=== PATIENT | male | born 1935 | race Caucasian/White ===

== ENCOUNTER → 2018-04-15 07:56 | Outpatient (CLI) | payer OTHER, SELFPAY ==
[2018-04-15 09:10] LABS: Add Manual Diff / Slide Review NO; Basophils Absolute Auto 100 /uL (0-100); Basophils Percent Auto 0.8 % (0-2); Eosinophils Absolute Auto 200 /uL (0-450); Eosinophils Percent Auto 1.9 % (2-4); Hematocrit 51.6 % (41-53); Hemoglobin 17.9 g/dL (13.5-17.5); Lymphocytes Absolute Auto 2300 /uL (1100-4500); Lymphocytes Percent Auto 28.7 % (25-40); Mean Corpuscular HGB Conc 34.7 % (30-36); Mean Corpuscular Hemoglobin 31.5 PG (26-34); Mean Corpuscular Volume 90.7 fL (80-100); Monocytes Absolute Auto 500 /uL (0-900); Monocytes Percent Auto 5.7 % (3-14); Neutrophils Absolute Auto 5100 /uL (1500-7000); Neutrophils Percent Auto 62.9 % (50-75); Platelet Count 195 X10^3/uL (150-400); Red Blood Cell Count 5.69 X10^6/uL (4.5-5.9); Red Cell Distribution Width 13.2 % (11.6-14.8); White Blood Cell Count 8.1 X10^3/uL (4.5-11.0)
[2018-04-15 09:33] LABS: Alanine Aminotransferase 26 IU/L (21-72); Albumin 4.2 g/dL (3.5-5.0); Albumin Globulin Ratio 1.4 (1.0-2.8); Alkaline Phosphatase 98 U/L (38-126); Aspartate Aminotransferase 26 IU/L (17-59); BUN Creatinine Ratio 11.8 (6-22); Bilirubin Total 0.9 mg/dL (0.2-1.3); Blood Urea Nitrogen 13 mg/dL (9-20); Calcium 9.4 mg/dL (8.4-10.2); Carbon Dioxide 29 mmol/L (22-32); Chloride 100 mmol/L (98-107); Cholesterol 114 mg/dL (140-199); Estimated Glomerular Filt Rate > 60.0 mL/min (>60); Glucose 98 mg/dL (80-110); HDL Cholesterol 34 mg/dL (40-60); HEMOLYSIS < 15 (0-50); LDL Cholesterol Calculated 44 mg/dL (<100); Potassium 3.8 mmol/L (3.4-5.1); Sodium 140 mmol/L (137-145); Total Protein 7.2 g/dL (6.3-8.2); Triglycerides 182 mg/dL (35-150)
[2018-04-15 10:06] LABS: TSH w/ Reflex to FT4 2.89 uIU/mL (0.47-4.68)
== END ==
PROVIDERS: Family Provider Family Medicine; PCP Family Medicine; Visit Provider Family Medicine
DX: I25.10 Atherosclerotic heart disease of native coronary artery without angina pectoris (principal); I10 Essential (primary) hypertension
CPT/HCPCS: 36415; 80053; 80061; 84443; 85025

== ENCOUNTER → 2018-08-22 18:58 | Outpatient (CLI) | payer OTHER, SELFPAY ==
--- NOTE | 2018-08-22 19:03 | DI.RAD.S_ITS ---
PROCEDURE: XR FACIAL BONES MIN 3V INDICATIONS: Fall, hit face, laceration to nose and forehead TECHNIQUE: 3 views of the facial bones were acquired. COMPARISON: None. FINDINGS: Sinuses: Visualized sinuses demonstrate no air-fluid levels or mucosal thickening. Bones: No fractures. No suspicious bony lesions. Orbital rims and zygomatic arches appear intact. There is severe degenerative change of the cervical spine. Dental implants are noted within the anterior mandible. Soft tissues: No suspicious soft tissue densities. IMPRESSION: No convincing radiographic evidence of an acute facial fracture. Consider followup CT if there is continued clinical concern. Dictated by: Domenico Hirsch M.D. on 08/22/2018 at 23:38 Approved by: Domenico Hirsch M.D. on 08/22/2018 at 23:40
== END ==
PROVIDERS: Family Provider Family Medicine; PCP Family Medicine; Visit Provider Physician Assistant
DX: S00.83XA Contusion of other part of head, initial encounter (principal); W18.00XA Striking against unspecified object with subsequent fall, initial encounter
CPT/HCPCS: 70150

== ENCOUNTER 2018-12-27 17:36 | Emergency (ER) | payer OTHER, SELFPAY ==
[2018-12-27 17:44] VITALS: BP 139/75; PULSE 91; RESP 16; TEMP 37.1; O2SAT 99; BMI 22.5
[2018-12-27 18:42] LABS: RBC Urine 1-5/HPF (0-5/HPF); Squamous Epithelial Cell Urine 0-1 /HPF (0-5/HPF); WBC Urine 10-30/HPF (0-5/HPF)
[2018-12-27 18:43] LABS: Bacteria Urine Many (>30); Culture Indicated Urine Specimen Cultured
--- NOTE | 2018-12-27 18:55 | ED.MALEGU ---
HPI - Male Genitourinary <DECLAN Miguel-BC - Last Filed: 12/27/18 19:52> General Chief complaint: Urogenital-Male Stated complaint: Post surgical UTI Time Seen by Provider: 12/27/18 18:32 Source: patient and family Mode of arrival: Ambulatory Limitations: no limitations History of Present Illness HPI Narrative: The patient is an 83-year-old male current smoker with history of with a chief complaint of urinary tract infection. He states that he had an angio procedure done at [facility] on Sunday. He states that he had a Chen catheter which was removed on Sunday evening. Yesterday started having dysuria, and frequency. Patient denies any flank pain, fevers nausea vomiting or diarrhea. He denies any abdominal pain. His is concerned about urinary tract infection, especially given his recent Chen catheter. Related Data Home Medications Medication Instructions Recorded Confirmed amlodipine 2.5 mg PO DAILY 12/27/18 12/27/18 atorvastatin 40 mg PO BEDTIME 12/27/18 clopidogrel 75 mg PO DAILY 12/27/18 12/27/18 hydrochlorothiazide 12.5 mg PO DAILY 12/27/18 12/27/18 Previous Rx's Medication Instructions Recorded sulfamethoxazole-trimethoprim 1 tab PO BID #14 tab 12/27/18 [Bactrim DS] Allergies Allergy/AdvReac Type Severity Reaction Status Date / Time No Known Drug Allergies Allergy Verified 12/27/18 17:58 Review of Systems <DECLAN Miguel-BC - Last Filed: 12/27/18 19:52> Review of Systems Narrative: GENERAL: Denies chills, fatigue, malaise, fever, sweats. HEENT: Denies sinus pain, ear pain, sore throat, difficulty swallowing, dizziness. RESPIRATORY: Denies dyspnea, cough, wheezing, hemoptysis, sputum. CARDIOVASCULAR: Denies chest pain, palpitations, orthopnea, edema, GASTROINTESTINAL: Denies nausea, vomiting, abdominal pain, diarrhea, constipation, melena. : See HPI MUSCULOSKELETAL: denies weakness, joint pain, or bony pain SKIN: Denies rash, skin lesions, or other NEUROLOGIC: Denies weakness, headache, numbness, change in speech, confusion, seizures, incoordination. PSYCHIATRIC: No concerning psychosocial issues. 12 point review of systems is negative except for those stated above Patient History <ZULEYKA Miguel - Last Filed: 12/27/18 19:52> Medical History (Updated 12/27/18 @ 18:57 by ZULEYKA Miguel) Hypertension (Acute) Social History Smoking Status: Current every day smoker tobacco type: cigarettes Substance Use Type: does not use Exam <ZULEYKA Miguel - Last Filed: 12/27/18 19:52> Narrative Exam Narrative: GENERAL: This is a well-nourished, well-developed patient, in no acute distress HEAD: Atraumatic. Normocephalic. No temporal or scalp tenderness. EYES: Pupils equal round and reactive. Extraocular motions intact. No scleral icterus. No injection or drainage. ENT: Nose without bleeding, purulent drainage or septal hematoma. Throat without erythema, tonsillar hypertrophy or exudate. Uvula midline. Airway patent. NECK: Trachea midline. No JVD or lymphadenopathy. Supple, nontender, no meningeal signs. CARDIOVASCULAR: Regular rate and rhythm without murmurs, gallops, or rubs. RESPIRATORY: Clear to auscultation. Breath sounds equal bilaterally. No wheezes, rales, or rhonchi. No cough. No increased respiratory effort. No accessory muscle use. GASTROINTESTINAL: Abdomen soft, non-tender, nondistended. No hepato-splenomegaly, or palpable masses. No guarding. EXTREMITIES: No clubbing, cyanosis, or edema. No joint tenderness, effusion, or edema noted. BACK: Nontender without deformity or crepitance. No flank tenderness. No CVA tenderness. NEURO: AOx3. SKIN: No rash or erythema visible skin Initial Vital Signs Initial Vital Signs: Vital Signs Temperature 98.7 F 12/27/18 17:44 Pulse Rate 91 H 12/27/18 17:44 Respiratory Rate 16 12/27/18 17:44 Blood Pressure 139/75 12/27/18 17:44 Pulse Oximetry 99 12/27/18 17:44 <Dyllan Dueñas DO - Last Filed: 12/27/18 21:44> Initial Vital Signs Initial Vital Signs: Vital Signs Temperature 98.7 F 12/27/18 17:44 Pulse Rate 91 H 12/27/18 17:44 Respiratory Rate 16 12/27/18 17:44 Blood Pressure 139/75 12/27/18 17:44 Pulse Oximetry 99 12/27/18 17:44 Course <ZULEYKA Miguel - Last Filed: 12/27/18 19:52> Orders Ordered: ED Orders 12/27/18 18:15 Urine Culture Stat Urine Microscopic Stat Vital Signs Vital signs: Vital Signs - 8 hr 12/27/18 17:44 12/27/18 19:12 12/27/18 19:13 Temperature 98.7 F 98.4 F Pulse Rate 91 H 91 H 91 H Respiratory Rate 16 18 16 Blood Pressure 139/75 139/66 Blood Pressure [Left Arm] 139/66 Pulse Oximetry 99 99 99 <Dyllan Dueñas DO - Last Filed: 12/27/18 21:44> Orders Ordered: ED Orders 12/27/18 18:15 Urine Culture Stat Urine Microscopic Stat Vital Signs Vital signs: Vital Signs - 8 hr 12/27/18 17:44 12/27/18 19:12 12/27/18 19:13 Temperature 98.7 F 98.4 F Pulse Rate 91 H 91 H 91 H Respiratory Rate 16 18 16 Blood Pressure 139/75 139/66 Blood Pressure [Left Arm] 139/66 Pulse Oximetry 99 99 99 MDM - Male Genitourinary <ZULEYKA Miguel - Last Filed: 12/27/18 19:52> Lab Data Labs: Lab Results 12/27/18 Range/Units 18:15 Urine RBC 1-5/hpf (0-5/HPF) Urine WBC 10-30/hpf H (0-5/HPF) Ur Squamous Epith Cells 0-1 /hpf (0-5/HPF) Urine Bacteria Many (>30) H (None) Ur Culture Indicated? Specimen cultured Urine Dip Bedside Urine Glucose Negative Bedside Urine Bilirubin - Negative Bedside Urine Ketone - Negative Urine Specific [place] 1.015 Bedside Urine Occult Blood + Bedside Urine pH 6.0 Bedside Urine Protein + 30 Bedside Urine Urobilinogen +/- 1mg Bedside Urine Nitrite + Positive Bedside Urine Leukocytes ++ 125 Esterase MDM Narrative Medical decision making narrative: The patient is an 83-year-old male who presents with a chief complaint of dysuria and frequency. His urine is concerning for infection, with bacteria and nitrates. He has no signs of systemic infection, is not tachycardic, is afebrile. I discussed at length monitoring for signs of pyelonephritis including flank pain, vomiting, inability keep down fluids. Urine cultures pending at this time. I will start the patient on Bactrim. Patient have no questions or concerns upon discharge and states understanding of return precautions as well as follow-up care. <Dyllan Dueñas, DO - Last Filed: 12/27/18 21:44> Lab Data Labs: Lab Results 12/27/18 Range/Units 18:15 Urine RBC 1-5/hpf (0-5/HPF) Urine WBC 10-30/hpf H (0-5/HPF) Ur Squamous Epith Cells 0-1 /hpf (0-5/HPF) Urine Bacteria Many (>30) H (None) Ur Culture Indicated? Specimen cultured Urine Dip Bedside Urine Glucose Negative Bedside Urine Bilirubin - Negative Bedside Urine Ketone - Negative Urine Specific [place] 1.015 Bedside Urine Occult Blood + Bedside Urine pH 6.0 Bedside Urine Protein + 30 Bedside Urine Urobilinogen +/- 1mg Bedside Urine Nitrite + Positive Bedside Urine Leukocytes ++ 125 Esterase Discharge Plan Departure Patient Disposition: Home Clinical Impression: Urinary tract infection Qualifiers: Urinary tract infection type: site unspecified Hematuria presence: without hematuria Qualified Code(s): N39.0 - Urinary tract infection, site not specified Discharge Date/Time: 12/27/18 19:16 Instructions: DI for Urinary Tract Infection (UTI) Activity Restrictions/Additional Instructions: I have started you on an antibiotic for your urinary tract infection. [facility]. We have urine culture pending at this time. If we have to change your antibiotics, he will get a call in 2-3 days. Please monitor for flank pain, fever, inability keep down fluids or any acute changes. Please come back To emergency department for any acute concerns. Please rest and push fluids. Please follow up with primary care provider in the next few days. Prescriptions: New sulfamethoxazole-trimethoprim [Bactrim DS] 800-160 mg tablet 1 tab PO BID Qty: 14 RF: 0 No Action atorvastatin 40 mg tablet 40 mg PO BEDTIME RF: 0 amlodipine 2.5 mg tablet 2.5 mg PO DAILY RF: 0 clopidogrel 75 mg tablet 75 mg PO DAILY RF: 0 hydrochlorothiazide 12.5 mg capsule 12.5 mg PO DAILY RF: 0 Referrals: Dusty Robbins MD [Primary Care Provider] - <Dyllan Dueñas, - Last Filed: 12/27/18 21:44> Sign Out Provider Sign Out Attestation: Dr Dueñas Co-Sign Statement: I was available for consultation during this patient's emergency department visit. This chart is signed by myself for administrative purposes only. I did not have direct contact with this patient during this visit. They were seen independently by the APC.
[2018-12-27 19:12] VITALS: BP 139/66; PULSE 91; RESP 18; O2SAT 99
[2018-12-27 19:13] VITALS: BP 139/66; PULSE 91; RESP 16; TEMP 36.9; O2SAT 99
== END 2018-12-27 19:16 | disposition home or self-care (01) ==
PROVIDERS: Emergency Medicine; Emergency Provider Nurse Practitioner Family; Family Provider Internal Medicine Interventional Cardiology; PCP Family Medicine
DX: N39.0 Urinary tract infection, site not specified (principal); I10 Essential (primary) hypertension
CPT/HCPCS: 81003; 81015; 87077; 87086; 87186; 99282; 99283

== ENCOUNTER → 2019-03-10 12:05 | Outpatient (CLI) | payer OTHER, SELFPAY ==
--- NOTE | 2019-03-10 12:06 | DI.RAD.S_ITS ---
PROCEDURE: XR HIP W PEL IF DONE LT MIN 4V INDICATIONS: pain after fall TECHNIQUE: AP pelvis with lateral view(s) of both hips. COMPARISON: [facility], , PELVIS MINIMUM 3 VIEWS, 06/15/2015, 15:39. [facility], , XR SACRUM COCCYX MIN 2V, 03/10/2019, 12:03. [facility], , [id number] W PEL IF PERFORMED, 04/10/2015, 17:05. FINDINGS: Bones: Osteopenia. Transsacral and right superior pubic ramus screw fixation is unchanged. No casey-screw lucency. No acute fractures or dislocations. Pelvic ring appears intact. No suspicious bony lesions. Soft tissues: The visualized bowel gas pattern is normal. No suspicious soft tissue calcifications. Surgical clips in the groins bilaterally. Vascular calcification. IMPRESSION: No fracture or dislocation identified. Osteopenia. Recommend CT of the pelvis for further evaluation if concern for occult fracture. Transsacral and right superior pubic ramus screw fixation and is unchanged. Dictated by: Luigi Almazan M.D. on 03/10/2019 at 12:44 Approved by: Luigi Almazan M.D. on 03/10/2019 at 12:48
--- NOTE | 2019-03-10 12:06 | DI.RAD.S_ITS ---
PROCEDURE: XR SACRUM COCCYX MIN 2V INDICATIONS: pain after fall TECHNIQUE: 3 views of the sacrum and coccyx acquired. COMPARISON: [facility], CR, XR HIP W PEL IF DONE [place] 3TO4V, 03/10/2019, 12:03. FINDINGS: Bones: No fractures or dislocations. No suspicious bony lesions. Transsacral and superior right pubic ramus screw fixation is unchanged. Soft tissues: Visualized bowel gas pattern is normal. No suspicious soft tissue densities. IMPRESSION: No acute fracture identified. Dictated by: Luigi Almazan M.D. on 03/10/2019 at 12:48 Approved by: Luigi Almazan M.D. on 03/10/2019 at 12:49
== END ==
PROVIDERS: Family Provider Internal Medicine Interventional Cardiology; PCP Family Medicine; Referring Provider Physician Assistant; Visit Provider Physician Assistant
DX: M53.3 Sacrococcygeal disorders, not elsewhere classified (principal); M25.559 Pain in unspecified hip; M85.80 Other specified disorders of bone density and structure, unspecified site
CPT/HCPCS: 72220; 73522

== ENCOUNTER 2019-06-28 15:07 | Emergency (ER) | payer OTHER, SELFPAY ==
--- NOTE | 2019-06-28 15:13 | DI.CT.S_ITS ---
PROCEDURE: CT HEAD/BRAIN WO CON INDICATIONS: fall w/ head injury on Plavix TECHNIQUE: Noncontrast 4.5 mm thick angled axial sections acquired from the foramen magnum to the vertex, with coronal and sagittal reformats. For radiation dose reduction, the following was used: automated exposure control, adjustment of mA and/or kV according to patient size. COMPARISON: None. FINDINGS: Image quality: Excellent. CSF spaces: Basal cisterns are patent. No extra-axial fluid collections. The ventricles are symmetric in size and shape. Brain: No intracranial bleeds or masses. There is cerebral volume loss for age, with resultant ventricular and sulcal prominence. There are periventricular and deep white matter chronic small vessel ischemic changes. There is intracranial internal carotid artery atherosclerosis. Skull and face: Frontal scalp swelling and hematoma is seen more prominent on the left side. Age indeterminant bilateral anterior nasal bone deformity is seen. No acute calvarial fracture. Bilateral orbital saavedra are intact. Sinuses: Visualized sinuses and mastoids are clear. IMPRESSION: 1. No CT evidence of acute intracranial pathology. Age-appropriate atrophy and mild periventricular white matter chronic small vessel ischemic changes. 2. Frontal scalp swelling and hematoma. No acute skull fracture. Age indeterminant bilateral nasal bone fracture. Bilateral orbital saavedra are intact. Dictated by: Rip Thornton M.D. on 06/28/2019 at 15:34 Approved by: Rip Thornton M.D. on 06/28/2019 at 15:36
[2019-06-28 15:14] VITALS: BP 147/78; PULSE 83; RESP 16; TEMP 36.5; O2SAT 98; BMI 23.7
--- NOTE | 2019-06-28 15:21 | ED_ITS ---
HPI - Head Injury <JOANA Díaz - Last Filed: 06/28/19 20:57> General Chief complaint: Trauma Stated complaint: GLF, hit his forehead, wound R hand,nose bleed Time Seen by Provider: 06/28/19 15:13 Source: patient Mode of arrival: Ambulatory History of Present Illness HPI Narrative: 84-year-old male currently taking Plavix with a history of atherosclerosis, cardiac bypass, balance issues, presents to the emergency department for a head injury after a fall. Patient states he was walking with his cane and leaned ?too far forward and I went down. Patient denies any syncope, he states he was able to get up from the fall by himself. He reports he has a small laceration to the left side of his eyebrow, bleeding was controlled with mild pressure. Patient denies any vision changes, neck pain, shoulder pain, elbow pain, hand pain, hip pain, knee pain, or ankle pain. He denies any feelings of dizziness or weakness prior to the fall. He denies chest pain, fevers, nausea, vomiting, diarrhea, or any other concerns. Patient arrives with family. Modified Trauma called. Related Data Home Medications Medication Instructions Recorded Confirmed amlodipine 2.5 mg PO DAILY 12/27/18 12/27/18 atorvastatin 40 mg PO BEDTIME 12/27/18 clopidogrel 75 mg PO DAILY 12/27/18 12/27/18 hydrochlorothiazide 12.5 mg PO DAILY 12/27/18 12/27/18 nitroglycerin 0.4 mg sublingual 0.4 mg SL Q5M PRN 03/10/19 03/10/19 tablet tadalafil 20 mg tablet 20 mg PO DAILY PRN 03/10/19 03/10/19 Allergies Allergy/AdvReac Type Severity Reaction Status Date / Time No Known Drug Allergies Allergy Verified 06/28/19 15:16 Review of Systems <JOANA Díaz - Last Filed: 06/28/19 20:57> Review of Systems Narrative: REVIEW OF SYSTEMS: GENERAL: Denies fever or chills. HENT: Reports head trauma, see HPI. EYES: No loss of vision, double vision, eye pain, or irritation. CARDIOVASCULAR: No chest pain or syncope. RESPIRATORY: No shortness of breath or cough. GASTROINTESTINAL: No nausea, vomiting, diarrhea, or constipation. GENITOURINARY: No flank pain or dysuria. MUSCULOSKELETAL: No pain, weakness, or deformities. INTEGUMENTARY: No rash, lesions, or pruritus. NEURO: No numbness, tingling, memory loss, or confusion. PSYCH: No behavior or mood changes. Patient History <JOANA Díaz - Last Filed: 06/28/19 20:57> Medical History Contusion of buttock (Acute) Fall (Acute) Hypertension (Acute) Social History Smoking Status: Current every day smoker Smoking Status: Current every day smoker tobacco type: cigarettes Substance Use Type: does not use Exam <JOANA Díaz - Last Filed: 06/28/19 20:57> Initial Vital Signs Initial Vital Signs: Vital Signs Temperature 97.7 F 06/28/19 15:14 Pulse Rate 83 06/28/19 15:14 Respiratory Rate 16 06/28/19 15:14 Blood Pressure 147/78 H 06/28/19 15:14 Pulse Oximetry 98 06/28/19 15:14 PHYSICAL EXAMINATION: GENERAL: Well groomed, alert, and cooperative. Answers questions promptly and appropriately. Vital signs noted. HENT: Normocephalic. A 2.5 cm vertical laceration noted to left eyebrow, bleeding controlled with pressure, wound irrigated, no foreign bodies. No tenderness to palpation of orbital socket. Ear canals patent. Oral mucosa is pink and moist. Oropharynx without erythema. No nasal swelling, bleeding, or tenderness. EYES: PERRLA, EOMIs, conjunctiva pink, sclera white, no periorbital swelling. NECK: Full ROM, no midline or spinal tenderness. CARDIOVASCULAR: S1 and S2 sounds normal. Regular rate and rhythm, no murmurs, clicks, or bruits. RESPIRATORY: Normal respiratory rate, trachea midline, airway patent. No stridor, nasal flaring or accessory muscle use. Lungs are clear in all [place] without wheeze, rhonchi, or crackles. MUSCULOSKELETAL: Normal gait and coordination. Equal tone and mass bilaterally. Equal strength bilaterally to upper and lower extremities. No spinal tenderness. No pain to palpation of the clavicles, shoulders, elbows, wrists, hands, hips, knees, or ankles. EXTREMITIES: CMS intact. Moves all extremities. SKIN: Warm, dry, soft, appropriate color for ethnicity. A small skin tear approximately 1 cm in diameter noted to back of right hand below MCP joint of 2nd and 3rd finger. Bleeding controlled with pressure. Wound irrigated. NEURO: Alert and Oriented X 3. GCS: 15. Good coordination. No ataxia, or sensory deficits, or cognitive issues. Cranial Nerves: II: Visual alston grossly intact. III & IV & : EOMIs V: Able to open and close jaw. VII: Facial movements symetrical. Able to close eyelids tightly. VIII: Hearing grossly intact, adequate balance. X: Uvula pronation intact. XI: Patient is able to shrug shoulders. XII: Patient is able to stick out tongue and move it side to side. PSYCH: Appropriate affect and mood. <Olaf Patiño MD - Last Filed: 06/29/19 15:28> Initial Vital Signs Initial Vital Signs: Vital Signs Temperature 97.7 F 06/28/19 15:14 Pulse Rate 83 06/28/19 15:14 Respiratory Rate 16 06/28/19 15:14 Blood Pressure 147/78 H 06/28/19 15:14 Pulse Oximetry 98 06/28/19 15:14 Scores <JOANA Díaz - Last Filed: 06/28/19 20:57> Nexus Score for C-Spine Focal Neurologic deficit present: No Midline spinal tenderness present: No Altered level of conciousness present: No Intoxication present: No Distracting Injury Present: No Nexus Criteria for C-spine: 0 NIH Stroke Scale Level of Conciousness: Alert, keenly responsive Ask month/age: Answers both questions correctly. Open/close eyes, close hand: Performs both tasks correctly Best gaze horizontal: Normal Visual alston: No visual loss Facial palsy: Normal symetrical movement Left arm drift: No drift for full 10 sec Right arm drift: No drift for full 10 sec Left leg drift: No drift for full 10 sec Right leg drift: No drift for full 10 sec Limb ataxia: Absent Sensory on face/arms/legs: Normal, no sensory loss Best language: No aphasia, normal Dysarthria: Normal Extinction or inattention: No abnormality Total NIH Stroke scale score: 0 Course <JOANA Díaz - Last Filed: 06/28/19 20:57> Course Course Narrative: Patient remained awake and alert and responsive throughout the emergency department stay. Orders Ordered: Discontinued Medications Diphtheria/Tetanus/Acell Pertussis (Adacel) 0.5 ml IM .ONCE ONE Stop: 06/28/19 15:14 Last Admin: 06/28/19 15:46 Dose: 0.5 ml Documented by: MADDIE Vital Signs Vital signs: Vital Signs - 8 hr 06/28/19 15:14 06/28/19 15:30 06/28/19 16:00 Temperature 97.7 F Pulse Rate 83 68 76 Respiratory Rate 16 16 16 Blood Pressure 147/78 H Blood Pressure [Right Arm] 144/67 H 124/76 Pulse Oximetry 98 96 95 <Olaf Patiño MD - Last Filed: 06/29/19 15:28> Orders Ordered: Discontinued Medications Diphtheria/Tetanus/Acell Pertussis (Adacel) 0.5 ml IM .ONCE ONE Stop: 06/28/19 15:14 Last Admin: 06/28/19 15:46 Dose: 0.5 ml Documented by: MADDIE Vital Signs Vital signs: Vital Signs - 8 hr 06/28/19 15:14 06/28/19 15:30 06/28/19 16:00 Temperature 97.7 F Pulse Rate 83 68 76 Respiratory Rate 16 16 16 Blood Pressure 147/78 H Blood Pressure [Right Arm] 144/67 H 124/76 Pulse Oximetry 98 96 95 MDM - Head Injury <JOANA Díaz - Last Filed: 06/28/19 20:57> Medical Records Attestation: I reviewed the patient's medical records. Lab Data Attestation: I reviewed the patient's lab results. Result diagrams: 06/28/19 15:57 Labs: Lab Results 06/28/19 Range/Units 15:57 WBC 6.6 (4.5-11.0) X10^3/uL RBC 5.04 (4.5-5.9) X10^6/uL Hgb 16.2 (13.5-17.5) g/dL Hct 45.2 (41-53) % MCV 89.7 (80-100) fL MCH 32.2 (26-34) PG MCHC 35.9 (30-36) % RDW 13.3 (11.6-14.8) % Plt Count 173 (150-400) X10^3/uL Neut % (Auto) 65.0 (50-75) % Lymph % (Auto) 26.1 (25-40) % Coffee % (Auto) 5.2 (3-14) % Eos % (Auto) 2.6 (2-4) % Baso % (Auto) 1.1 (0-2) % Neut # (Auto) 4300 (9828-8304) /uL Lymph # (Auto) 1700 (7485-6549) /uL Coffee # (Auto) 300 (0-900) /uL Eos # (Auto) 200 (0-450) /uL Baso # (Auto) 100 (0-100) /uL Imaging Data CT scan - head: Radiologist's Impression: [place] [address] CT Scan Report Signed Patient: Je Hassan VMR#: [id number] : 7Acct:[id number] Age/Sex: 84 / MDate of Service: 06/28/19 Loc: ED Accession Number: [id number] Procedure: CT head/brain wo con Ordering Provider: Olaf Patiño MD PROCEDURE: CT HEAD/BRAIN WO CON INDICATIONS: fall w/ head injury on Plavix TECHNIQUE: Noncontrast 4.5 mm thick angled axial sections acquired from the foramen magnum to the vertex, with coronal and sagittal reformats. For radiation dose reduction, the following was used: automated exposure control, adjustment of mA and/or kV according to patient size. COMPARISON: None. FINDINGS: Image quality: Excellent. CSF spaces: Basal cisterns are patent. No extra-axial fluid collections. The ventricles are symmetric in size and shape. Brain: No intracranial bleeds or masses. There is cerebral volume loss for age, with resultant ventricular and sulcal prominence. There are periventricular and deep white matter chronic small vessel ischemic changes. There is intracranial internal carotid artery atherosclerosis. Skull and face: Frontal scalp swelling and hematoma is seen more prominent on t he left side. Age indeterminant bilateral anterior nasal bone deformity is seen. No acute calvarial fracture. Bilateral orbital saavedra are intact. Sinuses: Visualized sinuses and mastoids are clear. IMPRESSION: 1. No CT evidence of acute intracranial pathology. Age-appropriate atrophy and mild periventricular white matter chronic small vessel ischemic changes. 2. Frontal scalp swelling and hematoma. No acute skull fracture. Age indeterminant bilateral nasal bone fracture. Bilateral orbital saavedra are intact. Dictated by: Rip Thornton M.D. on 06/28/2019 at 15:34 Approved by: Rip Thornton M.D. on 06/28/2019 at 15:36 [facility] Narrative Medical decision making narrative: 84-year-old male who is currently taking Susie vix, presents emergency department for a head injury post mechanical fall. Modified trauma was called. CT head ordered showing no skull fractures or cranial bleed. There is an age indeterminate nasal fracture noted on imaging, I do not believe this to be acute as patient does not have any nasal swelling or nasal tenderness. Rather injuries are isolated to the left forehead. CT confirms hematoma without fracture in this area. Further decreased suspicion of acute cranial etiology due to normal neurological exam without concerning findings such as syncope, headache, or vomiting. Less likely neck fracture due to mechanism of injury and nexus criteria score of 0. I suspect patient's follows most likely mechanical due to clear story and patient's report of balance issues, patient also reports leaning forward and losing his balance. He is alert and awake and denies symptoms such as dizzin ess, chest pain, shortness of breath, or weakness prior and post fall. Patient's CBC is stable without concerns of acute blood loss or anemia. Laceration was repaired with glue, no foreign bodies are since infection. Return precautions given for new or worsening symptoms Follow-up instructions discussed. Patient and family agreed to plan of care verbalized understanding. <Olaf Patiño MD - Last Filed: 06/29/19 15:28> Lab Data Labs: Lab Results 06/28/19 Range/Units 15:57 WBC 6.6 (4.5-11.0) X10^3/uL RBC 5.04 (4.5-5.9) X10^6/uL Hgb 16.2 (13.5-17.5) g/dL Hct 45.2 (41-53) % MCV 89.7 (80-100) fL MCH 32.2 (26-34) PG MCHC 35.9 (30-36) % RDW 13.3 (11.6-14.8) % Plt Count 173 (150-400) X10^3/uL Neut % (Auto) 65.0 (50-75) % Lymph % (Auto) 26.1 (25-40) % Coffee % (Auto) 5.2 (3-14) % Eos % (Auto) 2.6 (2-4) % Baso % (Auto) 1.1 (0-2) % Neut # (Auto) 4300 (2162-9973) /uL Lymph # (Auto) 1700 (0268-7690) /uL Coffee # (Auto) 300 (0-900) /uL Eos # (Auto) 200 (0-450) /uL Baso # (Auto) 100 (0-100) /uL Discharge Plan Departure Patient Disposition: Home Clinical Impression: Laceration Head injury Qualifiers: Encounter type: initial encounter Qualified Code(s): S09.90XA - Unspecified injury of head, initial encounter Discharge Date/Time: 06/28/19 16:52 Instructions: DI for Laceration Repair, DI for Closed Head Injury Activity Restrictions/Additional Instructions: Thank you for entrusting me with your care today. As discussed, your CT and lab work are non-remarkable. I repaired the laceration on your head with glue, do not put Neosporin or ointment on this area for the next week as this will dissolve the glue too quickly. You can wash the area after 12 hours in the shower, do not scrub the area. No foreign bodies were found in your wound today. While there is low-risk for infection at this time, retained foreign bodies and infection are always possible with any cut or break in the skin. Please monitor the wound closely and be re-evaluated immediately if you develop any signs of infection such as pus, increasing redness, increasing pain, fevers, or any other concerns. Please return emergency department immediately if you develop severe head pain, vision changes, uncontrollable vomiting, chest pain, or any other concerns. Follow-up with your primary care provider in 1 week for further evaluation. Prescriptions: No Action tadalafil 20 mg tablet 20 mg PO DAILY PRNRF: 0 nitroglycerin 0.4 mg tablet, sublingual 0.4 mg SL Q5M PRNRF: 0 atorvastatin 40 mg tablet 40 mg PO BEDTIME RF: 0 amlodipine 2.5 mg tablet 2.5 mg PO DAILY RF: 0 clopidogrel 75 mg tablet 75 mg PO DAILY RF: 0 hydrochlorothiazide 12.5 mg capsule 12.5 mg PO DAILY RF: 0 Referrals: Dusty Robbins MD [Primary Care Provider] -
[2019-06-28 15:30] VITALS: BP 144/67; PULSE 68; RESP 16; O2SAT 96
[2019-06-28] MEDS: TET,DIPH,PERTUSS(ACELL),VAC/PF 0.5 ML SYRINGE IM (15:46)
[2019-06-28 16:00] VITALS: BP 124/76; PULSE 76; RESP 16; O2SAT 95
[2019-06-28 16:07] LABS: Add Manual Diff / Slide Review NO; Basophils Absolute Auto 100 /uL (0-100); Basophils Percent Auto 1.1 % (0-2); Eosinophils Absolute Auto 200 /uL (0-450); Eosinophils Percent Auto 2.6 % (2-4); Hematocrit 45.2 % (41-53); Hemoglobin 16.2 g/dL (13.5-17.5); Lymphocytes Absolute Auto 1700 /uL (1100-4500); Lymphocytes Percent Auto 26.1 % (25-40); Mean Corpuscular HGB Conc 35.9 % (30-36); Mean Corpuscular Hemoglobin 32.2 PG (26-34); Mean Corpuscular Volume 89.7 fL (80-100); Monocytes Absolute Auto 300 /uL (0-900); Monocytes Percent Auto 5.2 % (3-14); Neutrophils Absolute Auto 4300 /uL (1500-7000); Platelet Count 173 X10^3/uL (150-400); Red Blood Cell Count 5.04 X10^6/uL (4.5-5.9); Red Cell Distribution Width 13.3 % (11.6-14.8); White Blood Cell Count 6.6 X10^3/uL (4.5-11.0)
== END 2019-06-28 16:52 | disposition home or self-care (01) ==
PROVIDERS: Emergency Provider Nurse Practitioner; Family Provider Internal Medicine Interventional Cardiology; PCP Family Medicine
DX: S01.112A Laceration without foreign body of left eyelid and periocular area, initial encounter (principal); S09.90XA Unspecified injury of head, initial encounter; W19.XXXA Unspecified fall, initial encounter; Z23 Encounter for immunization
CPT/HCPCS: 36415; 70450; 85025; 90471; 99284; 90715

== ENCOUNTER → 2019-09-29 07:44 | Outpatient (CLI) | payer OTHER, SELFPAY ==
[2019-09-29 08:47] LABS: Alanine Aminotransferase 18 IU/L (<50); Albumin 4.5 g/dL (3.5-5.0); Albumin Globulin Ratio 1.6 (1.0-2.8); Alkaline Phosphatase 109 U/L (38-126); Aspartate Aminotransferase 32 IU/L (17-59); BUN Creatinine Ratio 12.5 (6-22); Bilirubin Total 1.1 mg/dL (0.2-1.3); Blood Urea Nitrogen 16 mg/dL (9-20); Calcium 9.4 mg/dL (8.4-10.2); Carbon Dioxide 29 mmol/L (22-32); Chloride 101 mmol/L (98-107); Cholesterol 114 mg/dL (140-199); Estimated Glomerular Filt Rate 53.7 mL/min (>60); Globulin 2.9 g/dL (1.7-4.1); Glucose 95 mg/dL (80-110); HDL Cholesterol 43 mg/dL (40-60); HEMOLYSIS 16 (0-50); LDL Cholesterol Calculated 41 mg/dL (<100); Potassium 4.5 mmol/L (3.4-5.1); Sodium 139 mmol/L (137-145); Total Protein 7.4 g/dL (6.3-8.2); Triglycerides 152 mg/dL (35-150)
== END ==
PROVIDERS: Family Provider Internal Medicine Interventional Cardiology; PCP Internal Medicine; Referring Provider Internal Medicine; Visit Provider Internal Medicine
DX: E78.2 Mixed hyperlipidemia (principal); I10 Essential (primary) hypertension; I73.9 Peripheral vascular disease, unspecified
CPT/HCPCS: 36415; 80053; 80061

== ENCOUNTER 2019-11-02 09:21 | Inpatient (IN) | payer OTHER, SELFPAY ==
[2019-11-02] VITALS (23 sets, daily range): BP systolic 67–125; BP diastolic 50–70; PULSE 63–125; RESP 15–28; TEMP 36.1–37.4; O2SAT 93–96; BMI 22.8
--- NOTE | 2019-11-02 09:29 | DI.RAD.S_ITS ---
PROCEDURE: XR CHEST 1V INDICATIONS: syncope TECHNIQUE: One view of the chest was acquired. COMPARISON: [facility], CR, CHEST 1VW (PORTABLE), 04/13/2014, 21:47. [facility], CT, CT HEAD/BRAIN WO CON, 11/02/2019, 9:58. FINDINGS: Surgical changes and devices: Post CABG changes are seen. Lungs and pleura: Mild generalized interstitial prominence is seen. On this semiupright portable chest examination, no large pneumothorax or large pleural effusions are seen. No focal infiltrates are seen. Mediastinum: The cardiac contours are within normal limits. The aorta demonstrates calcification and tortuosity. Bones and chest wall: Age-appropriate bony degenerative changes are seen. Mild dextroconvex scoliotic curvature is seen. No suspicious bony lesions. Overlying soft tissues appear unremarkable. IMPRESSION: Interstitial prominence is seen throughout. The interstitial prominence is nonspecific, yet may be related to pulmonary edema. Postoperative and degenerative changes are seen. Dictated by: Trip Velarde M.D. on 11/02/2019 at 9:20 Approved by: Trip Velarde M.D. on 11/02/2019 at 9:21
--- NOTE | 2019-11-02 09:29 | DI.CT.S_ITS ---
PROCEDURE: CT HEAD/BRAIN WO CON INDICATIONS: syncope TECHNIQUE: Noncontrast 4.5 mm thick angled axial sections acquired from the foramen magnum to the vertex, with coronal and sagittal reformats. For radiation dose reduction, the following was used: automated exposure control, adjustment of mA and/or kV according to patient size. COMPARISON: [facility], CR, XR CHEST 1V, 11/02/2019, 9:52. [facility], CT, CT HEAD/BRAIN WO CON, 06/28/2019, 15:10. FINDINGS: Image quality: Excellent. CSF spaces: Basal cisterns are patent. No extra-axial fluid collections. The ventricles are symmetric in size and shape. Brain: No intracranial bleeds or masses. There is cerebral volume loss for age, with resultant ventricular and sulcal prominence. There are periventricular and deep white matter chronic small vessel ischemic changes. There is intracranial internal carotid artery atherosclerosis. Skull and face: Calvarium and visualized facial bones appear intact, without suspicious lesions. Sinuses: Visualized sinuses and mastoids are clear. IMPRESSION: Unremarkable intracranial study for age, without a cause of syncope identified. Note is made of age-appropriate brain parenchymal volume loss and chronic small vessel ischemic changes. Dictated by: rTip Velarde M.D. on 11/02/2019 at 9:23 Approved by: Trip Velarde M.D. on 11/02/2019 at 9:24
--- NOTE | 2019-11-02 09:32 | ED_ITS ---
HPI - Syncope General Chief Complaint: Syncope Stated Complaint: syncope Time Seen by Provider: 11/02/19 09:29 Source: patient and EMS Mode of arrival: EMS Limitations: no limitations History of Present Illness HPI narrative: Patient is an 84-year-old male history of CAD, COPD, hypertension hyperlipidemia presenting with a syncopal episode. He states that he was walking out to get the newspaper when he tripped and fell an embankment. EMS picked him up and he passed out for them briefly. His heart rate dropped but they were unsure how low it was caught on his Apple watch. He actually is in atrial fibrillation on our monitor her here with the rate in 118. Patient denies any dizziness lightheadedness chest pain or shortness of breath it does not appear that he has a known history of atrial fibrillation. Denies any injury from his fall. He has no complaints. Witnessed: yes - by EMS Related Data Home Medications Medication Instructions Recorded Confirmed amlodipine 2.5 mg PO DAILY 12/27/18 11/02/19 atorvastatin 40 mg PO BEDTIME 12/27/18 11/02/19 clopidogrel 75 mg PO DAILY 12/27/18 11/02/19 hydrochlorothiazide 12.5 mg PO DAILY 12/27/18 11/02/19 nitroglycerin 0.4 mg sublingual 0.4 mg SL Q5M PRN 03/10/19 11/02/19 tablet aspirin 81 mg tablet,delayed 81 mg PO DAILY 09/22/19 11/02/19 release colestipol 1 g PO DAILY 11/02/19 11/02/19 fluocinonide 1 applic TOPICAL DAILY 11/02/19 11/02/19 Allergies Allergy/AdvReac Type Severity Reaction Status Date / Time No Known Drug Allergies Allergy Verified 11/02/19 09:37 Review of Systems Review of Systems ROS Unobtainable: All systems reviewed & are unremarkable except as noted in HPI and below Constitutional Constitutional: Denies chills, Denies fever(s), Denies frequent falls and Denies headache(s) Eyes Eyes: Denies change in vision, Denies eye discharge, Denies irritation and Denies loss of vision ENT Ears, Nose, Mouth, and Throat: Denies vertigo, Denies dizziness and Denies headache(s) Cardiovascular Cardiovascular: Denies chest pain, Reports syncope, Denies rapid heart rate, Denies edema, Reports lightheadedness, Denies palpitations and Denies dyspnea Respiratory Respiratory: Denies cough and Denies dyspnea Gastrointestinal Gastrointestinal: Denies abdominal pain, Denies change in bowel habits, Denies diarrhea, Denies nausea and Denies vomiting Musculoskeletal Musculoskeletal: Denies arthralgias, Denies back pain and Denies myalgias Integumentary/Breasts Skin/Breast: Denies pruritus, Denies erythema, Denies rash and Denies wounds Neurologic Neurologic: Denies confusion, Denies vertigo, Denies dizziness, Reports syncope, Denies frequent falls, Denies headache(s) and Denies loss of vision Psychiatric Psychiatric: Denies confusion Endocrine Endocrine: Denies palpitations Patient History Medical History COPD (chronic obstructive pulmonary disease) (Acute) Coronary artery disease (Chronic ~2010) Essential hypertension (Acute) Hearing loss (Chronic ~2013) Hemorrhoid (Inactive ~1979) Mixed hyperlipidemia (Chronic) Peripheral vascular disease (Chronic ~2016) Wears glasses (Inactive) Surgical History Anesthesia (Resolved) Gallstones (Resolved ~2017) History of cataract removal with insertion of prosthetic lens (Resolved ~2018) History of heart bypass surgery (Resolved ~2011) History of surgery (Resolved ~2016) History of surgery (Resolved ~2016) Pelvis fracture (Resolved ~2012) Right groin hernia (Resolved ~2018) S/P laparoscopic cholecystectomy (Acute) Family History Father History of heart disease Mother No problems noted. Grandmother Diabetes mellitus Grandfather History of heart disease Family/Other No problems noted. Social History marital status: household members: spouse occupational status: previously employed Smoking Status: Current every day smoker alcohol intake: never substance use type: does not use Smoking Status: Current every day smoker tobacco type: cigarettes Substance Use Type: does not use Exam Initial Vital Signs Initial Vital Signs: Vital Signs Pulse Rate 122 H 11/02/19 09:31 Respiratory Rate 22 11/02/19 09:31 GENERAL: Alert pleasant elderly male and in no acute distress. HEENT: Head atraumatic,EOMI, pupils reactive, face symmetric, moist mucous mem branes CARDIOVASCULAR: Irregularly irregular no murmurs scar noted on sternum. RESPIRATORY: Breath sounds equal bilaterally, no wheezes rales or rhonchi. ABDOMEN: Soft, nontender. Normoactive bowel sounds all 4 quadrants. No guarding or rebound. EXTREMITIES: Normal range of motion, no clubbing or edema. Neurovascularly intact NEUROLOGICAL: Alert and oriented x4.Normal gait and speech. Cranial nerves II through XII grossly intact. Good [id number], good [id number], strength equal bilaterally, no dysarthria or aphasia, sensation in tact to soft touch bilaterally, no visual changes, no facial droop SKIN: Warm, dry, no laceration, no petechiae, no rashes or lesions. Course Orders Ordered: ED Orders 11/02/19 09:15 Complete Blood Count AUTO DIFF Stat Comprehensive Metabolic Panel Stat Lipase Stat NT-proBNP (BNP-Adult 18+) Stat Troponin & CK Cardiac Panel Stat 11/02/19 09:29 CT head/brain wo con Stat XR chest 1V Stat EKG-12 Lead Stat 11/02/19 14:00 COVID19 -ED/INPAT/OR/L&D Stat Acetaminophen (Tylenol) 650 mg PO Q6HR PRN PRN Reason: Fever/Mild Pain (1-3) Al Hydrox/Mg Hydrox/Simethicone (Maalox Plus) 30 ml PO Q6HR PRN PRN Reason: Dyspepsia Aspirin (Aspirin Ec) 81 mg PO DAILY [facility] Atorvastatin Calcium (Lipitor) 40 mg PO BEDTIME [facility] Clopidogrel Bisulfate (Plavix) 75 mg PO DAILY [facility] Colestipol HCl (Colestid) 1 gm PO DAILY [facility] Sodium Chloride (Normal Saline 0.9%) 1,000 mls @ 75 mls/hr IV CONT [facility] Last Admin: 11/02/19 16:27 Dose: 75 mls/hr Documented by: MSTEWART Magnesium Hydroxide (Milk Of Magnesia) 30 ml PO DAILY PRN PRN Reason: Constipation Naloxone HCl (Narcan) 0.2 mg IV Q2MIN PRN PRN Reason: Opiate Reversal Nitroglycerin (Nitrostat) 0.4 mg SL Q5M PRN PRN Reason: Angina Discontinued Medications Sodium Chloride (Normal Saline 0.9%) 1,000 mls @ 150 mls/hr IV CONT [facility] Last Infusion: 11/02/19 15:16 Dose: 150 mls/hr Documented by: Infusion: 11/02/19 14:47 Dose: 0 mls/hr Documented by: Admin: 11/02/19 09:50 Dose: 150 mls/hr Documented by: LARRY Rivaroxaban (Xarelto) 20 mg PO NOW ONE Stop: 11/02/19 13:06 Last Admin: 11/02/19 13:33 Dose: 20 mg Documented by: ODALYS Consultations Consultation #1: Dr. Rivera, cardiology, recommends transferring to [facility] patient with low EF 25-30% new onset AFib and a syncopal episode is concern for ventricular arrhythmia. Time: : Consultation #2: Dr. Bojorquez accepts to hospital for observation Vital Signs Vital signs: Vital Signs - 8 hr 11/02/19 09:31 11/02/19 09:38 11/02/19 10:00 Temperature Pulse Rate 122 H 113 H 97 H Pulse Rate [Orthostatic Lying] Pulse Rate [Orthostatic Sitting] Pulse Rate [Orthostatic Standing] Respiratory Rate 22 28 H 23 Blood Pressure Blood Pressure [Orthostatic Lying] Blood Pressure [Orthostatic Sitting] Blood Pressure [Orthostatic Standing] Pulse Oximetry 96 95 11/02/19 10:01 11/02/19 10:02 11/02/19 10:03 Temperature Pulse Rate 116 H 122 H 124 H Pulse Rate [Orthostatic Lying] Pulse Rate [Orthostatic Sitting] Pulse Rate [Orthostatic Standing] Respiratory Rate 27 H 25 H 25 H Blood Pressure 86/52 L 89/57 L 91/58 L Blood Pressure [Orthostatic Lying] Blood Pressure [Orthostatic Sitting] Blood Pressure [Orthostatic Standing] Pulse Oximetry 95 94 95 11/02/19 10:07 11/02/19 10:18 11/02/19 10:19 Temperature Pulse Rate 100 H 101 H Pulse Rate [Orthostatic Lying] 108 H Pulse Rate [Orthostatic Sitting] 119 H Pulse Rate [Orthostatic Standing] 125 H Respiratory Rate 26 H 22 Blood Pressure 67/50 L 90/58 L Blood Pressure [Orthostatic Lying] 86/52 L Blood Pressure [Orthostatic Sitting] 89/57 L Blood Pressure [Orthostatic Standing] 91/58 L Pulse Oximetry 93 94 11/02/19 10:30 11/02/19 11:00 11/02/19 11:25 Temperature 97.0 F L Pulse Rate 98 H 97 H Pulse Rate [Orthostatic Lying] Pulse Rate [Orthostatic Sitting] Pulse Rate [Orthostatic Standing] Respiratory Rate 25 H 23 Blood Pressure 98/53 L 112/62 Blood Pressure [Orthostatic Lying] Blood Pressure [Orthostatic Sitting] Blood Pressure [Orthostatic Standing] Pulse Oximetry 93 95 11/02/19 11:30 11/02/19 12:00 11/02/19 12:30 Temperature Pulse Rate 100 H 122 H 102 H Pulse Rate [Orthostatic Lying] Pulse Rate [Orthostatic Sitting] Pulse Rate [Orthostatic Standing] Respiratory Rate 25 H 22 26 H Blood Pressure 97/70 111/66 Blood Pressure [Orthostatic Lying] Blood Pressure [Orthostatic Sitting] Blood Pressure [Orthostatic Standing] Pulse Oximetry 96 96 11/02/19 13:00 11/02/19 13:30 11/02/19 14:00 Temperature Pulse Rate 93 H 95 H 107 H Pulse Rate [Orthostatic Lying] Pulse Rate [Orthostatic Sitting] Pulse Rate [Orthostatic Standing] Respiratory Rate 21 25 H 26 H Blood Pressure 113/63 89/54 L 102/63 Blood Pressure [Orthostatic Lying] Blood Pressure [Orthostatic Sitting] Blood Pressure [Orthostatic Standing] Pulse Oximetry 93 MDM - Syncope Lab Data Attestation: I reviewed the patient's lab results. Result diagrams: 11/02/19 09:15 11/02/19 09:15 Labs: Lab Results 11/02/19 11/02/19 11/02/19 Range/Units 09:15 09:15 09:15 WBC 17.5 H (4.5-11.0) X10^3/uL RBC 5.95 H (4.5-5.9) X10^6/uL Hgb 18.7 H (13.5-17.5) g/dL Hct 55.2 H (41-53) % MCV 92.8 (80-100) fL MCH 31.4 (26-34) PG MCHC 33.9 (30-36) % RDW 13.6 (11.6-14.8) % Plt Count 324 (150-400) X10^3/uL Neut % (Auto) 50.9 (50-75) % Lymph % (Auto) 41.4 H (25-40) % [place] % (Auto) 5.4 (3-14) % Eos % (Auto) 1.6 L (2-4) % Baso % (Auto) 0.7 (0-2) % Neut # (Auto) 8900 H (1039-7915) /uL Lymph # (Auto) 7300 H (5784-8047) /uL [place] # (Auto) 900 (0-900) /uL Eos # (Auto) 300 (0-450) /uL Baso # (Auto) 100 (0-100) /uL Sodium 140 (137-145) mmol/L Potassium 3.5 (3.4-5.1) mmol/L Chloride 100 (98-107) mmol/L Carbon Dioxide 15 L (22-32) mmol/L BUN 17 (9-20) mg/dL Creatinine 1.39 H (0.66-1.25) mg/dL Estimated GFR 48.8 L (>60) mL/min BUN/Creatinine Ratio 12.2 (6-22) Glucose 148 H (80-110) mg/dL Calcium 9.4 (8.4-10.2) mg/dL Total Bilirubin 1.0 (0.2-1.3) mg/dL AST 34 (17-59) IU/L ALT 36 (<50) IU/L Alkaline Phosphatase 133 H (38-126) U/L Total Creatine Kinase 78 (55-170) U/L CK-MB (CK-2) TNP CK-MB (CK-2) Rel Index TNP Troponin I < 0.012 (0.01-0.034) ng/mL NT-Pro-B Natriuret Pep 648 H (<450) pg/mL Total Protein 8.4 H (6.3-8.2) g/dL Albumin 4.9 (3.5-5.0) g/dL Globulin 3.5 (1.7-4.1) g/dL Albumin/Globulin Ratio 1.4 (1.0-2.8) Lipase 173 (23-300) U/L COVID-19 PCR (Negative) 11/02/19 Range/Units 14:00 WBC (4.5-11.0) X10^3/uL RBC (4.5-5.9) X10^6/uL Hgb (13.5-17.5) g/dL Hct (41-53) % MCV (80-100) fL MCH (26-34) PG MCHC (30-36) % RDW (11.6-14.8) % Plt Count (150-400) X10^3/uL Neut % (Auto) (50-75) % Lymph % (Auto) (25-40) % [place] % (Auto) (3-14) % Eos % (Auto) (2-4) % Baso % (Auto) (0-2) % Neut # (Auto) (7082-0934) /uL Lymph # (Auto) (6695-4877) /uL [place] # (Auto) (0-900) /uL Eos # (Auto) (0-450) /uL Baso # (Auto) (0-100) /uL Sodium (137-145) mmol/L Potassium (3.4-5.1) mmol/L Chloride (98-107) mmol/L Carbon Dioxide (22-32) mmol/L BUN (9-20) mg/dL Creatinine (0.66-1.25) mg/dL Estimated GFR (>60) mL/min BUN/Creatinine Ratio (6-22) Glucose (80-110) mg/dL Calcium (8.4-10.2) mg/dL Total Bilirubin (0.2-1.3) mg/dL AST (17-59) IU/L ALT (<50) IU/L Alkaline Phosphatase (38-126) U/L Total Creatine Kinase (55-170) U/L CK-MB (CK-2) CK-MB (CK-2) Rel Index Troponin I (0.01-0.034) ng/mL NT-Pro-B Natriuret Pep (<450) pg/mL Total Protein (6.3-8.2) g/dL Albumin (3.5-5.0) g/dL Globulin (1.7-4.1) g/dL Albumin/Globulin Ratio (1.0-2.8) Lipase (23-300) U/L COVID-19 PCR Negative (Negative) Imaging Data Chest x-ray: Radiologist's Impression: PROCEDURE: XR CHEST 1V INDICATIONS: syncope TECHNIQUE: One view of the chest was acquired. COMPARISON: [facility], CR, CHEST 1VW (PORTABLE), 04/13/2014, 21:47. [facility], CT, CT HEAD/BRAIN WO CON, 11/02/2019, 9:58. FINDINGS: Surgical changes and devices: Post CABG changes are seen. Lungs and pleura: Mild generalized interstitial prominence is seen. On this semiupright portable chest examination, no large pneumothorax or large pleural effusions are seen. No focal infiltrates are seen. Mediastinum: The cardiac contours are within normal limits. The aorta demonstrates calcification and tortuosity. Bones and chest wall: Age-appropriate bony degenerative changes are seen. Mild dextroconvex scoliotic curvature is seen. No suspicious bony lesions. Overlying soft tissues appear unremarkable. IMPRESSION: Interstitial prominence is seen throughout. The interstitial prominence is nonspecific, yet may be related to pulmonary edema. Postoperative and degenerative changes are seen. Dictated by: Trip Velarde M.D. on 11/02/2019 at 9:20 Approved by: Trip Velarde M.D. on 11/02/2019 at 9:21 CT scan - head: Radiologist's Impression: PROCEDURE: CT HEAD/BRAIN WO CON INDICATIONS: syncope TECHNIQUE: Noncontrast 4.5 mm thick angled axial sections acquired from the foramen magnum to the vertex, with coronal and sagittal reformats. For radiation dose reduction, the following was used: automated exposure control, adjustment of mA and/or kV according to patient size. COMPARISON: [facility], CR, XR CHEST 1V, 11/02/2019, 9:52. [facility], CT, CT HEAD/BRAIN WO CON, 06/28/2019, 15:10. FINDINGS: Image quality: Excellent. CSF spaces: Basal cisterns are patent. No extra-axial fluid collections. The ventricles are symmetric in size and shape. Brain: No intracranial bleeds or masses. There is cerebral volume loss for age, with resultant ventricular and sulcal prominence. There are periventricular and deep white matter chronic small vessel ischemic changes. There is intracranial internal carotid artery atherosclerosis. Skull and face: Calvarium and visualized facial bones appear intact, without suspicious lesions. Sinuses: Visualized sinuses and mastoids are clear. IMPRESSION: Unremarkable intracranial study for age, without a cause of syncope identified. Note is made of age-appropriate brain parenchymal volume loss and chronic small vessel ischemic changes. Dictated by: Trip Velarde M.D. on 11/02/2019 at 9:23 ECG Data Attestation: I personally reviewed and interpreted this ECG as follows: Prior ECG tracings: available for review Interpretation: Atrial fibrillation rate [address] changes MDM Narrative Medical decision making narrative: Patient appears to be new onset AFib heart rate as high as 125 but seems to be settling into the 90s and 100 range. His blood pressure is consistently low with a systolic in the 90s. He is completely asymptomatic. He is noted to have leukocytosis without clear infection. Initially Cardiology recommend transferring to [facility] however [facility] does not have any beds, [place] NSAID nose are also extremely tight. Dr. Bojorquez agrees for observation here to continue with tele monitoring and transfer in to [facility] when and if necessary. According to patient has actually had 6 falls in last 2 months. May not be a candidate for anticoagulation. However he is given 1 dose in the ED after which he is placed in observation and monitored in hospital. Discharge Plan Departure Patient Disposition: Admitted as Observation Clinical Impression: Atrial fibrillation, new onset, Mixed hyperlipidemia Discharge Date/Time: 11/02/19 14:48 Admit Date/Time: 11/02/19 14:07 Admit Provider: Nick Bojorquez
[2019-11-02 09:38] LABS: Add Manual Diff / Slide Review NO; Basophils Absolute Auto 100 /uL (0-100); Basophils Percent Auto 0.7 % (0-2); Eosinophils Absolute Auto 300 /uL (0-450); Eosinophils Percent Auto 1.6 % (2-4); Hematocrit 55.2 % (41-53); Hemoglobin 18.7 g/dL (13.5-17.5); Lymphocytes Absolute Auto 7300 /uL (1100-4500); Lymphocytes Percent Auto 41.4 % (25-40); Mean Corpuscular HGB Conc 33.9 % (30-36); Mean Corpuscular Hemoglobin 31.4 PG (26-34); Mean Corpuscular Volume 92.8 fL (80-100); Monocytes Absolute Auto 900 /uL (0-900); Monocytes Percent Auto 5.4 % (3-14); Neutrophils Absolute Auto 8900 /uL (1500-7000); Neutrophils Percent Auto 50.9 % (50-75); Platelet Count 324 X10^3/uL (150-400); Red Blood Cell Count 5.95 X10^6/uL (4.5-5.9); Red Cell Distribution Width 13.6 % (11.6-14.8); White Blood Cell Count 17.5 X10^3/uL (4.5-11.0)
[2019-11-02] MEDS: SODIUM CHLORIDE 0.9% 1,000 ML 150 ML IV (09:50)
[2019-11-02 10:54] LABS: Albumin 4.9 g/dL (3.5-5.0); Albumin Globulin Ratio 1.4 (1.0-2.8); Alkaline Phosphatase 133 U/L (38-126); Aspartate Aminotransferase 34 IU/L (17-59); BUN Creatinine Ratio 12.2 (6-22); Blood Urea Nitrogen 17 mg/dL (9-20); Calcium 9.4 mg/dL (8.4-10.2); Carbon Dioxide 15 mmol/L (22-32); Chloride 100 mmol/L (98-107); Creatine Kinase 78 U/L (55-170); Estimated Glomerular Filt Rate 48.8 mL/min (>60); Globulin 3.5 g/dL (1.7-4.1); Glucose 148 mg/dL (80-110); HEMOLYSIS 22 (0-50); Lipase 173 U/L (23-300); Potassium 3.5 mmol/L (3.4-5.1); Sodium 140 mmol/L (137-145); Total Protein 8.4 g/dL (6.3-8.2)
[2019-11-02 10:59] LABS: Alanine Aminotransferase 36 IU/L (<50)
[2019-11-02 11:03] LABS: NT-proBNP (BNP-Adult 18+) 648 pg/mL (<450)
[2019-11-02 11:06] LABS: Troponin I < 0.012 ng/mL (0.01-0.034)
[2019-11-02] MEDS: RIVAROXABAN 10 MG TABLET 20 MG PO (13:33)
[2019-11-02 14:33] LABS: COVID19 -Nasal RAPID Negative (Negative)
[2019-11-02] MEDS: SODIUM CHLORIDE 0.9% 1,000 ML 75 ML IV (16:27)
--- NOTE | 2019-11-02 17:31 | P.HP_ITS ---
History of Present Illness History of Present Illness Date Patient Seen: 11/02/19 Time Patient Seen: 17:31 Date of Onset of Symptoms: 11/02/19 Chief complaint: syncope Narrative: Patient is a 84-year-old male with history of smoking and significant vascular disease who presents with new onset atrial fibrillation and syncope. Patient is a patient of Dr. Espinosa who I am cross covering for. Patient apparently was in his usual state of health which overall is been stable. 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 Apparently this was a significant change from the last time he had been checked. Patient does have a history of cardiac disease with previous stents and bypass surgery. Had been otherwise apparently doing well. Having no dyspnea or other changes. Today when out to get the paper and remembers falling but he is really not sure what happened. He does not think he tripped. Apparently was out but he does not know for how long. found him and called 911. While he was with 911 he did have a syncopal brief episode with no evidence of any seizure activity but with low blood pressure in the 80s. Apparently he was not complaining any chest pain shortness of breath or other changes. Brought into the emergency room and had EKG which showed no acute changes but new onset atrial fibrillation. Rate was anywhere between 80 and 120. His pressure was in the 100s to 90s. Systolic. Due to that he was not given any rate control medication. Patient does have a history of metoprolol which apparently took this morning. He otherwise has not had any fevers or chills. No cough. No shortness of breath. Smokes about a half a pack a day. Apparently has had his peripheral vascular disease evaluated and recently had peripheral vascular evaluation and treatment. notes that he has had several falls over the last 6 weeks has recently been referred to neurologist. Pressure is some question of a tremor. But otherwise no changes or complaints. Patient History Medical History COPD (chronic obstructive pulmonary disease) (Acute) Coronary artery disease (Chronic ~2010) Essential hypertension (Acute) Hearing loss (Chronic ~2013) Hemorrhoid (Inactive ~1979) Mixed hyperlipidemia (Chronic) Peripheral vascular disease (Chronic ~2016) Wears glasses (Inactive) Surgical History Anesthesia (Resolved) Gallstones (Resolved ~2017) History of cataract removal with insertion of prosthetic lens (Resolved ~2018) History of heart bypass surgery (Resolved ~2011) History of surgery (Resolved ~2016) History of surgery (Resolved ~2016) Pelvis fracture (Resolved ~2012) Right groin hernia (Resolved ~2018) S/P laparoscopic cholecystectomy (Acute) Family & Social History Family History Father History of heart disease Mother No problems noted. Grandmother Diabetes mellitus Grandfather History of heart disease Family/Other No problems noted. Social History: household members spouse Prior Living Arrangements House Safety & Behavioral: Feels Safe in Current Yes Environment Been Physically Hurt or No Threatened By a Person Suicidal Ideation Description None Suicide Plan Description No Plan Tobacco & Substance use: Tobacco type cigarettes Smoking Status Current every day smoker alcohol intake never Substance Use Type does not use Meds Home Medications and Allergies Home Medications Medication Instructions Recorded Confirmed Type amlodipine 2.5 mg PO DAILY 12/27/18 11/02/19 History atorvastatin 40 mg PO BEDTIME 12/27/18 11/02/19 History clopidogrel 75 mg PO DAILY 12/27/18 11/02/19 History hydrochlorothiazide 12.5 mg PO DAILY 12/27/18 11/02/19 History nitroglycerin 0.4 mg sublingual 0.4 mg SL Q5M PRN 03/10/19 11/02/19 History tablet aspirin 81 mg tablet,delayed 81 mg PO DAILY 09/22/19 11/02/19 History release colestipol 1 g PO DAILY 11/02/19 11/02/19 History fluocinonide 1 applic TOPICAL DAILY 11/02/19 11/02/19 History Allergies Allergy/AdvReac Type Severity Reaction Status Date / Time No Known Drug Allergies Allergy Verified 11/02/19 09:37 Review of Systems Review of Systems ROS: Yes All systems reviewed with the patient and are negative except as otherwise documented Exam Vital Signs (past 8 hours): - 11/02/19 09:38 11/02/19 10:00 11/02/19 10:01 Temperature Pulse Rate 113 H 97 H 116 H Pulse Rate [Orthostatic Lying] Pulse Rate [Orthostatic Sitting] Pulse Rate [Orthostatic Standing] Respiratory Rate 28 H 23 27 H Blood Pressure 86/52 L Blood Pressure [Orthostatic Lying] Blood Pressure [Orthostatic Sitting] Blood Pressure [Orthostatic Standing] Pulse Oximetry 96 95 95 11/02/19 10:02 11/02/19 10:03 11/02/19 10:07 Temperature Pulse Rate 122 H 124 H Pulse Rate [Orthostatic Lying] 108 H Pulse Rate [Orthostatic Sitting] 119 H Pulse Rate [Orthostatic Standing] 125 H Respiratory Rate 25 H 25 H Blood Pressure 89/57 L 91/58 L Blood Pressure [Orthostatic Lying] 86/52 L Blood Pressure [Orthostatic Sitting] 89/57 L Blood Pressure [Orthostatic Standing] 91/58 L Pulse Oximetry 94 95 11/02/19 10:18 11/02/19 10:19 11/02/19 10:30 Temperature Pulse Rate 100 H 101 H 98 H Pulse Rate [Orthostatic Lying] Pulse Rate [Orthostatic Sitting] Pulse Rate [Orthostatic Standing] Respiratory Rate 26 H 22 25 H Blood Pressure 67/50 L 90/58 L 98/53 L Blood Pressure [Orthostatic Lying] Blood Pressure [Orthostatic Sitting] Blood Pressure [Orthostatic Standing] Pulse Oximetry 93 94 93 11/02/19 11:00 11/02/19 11:25 11/02/19 11:30 Temperature 97.0 F L Pulse Rate 97 H 100 H Pulse Rate [Orthostatic Lying] Pulse Rate [Orthostatic Sitting] Pulse Rate [Orthostatic Standing] Respiratory Rate 23 25 H Blood Pressure 112/62 97/70 Blood Pressure [Orthostatic Lying] Blood Pressure [Orthostatic Sitting] Blood Pressure [Orthostatic Standing] Pulse Oximetry 95 96 11/02/19 12:00 11/02/19 12:30 11/02/19 13:00 Temperature Pulse Rate 122 H 102 H 93 H Pulse Rate [Orthostatic Lying] Pulse Rate [Orthostatic Sitting] Pulse Rate [Orthostatic Standing] Respiratory Rate 22 26 H 21 Blood Pressure 111/66 113/63 Blood Pressure [Orthostatic Lying] Blood Pressure [Orthostatic Sitting] Blood Pressure [Orthostatic Standing] Pulse Oximetry 96 11/02/19 13:30 11/02/19 14:00 11/02/19 14:30 Temperature Pulse Rate 95 H 107 H 101 H Pulse Rate [Orthostatic Lying] Pulse Rate [Orthostatic Sitting] Pulse Rate [Orthostatic Standing] Respiratory Rate 25 H 26 H 18 Blood Pressure 89/54 L 102/63 Blood Pressure [Orthostatic Lying] Blood Pressure [Orthostatic Sitting] Blood Pressure [Orthostatic Standing] Pulse Oximetry 93 96 11/02/19 14:37 11/02/19 15:41 Temperature 99.3 F Pulse Rate 97 H 63 Pulse Rate [Orthostatic Lying] Pulse Rate [Orthostatic Sitting] Pulse Rate [Orthostatic Standing] Respiratory Rate 23 18 Blood Pressure 114/60 125/56 L Blood Pressure [Orthostatic Lying] Blood Pressure [Orthostatic Sitting] Blood Pressure [Orthostatic Standing] Pulse Oximetry 95 Narrative Exam Narrative: Alert elderly male with minimal facial expressions occasionally smiling in no acute respiratory distress. Mucous membranes moist. Eyes show no jaundice or other abnormality. Neck supple without adenopathy JVD or bruits. Lungs are clear. Decreased breath sounds but no rhonchi or wheeze. Heart is irregular but controlled rate no murmurs clicks rubs or gallops heard. Abdomen is soft positive bowel sounds nontender. Extremities without cyanosis clubbing edema. Neurologic exam patient is somewhat monotone although his said he has a lot like that. He does have a fine tremor which seems more motion related than resting but it is difficult to tell. Psychologically seems to be interactive and appropriate Objective Labs Result Diagrams: 11/02/19 09:15 11/02/19 09:15 Labs: Laboratory Results - last 24 hr 11/02/19 11/02/19 11/02/19 09:15 09:15 09:15 WBC 17.5 H RBC 5.95 H Hgb 18.7 H Hct 55.2 H MCV 92.8 MCH 31.4 MCHC 33.9 RDW 13.6 Plt Count 324 Neut % (Auto) 50.9 Lymph % (Auto) 41.4 H [place] % (Auto) 5.4 Eos % (Auto) 1.6 L Baso % (Auto) 0.7 Neut # (Auto) 8900 H Lymph # (Auto) 7300 H [place] # (Auto) 900 Eos # (Auto) 300 Baso # (Auto) 100 Sodium 140 Potassium 3.5 Chloride 100 Carbon Dioxide 15 L BUN 17 Creatinine 1.39 H Estimated GFR 48.8 L BUN/Creatinine Ratio 12.2 Glucose 148 H Calcium 9.4 Total Bilirubin 1.0 AST 34 ALT 36 Alkaline Phosphatase 133 H Total Creatine Kinase 78 CK-MB (CK-2) TNP CK-MB (CK-2) Rel Index TNP Troponin I < 0.012 NT-Pro-B Natriuret Pep 648 H Total Protein 8.4 H Albumin 4.9 Globulin 3.5 Albumin/Globulin Ratio 1.4 Lipase 173 COVID-19 PCR 11/02/19 14:00 WBC RBC Hgb Hct MCV MCH MCHC RDW Plt Count Neut % (Auto) Lymph % (Auto) [place] % (Auto) Eos % (Auto) Baso % (Auto) Neut # (Auto) Lymph # (Auto) [place] # (Auto) Eos # (Auto) Baso # (Auto) Sodium Potassium Chloride Carbon Dioxide BUN Creatinine Estimated GFR BUN/Creatinine Ratio Glucose Calcium Total Bilirubin AST ALT Alkaline Phosphatase Total Creatine Kinase CK-MB (CK-2) CK-MB (CK-2) Rel Index Troponin I NT-Pro-B Natriuret Pep Total Protein Albumin Globulin Albumin/Globulin Ratio Lipase COVID-19 PCR Negative Assessment & Plan Assessment & Plan narrative: Syncopal episode. Probably secondary to his new onset atrial fibrillation and hypo tension. Probable needs atrial kick to generate enough blood pressure period but will see. Could also be rate related. Other potential arrhythmias are possible. Emergency room discussed with showroom sales assistant to feels he should be admitted and observed. Currently there is no evidence of significant other arrhythmias but will watch close. Re-evaluate a.m.. History of falls. No evidence of any significant fracture will follow for pain sensation but at this point and not see anything that was major or of concern New onset atrial fibrillation. Currently with adequate rate control. Has been somewhat hypotensive which makes rate control more difficult. Blood pressure is improved now in the 120s and what to watch and see how things goes. At this point no need for rate control but will place on anticoagulation. Patient understands reasoning behind although this expectations discussed. Watch to see how he responds. May need to could be cardioverted depending on how things go. Labs look okay. Will check magnesium and phosphorus. Will also check TSH. Hypotension. Patient actually seems to be better now. He gets fluids. Will be dictated by what we have to do with atrial fibrillation control. But at this point I would make any changes. Will hold his blood pressure medicine if we need rate control will try low-dose metoprolol and see how we do. See if he can tolerate it. Long-term smoker discussed need to stop which is not going to happen. We discussed nicotine replacement he is not interested at this time. Tremor with decreased emotional response and history of falls. Has neurologic appointment. Certainly presentation has Parkinson like symptoms which we discussed. Await neurology evaluation. Mixed hyperlipidemia stable. Hypertension not an issue with his hypotension. Will follow. Peripheral vascular disease. Leg seemed to be doing okay. We will follow. Disposition. Patient be here least 24 hours. We need to make sure he can maintain his pressure and we can control his heart rate. Need to evaluate for other arrhythmias. Will watch closely and follow. They understand questions answered Quality VTE Deep Vein Thrombosis/Pulmonary Embolism Present on Admission: No
[2019-11-02] MEDS: AMIODARONE 150 MG/100 ML PIGGYBACK 600 MG IV (20:57)
[2019-11-02] MEDS: ATORVASTATIN 20 MG TABLET 40 MG PO (20:58)
[2019-11-02] MEDS: AMIODARONE 360 MG/200 ML PIGGYBACK 33.3 MG IV (21:24)
--- NOTE | 2019-11-02 21:49 | PC.NURSE ---
Evening shift note 1500 Pt arrived from ED via gurney, transferred to bed, VSS, connected to telemetry monitoring, oriented to room and call light system. Celeste at bedside, addressed all questions and concerns at this time. Bed low and locked, call light within reach, will continue to monitor. 1850 Pt had a 13 beat run of VTACH, pt was asymptomatic, cardiac strip printed and placed in chart, provider Dr. Bojorquez paged. 1916 Dr Bojorquez updated on pt status, will call and consult [place]. At this time will move pt to ICU status for closer monitoring. 2012 Dr Bojorquez called with new orders to start Amiodarone gtt per protocol, 150mg loading dose, then follow protocol for additional dosing.
[2019-11-03] VITALS (12 sets, daily range): BP systolic 96–141; BP diastolic 56–72; PULSE 50–66; RESP 12–25; TEMP 36.3–36.6; O2SAT 91–99
--- NOTE | 2019-11-03 01:44 | PC.NURSE ---
0130 Dr. Bojorquez notified of patient's heart rate 53, Sinus Orestes with First Degree AV Block, PVCS on Amiodarone drip at 33.3 ml/ hr (360mg/200ml). Orders received to reduce Amiodarine infusion to 16.7 ml/hr. Discussed with that current BP 117/65. R elbow dressing reinforced with 4x4s and Coban for saturation and some leakage. Allevyn dressing left on R elbow with the reinforcement. Pt denies pain.
[2019-11-03] MEDS: AMIODARONE 540 MG/300 ML PIGGYBACK 16.7 MG IV (05:30)
[2019-11-03 06:22] LABS: Magnesium 1.9 mg/dL (1.6-2.3); Phosphorous 3.3 mg/dL (2.3-3.7)
[2019-11-03 06:32] LABS: NT-proBNP (BNP-Adult 18+) 837 pg/mL (<450)
[2019-11-03 07:04] LABS: TSH w/ Reflex to FT4 2.81 uIU/mL (0.47-4.68)
--- NOTE | 2019-11-03 08:21 | PM.PN.1 ---
Subjective Subjective Date Patient Seen: 11/03/19 Time Patient Seen: 08:21 Interval history: Patient discussed with Dr. Bojorquez this morning. Presented after a fall (which he does frequently). EMS was summoned and apparently while they were evaluating him he had loss of consciousness and heart rate seem to drop although he was not hooked up at the time. When he presented to the hospital ED he was found to be in atrial fibrillation with a heart rate in the 118 range. He was admitted and subsequently started on amiodarone drip after consultation with Cardiology over the phone. He has subsequently is converted back to sinus rhythm and relatively bradycardic in the 50s and 40s. He also apparently had at least 1 nonsustained run of ventricular tachycardia of 17 beats duration Patient also tells me he had a recent echocardiogram which shows a left ventricular ejection fraction of 25%. I do not have access to that at this time. He has been started on anticoagulation with Xarelto in addition to the aspirin and Plavix he takes for his otherwise known vascular disease both peripheral and coronary. Patient has not been seen by Physical therapy and is probably parkinsonian given his presentation Of note, I have only seen the patient 1 time to establish care back in mid September so about 6 weeks ago. No old records from Cardiology or available to me at this time Currently he is not complaining of any pain or discomfort. His weeping a bit from his right elbow where he clearly has scraped up and it is currently well bandaged and dressed (and this is not removed) Exam Vital Signs (past 8 hours): - 11/03/19 01:27 11/03/19 02:00 11/03/19 03:00 Temperature Pulse Rate 56 L 55 L 57 L Respiratory Rate 19 21 20 Blood Pressure 117/65 123/72 120/58 L Pulse Oximetry 94 93 97 11/03/19 04:00 11/03/19 05:00 11/03/19 06:00 Temperature 97.8 F Pulse Rate 54 L 58 L 56 L Respiratory Rate 24 21 21 Blood Pressure 129/71 105/56 L 96/57 L Pulse Oximetry 95 97 98 11/03/19 07:37 Temperature Pulse Rate 55 L Respiratory Rate 13 Blood Pressure Pulse Oximetry 96 Oxygen Delivery Method Room Air Oxygen Flow Rate 0 Objective Labs Result Diagrams: 11/02/19 09:15 11/02/19 09:15 Labs: Laboratory Results - last 24 hr 11/02/19 11/02/19 11/02/19 09:15 09:15 09:15 WBC 17.5 H RBC 5.95 H Hgb 18.7 H Hct 55.2 H MCV 92.8 MCH 31.4 MCHC 33.9 RDW 13.6 Plt Count 324 Neut % (Auto) 50.9 Lymph % (Auto) 41.4 H [place] % (Auto) 5.4 Eos % (Auto) 1.6 L Baso % (Auto) 0.7 Neut # (Auto) 8900 H Lymph # (Auto) 7300 H [place] # (Auto) 900 Eos # (Auto) 300 Baso # (Auto) 100 Sodium 140 Potassium 3.5 Chloride 100 Carbon Dioxide 15 L BUN 17 Creatinine 1.39 H Estimated GFR 48.8 L BUN/Creatinine Ratio 12.2 Glucose 148 H Calcium 9.4 Phosphorus Magnesium Total Bilirubin 1.0 AST 34 ALT 36 Alkaline Phosphatase 133 H Total Creatine Kinase 78 CK-MB (CK-2) TNP CK-MB (CK-2) Rel Index TNP Troponin I < 0.012 NT-Pro-B Natriuret Pep 648 H Total Protein 8.4 H Albumin 4.9 Globulin 3.5 Albumin/Globulin Ratio 1.4 Lipase 173 TSH COVID-19 PCR 11/02/19 11/03/19 11/03/19 14:00 05:55 05:55 WBC RBC Hgb Hct MCV MCH MCHC RDW Plt Count Neut % (Auto) Lymph % (Auto) [place] % (Auto) Eos % (Auto) Baso % (Auto) Neut # (Auto) Lymph # (Auto) [place] # (Auto) Eos # (Auto) Baso # (Auto) Sodium Potassium Chloride Carbon Dioxide BUN Creatinine Estimated GFR BUN/Creatinine Ratio Glucose Calcium Phosphorus 3.3 Magnesium 1.9 Total Bilirubin AST ALT Alkaline Phosphatase Total Creatine Kinase CK-MB (CK-2) CK-MB (CK-2) Rel Index Troponin I NT-Pro-B Natriuret Pep 837 H Total Protein Albumin Globulin Albumin/Globulin Ratio Lipase TSH COVID-19 PCR Negative 11/03/19 05:55 WBC RBC Hgb Hct MCV MCH MCHC RDW Plt Count Neut % (Auto) Lymph % (Auto) [place] % (Auto) Eos % (Auto) Baso % (Auto) Neut # (Auto) Lymph # (Auto) [place] # (Auto) Eos # (Auto) Baso # (Auto) Sodium Potassium Chloride Carbon Dioxide BUN Creatinine Estimated GFR BUN/Creatinine Ratio Glucose Calcium Phosphorus Magnesium Total Bilirubin AST ALT Alkaline Phosphatase Total Creatine Kinase CK-MB (CK-2) CK-MB (CK-2) Rel Index Troponin I NT-Pro-B Natriuret Pep Total Protein Albumin Globulin Albumin/Globulin Ratio Lipase TSH 2.81 COVID-19 PCR Assessment & Plan Assessment & Plan narrative: 1. Atrial fibrillation-patient's converted back to sinus rhythm as rather bradycardic. I am going to discontinue the IV amiodarone infusion and give him oral amiodarone at this point. I agree with long-term anticoagulation. That I am going to discontinue the aspirin could but continue the Plavix as an anti thrombotic/anti-platelet 2. Nonsustained VT-patient with a syncopal episode and nonsustained VT. Also with this significant cardiomyopathy by report. I am going to ask Cardiology to evaluate him specially given that he is a patient of the practice here in [place]. I would suspect he might well benefit from further therapies and or even perhaps implantation of a defibrillator. For now he will continue on the amiodarone as above which should be beneficial. 3. Weakness-patient is status post multiple falls which is 1 of his presenting complaints when I saw him back in September. He apparently has undergone long episodes of physical therapy without benefit. At this point I am going to have physical therapy and occupational therapy see him here in the hospital. I am quite concerned he may indeed have something such as parkinsonism although certainly if he is having cardiac syncope that is not helping him with his falls etcetera. 4. Peripheral vascular disease-patient should certainly quit smoking and I have reiterated this to him every time I have seen him (which of course is only twice). Continue with current therapies although because of the new direct oral anticoagulant I am going to discontinue aspirin and continue on Plavix. I think dual anti-platelet therapy maybe a bit much. Note: Greater than 40 minutes was spent evaluating the patient on the floor, including examining the patient, discussing clinical course with clinical and nursing staff, reviewing clinical course in the computer, preparing documentation and writing orders for continued management of care, discussing status with family as appropriate, reviewing plans for the next 24 hours with both patient/family and nursing staff as appropriate. Quality VTE Deep Vein Thrombosis/Pulmonary Embolism Present on Admission: No
[2019-11-03] MEDS: CLOPIDOGREL 75 MG TABLET PO (09:16)
[2019-11-03] MEDS: SODIUM CHLORIDE 0.9% FLUSH 10 ML IV ×2 (09:16→21:58)
[2019-11-03] MEDS: AMIODARONE 200 MG TABLET PO (09:16)
--- NOTE | 2019-11-03 11:35 | PT-IP ANOTE ---
Attempted to see pt at 1130 but sports medicine coordinator was in the room. Will attempt PM evaluation.
--- NOTE | 2019-11-03 11:54 | P.CONS_ITS ---
History of Present Illness Consult details Date Patient Seen: 11/03/19 Time Patient Seen: 11:58 Chief complaint: syncope Reason for consult: Atrial fibrillation and ventricular tachycardia Requesting provider: Olaf Espinosa Narrative: The patient is an 84-year-old male with remote history of paroxysmal atrial fibrillation but his most recent ECG from 07/18/2018 showed sinus rhythm. Has a history of CABG with BUSBY to the LAD, radial artery to obtuse marginal, and SVG to the PDA. His most recent pharmacologic study in June 2018 showed a partially reversible inferior defect with reversible and probable small volume ischemia at the apex but was felt to be low risk. Subsequent cardiac catheterization showed a 30% left main lesion, 30% proximal LAD lesion, complete occlusion of the mid LAD but a patent BUSBY although with a 50% lesion in the apical LAD. The left circumflex was subtotally occluded with a small obtuse marginal but the radial graft was widely patent. The right coronary artery was completely occluded proximally with bridging collaterals but with complete occlusion again in the mid RCA. The vein graft to the PDA was completely occluded. Ejection fraction was estimated at 40 to 50% with akinesis of the proximal inferior wall and LVEDP was around 20 mm Hg and was treated medically. He also has a longstanding history of PAD and has continued to smoke. He underwent femoral endarterectomy and had a left external iliac artery lithoplasty in December 2018 with subsequent improvement in his symptoms. His most recent echocardiogram in October 2019 showed severe left and right ventricular enlargement, the latter new from the previous study. His left ventricular ejection fraction was 25 to 30%, down from 40 to 45% on his echocardiogram from 2014 with reported global hypokinesis although on my personal review of the images there is clear akinesis of the distal septum and apex. There is moderately reduced right ventricular systolic function that was new but had normal biatrial size and only mild mitral regurgitation and aortic valve calcific sclerosis. CVP was estimated 3 mm Hg. He was likely in atrial fibrillation at that time of 70-90 beats per minute although this is uncertain. He saw Dr. Mancilla, his usual cellars supervisor, on 10/28/2019 and reported morning leg discomfort that improved with ambulation but progressive unsteadiness with 6 to 7 falls over the last several months. He describes this as a loss of balance without any obvious presyncope. He apparently had no other cardiac symptoms and his reported rhythm was regular at 68 bpm and a pharmacologic perfusion study and a Zio patch which was scheduled and he was referred to Neurology out of concern for possible Parkinson's disease. He was admitted yesterday after a fall while walking. He denies any presyncope associated with this but apparently following arrival of the oracle developer he had a syncopal episode. He has no recollection of this latter event and denies any previous presyncope or syncope. He denies any associated chest discomfort, dyspnea, or palpitations. He denies any recent change in his exercise capacity although his has noted that he appears to be more dyspneic with exertion. In the ED, he was noted be in atrial fibrillation at 118 with a potassium of 3.5 and hematocrit of 55% with a normal troponin. His proBNP was 640 although his GFR was depressed at 49. He was started on IV amiodarone and subsequently converted to sinus rhythm into the 50s although subsequent telemetry showed a 17 beat run of monomorphic VT at around 170 ppm. He was started on Xarelto because of his atrial fibrillation. He currently feels back to his normal self. 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 He denies any alcohol consumption. He continues to smoke half a pack to 3/4 of a pack per day. A complete review of systems is performed and is unremarkable except for chronic cough without hemoptysis. He denies any evidence of any GI blood loss. Meds Home Medications and Allergies Home Medications Medication Instructions Recorded Confirmed Type amlodipine 2.5 mg PO DAILY 12/27/18 11/02/19 History atorvastatin 40 mg PO BEDTIME 12/27/18 11/02/19 History clopidogrel 75 mg PO DAILY 12/27/18 11/02/19 History hydrochlorothiazide 12.5 mg PO DAILY 12/27/18 11/02/19 History nitroglycerin 0.4 mg sublingual 0.4 mg SL Q5M PRN 03/10/19 11/02/19 History tablet aspirin 81 mg tablet,delayed 81 mg PO DAILY 09/22/19 11/02/19 History release colestipol 1 g PO DAILY 11/02/19 11/02/19 History fluocinonide 1 applic TOPICAL DAILY 11/02/19 11/02/19 History Allergies Allergy/AdvReac Type Severity Reaction Status Date / Time No Known Drug Allergies Allergy Verified 11/02/19 09:37 Review of Systems Review of Systems ROS: Yes All systems reviewed with the patient and are negative except as otherwise documented Exam Vital Signs (past 8 hours): - 11/03/19 04:00 11/03/19 05:00 11/03/19 06:00 Temperature 97.8 F Pulse Rate 54 L 58 L 56 L Respiratory Rate 24 21 21 Blood Pressure 129/71 105/56 L 96/57 L Pulse Oximetry 95 97 98 11/03/19 07:37 11/03/19 08:01 Temperature Pulse Rate 55 L 61 Respiratory Rate 13 25 H Blood Pressure 106/59 L Pulse Oximetry 96 97 Oxygen Delivery Method Room Air Oxygen Flow Rate 0 Narrative Exam Narrative: Pleasant elderly male in no distress but with mast feces and a flat affect concerning for Parkinson's. He is hard of hearing. HEENT: No arcus, EOMI, hard of hearing with hearing aids. Lungs: Coarse breath sounds bilaterally but no appreciable rales or wheeze. Cardiovascular: Regular rate and rhythm with frequent premature beats with a normal S1 and S2 without any appreciable murmurs or gallops. JVP is around 4 to 5 cm. Carotid pulses 1+ on the right trace on the left but no bruit. Dorsalis pedis and posterior tibial pulses are nonpalpable. Abdomen: Soft, nondistended nontender without hepatosplenomegaly. Extremities: Warm without any clubbing, cyanosis, or edema Neuro: Moves all 4 extremities Psych: Awake and alert and appropriate although with a flat affect Objective Labs Result Diagrams: 11/02/19 09:15 11/02/19 09:15 Labs: Laboratory Results - last 24 hr 11/02/19 11/03/19 11/03/19 14:00 05:55 05:55 Phosphorus 3.3 Magnesium 1.9 NT-Pro-B Natriuret Pep 837 H TSH COVID-19 PCR Negative 11/03/19 05:55 Phosphorus Magnesium NT-Pro-B Natriuret Pep TSH 2.81 COVID-19 PCR Assessment & Plan Assessment & Plan narrative: 1. Paroxysmal atrial fibrillation with nonsustained monomorphic VT and possible syncope. The patient is at high risk for both recurring atrial fibrillation and nonsustained ventricular tachycardia given his known underlying cardiovascular disease and reduced ejection fraction. In regards to his atrial fibrillation, he is now converted to sinus rhythm. I discussed amiodarone therapy as a mechanism to maintain sinus rhythm although with concern for his underlying lung disease. Likewise, I discussed chronic anticoagulation but with increased risk of bleeding given his frequent falls. Given that he has had only this 1 isolated episode of atrial fibrillation that is now resolved, I do not believe that the the risk of anticoagulation merit long-term anticoagulation and would simply continue with clopidogrel. In regard to his ventricular tachycardia, again, he is at high risk for recurrence. I discussed treatment strategies which would include recurring evaluation for underlying ischemia heart disease, ICD placement, or empiric amiodarone therapy, for more conservative treatment with beta-blockade and optimization of his electrolytes. After thorough discussion of the risks and implications, he does not wish to pursue any aggressive treatment and wishes only to have optimization of his current medications. This could be revisited if he has recurring episodes. Towards this end, I would ensure that his potassium stays greater than 4.0 and his magnesium greater than 2.0 on a regular basis. I would obtain a repeat limited echocardiogram to re-evaluate left ventricular systolic function with consideration for slow incremental advancement of his metoprolol and initiation of low-dose MIRI inhibitor. He can follow up with Dr. Mancilla as an outpatient once his medications have been optimized. 2. CAD with probable ischemic cardiomyopathy. As above. I would initiate low- dose MIRI inhibitor and tried to advance metoprolol to 25 mg b.i.d. as his heart rate and blood pressure allow. 3. PAD. Relatively stable. 4. Hyperlipidemia. A lipid panel should be obtained regularly to ensure that his LDL remains less than 70. 5. Ongoing tobacco addiction with probable COPD. He is counseled to stop. 6. Possible Parkinson's disease. He clearly has hyper sign of Parkinson's although with minimal tremor. I agree with referral for Neurology consultation. New Recommendations: 1. Recheck and optimize potassium to a level greater than 4.0 and magnesium level greater than 2.0. 2. Increase metoprolol to 25 mg b.i.d. and start low-dose MIRI inhibitors. 3. Obtain a limited echocardiogram to re-evaluate left ventricular size function. 4. Patient should follow-up with Dr. Mancilla within the next month. At this point, I will sign off. Please let me know if you have any further questions or concerns. I spent 95 minutes reviewing the patient's images and medical records, interviewing and examining the patient and answering his and his family's questions and coordinating care.
--- NOTE | 2019-11-03 12:27 | CM.DANOTE ---
Patient is an 84 year old male who was admitted on 11/02/19 for Syncope. Pt has [facility] for insurance and his PCP is Dr. Olaf Espinosa. EMR was reviewed. Per MD, pt was found on the floor by spouse with multiple falls in the past few weeks and pt has been referred to a Neurologist to r/o Parkinsons and any other issue. Pt admitted for workup as last Echo showed EF of 25% which was reduced from prior Echo. SW met bedside with pt and explained role and pt confirms that he lives at home in [place] with his Celeste and pt is independent with ADLs at baseline and confirms he has had multiple falls in the past few weeks. Pt denies any hx of HH but states after a hip fx he went to SNF in [place] a few years ago. Pt states his spouse and adult Dtr in [place] are his DPOA's. Kelp Gatherer Consult ordered and Dr. Camacho met with pt bedside and made recommendations for medications and for followup with his established Kelp Gatherer Dr. Mancilla. PT/OT ordered and pending. Plan: SW to follow closely after PT/OT eval and recommendations towards confirming if pt will be safe for d/c home with spouse and any further needs. NICHOLE Greenberg Discharge Planning/Care Management CM Discharge Assessment Start: 11/03/19 12:22 Freq: Status: Active Protocol: Document 11/03/19 12:22 BF (Rec: 11/03/19 12:24 BF [id number]) Discharge Planning Assessment Assigned Oil Rigger NICHOLE Drummond DPOA/Assigned Designee Name spouse Celeste and Dtr Yumi Contact Information [phone] and [phone] Advance Directives? Yes History Provided By Patient,Medical Record Has Patient been admitted in last 30 No days? Prior Living Arrangements House Household Members spouse Type of transporation used prior to Drives own vehicle admit Independent with ADL's Yes Is patient alert and oriented? Yes Needs Assistance With Managing Medications Caregiver for Another No Comment Likely home pending PT/OT initial eval and recommendations Barriers to Discharge No Discharge Plan Home Transportation Arrangement Family can provide transport at d/c. Additional Comment Pending PT/OT eval Whiteboard Updated in Patient Room with Yes name and ext. # of Oil Rigger Review Status In Process Please Provide Date Initial DC 11/03/19 Assessment Was Performed Next Review Type Continued Stay Review
[2019-11-03] MEDS: COLESTIPOL 1 GM TABLET PO (12:40)
--- NOTE | 2019-11-03 15:00 | PT.IIE ---
Surgical History (Last Reviewed 11/02/19 @ 17:36 by Nick Bojorquez MD) Anesthesia (Resolved) Gallstones (Resolved ~2017) History of cataract removal with insertion of prosthetic lens (Resolved ~2018) History of heart bypass surgery (Resolved ~2011) History of surgery (Resolved ~2016) History of surgery (Resolved ~2016) Pelvis fracture (Resolved ~2012) Right groin hernia (Resolved ~2018) S/P laparoscopic cholecystectomy (Acute) Medical History (Last Reviewed 11/02/19 @ 17:36 by Nick Bojorquez MD) COPD (chronic obstructive pulmonary disease) (Acute) Coronary artery disease (Chronic ~2010) Essential hypertension (Acute) Hearing loss (Chronic ~2013) Hemorrhoid (Inactive ~1979) Mixed hyperlipidemia (Chronic) Peripheral vascular disease (Chronic ~2016) Wears glasses (Inactive) Physical Therapy Inpatient Evaluation/Re-Eval M1 PT/OT-IP Prior Functional Status Start: 11/03/19 09:04 Freq: NEEDED Status: Active Protocol: Document 11/03/19 14:21 AW (Rec: 11/03/19 15:25 AW [email or web address]) Medical Review Prior Functional Status Medical History Reviewed Yes: PMH includes PVD, CHF, COPD Communication Pt is an effective verbal communicator. He is [place] and uses bilateral hearing aids. Affect is somewhat flat. Mobility and Gait Pt reports independent mobility but his states he does not get out of the house much. Both agree he is able to walk ~1/2 mile without AD before needing a rest break. Activities of Daily Living and IADL's Independent with ADL's. Pt no longer drives based on frame polisher recommendation. His , Celeste, does all the driving Prior Functional Level (Other details) Pt has history of falls with recent uptick in frequency. He reports as many as six falls in the past seven weeks. He has been referred to neurology for evaluation of falls and possible parkinsonism. He is currently awaiting authorization from his insurance. Pt has had PT for balance previously. Social History Household Members spouse Living Arrangements House Number of Floors (Floors) Two Floors Number of Stairs To Enter/Railing? 10 [address] through garage with narrow bilateral rails. Pt enters on main level with living room, kitchen, bathroom , TV room, and spare bedroom. Pt climbs an additional 15 steps with narrow bilateral rails to second floor where his bedroom is located. Home Environment High Toilet,Walk in Shower, Built-In Shower Seat Home Equipment Four Wheel Walker,Straight Cane,Manual Wheelchair,Grab Bars Near Toilet,Grab Bars In Shower Employment Status Retired Additional Social History Comment Pt lives with his , Celeste. No other family live in the area. M2 PT-IP Current Condition Start: 11/03/19 09:04 Freq: NEEDED Status: Active Protocol: Document 11/03/19 14:21 AW (Rec: 11/03/19 15:25 AW [email or web address]) Physical Therapy Current Condition Current Condition Evaluation Date 11/03/19 Treatment Diagnosis syncope, recurrent falls, difficulty in walking Onset Date 11/02/19 M3 PT-IP Subjective Start: 11/03/19 09:04 Freq: NEEDED Status: Active Protocol: Document 11/03/19 14:21 AW (Rec: 11/03/19 15:25 AW [email or web address]) Subjective Physical Therapy Visit Type Type Initial Evaluation Visit Start Time 13:52 Visit Stop Time 14:15 Total Visit Minutes 23 Notes Pt's , Celeste, arrived toward end of session and contributed to history. Physical Therapy Visit Comments Patient Comments Pt is willing to participate with PT Therapy Pain Assessment Pain When Pain Assessed During Mobility Pain Present Pain Present Denied Pain M4 PT-IP Mobility and Gait Start: 11/03/19 09:04 Freq: NEEDED Status: Active Protocol: Document 11/03/19 14:21 AW (Rec: 11/03/19 15:25 AW [email or web address]) PT-Transfer Assessment Sit to and From Stand Sit to and from Stand Standby Assistance Equipment Transfer Assistive Device Gait Belt Transfers Transfer Destination Chair Transfer Technique pt ambulated without AD Transfer Ability Level of Assist Standby Assistance Comments Mobility Comments Pt was sitting up in the chair as PT arrived. He stated he has had no difficulty getting in and out of bed; he refused bed mobilty assessment. He completed sit to stand SBA and ambulated ~300 feet in the halls before returning to the room and transferring back to the chair SBA. BP before activity was 124/60. After activity, BP was 141/65. Pt was slightly SOB upon initial standing but symptoms did not persist. Gait Assessment Gait Gait Assistance Required: Standby Assistance Distance (Feet) 300 Assistive Devices Assistive Device None,Gait Belt Gait Deviations General Gait Pattern Decreased Stride Length, Decreased Feet Clearance, Flexed Trunk Factors Limiting Gait Function Factors Limiting Gait Function Decreased Activity Tolerance, Limited Range of Motion,Poor Balance,Poor Safety Awareness Comments Gait Comments Gait was remarkable for flexed posture with stiff thoracic spine and limited arm swing ( left more affected than right) . No LOB was observed. Stair Climbing Assessment Evaluation Level of Assist On Stairs Standby Assistance Devices Stair Climbing Assistive Devices Left Railing,Right Railing Technique/Endurance Stair Climbing Direction Ascend and Descend Stair Climbing Technique Step Over Step Number of Steps Climbed 10 Query Text: Stair Climbing Set # Repetitions (reps) 1 Comments Stair Climbing Comments Pt descended and ascended ICU stairs with narrow B rails SBA . PT-Balance Assessment Sitting Balance and Reactions Static Sitting Balance Ability Good Dynamic Sitting Balance Ability Good Standing Balance and Reactions Static Standing Balance Ability Fair Dynamic Standing Balance Ability Fair Device Used none M5 PT-IP Objective Assessments Start: 11/03/19 09:04 Freq: NEEDED Status: Active Protocol: Document 11/03/19 14:21 AW (Rec: 11/03/19 15:25 AW [email or web address]) Orientation Orientation/Cognition Level of Alertness Alert Orientation Name,Day of Week,Place, Situation Language Function Ability Hard of Hearing Safety Awareness Decreased Safety Awareness Gross Range of Motion Upper Extremity ROM Assessment Within Functional Limits Lower Extremity ROM Assessment Within Functional Limits Strength Upper Extremity Strength Assessment Within Functional Limits Lower Extremity Strength Assessment Bilaterally Impaired Hip 4/5 Knee 4+/5 Ankle 4+/5 Coordination Assessment Gross Coordination Gross Coordination WNL Assessment Finger to Nose Test Normal Performance Foot Tapping Test Normal Performance Sensation Assessment Sensation Gross Sensation WNL Muscle Tone Muscle Tone WNL Yes Comments Muscle Tone Comments Pt mentions intention tremor associated with fine motor tasks but this is not observed during exam. M6 PT-IP Treatment Start: 11/03/19 09:04 Freq: NEEDED Status: Active Protocol: Document 11/03/19 14:21 AW (Rec: 11/03/19 15:25 AW [email or web address]) Physical Therapy Treatment Education Education Provided Precautions,Safety Other Treatments Other Treatment Performed Provided education on role of PT, plan of care, and rationale for use of an assistive device. M7 PT-IP Assessment and Plan Start: 11/03/19 09:04 Freq: NEEDED Status: Active Protocol: Document 11/03/19 14:21 AW (Rec: 11/03/19 15:25 AW [email or web address]) PT Summary Assessment and Plan Potential Rehabilitation Potential Good Status of Condition at Evaluation Stable Summary Impairments Strength,Balance,Gait,Activity Tolerance Assessment Summary Je is an 84 yo man seen for PT evaluation after being admitted with recurrent falls and syncopal episode. He is independent in all regards at baseline but has fallen 6 times in the last 7 weeks. He has a referral to neurology for evaluation of falls and possible parkinsonism but is awaiting insurance authorization. On evaluation, he required SBA for all mobility without AD, including stair navigation. He presents with reduced upper trunk rotation and reduced arm swing bilaterally during gait but is safe on this assessment. PT will continue to follow this pt but at this time recommends home with possible home health to address fall risk factors within the home environment. Goals Bed Mobility Goal Independent Transfer Goal Independent Gait Goal Independent Gait Distance 300 Other Goals - up/down 10 steps with B rails IND Frequency of Treatment Frequency Of Treatment Once a Day Treatment Plan Physical Therapy Treatment Plan Bed Mobility Training,Transfer Training,Gait Training, Therapeutic Exercise,Balance Retraining,Discharge Planning, Neuromuscular Re-ed, Coordination Retraining Other Recommendations and Next Treatment re-assess gait and stairs Focus without AD; re-assess for HH need Recommendations To Nursing Amount of Assist Needed Standby Assistance Discharge Recommendations PT Discharge Recommendations Home with Assistance,Home Health Transportation Needs at Discharge Private Vehicle
--- NOTE | 2019-11-03 16:00 | OT.IP.EVAL ---
Past Medical History (Last Reviewed 11/02/19 @ 17:36 by Nick Bojorquez MD) COPD (chronic obstructive pulmonary disease) (Acute) Coronary artery disease (Chronic ~2010) Essential hypertension (Acute) Hearing loss (Chronic ~2013) Hemorrhoid (Inactive ~1979) Mixed hyperlipidemia (Chronic) Peripheral vascular disease (Chronic ~2016) Wears glasses (Inactive) Surgical History (Last Reviewed 11/02/19 @ 17:36 by Nick Bojorquez MD) Anesthesia (Resolved) Gallstones (Resolved ~2017) History of cataract removal with insertion of prosthetic lens (Resolved ~2018) History of heart bypass surgery (Resolved ~2011) History of surgery (Resolved ~2016) History of surgery (Resolved ~2016) Pelvis fracture (Resolved ~2012) Right groin hernia (Resolved ~2018) S/P laparoscopic cholecystectomy (Acute) Occupational Therapy Inpatient Evaluation/Re-Eval M1 PT/OT-IP Prior Functional Status Start: 11/03/19 16:47 Freq: NEEDED Status: Active Protocol: Document 11/03/19 15:25 [facility] (Rec: 11/03/19 17:18 [facility] [id number]) Medical Review Prior Functional Status Medical History Reviewed Yes: PMH includes PVD, CHF, COPD Communication Pt is an effective verbal communicator. He is [place] and uses bilateral hearing aids. Affect is somewhat flat. Mobility and Gait Pt reports independent mobility but his states he does not get out of the house much. Both agree he is able to walk ~1/2 mile without AD before needing a rest break. Activities of Daily Living and IADL's Independent with ADL's. Pt no longer drives based on community organization aide recommendation. His , Celeste, does all the driving. Pt states does his own laundry and medications. Prior Functional Level (Other details) Pt has history of falls with recent uptick in frequency. He reports as many as six falls in the past seven weeks. He has been referred to neurology for evaluation of falls and possible parkinsonism. He is currently awaiting authorization from his insurance. Pt has had PT for balance previously. Social History Household Members spouse Living Arrangements House Number of Floors (Floors) Two Floors Number of Stairs To Enter/Railing? [address] through garage with narrow bilateral rails. Pt enters on main level with living room, kitchen, bathroom , TV room, and spare bedroom. Pt climbs an additional 15 steps with narrow bilateral rails to second floor where his bedroom is located. Home Environment High Toilet,Walk in Shower, Built-In Shower Seat Home Equipment Four Wheel Walker,Straight Cane,Manual Wheelchair,Grab Bars Near Toilet,Grab Bars In Shower Employment Status Retired Additional Social History Comment Pt lives with his , Celeste. No other family live in the area. M2 OT-IP Current Condition Start: 11/03/19 16:47 Freq: Status: Active Protocol: Document 11/03/19 15:25 [facility] (Rec: 11/03/19 17:18 [facility] [id number]) Occupational Therapy Current Condition Current Condition Evaluation Date 11/03/19 Treatment Diagnosis Paroxysmal a-fib with nonsustained monomorphic VT Diagnosis Onset Date 11/02/19 M3 OT- IP Subjective and Pain Start: 11/03/19 16:47 Freq: Status: Active Protocol: Document 11/03/19 15:25 [facility] (Rec: 11/03/19 17:18 [facility] [id number]) OT- Subjective Occupational Therapy Visit Type Type Initial Evaluation Visit Start Time 15:25 Visit Stop Time 16:43 Total Visit Minutes 78 Occupational Therapy Visit Comments Patient Comments Pt present for OT eval and requesting that pt do cognitive assessments with pt. Patient/Caregiver Goals TO go home. OT Pain Assessment Pain When Pain Assessed At Rest Pain Present Pain Present Denied Pain M4 OT- IP ADL's Start: 11/03/19 16:47 Freq: Status: Active Protocol: Document 11/03/19 15:25 [facility] (Rec: 11/03/19 17:18 [facility] [id number]) OT TRA-Dekf-Rvomkby Comments OT Self-Feeding Comments Not at meal time. OT ADL-Grooming Comments OT Grooming Comments NOt performed. OT ADL-Dressing General Eval Lower Body Dressing Ability Standby Assistance Comments OT Dressing Comments Pt able to mercy/doff socks while seated. OT ADL-Toileting Comments OT Toileting Comments Pt's states at times pt misses the toilet when urinating. OT ADL-Bathing Comments OT Bathing Comments NOt at this time. M5 OT- IP IADL's Start: 11/03/19 16:47 Freq: Status: Active Protocol: Document 11/03/19 15:25 [facility] (Rec: 11/03/19 17:18 [facility] [id number]) OT-Instrumental Activities of Daily Living Home Safety Awareness Ability to Problem Solve Emergency Able to Problem Solve Situations Home Safety Comments Pt able to answer all home safety situations, however at times needing prompts to get to the right answer. Medication Management Medication Management Comments Pt states takes some medications upstairs and others downstairs. Pt's now aware to help pt to keep track of his medications possible getting a pill organizer. Money Management Money Management Caregiver Provides Assistance Meal Preparation Meal Preparation Caregiver Provides Assist Beamer Helper Beamer Helper Caregiver Provides Assist Driving Driving Comments Per pt, pt's community organization aide recommended that pt stop driving, therefore his does all the driving. M6 OT- IP Functional Cognition Start: 11/03/19 16:47 Freq: Status: Active Protocol: Document 11/03/19 15:25 [facility] (Rec: 11/03/19 17:18 [facility] [id number]) Cognitive Factors Limiting Selfcare Function Cognitive Ability Level of Alertness Alert Patient Orientation Name,Age,Birthday,Month,Date, Year,Day of Week,Place, Situation Attention Span Ability Capable of Focused Attention, Capable of Sustained Attention Ability to Follow Commands Able to Follow Multi-Step Commands Memory Description Short Term Impaired Safety Awareness No Deficits Noted Problem Solving Ability No deficits Noted Executive Function Ability Unable to Remember Details Cognitive Tests SLUMS Pt scored 21/30 which normal score for pt's level of education is 27/30. Pt's scored is borderline between dementia and mild cognitive neuro deficits. Pt able to name 8 animals in one minute, able to recall 2/5 objects after time passed, and able to answer 2/4 questions after paragraph read. Pt's main deficits were due to decreased short term memory aside from naming as many animals in one minute. ACL Pt scored 5.0 however which implies may live alone with weekly check on the environment to monitor safety and check problem solving. Pt may need assist to organize medications and finances, and concrete action cues for effective coping. However due to pt's decreased short term memory base on this OT interaction feels that pt to have at least supervision daily with structured ways to be able to call for assist if not present. Pt's agrees that only time that pt would be left alone if she were to go out and do an errand or go walking. Per pt's , pt does wood working at home and at this time suggested for pt' s to be present to help determine whether pt would be safe to do so again. Cognitive Comments Cognitive Assessment Comments Pt scored 107 seconds on [place] Making Part B which implies 60% for his age group but indicates mild impairments with visual attention, task switching, speed of processing , mental flexibility, and executive function. Pt's does states at times has trouble to initiate and lacks focus at times . OT- Vision and Hearing OT- Hearing Assessment OT- Hearing Assessment Use of Hearing Aids OT- Vision Assessment Visual Acuity Glasses All The Time M7 OT- IP Mobility and Balance Start: 11/03/19 16:47 Freq: Status: Active Protocol: Document 11/03/19 15:25 [facility] (Rec: 11/03/19 17:18 [facility] [id number]) OT-Transfer Assessment Sit to and From Stand Sit to and from Stand Standby Assistance Transfers Transfer Ability Standby Assistance OT- Balance Assessment Sitting Balance and Reactions Static Sitting Balance Ability Normal Dynamic Sitting Balance Ability Normal Standing Balance and Reactions Static Standing Balance Ability Normal M8 OT- IP Objective Assessments Start: 11/03/19 16:47 Freq: Status: Active Protocol: Document 11/03/19 15:25 [facility] (Rec: 11/03/19 17:18 [facility] [id number]) OT Gross Range of Motion Upper Extremity Range of Motion Assessment Within Functional Limits OT Strength Upper Extremity Strength Assessment Within Functional Limits OT- Coordination Assessment Upper Extremity Finger to Nose Test Within Functional Limits M9 OT- IP Assessment and Plan Start: 11/03/19 16:47 Freq: Status: Active Protocol: Document 11/03/19 15:25 [facility] (Rec: 11/03/19 17:18 [facility] [id number]) OT Summary Assessment and Plan Potential Rehabilitation Potential Excellent Analytic Complexity at Evaluation Low Summary OT Impairments Functional Cognition, Functional Mobility Progress Towards Goals Progressing Toward Goals Assessment Summary Pt present with paroxysmal a- fib and recent multiple falls and noted to have some cognitive deficits however results fluctuate from assessments. Slums score 21/30 which implies borderline dementia, ACL 5.0 which notes needing assist for meds/ finances, and [place] Making Part B which implies mild deficits with visual attention, task switching, speed of processing, mental flexibility, and executive function. Pt when medically stable to go home with to assist. Per medical chart, pt getting a referral for Neurology and to have a follow up appointment with cardiology. Goals Self-Feeding Goal Independent Grooming Goal Independent Dressing Goal Independent Toileting Goal Independent Bathing Goal Independent Toilet Transfer Goal Independent Shower Transfer Goal Independent OT-Other Goals Pt to have good understanding for memory strategies to assist with his short term memory deficits. Days to Meet Goals 5 Frequency of Treatment Frequency Of Treatment Once a Day Treatment Plan OT Treatment Plan ADL Training,Functional Cognition Training,Functional Mobility Discharge Recommendations OT Discharge Recommendations Home with Assistance Transportation Needs at Discharge Private Vehicle
[2019-11-03] MEDS: POTASSIUM CHLORIDE 20 MEQ TAB PO (17:07)
[2019-11-03] MEDS: ATORVASTATIN 20 MG TABLET 40 MG PO (21:58)
[2019-11-04 00:08] VITALS: BP 113/64; PULSE 56; RESP 16; TEMP 36.2; O2SAT 96
[2019-11-04 05:11] VITALS: BP 120/61; PULSE 57; RESP 16; TEMP 36.3; O2SAT 93
[2019-11-04 05:11] LABS: BUN Creatinine Ratio 15.2 (6-22); Blood Urea Nitrogen 19 mg/dL (9-20); Calcium 8.6 mg/dL (8.4-10.2); Carbon Dioxide 28 mmol/L (22-32); Chloride 104 mmol/L (98-107); Estimated Glomerular Filt Rate 55.2 mL/min (>60); Glucose 86 mg/dL (80-110); HEMOLYSIS 15 (0-50); Magnesium 1.9 mg/dL (1.6-2.3); Potassium 4.2 mmol/L (3.4-5.1); Sodium 136 mmol/L (137-145)
--- NOTE | 2019-11-04 06:34 | PC.NURSE ---
Development Rep Note-Patient dozed intermittently, uses call light appropriately for assistance into BR. He has a flat affect, gait steady, shuffles. Had one 6 beat run VT while sleeping, otherwise is SB/SR, 1st degree AVB, and PVCs. Occasional audible wheezes during activity, LS rhonchi R>L, denies pain or shortness of breath.
[2019-11-04 08:00] VITALS: BP 121/69; PULSE 63; RESP 20; TEMP 36.6; O2SAT 96
--- NOTE | 2019-11-04 08:09 | PM.PN.1 ---
Subjective Subjective Date Patient Seen: 11/04/19 Time Patient Seen: 08:09 Interval history: Uneventful day yesterday. Was seen by Cardiology and I appreciate input. Patient does not desire any aggressive treatment whatsoever and would not therefore be a candidate for defibrillator etcetera. Did have another I think 5-7 beat run nonsustained VT. No recurrent atrial fibrillation. Continues to be heart rate in the 50s. Blood pressure 120s and 110s Was up with physical therapy felt to be independent although with history of falls I recommended continued home PT . Exam Vital Signs (past 8 hours): - 11/04/19 05:11 Temperature 97.4 F L Pulse Rate 57 L Respiratory Rate 16 Blood Pressure 120/61 Pulse Oximetry 93 Oxygen Delivery Method Room Air Oxygen Flow Rate 0 Objective Labs Result Diagrams: 11/02/19 09:15 11/04/19 04:25 Labs: Laboratory Results - last 24 hr 11/04/19 04:25 Sodium 136 L Potassium 4.2 Chloride 104 Carbon Dioxide 28 BUN 19 Creatinine 1.25 Estimated GFR 55.2 L BUN/Creatinine Ratio 15.2 Glucose 86 Calcium 8.6 Magnesium 1.9 Assessment & Plan Assessment & Plan narrative: 1. Atrial fibrillation-patient converted back to sinus rhythm and has remained there although somewhat bradycardic. Continue amiodarone at a lower dose until he can be seen by his usual social service worker 2. VT in the setting of known ischemic cardiomyopathy with recent ejection fraction 20-25%. Been unable to repeat echocardiogram as recommended by retail sales vitamin consultant due to limited availability at this institution. Patient did have echocardiogram done earlier in the month and seems unlikely that be any significant change. Therefore I am going to send him home without obtaining a limited echocardiogram 3. Cardiomyopathy-cardiology recommended increasing his metoprolol even though he was not on metoprolol and remains bradycardic. Also recommended institution of low-dose MIRI-inhibitor. I am very hesitant to initiate beta-shanda therapy in a patient his heart rates been in 50s consistently once he converted to sinus rhythm and with a history of syncope. Therefore I am going to defer that decision making to his usual social service worker. I will start low-dose MIRI-inhibitor as it looks like his blood pressure will support that. In addition his electrolytes have been corrected and given the institution of lisinopril am not going to anticipate long-term use of oral potassium until we have established what his electrolytes and renal function will look like on the MIRI-inhibitor 4. Falls/neurology-patient appears to be at his baseline. I fully agree with a neurology consultation which is already been initiated by Cardiology. Would consider strongly home health services Quality VTE Deep Vein Thrombosis/Pulmonary Embolism Present on Admission: No
--- NOTE | 2019-11-04 08:20 | P.DS_ITS ---
History of Present Illness History of Present Illness Date Patient Seen: 11/04/19 Time Patient Seen: 08:20 Chief complaint: syncope Narrative: Patient apparently was in his usual state of health which overall is been stable. Parent Patience size nursing technician 2 weeks ago who stated that his ejection fraction was 25%. Apparently this was a significant change from the last time he had been checked. Patient does have a history of cardiac disease with previous stents and bypass surgery. Had been otherwise apparently doing well. Having no dyspnea or other changes. Today when out to get the paper and remembers falling but he is really not sure what happened. He does not think he tripped. Apparently was out but he does not know for how long. found him and called 911. While he was with 911 he did have a syncopal brief episode with no evidence of any seizure activity but with low blood pressure in the 80s. Apparently he was not complaining any chest pain shortness of breath or other changes. Brought into the emergency room and had EKG which showed no acute changes but new onset atrial fibrillation. Rate was anywhere between 80 and 120. His pressure was in the 100s to 90s. Systolic. Due to that he was not given any rate control medication. Patient does have a history of metoprolol which apparently took this morning. He otherwise has not had any fevers or chills. No cough. No shortness of breath. Smokes about a half a pack a day. Apparently has had his peripheral vascular disease evaluated and recently had peripheral vascular evaluation and treatment. notes that he has had several falls over the last 6 weeks has recently been referred to neurologist. Pressure is some question of a tremor. But otherwise no changes or complaints. {from Dr. Bojorquez's H&P 11/02/19} Discharge Providers Provider Date of admission: 11/02/19 14:07 Discharge Date: 11/04/19 Primary care physician: Olaf Espinosa MD Consults: 11/03/19 08:20 Consult to Physical Therapy Evaluate & Treat Comment: Physician Instructions: Evaluate and Treat 11/03/19 08:21 Consult to Occupational Therapy Evaluate & Treat Comment: Physician Instructions: Evaluate and treat Discharge provider: Olaf Espinosa MD Summary Hospital Course Discharge Diagnosis: 1. Paroxysmal atrial fibrillation 2. Nonsustained ventricular tachycardia 3. Ischemic cardiomyopathy 4. Coronary artery disease 5. Essential hypertension 6. Peripheral vascular disease 7. Smoker unmotivated to quit 8. Mixed hyperlipidemia Hospital Course: Patient presented as noted above. He was admitted with the emphasis on rate control and possible need for cardioversion. However patient did have a rather long non sustained run of monomorphic ventricular tachycardia. Phone consultation cardiology suggested initiation of amiodarone infusion which was started. Patient converted back to sinus rhythm with bradycardia. Did not have any further ventricular dysrhythmia while on IV amiodarone. Was modestly hypotensive and gently replaced with IV fluids Due to his bradycardia his IV amiodarone was discontinued. He was seen in consultation by cardiology who recommended to position of his electrolytes and consideration of beta-shanda and MIRI-inhibitor therapy. Patient really was not open to the idea of an implanted defibrillator in that was not felt to be an appropriate option in that setting. Patient had 1 other shorter nonsustained run of VT. No further syncope or near-syncope. Patient was up and around with physical therapy in felt to be back to baseline. Certainly has some issue with his gait and balance and perhaps some underlying neurologic issue which is under investigation Patient was felt to be back to baseline and safe for discharge by the morning of the 03 of November. Basically he will go home on low-dose amiodarone and a low dose of an MIRI-inhibitor addition to all of his other usual pre-admission me dications with close follow-up with Cardiology. He will also need to be seen by Neurology and that it process has been started prior to this hospitalization Status at Discharge Cognitive/behavioral status at discharge: at baseline, oriented Functional status at discharge: independent ambulation Overall status at discharge: patient is back to baseline Time Spent with Patient Time spent: Less than 30 minutes Time spent discussing smoking cessation with patient: 3 to 10 minutes Exam Vital Signs (past 8 hours): - 11/04/19 05:11 Temperature 97.4 F L Pulse Rate 57 L Respiratory Rate 16 Blood Pressure 120/61 Pulse Oximetry 93 Oxygen Delivery Method Room Air Oxygen Flow Rate 0 Narrative Exam Narrative: HEENT-unremarkable, normocephalic atraumatic Neck-no lymphadenopathy no bruits Lungs-clear anteriorly and posteriorly no wheezes no crackles good breath sounds Heart-regular rate and rhythm, no murmur, rub, or gallop. normal S1-S2 Abdomen-positive bowel tones, soft, nontender, nondistended, no hepatosplenomegaly, no masses palpable Neuro-normal to screening exam, gait not tested Extremities-no cyanosis clubbing or edema, right elbow wrapped Objective Labs Result Diagrams: 11/02/19 09:15 11/04/19 04:25 Labs: Laboratory Results - last 24 hr 11/04/19 04:25 Sodium 136 L Potassium 4.2 Chloride 104 Carbon Dioxide 28 BUN 19 Creatinine 1.25 Estimated GFR 55.2 L BUN/Creatinine Ratio 15.2 Glucose 86 Calcium 8.6 Magnesium 1.9 Discharge Assessment & Plan Assessment and Plan Plan of Treatment: Patient need to be seen by his usual nursing technician within the next 2 weeks. Continue on amiodarone and lisinopril as well as his other usual medications until that time. Patient need to be seen in follow-up by myself as well. I have only seen in the 1 time in the office and will need to reestablish his post hospital status. Strongly consider home health services as well Discharge Plan Discharge Plan Patient Disposition: Home Discharge orders & Medications Prescriptions: New amiodarone 100 mg tablet 100 mg PO DAILY Qty: 30 RF: 3 lisinopril 5 mg Tablet 5 mg PO DAILY Qty: 30 RF: 0 Continued nitroglycerin 0.4 mg tablet, sublingual 0.4 mg SL Q5M PRN (Reason: Angina) RF: 0 aspirin [Adult Low Dose Aspirin] 81 mg tablet,delayed release (DR/EC) 81 mg PO DAILY RF: 0 atorvastatin 40 mg tablet 40 mg PO BEDTIME RF: 0 amlodipine 2.5 mg tablet 2.5 mg PO DAILY RF: 0 clopidogrel 75 mg tablet 75 mg PO DAILY RF: 0 hydrochlorothiazide 12.5 mg capsule 12.5 mg PO DAILY RF: 0 fluocinonide 0.05 % Cream 1 applic TOPICAL DAILY RF: 0 colestipol 1 gram Tablet 1 g PO DAILY RF: 0 Follow up/Referrals: Shadi Weathers MD [Family Provider] - 2 Weeks Olaf Espinosa MD [Primary Care Provider] - 1 Week Discharge Health Status Multidrug resistant organism: No MDRO Diet/Activity/Treatments Diet: Low-sodium Skin/Wound/Dressing Care Other wound treatment: Simple dressing change once a day to right elbow Discharge Data Primary Care Provider: Olaf Espinosa Quality VTE Deep Vein Thrombosis/Pulmonary Embolism Present on Admission: No
[2019-11-04] MEDS: MAGNESIUM OXIDE 400 MG TABLET PO (08:33)
[2019-11-04] MEDS: AMIODARONE 200 MG TABLET PO (08:33)
[2019-11-04] MEDS: CLOPIDOGREL 75 MG TABLET PO (08:33)
[2019-11-04] MEDS: ASPIRIN 325 MG TABLET PO (08:33)
[2019-11-04] MEDS: lisinopriL 5 MG TABLET PO (08:33)
--- NOTE | 2019-11-04 09:12 | OT.IP.TRT ---
Occupational Therapy Treatment Note M2 OT-IP Current Condition Start: 11/03/19 16:47 Freq: Status: Active Protocol: Document 11/03/19 15:25 [facility] (Rec: 11/03/19 17:18 [facility] [id number]) Occupational Therapy Current Condition Current Condition Evaluation Date 11/03/19 Treatment Diagnosis Paroxysmal a-fib with nonsustained monomorphic VT Diagnosis Onset Date 11/02/19 M3 OT- IP Subjective and Pain Start: 11/03/19 16:47 Freq: Status: Active Protocol: Document 11/04/19 09:15 [facility] (Rec: 11/04/19 09:25 [facility] [id number]) OT- Subjective Occupational Therapy Visit Type Type Treatment Note Visit Start Time 08:48 Visit Stop Time 09:12 Total Visit Minutes 24 Occupational Therapy Visit Comments Patient Comments Pt agreed to get dressed and not wanting to shower at this time as showered yesterday. OT Pain Assessment Pain When Pain Assessed At Rest M4 OT- IP ADL's Start: 11/03/19 16:47 Freq: Status: Active Protocol: Document 11/04/19 09:15 [facility] (Rec: 11/04/19 09:25 [facility] [id number]) OT [id number] Comments OT Self-Feeding Comments Not at meal time. OT ADL-Grooming General Evaluation Grooming Ability Independent OT ADL-Dressing General Eval Upper Body Dressing Ability Independent Lower Body Dressing Ability Standby Assistance Comments OT Dressing Comments Distant SBA while standing to do LB dressing. Pt needing suggestion to take off the grippy socks to increase ease to put on his pants. OT ADL-Toileting Comments OT Toileting Comments Pt not having to use the toilet. OT ADL-Bathing Comments OT Bathing Comments Pt states showered yesterday. M6 OT- IP Functional Cognition Start: 11/03/19 16:47 Freq: Status: Active Protocol: Document 11/04/19 09:15 [facility] (Rec: 11/04/19 09:25 [facility] [id number]) Cognitive Factors Limiting Selfcare Function Cognitive Ability Level of Alertness Alert Patient Orientation Name,Age,Birthday,Month,Date, Year,Day of Week,Place, Situation Attention Span Ability Capable of Focused Attention, Capable of Sustained Attention Ability to Follow Commands Able to Follow Multi-Step Commands Memory Description Short Term Impaired Problem Solving Ability Needs Assist to Identify Solutions Executive Function Ability Unable to Remember Details Cognitive Comments Cognitive Assessment Comments Pt needing increase time to figure out to take off the grippy socks first before getting his pants on. Pt not remembering to use the call light to call nursing prior to getting up. Therefore chair alarm replaced on pt while seated in the recliner. Pt did not remember where his Apple watch was placed or if his took it home. M7 OT- IP Mobility and Balance Start: 11/03/19 16:47 Freq: Status: Active Protocol: Document 11/04/19 09:15 [facility] (Rec: 11/04/19 09:25 [facility] [email or web address]) OT-Transfer Assessment Sit to and From Stand Sit to and from Stand Independent Transfers Transfer Ability Standby Assistance Comments Mobility Comments Pt uses momentum from lower surface to help get to stand. OT- Gait Assessment Comments Gait Ability Comments Distant SBA while in the room without a device. OT- Balance Assessment Sitting Balance and Reactions Static Sitting Balance Ability Normal Dynamic Sitting Balance Ability Normal Standing Balance and Reactions Static Standing Balance Ability Normal Dynamic Standing Balance Ability Fair M8 OT- IP Objective Assessments Start: 11/03/19 16:47 Freq: Status: Active Protocol: Document 11/03/19 15:25 [facility] (Rec: 11/03/19 17:18 [facility] [id number]) OT Gross Range of Motion Upper Extremity Range of Motion Assessment Within Functional Limits OT Strength Upper Extremity Strength Assessment Within Functional Limits OT- Coordination Assessment Upper Extremity Finger to Nose Test Within Functional Limits M9 OT- IP Assessment and Plan Start: 11/03/19 16:47 Freq: Status: Active Protocol: Document 11/04/19 09:15 [facility] (Rec: 11/04/19 09:25 [facility] [id number]) OT Summary Assessment and Plan Potential Rehabilitation Potential Good Analytic Complexity at Evaluation Low Summary OT Impairments Functional Cognition, Functional Mobility Progress Towards Goals Progressing Toward Goals Assessment Summary Pt still having issues with short term memory and a little unsteady on his feet during dynamic standing needs. Pt looking to go home with his today. Discharge Recommendations OT Discharge Recommendations Home with Assistance Transportation Needs at Discharge Private Vehicle
--- NOTE | 2019-11-04 09:28 | PT.IPTN ---
Physical Therapy Treatment Note M2 PT-IP Current Condition Start: 11/03/19 09:04 Freq: NEEDED Status: Active Protocol: Document 11/03/19 14:21 [facility] (Rec: 11/03/19 15:25 [facility] [id number]) Physical Therapy Current Condition Current Condition Evaluation Date 11/03/19 Treatment Diagnosis syncope, recurrent falls, difficulty in walking Onset Date 11/02/19 M3 PT-IP Subjective Start: 11/03/19 09:04 Freq: NEEDED Status: Active Protocol: Document 11/04/19 09:18 [facility] (Rec: 11/04/19 13:13 [facility] [id number]) Subjective Physical Therapy Visit Type Type Treatment Note Visit Start Time 09:18 Visit Stop Time 09:28 Total Visit Minutes 10 Number of ASSORTER LAUNDRY Visits 1 Physical Therapy Visit Comments Patient Comments Pt is willing to participate with PT Therapy Pain Assessment Pain When Pain Assessed During Mobility Pain Present Pain Present Denied Pain M4 PT-IP Mobility and Gait Start: 11/03/19 09:04 Freq: NEEDED Status: Active Protocol: Document 11/04/19 09:18 [facility] (Rec: 11/04/19 13:13 [facility] [id number]) PT-Transfer Assessment Sit to and From Stand Sit to and from Stand Standby Assistance Equipment Transfer Assistive Device Gait Belt Transfers Transfer Destination Chair Transfer Technique pt ambulated without AD Transfer Ability Level of Assist Standby Assistance Comments Mobility Comments Pt stood from chair SBA and ambulated in howe ~140ft w/o AD requiring SBA. Pt climbed ten steps with bilateral rails then returned to room sitting on chair SBA. Pt left in chair with all needs within reach and chair alarm on. Gait Assessment Gait Gait Assistance Required: Standby Assistance Distance (Feet) 140 Assistive Devices Assistive Device None,Gait Belt Gait Deviations General Gait Pattern Decreased Stride Length, Decreased Feet Clearance, Flexed Trunk Factors Limiting Gait Function Factors Limiting Gait Function Decreased Activity Tolerance, Limited Range of Motion,Poor Balance,Poor Safety Awareness Comments Gait Comments Pt ambulated in howe with steady gait and able to maneuver around obstacles safely. Pt with no LOB during ambulation. Stair Climbing Assessment Evaluation Level of Assist On Stairs Standby Assistance Devices Stair Climbing Assistive Devices Left Railing,Right Railing Technique/Endurance Stair Climbing Direction Ascend and Descend Stair Climbing Technique Step Over Step Number of Steps Climbed 10 Stair Climbing Set # Repetitions (reps) 1 Comments Stair Climbing Comments Pt descended and ascended ICU stairs with narrow B rails SBA . PT-Balance Assessment Sitting Balance and Reactions Static Sitting Balance Ability Good Dynamic Sitting Balance Ability Good Standing Balance and Reactions Static Standing Balance Ability Fair Dynamic Standing Balance Ability Fair Device Used none M5 PT-IP Objective Assessments Start: 11/03/19 09:04 Freq: NEEDED Status: Active Protocol: Document 11/03/19 14:21 [facility] (Rec: 11/03/19 15:25 [facility] [email or web address]) Orientation Orientation/Cognition Level of Alertness Alert Orientation Name,Day of Week,Place, Situation Language Function Ability Hard of Hearing Safety Awareness Decreased Safety Awareness Gross Range of Motion Upper Extremity ROM Assessment Within Functional Limits Lower Extremity ROM Assessment Within Functional Limits Strength Upper Extremity Strength Assessment Within Functional Limits Lower Extremity Strength Assessment Bilaterally Impaired Hip 4/5 Knee 4+/5 Ankle 4+/5 Coordination Assessment Gross Coordination Gross Coordination WNL Assessment Finger to Nose Test Normal Performance Foot Tapping Test Normal Performance Sensation Assessment Sensation Gross Sensation WNL Muscle Tone Muscle Tone WNL Yes Comments Muscle Tone Comments Pt mentions intention tremor associated with fine motor tasks but this is not observed during exam. M6 PT-IP Treatment Start: 11/03/19 09:04 Freq: NEEDED Status: Active Protocol: Document 11/03/19 14:21 [facility] (Rec: 11/03/19 15:25 [facility] [email or web address]) Physical Therapy Treatment Education Education Provided Precautions,Safety Other Treatments Other Treatment Performed Provided education on role of PT, plan of care, and rationale for use of an assistive device. M7 PT-IP Assessment and Plan Start: 11/03/19 09:04 Freq: NEEDED Status: Active Protocol: Document 11/04/19 09:18 [facility] (Rec: 11/04/19 13:13 [facility] [id number]) PT Summary Assessment and Plan Potential Rehabilitation Potential Good Status of Condition at Evaluation Stable Summary Impairments Strength,Balance,Gait,Activity Tolerance Assessment Summary Pt is SBA for sit<>stand, gait and stairs. Pt had no LOB during gait able to ambulate w /o AD with steady gait and safety awareness. Pt able to climb ten stairs with bilateral rails SBA. Pt seems able to d/c home with assist and HH when medically stable. Goals Bed Mobility Goal Independent Transfer Goal Independent Gait Goal Independent Gait Distance 300 Other Goals - up/down 10 steps with B rails IND Frequency of Treatment Frequency Of Treatment Once a Day Treatment Plan Physical Therapy Treatment Plan Bed Mobility Training,Transfer Training,Gait Training, Therapeutic Exercise,Balance Retraining,Discharge Planning, Neuromuscular Re-ed, Coordination Retraining Recommendations To Nursing Amount of Assist Needed Standby Assistance Discharge Recommendations PT Discharge Recommendations Home with Assistance,Home Health Transportation Needs at Discharge Private Vehicle
--- NOTE | 2019-11-04 10:00 | PC.NURSE ---
Addendum entered by Matthew Junior R.N. 11/04/19 10:36: Per Dr. Espinosa, rx remains the same and is the recommended medication for condition. Update given to pt/spouse who verbalize understanding. Instructed pt/spouse to notify Dr. Espinosa or Cardiology for any further concerns. They are agreeable. Completed d/c teaching. IV and telemetry removed as charted. Pt transferred from chair to w/c independently. All belongings are gathered and sent with pt/spouse. WINDOWS AND DOORS INSTALLER assisted pt to POV in no distress at 1035. Original Note: Pt to d/c home per MD order. Reviewed d/c packet and medication regimen. Pt and spouse report discussing amiodarone with Dr. Camacho yesterday and opting not to continue this medication due to potential lung issues. Called to Dr. Espinosa and left message with Sandy to return phone call for clarification of orders.
--- NOTE | 2019-11-04 10:22 | CM.DPC ---
DCP: continued: case received and discussed in Team Rounds. Therapy team noted he had been cleared for the home setting and was dressed and ready to go. A dc order was noted. Checked in after Rounds. ARDEN Castro was in room with pt and his going over the dc instructions.
== END 2019-11-04 10:30 | disposition home or self-care (01) | DRG 310 ==
LOC: ED 13:08 → ICU 11-03 07:36 → AC 11-03 09:36 → ICU 11-03 09:37 → AC 11-04 10:41
PROVIDERS: Admitting Provider Family Medicine; Emergency Provider Emergency Medicine; Family Provider Internal Medicine Interventional Cardiology; PCP Internal Medicine; Referring Provider Emergency Medicine; Visit Provider Internal Medicine
DX: I48.0 Paroxysmal atrial fibrillation (principal); I47.2 Ventricular tachycardia; I95.9 Hypotension, unspecified; I25.5 Ischemic cardiomyopathy; I25.10 Atherosclerotic heart disease of native coronary artery without angina pectoris; I10 Essential (primary) hypertension; E78.2 Mixed hyperlipidemia; I73.9 Peripheral vascular disease, unspecified; F17.210 Nicotine dependence, cigarettes, uncomplicated; Z91.81 History of falling; R25.1 Tremor, unspecified; W19.XXXA Unspecified fall, initial encounter; R53.1 Weakness
CPT/HCPCS: 36415; 70450; 71045; 80048; 80053; 82550; 83690; 83735; 83880; 84100; 84443; 84484; 85025; 87635; 93005; 96360; 96361; 97116; 97161; 97165; 97530; 97535; 99233; 99238; 99284; J0282

== ENCOUNTER → 2019-11-17 16:03 | Outpatient (CLI) | payer OTHER, SELFPAY ==
[2019-11-02 15:04] VITALS: BMI 22.8
[2019-11-17 16:39] LABS: Add Manual Diff / Slide Review NO; Basophils Absolute Auto 100 /uL (0-100); Basophils Percent Auto 0.9 % (0-2); Eosinophils Absolute Auto 200 /uL (0-450); Hematocrit 45.9 % (41-53); Hemoglobin 15.6 g/dL (13.5-17.5); Lymphocytes Absolute Auto 2100 /uL (1100-4500); Lymphocytes Percent Auto 24.3 % (25-40); Mean Corpuscular Hemoglobin 31.1 PG (26-34); Mean Corpuscular Volume 91.4 fL (80-100); Monocytes Absolute Auto 500 /uL (0-900); Monocytes Percent Auto 5.7 % (3-14); Neutrophils Absolute Auto 5700 /uL (1500-7000); Neutrophils Percent Auto 67.1 % (50-75); Platelet Count 199 X10^3/uL (150-400); Red Blood Cell Count 5.02 X10^6/uL (4.5-5.9); Red Cell Distribution Width 13.9 % (11.6-14.8); White Blood Cell Count 8.5 X10^3/uL (4.5-11.0)
[2019-11-17 17:06] LABS: BUN Creatinine Ratio 14.3 (6-22); Blood Urea Nitrogen 22 mg/dL (9-20); Calcium 9.1 mg/dL (8.4-10.2); Carbon Dioxide 31 mmol/L (22-32); Chloride 104 mmol/L (98-107); Estimated Glomerular Filt Rate 43.4 mL/min (>60); Glucose 103 mg/dL (80-110); HEMOLYSIS 28 (0-50); Potassium 5.1 mmol/L (3.4-5.1); Sodium 141 mmol/L (137-145)
== END ==
PROVIDERS: Family Provider Internal Medicine Interventional Cardiology; PCP Internal Medicine; Referring Provider Internal Medicine; Visit Provider Internal Medicine
DX: I10 Essential (primary) hypertension (principal); I48.0 Paroxysmal atrial fibrillation
CPT/HCPCS: 36415; 80048; 85025

== ENCOUNTER → 2019-12-18 07:28 | Outpatient (CLI) | payer OTHER, SELFPAY ==
[2019-11-02 15:04] VITALS: BMI 22.8
[2019-12-18 09:49] LABS: Add Manual Diff / Slide Review NO; Basophils Absolute Auto 100 /uL (0-100); Basophils Percent Auto 0.7 % (0-2); Eosinophils Absolute Auto 200 /uL (0-450); Eosinophils Percent Auto 2.8 % (2-4); Hematocrit 46.9 % (41-53); Lymphocytes Absolute Auto 1900 /uL (1100-4500); Lymphocytes Percent Auto 23.3 % (25-40); Mean Corpuscular HGB Conc 34.2 % (30-36); Mean Corpuscular Hemoglobin 31.4 PG (26-34); Mean Corpuscular Volume 91.7 fL (80-100); Monocytes Absolute Auto 500 /uL (0-900); Monocytes Percent Auto 6.4 % (3-14); Neutrophils Absolute Auto 5400 /uL (1500-7000); Neutrophils Percent Auto 66.8 % (50-75); Platelet Count 185 X10^3/uL (150-400); Red Blood Cell Count 5.11 X10^6/uL (4.5-5.9); White Blood Cell Count 8.1 X10^3/uL (4.5-11.0)
[2019-12-18 10:05] LABS: BUN Creatinine Ratio 13.4 (6-22); Blood Urea Nitrogen 18 mg/dL (9-20); Calcium 9.5 mg/dL (8.4-10.2); Carbon Dioxide 31 mmol/L (22-32); Chloride 103 mmol/L (98-107); Cholesterol 113 mg/dL (140-199); Estimated Glomerular Filt Rate 50.9 mL/min (>60); Glucose 89 mg/dL (80-110); HDL Cholesterol 46 mg/dL (40-60); HEMOLYSIS < 15 (0-50); LDL Cholesterol Calculated 39 mg/dL (<100); Potassium 4.3 mmol/L (3.4-5.1); Sodium 138 mmol/L (137-145); Triglycerides 139 mg/dL (35-150)
[2019-12-18 10:34] LABS: Thyroid Stimulating Hormone 3.26 uIU/mL (0.47-4.68)
== END ==
PROVIDERS: Family Provider Internal Medicine Interventional Cardiology; PCP Internal Medicine; Referring Provider Internal Medicine Interventional Cardiology; Visit Provider Internal Medicine Interventional Cardiology
DX: I25.5 Ischemic cardiomyopathy (principal); I25.810 Atherosclerosis of coronary artery bypass graft(s) without angina pectoris; I10 Essential (primary) hypertension
CPT/HCPCS: 36415; 80048; 80061; 84443; 85025

== ENCOUNTER → 2020-04-07 09:45 | Outpatient (CLI) | payer OTHER, SELFPAY ==
[2019-11-02 15:04] VITALS: BMI 22.8
--- NOTE | 2020-04-07 09:46 | DI.MRI.S_ITS ---
PROCEDURE: MR HEAD/BRAIN WO CON INDICATIONS: PARKINSONS TECHNIQUE: Non-contrast axial T1 spin echo, axial T2 fast spin echo, sagittal and axial FLAIR, coronal T2 fast spin echo, axial gradient echo, axial diffusion and ADC through the brain. COMPARISON: [facility], CT, CT HEAD/BRAIN WO CON, 11/02/2019, 9:58. FINDINGS: Image quality: Excellent. CSF spaces: Ventricles appear symmetric in size and shape. Basal cisterns are patent. No extra-axial fluid collections. Brain: No intracranial bleeds or mass effects. There is cerebral volume loss for age. There are periventricular and deep white matter chronic small vessel ischemic changes. Brainstem appears normal. Diffusion-weighted images show no acute ischemic insults. No chronic ischemic insults. Normal intravascular flow voids are present. Skull and face: Calvarial bone marrow is normal in signal. Orbits are normal. Sinuses: Sinuses and mastoids are clear. IMPRESSION: Stable mild brain parenchymal atrophy, expected for age. Mild microvascular at atherosclerotic change is present within the deep white matter of each hemisphere. There is no evidence of mass, hydrocephalus or prior focal ischemic injury. Dictated by: Ronen Barnard M.D. on 04/07/2020 at 10:25 Approved by: Ronen Barnard M.D. on 04/07/2020 at 10:26
== END ==
PROVIDERS: Family Provider Internal Medicine Interventional Cardiology; PCP Internal Medicine; Referring Provider Psychiatry & Neurology Neurology; Visit Provider Psychiatry & Neurology Neurology
DX: G20 Parkinson's disease (principal)
CPT/HCPCS: 70551

== ENCOUNTER 2020-06-21 14:15 | Outpatient (RCR) | payer OTHER, SELFPAY ==
[2019-11-02 15:04] VITALS: BMI 22.8
[2020-06-01 12:00] VITALS: BP 148/90
--- NOTE | 2020-06-01 17:29 | PT.OIE ---
Current Diagnoses Parkinson's disease (06/01/20) Difficulty in walking, not elsewhere classified (06/01/20) Past Medical History (Last Updated 03/23/20 @ 14:41 by Olaf Espinosa MD) COPD (chronic obstructive pulmonary disease) Coronary artery disease (~2010) Essential hypertension Hearing loss (~2013) Hemorrhoid (~1979) Ischemic cardiomyopathy Mixed hyperlipidemia Parkinson's disease Paroxysmal atrial fibrillation Peripheral vascular disease (~2016) Wears glasses Past Surgical History (Last Updated 11/17/19 @ 15:40 by Olaf Espinosa MD) Anesthesia Gallstones (~2017) History of cataract removal with insertion of prosthetic lens (~2018) History of heart bypass surgery (~2011) History of surgery (~2016) History of surgery (~2016) Pelvis fracture (~2012) Right groin hernia (~2018) S/P laparoscopic cholecystectomy Visit Care Team Role Provider Type Olaf Espinosa MD Family Provider Physician Primary Care Provider Specialty: Internal Medicine Address: [address] [place] [address], [address] Email: [email or web address] Manuel Bob MD Attending Provider Non-Staff Referring Provider Specialty: Neurology Address: [address] [place], [address] Email: Physical Therapy Initial Evaluation PT-OP-A Visit Information Start: 04/30/20 10:53 Freq: Status: Active Protocol: Document 06/01/20 12:00 AW (Rec: 06/01/20 12:37 AW [email or web address]) Out-Patient Physical Therapy Visit Information Visit Information Visit Type Initial Evaluation Visit Note Pt's , Celeste, attends with pt and contributes to history . Visit Start Time 11:00 Visit Stop Time 12:00 Total Visit Minutes 60 Visit Number 02/21 Number of RESEARCH GENETICIST Visits 0 Evaluation Information Evaluation Date 06/01/20 Precautions Precautions history of a fib, syncope, ~25 % ejection fraction, frequent falls PT-OP-B Current Condition Start: 04/30/20 10:53 Freq: Status: Active Protocol: Document 06/01/20 12:00 AW (Rec: 06/01/20 12:37 AW [email or web address]) Current Condition History of Current Condition Onset Date diagnosed in early 2020 Current Complaints poor balance; frequent falls; tremor with fine motor activity History of Current Condition Pt states he began to notice he was off with his balance about a year ago. His believes his balance began to deteriorate about three years ago. He started carbidopa levodopa earlier this year and is currently taking it three times per day. He does not appreciate any change in his function that he can contribute to medication. Neurologist Dr. Bob mentioned his parkinsonism may be atypical. Pt reports falling once every 3-4 days. Unrelated to PD, pt fell ~7 years ago from a height and fractured his pelvis. About a year ago, pt fell forward and fractured his supraorbital bone. He denies other injurious falls. Other than balance, pt notices his writing has become smaller and messier. He mentions shaking with fine motor activities such as using a screwdriver. Gait is especially challenged during turns and on inclines. Pt reports short term memory challenges. Prior Treatments and Tests Pt is followed by Dr. Bob for neurology, an unknown geophysical laboratory supervisor, and Dr. Espinosa for primary care. Future Testing and Treatments Planned Speech evaluation for consideration of LOUD program. Treatment Goals Patient/Caregiver Goals I want to fall less often and have more confidence in my movement. Pt's states she would like to keep her safe and to be able to stay in their multilevel home as long as possible. There are 10 MYLENE and 15 steps inside to the bedroom level. Pt and his mention they would like to be able to take longer walks including inclines without pt falling. Prior Functional Status Baseline Function- ADL's Independent Baseline Function- Mobility Independent Baseline Function- Gait Uses SPC for walking outside, no AD for inside. 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 Current Functional Impairments (Reported) Functional Limitations- ADL's Pt reports falling forward when reaching down to the ground during dressing and other tasks Functional Limitations- Mobility/Gait Frequent falls, impaired dynamic balance, turns and inclines challenging Functional Limitations- Recreation/ Difficulty with fine motor Hobbies control due to intention tremor Personal Factors Other Personal Factors That May Effect (-) smokes 10-15 cigarettes Therapy/Recovery daily (-) poor short term memory may influence carryover (+) supportive spouse PT-OP-C Subjective Start: 04/30/20 10:53 Freq: Status: Active Protocol: Document 06/01/20 12:00 AW (Rec: 06/01/20 12:37 AW [email or web address]) OP-PT Pain Assessment Pain Assessment Grid Paper Pain Assessment Grid Completed No PT-OP-D Balance Start: 04/30/20 10:53 Freq: Status: Active Protocol: Document 06/01/20 12:00 AW (Rec: 06/01/20 17:02 AW [email or web address]) OP-PT Balance Assessment Sitting Balance Static Sitting Balance Ability Good Dynamic Sitting Balance Ability Good Standing Balance Static Standing Balance Ability Good Dynamic Standing Balance Ability Fair Device Used No AD Balance Tests Semi-Tandem Standing Semi-Tandem Standing Balance ~5 sec with SBA Tandem Tandem Standing unable Giraldo Fall Scale Copyright Permission PT-OP-E Functional Tests Start: 06/01/20 11:03 Freq: Status: Active Protocol: Document 06/01/20 12:00 AW (Rec: 06/01/20 17:02 AW [email or web address]) Functional Tests 10 Meter Walk Test Distance 10.45 sec, 15 steps Device Used none Comments 0.96 m/s; step length .67 m or 2.2 feet Functional Gait Assessment Score 18 Functional Gait Assessment Impairment 40 to <60% Impaired (Score 13- Rating 18) PT-OP-G Mobility & Gait Start: 04/30/20 10:53 Freq: Status: Active Protocol: Document 06/01/20 12:00 AW (Rec: 06/01/20 17:02 AW [email or web address]) OP Gait Assessment Gait Gait Assistance Required: Standby Assistance Distance (Feet) 200 Assistive Devices Assistive Device Gait Belt Orthotic/Prosthetic Devices or Brace: No Gait Deviations General Gait Pattern Flexed Trunk Factors Limiting Gait Function Factors Limiting Gait Function Decreased Activity Tolerance, Poor Balance,Poor Safety Awareness Comments Gait Comments Pt ambulates with limited trunk rotation and minimal arm swing excursion. Stair Climbing Evaluation Evaluation Level of Assist On Stairs Standby Assistance Devices Stair Climbing Assistive Devices Left Railing Technique/Endurance Stair Climbing Direction Ascend and Descend Stair Climbing Technique Step Over Step Number of Steps Climbed 4 Stair Climbing Set # Repetitions (reps) 2 PT-OP-H Neuro Start: 04/30/20 10:53 Freq: Status: Active Protocol: Document 06/01/20 12:00 AW (Rec: 06/01/20 17:02 AW [email or web address]) Sensation Evaluation Gross Sensation Gross Sensation WNL Coordination Evaluation Comments Coordination Comments Coordination grossly normal on finger to nose but mildly impaired with rapid pronation and supination. Deep Tendon Reflex & Clonus Assessment Deep Tendon Reflex Bilateral Achilles Deep Tendon Reflex 1+ Diminished Bilateral Patellar Deep Tendon Reflex 1+ Diminished Bilateral Bicep Deep Tendon Reflex 2+ Normal Ankle Clonus Bilateral Clonus Assessment Absent Muscle Tone Tone Assessment Upper Extremity Manifestations of Tone Intention Tremors Muscle Tone Comments BUE intention tremors described by pt but not elicited on exam. Vital Signs Blood Pressure Sitting Blood Pressure (90/60-120/80 mmHg) 148/90 H Blood Pressure Source Manual Cuff,Right Upper Extremity PT-OP-K Range of Motion Start: 04/30/20 10:53 Freq: Status: Active Protocol: Document 06/01/20 12:00 AW (Rec: 06/01/20 17:08 AW [email or web address]) Shoulder Goniometric Range of Motion Shoulder bilateral Shoulder ROM WFL Yes Elbow/Forearm Range of Motion Elbow/Forearm bilateral Elbow/Forearm ROM WFL Yes Hip Goniometric Range of Motion Hip bilateral Hip ROM WFL Yes Knee Goniometric Range of Motion Knee bilateral Knee ROM WFL Yes Patient Position Supine Comments lacks <5 degrees extension bilaterally Knee ROM Limitations Knee ROM Limitations Soft Tissue Tightness PT-OP-M Strength Start: 04/30/20 10:53 Freq: Status: Active Protocol: Document 06/01/20 12:00 AW (Rec: 06/01/20 17:08 AW [email or web address]) Shoulder Strength Shoulder Manual Muscle Testing bilateral Flexion 5 Normal Extension 5 Normal Abduction (C5) 4+ Good+ External Rotation 4+ Good+ Internal Rotation 5 Normal Hip Strength Hip Manual Muscle Testing bilateral Flexion (L2) 4 Good Extension (S1) 4+ Good+ Abduction 4+ Good+ External Rotation 4+ Good+ Internal Rotation 4+ Good+ Knee Strength Knee Manual Muscle Testing bilateral Flexion (S2) 4+ Good+ Extension (L3) 5 Normal Ankle/Foot Strength Ankle and Foot Manual Muscle Testing bilateral Dorsiflexion (L4) 5 Normal Plantarflexion (S1) 4 Good Inversion 5 Normal Eversion (S1) 5 Normal PT-OP-Q Treatments Start: 04/30/20 10:53 Freq: Status: Active Protocol: Document 06/01/20 12:00 AW (Rec: 04/27/21 17:08 AW [email or web address]) Gait Training Gait Activity BIG walking Description BIG walking Device Used no AD Level of Assistance SBA Surface level - carpet and tile Distance/Duration 300 feet Treatment Focus Think BIG arm swing; turns Comments Spent 12 minutes testing stimulability with pt able to produce larger amplitude movement in response to demo and cues. Pt states I feel more balanced when I think about swinging my arms. PT-OP-T Assessment and Plan Start: 04/30/20 10:53 Freq: Status: Active Protocol: Document 06/01/20 12:00 AW (Rec: 06/01/20 17:28 AW [email or web address]) Physical Therapy Assessment Rehab Potential Rehabilitation Potential Good Evaluation Complexity Number of Personal Factors/Comorbidities 1-2 Number of Body Systems Impaired 1-2 Clinical Presentation at Evaluation Stable Impairments Impairments Activity Tolerance,Balance, Coordination,Functional Activities,Functional Mobility ,Gait,Posture,Strength, Transfers Other Concerns Fall Risk high Barriers to Rehabilitation (-) current daily smoker (-) impaired short term memory Goals Four Impairment bradykinesia Role Player Goal (LTG) Pt will improve self-selected gait speed on 10 Meter Walk Test from 0.96 m/s to 1.3 m/s or greater to demonstrate recalibration and reduction in falls risk. Three Impairment functional mobility Role Player Goal (LTG) Pt will complete 5 Time Sit to financial reserve clerk under 10 seconds without need for UE support and with no failed attempts. LTG Duration 16 treatments Two Impairment Pt lacks HEP Role Player Goal (LTG) Pt will perform BIG exercises and functional tasks BID with handouts to improve amplitude and quality of movement. LTG Duration 16 treatments One Impairment dynamic balance Group Home Goal (LTG) Pt will score 24/30 (baseline 18/30) or greater on Functional Gait Assessment for reduction of falls risk. LTG Duration 16 treatments Assessment Summary Assessment Sedrick is an 84 yo man with diagnosis of possibly atypical Parkinson's disease. He was seen for PT evaluation in the outpatient setting. He presents with impairments in hypokinesia, bradykinesia, and dynamic balance which are consistent with his reports of falling every 3-4 days. On exam, he was stimulable/able to produce movement with greater amplitude following demonstration and verbal cues. He is a good candidate for treatment under the LSVT BIG protocol which shall include 16 treatment sessions over four weeks aimed at recalibrating his amplitude. Physical Therapy Plan Frequency and Duration Frequency of Treatment 4x/Week Duration of Treatment 4 weeks - 16 treatments Plan of Care Start Date 06/01/20 Plan of Care End Date 07/09/20 Therapeutic Interventions Therapeutic Interventions Balance Training,Coordination Training,Gait Training,Home Exercise Program,Neuromuscular Re-education,Patient/ Caregiver Education,Self-Care/ Home Management,Sensory Integration,Therapeutic Activities,Therapeutic Exercises Next Visit Focus/Plan Next Note Type Treatment Note Next Visit Plan Review Functional Task Reporting Form; Initiate daily maximal exercises
--- NOTE | 2020-06-01 17:29 | PT.OPPOC ---
Physical, Occupational & Speech Therapy At [facility] Current Diagnoses Parkinson's disease (06/01/20) Difficulty in walking, not elsewhere classified (06/01/20) Visit Care Team Role Provider Type Olaf Espinosa MD Family Provider Physician Primary Care Provider Specialty: Internal Medicine Address: [address] [place] [address], [facility] [address], [place], [address] Email: [email or web address] Manuel Bob MD Attending Provider Non-Staff Referring Provider Specialty: Neurology Address: [address] [place] [address], [phone] Email: Plan Of Care PT-OP-T Assessment and Plan Start: 04/30/20 10:53 Freq: Status: Active Protocol: Document 06/01/20 12:00 AW (Rec: 06/01/20 17:28 AW [email or web address]) Physical Therapy Assessment Rehab Potential Rehabilitation Potential Good Evaluation Complexity Number of Personal Factors/Comorbidities 1-2 Number of Body Systems Impaired 1-2 Clinical Presentation at Evaluation Stable Impairments Impairments Activity Tolerance,Balance, Coordination,Functional Activities,Functional Mobility ,Gait,Posture,Strength, Transfers Other Concerns Fall Risk high Barriers to Rehabilitation (-) current daily smoker (-) impaired short term memory Goals Four Impairment bradykinesia Buzzsaw Operator Helper Goal (LTG) Pt will improve self-selected gait speed on 10 Meter Walk Test from 0.96 m/s to 1.3 m/s or greater to demonstrate recalibration and reduction in falls risk. Three Impairment functional mobility Correction Goal (LTG) Pt will complete 5 Time Sit to business proposal rep under 10 seconds without need for UE support and with no failed attempts. LTG Duration 16 treatments Two Impairment Pt lacks HEP Buzzsaw Operator Helper Goal (LTG) Pt will perform BIG exercises and functional tasks BID with handouts to improve amplitude and quality of movement. LTG Duration 16 treatments One Impairment dynamic balance Buzzsaw Operator Helper Goal (LTG) Pt will score 24/30 (baseline 18/30) or greater on Functional Gait Assessment for reduction of falls risk. LTG Duration 16 treatments Assessment Summary Assessment Sedrick is an 84 yo man with diagnosis of possibly atypical Parkinson's disease. He was seen for PT evaluation in the outpatient setting. He presents with impairments in hypokinesia, bradykinesia, and dynamic balance which are consistent with his reports of falling every 3-4 days. On exam, he was stimulable/able to produce movement with greater amplitude following demonstration and verbal cues. He is a good candidate for treatment under the LSIN BIG protocol which shall include 16 treatment sessions over four weeks aimed at recalibrating his amplitude. Physical Therapy Plan Frequency and Duration Frequency of Treatment 4x/Week Duration of Treatment 4 weeks - 16 treatments Plan of Care Start Date 06/01/20 Plan of Care End Date 07/09/20 Therapeutic Interventions Therapeutic Interventions Balance Training,Coordination Training,Gait Training,Home Exercise Program,Neuromuscular Re-education,Patient/ Caregiver Education,Self-Care/ Home Management,Sensory Integration,Therapeutic Activities,Therapeutic Exercises Next Visit Focus/Plan Next Note Type Treatment Note Next Visit Plan Review Functional Task Reporting Form; Initiate daily maximal exercises Plan of Care Dates Plan of Care Start Date 06/01/20 Plan of Care End Date 07/09/20 Electronically Signed by: Mamie Wheatley, PT 06/01/20 9660 Please Sign and Return: I have reviewed this Plan of Care and certify that the skilled therapy services above are required to meet the patient?s needs. Physician Signature Date Printed Name and Credentials Clinical Instructor Signature Printed Name and Credentials
--- NOTE | 2020-06-07 15:46 | PT.OTN ---
Current Diagnoses Parkinson's disease (06/07/20) Difficulty in walking, not elsewhere classified (06/07/20) Physical Therapy Treatment Note PT-OP-A Visit Information Start: 04/30/20 10:53 Freq: Status: Active Protocol: Document 06/07/20 14:17 MB (Rec: 06/07/20 15:46 MB [id number]) Out-Patient Physical Therapy Visit Information Visit Information Visit Type Treatment Note Visit Note Celeste attends with pt Visit Start Time 14:17 Visit Stop Time 15:15 Total Visit Minutes 68 Visit Number 2 Precautions Precautions history of a fib, syncope, ~25 % ejection fraction, frequent falls, SOB easily in setting of active smoker PT-OP-B Current Condition Start: 04/30/20 10:53 Freq: Status: Active Protocol: Document 06/01/20 12:00 AW (Rec: 06/01/20 12:37 AW [email or web address]) Current Condition History of Current Condition Onset Date diagnosed in early 2020 Current Complaints poor balance; frequent falls; tremor with fine motor activity History of Current Condition Pt states he began to notice he was off with his balance about a year ago. His believes his balance began to deteriorate about three years ago. He started carbidopa levodopa earlier this year and is currently taking it three times per day. He does not appreciate any change in his function that he can contribute to medication. Neurologist Dr. Bob mentioned his parkinsonism may be atypical. Pt reports falling once every 3-4 days. Unrelated to PD, pt fell ~7 years ago from a height and fractured his pelvis. About a year ago, pt fell forward and fractured his supraorbital bone. He denies other injurious falls. Other than balance, pt notices his writing has become smaller and messier. He mentions shaking with fine motor activities such as using a screwdriver. Gait is especially challenged during turns and on inclines. Pt reports short term memory challenges. Prior Treatments and Tests Pt is followed by Dr. 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 Espinosa for primary care. Future Testing and Treatments Planned Speech evaluation for consideration of LOU[facility] program. Treatment Goals Patient/Caregiver Goals I want to fall less often and have more confidence in my movement. Pt's states she would like to keep her safe and to be able to stay in their multilevel home as long as possible. There are 10 [address] and 15 steps inside to the bedroom level. Pt and his mention they would like to be able to take longer walks including inclines without pt falling. Prior Functional Status Baseline Function- ADL's Independent Baseline Function- Mobility Independent Baseline Function- Gait Uses SPC for walking outside, no AD for inside. 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 Current Functional Impairments (Reported) Functional Limitations- ADL's Pt reports falling forward when reaching down to the ground during dressing and other tasks Functional Limitations- Mobility/Gait Frequent falls, impaired dynamic balance, turns and inclines challenging Functional Limitations- Recreation/ Difficulty with fine motor Hobbies control due to intention tremor Personal Factors Other Personal Factors That May Effect (-) smokes 10-15 cigarettes Therapy/Recovery daily (-) poor short term memory may influence carryover (+) supportive spouse PT-OP-C Subjective Start: 04/30/20 10:53 Freq: Status: Active Protocol: Document 06/07/20 14:17 MB (Rec: 06/07/20 15:46 MB [id number]) OP-PT Subjective Patient Comments Patient Comments , Celeste, attends first [facility] treatment. She states that they forgot to do the functional inventory and will do it tonight. PT-OP-D Balance Start: 04/30/20 10:53 Freq: Status: Active Protocol: Document 06/01/20 12:00 AW (Rec: 06/01/20 17:02 AW [email or web address]) OP-PT Balance Assessment Sitting Balance Static Sitting Balance Ability Good Dynamic Sitting Balance Ability Good Standing Balance Static Standing Balance Ability Good Dynamic Standing Balance Ability Fair Device Used No AD Balance Tests Semi-Tandem Standing Semi-Tandem Standing Balance ~5 sec with SBA Tandem Tandem Standing unable Giraldo Fall Scale Copyright Permission PT-OP-E Functional Tests Start: 06/01/20 11:03 Freq: Status: Active Protocol: Document 06/01/20 12:00 AW (Rec: 06/01/20 17:02 AW [email or web address]) Functional Tests 10 Meter Walk Test Distance 10.45 sec, 15 steps Device Used none Comments 0.96 m/s; step length .67 m or 2.2 feet Functional Gait Assessment Score 18 Functional Gait Assessment Impairment 40 to <60% Impaired (Score 13- Rating 18) PT-OP-G Mobility & Gait Start: 04/30/20 10:53 Freq: Status: Active Protocol: Document 06/01/20 12:00 AW (Rec: 06/01/20 17:02 AW [email or web address]) OP Gait Assessment Gait Gait Assistance Required: Standby Assistance Distance (Feet) 200 Assistive Devices Assistive Device Gait Belt Orthotic/Prosthetic Devices or Brace: No Gait Deviations General Gait Pattern Flexed Trunk Factors Limiting Gait Function Factors Limiting Gait Function Decreased Activity Tolerance, Poor Balance,Poor Safety Awareness Comments Gait Comments Pt ambulates with limited trunk rotation and minimal arm swing excursion. Stair Climbing Evaluation Evaluation Level of Assist On Stairs Standby Assistance Devices Stair Climbing Assistive Devices Left Railing Technique/Endurance Stair Climbing Direction Ascend and Descend Stair Climbing Technique Step Over Step Number of Steps Climbed 4 Stair Climbing Set # Repetitions (reps) 2 PT-OP-H Neuro Start: 04/30/20 10:53 Freq: Status: Active Protocol: Document 06/01/20 12:00 AW (Rec: 06/01/20 17:02 AW [email or web address]) Sensation Evaluation Gross Sensation Gross Sensation WNL Coordination Evaluation Comments Coordination Comments Coordination grossly normal on finger to nose but mildly impaired with rapid pronation and supination. Deep Tendon Reflex & Clonus Assessment Deep Tendon Reflex Bilateral Achilles Deep Tendon Reflex 1+ Diminished Bilateral Patellar Deep Tendon Reflex 1+ Diminished Bilateral Bicep Deep Tendon Reflex 2+ Normal Ankle Clonus Bilateral Clonus Assessment Absent Muscle Tone Tone Assessment Upper Extremity Manifestations of Tone Intention Tremors Muscle Tone Comments BUE intention tremors described by pt but not elicited on exam. Vital Signs Blood Pressure Sitting Blood Pressure (90/60-120/80 mmHg) 148/90 H Blood Pressure Source Manual Cuff,Right Upper Extremity PT-OP-K Range of Motion Start: 04/30/20 10:53 Freq: Status: Active Protocol: Document 06/01/20 12:00 AW (Rec: 06/01/20 17:08 AW [email or web address]) Shoulder Goniometric Range of Motion Shoulder bilateral Shoulder ROM WFL Yes Elbow/Forearm Range of Motion Elbow/Forearm bilateral Elbow/Forearm ROM WFL Yes Hip Goniometric Range of Motion Hip bilateral Hip ROM WFL Yes Knee Goniometric Range of Motion Knee bilateral Knee ROM WFL Yes Patient Position Supine Comments lacks <5 degrees extension bilaterally Knee ROM Limitations Knee ROM Limitations Soft Tissue Tightness PT-OP-M Strength Start: 04/30/20 10:53 Freq: Status: Active Protocol: Document 06/01/20 12:00 AW (Rec: 06/01/20 17:08 AW [email or web address]) Shoulder Strength Shoulder Manual Muscle Testing bilateral Flexion 5 Normal Extension 5 Normal Abduction (C5) 4+ Good+ External Rotation 4+ Good+ Internal Rotation 5 Normal Hip Strength Hip Manual Muscle Testing bilateral Flexion (L2) 4 Good Extension (S1) 4+ Good+ Abduction 4+ Good+ External Rotation 4+ Good+ Internal Rotation 4+ Good+ Knee Strength Knee Manual Muscle Testing bilateral Flexion (S2) 4+ Good+ Extension (L3) 5 Normal Ankle/Foot Strength Ankle and Foot Manual Muscle Testing bilateral Dorsiflexion (L4) 5 Normal Plantarflexion (S1) 4 Good Inversion 5 Normal Eversion (S1) 5 Normal PT-OP-Q Treatments Start: 04/30/20 10:53 Freq: Status: Active Protocol: Document 06/07/20 14:17 MB (Rec: 06/07/20 15:46 MB [id number]) Therapeutic Exercises Sitting Exercises BIG sit to stands Equipment Used Initial education, demo and cues for form Reps/Minutes 5 reps Comments Initial education, demo and cues for form Side to side Side bilateral Equipment Used High low table in treatment room Reps/Minutes 5 reps Comments Initial education, demo and cues for form Floor to ceiling Equipment Used High low table in treatment room Reps/Minutes 5 reps Comments Initial education, demo and cues for form Standing Exercises Side rock and reach Comments PT demonstrates and reviews on handouts Forward rock and reach Comments PT demonstrates and reviews on handout today Backward stepping Side bilateral Reps/Minutes 5 reps, hands and feet separate today Comments Poor control of balance of wide JENN Side step Side bilateral Reps/Minutes 5 reps each side Comments Initial ed, cues for form, especially to look where stepping and then back Forward step Side bilateral Reps/Minutes 10 reps each side Comments Initial education and form, JENN is wide and imbalance, weak steps Self-Care/Home Management Treatment Education Other Education Education to pt and about orthostatic hypotension and PT reviews education handouts with them. Pt's BP and HR in right UE: supine 150/94, 82; standing 143/78, 87; standing 30 sec 136/83, 84; standing 1' 143/93, 87. Ed pt in plan for BIG course: exercises and functional activities and BIG walking with PT and to start exercises at home 1x/day on PT days and 2x/day on off days. Ed pt to perform all exercises performed with this therapist at home (not forward rock and reach or side rock and reach yet), ed to watch Homework [place] DVD tonight and bring in functional task handout PT-OP-T Assessment and Plan Start: 04/30/20 10:53 Freq: Status: Active Protocol: Document 06/07/20 14:17 MB (Rec: 06/07/20 15:46 MB [id number]) Physical Therapy Assessment Rehab Potential Rehabilitation Potential Good Evaluation Complexity Number of Personal Factors/Comorbidities 1-2 Number of Body Systems Impaired 1-2 Clinical Presentation at Evaluation Stable Impairments Impairments Activity Tolerance,Balance, Coordination,Functional Activities,Functional Mobility ,Gait,Posture,Strength, Transfers Other Concerns Fall Risk high Barriers to Rehabilitation (-) current daily smoker (-) impaired short term memory Goals Four Impairment bradykinesia Spinning Machine Operator Goal (LTG) Pt will improve self-selected gait speed on 10 Meter Walk Test from 0.96 m/s to 1.3 m/s or greater to demonstrate recalibration and reduction in falls risk. 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 LTG Duration 16 treatments Two Impairment Pt lacks HEP Senior Care Goal (LTG) Pt will perform BIG exercises and functional tasks BID with handouts to improve amplitude and quality of movement. LTG Duration 16 treatments One Impairment dynamic balance Senior Care Goal (LTG) Pt will score 24/30 (baseline 18/30) or greater on Functional Gait Assessment for reduction of falls risk. LTG Duration 16 treatments Assessment Summary Assessment Pt and arrive for first BIG treatment. Pt presents with orthostatic hypotension and easy SOB and RESTREPO in setting of active smoker, a- fib and CHF. His sats stay 97- 98% with exercises and his HR is variable. Unable to complete all exercises today. Will con't to work through next day. His cardiovascular limitation is a barrier to PT. He also presents with poor command following with starting BIG, stepping BIG and he requires rest breaks between exercises. Physical Therapy Plan Frequency and Duration Frequency of Treatment 4x/Week Duration of Treatment 4 weeks - 16 treatments Plan of Care Start Date 06/01/20 Plan of Care End Date 07/09/20 Therapeutic Interventions Therapeutic Interventions Balance Training,Coordination Training,Gait Training,Home Exercise Program,Neuromuscular Re-education,Patient/ Caregiver Education,Self-Care/ Home Management,Sensory Integration,Therapeutic Activities,Therapeutic Exercises Next Visit Focus/Plan Next Note Type Treatment Note Next Visit Plan Review Functional Task Reporting Form, complete all exercise review
--- NOTE | 2020-06-08 15:43 | PT.OTN ---
Current Diagnoses Parkinson's disease (06/08/20) Difficulty in walking, not elsewhere classified (06/08/20) Physical Therapy Treatment Note PT-OP-A Visit Information Start: 04/30/20 10:53 Freq: Status: Active Protocol: Document 06/08/20 14:17 MB (Rec: 06/08/20 15:42 MB [id number]) Out-Patient Physical Therapy Visit Information Visit Information Visit Type Treatment Note Visit Note Celeste attends with pt Visit Start Time 14:17 Visit Stop Time 15:14 Total Visit Minutes 57 Visit Number 3 Precautions Precautions history of a fib, syncope, ~25 % ejection fraction, frequent falls, SOB easily in setting of active smoker. This date, state that pt has rods in his pelvis and history of coronary bypass. Pt presents with functional left foot drop with gait. PT-OP-B Current Condition Start: 04/30/20 10:53 Freq: Status: Active Protocol: Document 06/01/20 12:00 AW (Rec: 06/01/20 12:37 AW [email or web address]) Current Condition History of Current Condition Onset Date diagnosed in early 2020 Current Complaints poor balance; frequent falls; tremor with fine motor activity History of Current Condition Pt states he began to notice he was off with his balance about a year ago. His believes his balance began to deteriorate about three years ago. He started carbidopa levodopa earlier this year and is currently taking it three times per day. He does not appreciate any change in his function that he can contribute to medication. Neurologist Dr. Bob mentioned his parkinsonism may be atypical. Pt reports falling once every 3-4 days. Unrelated to PD, pt fell ~7 years ago from a height and fractured his pelvis. About a year ago, pt fell forward and fractured his supraorbital bone. He denies other injurious falls. Other than balance, pt notices his writing has become smaller and messier. He mentions shaking with fine motor activities such as using a screwdriver. Gait is especially challenged during turns and on inclines. Pt reports short term memory challenges. Prior Treatments and Tests Pt is followed by Dr. 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 Espinosa for primary care. Future Testing and Treatments Planned Speech evaluation for consideration of [facility]OU[facility] program. Treatment Goals Patient/Caregiver Goals I want to fall less often and have more confidence in my movement. Pt's states she would like to keep her safe and to be able to stay in their multilevel home as long as possible. There are 10 [address] and 15 steps inside to the bedroom level. Pt and his mention they would like to be able to take longer walks including inclines without pt falling. Prior Functional Status Baseline Function- ADL's Independent Baseline Function- Mobility Independent Baseline Function- Gait Uses SPC for walking outside, no AD for inside. 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 Current Functional Impairments (Reported) Functional Limitations- ADL's Pt reports falling forward when reaching down to the ground during dressing and other tasks Functional Limitations- Mobility/Gait Frequent falls, impaired dynamic balance, turns and inclines challenging Functional Limitations- Recreation/ Difficulty with fine motor Hobbies control due to intention tremor Personal Factors Other Personal Factors That May Effect (-) smokes 10-15 cigarettes Therapy/Recovery daily (-) poor short term memory may influence carryover (+) supportive spouse PT-OP-C Subjective Start: 04/30/20 10:53 Freq: Status: Active Protocol: Document 06/08/20 14:17 MB (Rec: 06/08/20 15:42 MB [id number]) OP-PT Subjective Patient Comments Patient Comments Pt does not offer subjective comment. When PT asks him if he got tired with exercises yesterday, he states, yeah. PT-OP-D Balance Start: 04/30/20 10:53 Freq: Status: Active Protocol: Document 06/01/20 12:00 AW (Rec: 06/01/20 17:02 AW [email or web address]) OP-PT Balance Assessment Sitting Balance Static Sitting Balance Ability Good Dynamic Sitting Balance Ability Good Standing Balance Static Standing Balance Ability Good Dynamic Standing Balance Ability Fair Device Used No AD Balance Tests Semi-Tandem Standing Semi-Tandem Standing Balance ~5 sec with SBA Tandem Tandem Standing unable Giraldo Fall Scale Copyright Permission PT-OP-E Functional Tests Start: 06/01/20 11:03 Freq: Status: Active Protocol: Document 06/01/20 12:00 AW (Rec: 06/01/20 17:02 AW [email or web address]) Functional Tests 10 Meter Walk Test Distance 10.45 sec, 15 steps Device Used none Comments 0.96 m/s; step length .67 m or 2.2 feet Functional Gait Assessment Score 18 Functional Gait Assessment Impairment 40 to <60% Impaired (Score 13- Rating 18) PT-OP-G Mobility & Gait Start: 04/30/20 10:53 Freq: Status: Active Protocol: Document 06/01/20 12:00 AW (Rec: 06/01/20 17:02 AW [email or web address]) OP Gait Assessment Gait Gait Assistance Required: Standby Assistance Distance (Feet) 200 Assistive Devices Assistive Device Gait Belt Orthotic/Prosthetic Devices or Brace: No Gait Deviations General Gait Pattern Flexed Trunk Factors Limiting Gait Function Factors Limiting Gait Function Decreased Activity Tolerance, Poor Balance,Poor Safety Awareness Comments Gait Comments Pt ambulates with limited trunk rotation and minimal arm swing excursion. Stair Climbing Evaluation Evaluation Level of Assist On Stairs Standby Assistance Devices Stair Climbing Assistive Devices Left Railing Technique/Endurance Stair Climbing Direction Ascend and Descend Stair Climbing Technique Step Over Step Number of Steps Climbed 4 Stair Climbing Set # Repetitions (reps) 2 PT-OP-H Neuro Start: 04/30/20 10:53 Freq: Status: Active Protocol: Document 06/01/20 12:00 AW (Rec: 06/01/20 17:02 AW [email or web address]) Sensation Evaluation Gross Sensation Gross Sensation WNL Coordination Evaluation Comments Coordination Comments Coordination grossly normal on finger to nose but mildly impaired with rapid pronation and supination. Deep Tendon Reflex & Clonus Assessment Deep Tendon Reflex Bilateral Achilles Deep Tendon Reflex 1+ Diminished Bilateral Patellar Deep Tendon Reflex 1+ Diminished Bilateral Bicep Deep Tendon Reflex 2+ Normal Ankle Clonus Bilateral Clonus Assessment Absent Muscle Tone Tone Assessment Upper Extremity Manifestations of Tone Intention Tremors Muscle Tone Comments BUE intention tremors described by pt but not elicited on exam. Vital Signs Blood Pressure Sitting Blood Pressure (90/60-120/80 mmHg) 148/90 H Blood Pressure Source Manual Cuff,Right Upper Extremity PT-OP-K Range of Motion Start: 04/30/20 10:53 Freq: Status: Active Protocol: Document 06/01/20 12:00 AW (Rec: 06/01/20 17:08 AW [email or web address]) Shoulder Goniometric Range of Motion Shoulder bilateral Shoulder ROM WFL Yes Elbow/Forearm Range of Motion Elbow/Forearm bilateral Elbow/Forearm ROM WFL Yes Hip Goniometric Range of Motion Hip bilateral Hip ROM WFL Yes Knee Goniometric Range of Motion Knee bilateral Knee ROM WFL Yes Patient Position Supine Comments lacks <5 degrees extension bilaterally Knee ROM Limitations Knee ROM Limitations Soft Tissue Tightness PT-OP-M Strength Start: 04/30/20 10:53 Freq: Status: Active Protocol: Document 06/01/20 12:00 AW (Rec: 06/01/20 17:08 AW [email or web address]) Shoulder Strength Shoulder Manual Muscle Testing bilateral Flexion 5 Normal Extension 5 Normal Abduction (C5) 4+ Good+ External Rotation 4+ Good+ Internal Rotation 5 Normal Hip Strength Hip Manual Muscle Testing bilateral Flexion (L2) 4 Good Extension (S1) 4+ Good+ Abduction 4+ Good+ External Rotation 4+ Good+ Internal Rotation 4+ Good+ Knee Strength Knee Manual Muscle Testing bilateral Flexion (S2) 4+ Good+ Extension (L3) 5 Normal Ankle/Foot Strength Ankle and Foot Manual Muscle Testing bilateral Dorsiflexion (L4) 5 Normal Plantarflexion (S1) 4 Good Inversion 5 Normal Eversion (S1) 5 Normal PT-OP-Q Treatments Start: 04/30/20 10:53 Freq: Status: Active Protocol: Document 06/08/20 14:17 MB (Rec: 06/08/20 15:42 MB [id number]) Therapeutic Exercises Sitting Exercises BIG sit to stands Equipment Used Black mat in gym Reps/Minutes 7 reps Comments Cues to move arms out BIG once standing, cues to count, PT demo Side to side Side bilateral Equipment Used Black mat in gym Reps/Minutes 5 reps Comments Cues for movement and demo Floor to ceiling Equipment Used Black mat in gym Reps/Minutes 5 reps Comments Cues and demo Standing Exercises Side rock and reach Side bilateral Reps/Minutes 5 reps Comments Cues for pivot on foot, close superv assist, PT demo Forward rock and reach Side bilateral Reps/Minutes 10 reps x2 Comments Pt presents with imbalance, with chair does not look better, cues, superv Backward stepping Side bilateral Reps/Minutes 5 reps Comments Cues and close superv, PT demo , decreased BIG left toe Side step Side bilateral Reps/Minutes 5 reps each side Comments Cues to look the direction he is stepping, PT demo Forward step Side bilateral Reps/Minutes 5 reps each side Comments Cues for BIG hands and arms after stepped forward Gait Training Gait Activity BIG walking Level of Assistance SBA Surface 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 He is able to walk the 387 feet in 2', a very slow pace. Performed one BIG exercise and then a BIG walking rep. He presents with decreased pelvic movement, functional leg length difference and functional left foot drop with gait. PT-OP-T Assessment and Plan Start: 04/30/20 10:53 Freq: Status: Active Protocol: Document 06/08/20 14:17 MB (Rec: 06/08/20 15:42 MB [id number]) Physical Therapy Assessment Rehab Potential Rehabilitation Potential Good Evaluation Complexity Number of Personal Factors/Comorbidities 1-2 Number of Body Systems Impaired 1-2 Clinical Presentation at Evaluation Stable Impairments Impairments Activity Tolerance,Balance, Coordination,Functional Activities,Functional Mobility ,Gait,Posture,Strength, Transfers Other Concerns Fall Risk high Barriers to Rehabilitation (-) current daily smoker (-) impaired short term memory Goals Four Impairment bradykinesia Penitentiary Goal (LTG) Pt will improve self-selected gait speed on 10 Meter Walk Test from 0.96 m/s to 1.3 m/s or greater to demonstrate recalibration and reduction in falls risk. 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 LTG Duration 16 treatments Two Impairment Pt lacks HEP [facility] Goal (LTG) Pt will perform BIG exercises and functional tasks BID with handouts to improve amplitude and quality of movement. LTG Duration 16 treatments One Impairment dynamic balance [facility] Goal (LTG) Pt will score 24/30 (baseline 18/30) or greater on Functional Gait Assessment for reduction of falls risk. LTG Duration 16 treatments Assessment Summary Assessment Pt presents with quick fatigue with short gait reps today with RESTREPO and O2 sats remaining in the 97-98% range and HR in the low 90s. Alternated BIG exercises and gait d/t this. Pt con't to be hypoverbal and does report he is [place] with left hearing aide not working. Pt presents with functional left foot drop that is a barrier to BIG toe for exercises and BIG steps with walking. His gait is slow and with increased work requirement for short distances. This will likely affect progress with BIG walking. Also, his cardiopulmonary presentation and left foot drop will decrease progression of BIG exercises. Pt reports he has trouble walking uphill and to the mailbox and they list this as tasks to work on and this can be related to his cardiopulmonary presentation. His activity tolerance is limited/ Physical Therapy Plan Frequency and Duration Frequency of Treatment 4x/Week Duration of Treatment 4 weeks - 16 treatments Plan of Care Start Date 06/01/20 Plan of Care End Date 07/09/20 Therapeutic Interventions Therapeutic Interventions Balance Training,Coordination Training,Gait Training,Home Exercise Program,Neuromuscular Re-education,Patient/ Caregiver Education,Self-Care/ Home Management,Sensory Integration,Therapeutic Activities,Therapeutic Exercises Next Visit Focus/Plan Next Note Type Treatment Note Next Visit Plan Start functional activity tasks to include: walking while carrying objects and tasks related to walking out to get the mail.
--- NOTE | 2020-06-09 15:34 | PT.OTN ---
Current Diagnoses Parkinson's disease (06/09/20) Difficulty in walking, not elsewhere classified (06/09/20) Physical Therapy Treatment Note PT-OP-A Visit Information Start: 04/30/20 10:53 Freq: Status: Active Protocol: Document 06/09/20 15:15 AW (Rec: 06/09/20 15:16 AW [id number]) Out-Patient Physical Therapy Visit Information Visit Information Visit Type Treatment Note Visit Note Celeste attends with pt and states she will not regularly attend but can come if needed. Visit Start Time 14:15 Visit Stop Time 15:15 Total Visit Minutes 60 Visit Number 4 Precautions Precautions history of a fib, syncope, ~25 % ejection fraction, frequent falls, SOB easily in setting of active smoker. This date, state that pt has rods in his pelvis and history of coronary bypass. Pt presents with functional left foot drop with gait. PT-OP-B Current Condition Start: 04/30/20 10:53 Freq: Status: Active Protocol: Document 06/01/20 12:00 AW (Rec: 06/01/20 12:37 AW [email or web address]) Current Condition History of Current Condition Onset Date diagnosed in early 2020 Current Complaints poor balance; frequent falls; tremor with fine motor activity History of Current Condition Pt states he began to notice he was off with his balance about a year ago. His believes his balance began to deteriorate about three years ago. He started carbidopa levodopa earlier this year and is currently taking it three times per day. He does not appreciate any change in his function that he can contribute to medication. Neurologist Dr. Bob mentioned his parkinsonism may be atypical. Pt reports falling once every 3-4 days. Unrelated to PD, pt fell ~7 years ago from a height and fractured his pelvis. About a year ago, pt fell forward and fractured his supraorbital bone. He denies other injurious falls. Other than balance, pt notices his writing has become smaller and messier. He mentions shaking with fine motor activities such as using a screwdriver. Gait is especially challenged during turns and on inclines. Pt reports short term memory challenges. Prior Treatments and Tests Pt is followed by Dr. 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 Espinosa for primary care. Future Testing and Treatments Planned Speech evaluation for consideration of [facility] program. Treatment Goals Patient/Caregiver Goals I want to fall less often and have more confidence in my movement. Pt's states she would like to keep her safe and to be able to stay in their multilevel home as long as possible. There are 10 [address] and 15 steps inside to the bedroom level. Pt and his mention they would like to be able to take longer walks including inclines without pt falling. Prior Functional Status Baseline Function- ADL's Independent Baseline Function- Mobility Independent Baseline Function- Gait Uses SPC for walking outside, no AD for inside. 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 Current Functional Impairments (Reported) Functional Limitations- ADL's Pt reports falling forward when reaching down to the ground during dressing and other tasks Functional Limitations- Mobility/Gait Frequent falls, impaired dynamic balance, turns and inclines challenging Functional Limitations- Recreation/ Difficulty with fine motor Hobbies control due to intention tremor Personal Factors Other Personal Factors That May Effect (-) smokes 10-15 cigarettes Therapy/Recovery daily (-) poor short term memory may influence carryover (+) supportive spouse PT-OP-C Subjective Start: 04/30/20 10:53 Freq: Status: Active Protocol: Document 06/09/20 15:15 AW (Rec: 06/09/20 15:29 AW [email or web address]) OP-PT Subjective Patient Comments Patient Comments Pt reports he did his exercise [id number] today and is still tired. PT-OP-D Balance Start: 04/30/20 10:53 Freq: Status: Active Protocol: Document 06/01/20 12:00 AW (Rec: 06/01/20 17:02 AW [email or web address]) OP-PT Balance Assessment Sitting Balance Static Sitting Balance Ability Good Dynamic Sitting Balance Ability Good Standing Balance Static Standing Balance Ability Good Dynamic Standing Balance Ability Fair Device Used No AD Balance Tests Semi-Tandem Standing Semi-Tandem Standing Balance ~5 sec with SBA Tandem Tandem Standing unable Giraldo Fall Scale Copyright Permission PT-OP-E Functional Tests Start: 06/01/20 11:03 Freq: Status: Active Protocol: Document 06/01/20 12:00 AW (Rec: 06/01/20 17:02 AW [email or web address]) Functional Tests 10 Meter Walk Test Distance 10.45 sec, 15 steps Device Used none Comments 0.96 m/s; step length .67 m or 2.2 feet Functional Gait Assessment Score 18 Functional Gait Assessment Impairment 40 to <60% Impaired (Score 13- Rating 18) PT-OP-G Mobility & Gait Start: 04/30/20 10:53 Freq: Status: Active Protocol: Document 06/01/20 12:00 AW (Rec: 06/01/20 17:02 AW [email or web address]) OP Gait Assessment Gait Gait Assistance Required: Standby Assistance Distance (Feet) 200 Assistive Devices Assistive Device Gait Belt Orthotic/Prosthetic Devices or Brace: No Gait Deviations General Gait Pattern Flexed Trunk Factors Limiting Gait Function Factors Limiting Gait Function Decreased Activity Tolerance, Poor Balance,Poor Safety Awareness Comments Gait Comments Pt ambulates with limited trunk rotation and minimal arm swing excursion. Stair Climbing Evaluation Evaluation Level of Assist On Stairs Standby Assistance Devices Stair Climbing Assistive Devices Left Railing Technique/Endurance Stair Climbing Direction Ascend and Descend Stair Climbing Technique Step Over Step Number of Steps Climbed 4 Stair Climbing Set # Repetitions (reps) 2 PT-OP-H Neuro Start: 04/30/20 10:53 Freq: Status: Active Protocol: Document 06/01/20 12:00 AW (Rec: 06/01/20 17:02 AW [email or web address]) Sensation Evaluation Gross Sensation Gross Sensation WNL Coordination Evaluation Comments Coordination Comments Coordination grossly normal on finger to nose but mildly impaired with rapid pronation and supination. Deep Tendon Reflex & Clonus Assessment Deep Tendon Reflex Bilateral Achilles Deep Tendon Reflex 1+ Diminished Bilateral Patellar Deep Tendon Reflex 1+ Diminished Bilateral Bicep Deep Tendon Reflex 2+ Normal Ankle Clonus Bilateral Clonus Assessment Absent Muscle Tone Tone Assessment Upper Extremity Manifestations of Tone Intention Tremors Muscle Tone Comments BUE intention tremors described by pt but not elicited on exam. Vital Signs Blood Pressure Sitting Blood Pressure (90/60-120/80 mmHg) 148/90 H Blood Pressure Source Manual Cuff,Right Upper Extremity PT-OP-K Range of Motion Start: 04/30/20 10:53 Freq: Status: Active Protocol: Document 06/01/20 12:00 AW (Rec: 06/01/20 17:08 AW [email or web address]) Shoulder Goniometric Range of Motion Shoulder bilateral Shoulder ROM WFL Yes Elbow/Forearm Range of Motion Elbow/Forearm bilateral Elbow/Forearm ROM WFL Yes Hip Goniometric Range of Motion Hip bilateral Hip ROM WFL Yes Knee Goniometric Range of Motion Knee bilateral Knee ROM WFL Yes Patient Position Supine Comments lacks <5 degrees extension bilaterally Knee ROM Limitations Knee ROM Limitations Soft Tissue Tightness PT-OP-M Strength Start: 04/30/20 10:53 Freq: Status: Active Protocol: Document 06/01/20 12:00 AW (Rec: 06/01/20 17:08 AW [email or web address]) Shoulder Strength Shoulder Manual Muscle Testing bilateral Flexion 5 Normal Extension 5 Normal Abduction (C5) 4+ Good+ External Rotation 4+ Good+ Internal Rotation 5 Normal Hip Strength Hip Manual Muscle Testing bilateral Flexion (L2) 4 Good Extension (S1) 4+ Good+ Abduction 4+ Good+ External Rotation 4+ Good+ Internal Rotation 4+ Good+ Knee Strength Knee Manual Muscle Testing bilateral Flexion (S2) 4+ Good+ Extension (L3) 5 Normal Ankle/Foot Strength Ankle and Foot Manual Muscle Testing bilateral Dorsiflexion (L4) 5 Normal Plantarflexion (S1) 4 Good Inversion 5 Normal Eversion (S1) 5 Normal PT-OP-Q Treatments Start: 04/30/20 10:53 Freq: Status: Active Protocol: Document 06/09/20 15:15 AW (Rec: 06/09/20 15:16 AW [id number]) Therapeutic Exercises Sitting Exercises BIG sit to stands Equipment Used Black mat in gym Reps/Minutes 5 reps x 3 Comments cues for BIG forward reach, weight shift Side to side Side bilateral Equipment Used Black mat in gym Reps/Minutes 8 reps Comments shaping for posture, increased hip extension Floor to ceiling Equipment Used Black mat in gym Reps/Minutes 8 reps Comments Cues and demo Standing Exercises Side rock and reach Standing Exercise Name ADAPTED Side bilateral Reps/Minutes 8 reps Comments LOB without support; pt completed with chair at side for support Forward rock and reach Standing Exercise Name ADAPTED Side bilateral Reps/Minutes 10 reps x2 Comments better amplitude achieved with chair for support Backward stepping Side bilateral Reps/Minutes 8 reps Comments Cues and close superv, PT demo , decreased BIG left toe Side step Side bilateral Reps/Minutes 8 reps each side Comments cues for increased rotation Forward step Side bilateral Reps/Minutes 8 reps each side Comments cued BIG step back to beginning position Gait Training Gait Activity BIG walking Level of Assistance SBA Surface Carpet and tile Distance/Duration 8', 2' intervals d/t 3/4 RESTREPO Treatment Focus BIG stepping, try to keep up jovanny; 1/4 turns and 1/2 turns Comments Pt responds well to cues for increased amplitude both in step length and in arm swing. PT-OP-T Assessment and Plan Start: 04/30/20 10:53 Freq: Status: Active Protocol: Document 06/09/20 15:15 AW (Rec: 06/09/20 15:34 AW [email or web address]) Physical Therapy Assessment Rehab Potential Rehabilitation Potential Good Evaluation Complexity Number of Personal Factors/Comorbidities 1-2 Number of Body Systems Impaired 1-2 Clinical Presentation at Evaluation Stable Impairments Impairments Activity Tolerance,Balance, Coordination,Functional Activities,Functional Mobility ,Gait,Posture,Strength, Transfers Other Concerns Fall Risk high Barriers to Rehabilitation (-) current daily smoker (-) impaired short term memory Goals Four Impairment bradykinesia Compo Conveyor Operator Goal (LTG) Pt will improve self-selected gait speed on 10 Meter Walk Test from 0.96 m/s to 1.3 m/s or greater to demonstrate recalibration and reduction in falls risk. Three Impairment functional mobility Compo Conveyor Operator Goal (LTG) Pt will complete 5 Time Sit to switch inspector under 10 seconds without need for UE support and with no failed attempts. LTG Duration 16 treatments Two Impairment Pt lacks HEP Compo Conveyor Operator Goal (LTG) Pt will perform BIG exercises and functional tasks BID with handouts to improve amplitude and quality of movement. LTG Duration 16 treatments One Impairment dynamic balance Compo Conveyor Operator Goal (LTG) Pt will score 24/30 (baseline 18/30) or greater on Functional Gait Assessment for reduction of falls risk. LTG Duration 16 treatments Assessment Summary Assessment Pt fatigues easily, requiring frequent rest breaks. His attended today and is helping pt at home with exercises along with DVD. Pt reported calf pain after multiple bouts of walking around the gym but resolved quickly. Balance was poor with forward and sideways rock and reach exercises. Trialed adapted exercise form and pt was able to improve amplitude with improved balance. Assigned adapted form in those exercises for home and provided handouts. Pt will also complete 1/4 and 1/2 turns for homework with emphasis on increased foot clearance. Physical Therapy Plan Frequency and Duration Frequency of Treatment 4x/Week Duration of Treatment 4 weeks - 16 treatments Plan of Care Start Date 06/01/20 Plan of Care End Date 07/09/20 Therapeutic Interventions Therapeutic Interventions Balance Training,Coordination Training,Gait Training,Home Exercise Program,Neuromuscular Re-education,Patient/ Caregiver Education,Self-Care/ Home Management,Sensory Integration,Therapeutic Activities,Therapeutic Exercises Next Visit Focus/Plan Next Note Type Treatment Note Next Visit Plan Start functional activity tasks to include: walking while carrying objects and tasks related to walking out to get the mail.
--- NOTE | 2020-06-10 15:40 | PT.OTN ---
Current Diagnoses Parkinson's disease (06/10/20) Difficulty in walking, not elsewhere classified (06/10/20) Physical Therapy Treatment Note PT-OP-A Visit Information Start: 04/30/20 10:53 Freq: Status: Active Protocol: Document 06/10/20 14:15 MB (Rec: 06/10/20 15:39 MB [id number]) Out-Patient Physical Therapy Visit Information Visit Information Visit Type Treatment Note Visit Start Time 14:15 Visit Stop Time 15:10 Total Visit Minutes 55 Visit Number 5 Precautions Precautions history of a fib, syncope, ~25 % ejection fraction, frequent falls, SOB easily in setting of active smoker. This date, state that pt has rods in his pelvis and history of coronary bypass. Pt presents with functional left foot drop with gait. PT-OP-B Current Condition Start: 04/30/20 10:53 Freq: Status: Active Protocol: Document 06/01/20 12:00 AW (Rec: 06/01/20 12:37 AW [email or web address]) Current Condition History of Current Condition Onset Date diagnosed in early 2020 Current Complaints poor balance; frequent falls; tremor with fine motor activity History of Current Condition Pt states he began to notice he was off with his balance about a year ago. His believes his balance began to deteriorate about three years ago. He started carbidopa levodopa earlier this year and is currently taking it three times per day. He does not appreciate any change in his function that he can contribute to medication. Neurologist Dr. Bob mentioned his parkinsonism may be atypical. Pt reports falling once every 3-4 days. Unrelated to PD, pt fell ~7 years ago from a height and fractured his pelvis. About a year ago, pt fell forward and fractured his supraorbital bone. He denies other injurious falls. Other than balance, pt notices his writing has become smaller and messier. He mentions shaking with fine motor activities such as using a screwdriver. Gait is especially challenged during turns and on inclines. Pt reports short term memory challenges. Prior Treatments and Tests Pt is followed by Dr. 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 Espinosa for primary care. Future Testing and Treatments Planned Speech evaluation for consideration of LOUD program. Treatment Goals Patient/Caregiver Goals I want to fall less often and have more confidence in my movement. Pt's states she would like to keep her safe and to be able to stay in their multilevel home as long as possible. There are 10 MYLENE and 15 steps inside to the bedroom level. Pt and his mention they would like to be able to take longer walks including inclines without pt falling. Prior Functional Status Baseline Function- ADL's Independent Baseline Function- Mobility Independent Baseline Function- Gait Uses SPC for walking outside, no AD for inside. 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, insole bottom filler Current Functional Impairments (Reported) Functional Limitations- ADL's Pt reports falling forward when reaching down to the ground during dressing and other tasks Functional Limitations- Mobility/Gait Frequent falls, impaired dynamic balance, turns and inclines challenging Functional Limitations- Recreation/ Difficulty with fine motor Hobbies control due to intention tremor Personal Factors Other Personal Factors That May Effect (-) smokes 10-15 cigarettes Therapy/Recovery daily (-) poor short term memory may influence carryover (+) supportive spouse PT-OP-C Subjective Start: 04/30/20 10:53 Freq: Status: Active Protocol: Document 06/10/20 14:15 MB (Rec: 06/10/20 15:39 MB [id number]) OP-PT Subjective Patient Comments Patient Comments Pt states he did his exercises today but he cannot recall if he used the chair for rock and reach exercises. PT-OP-D Balance Start: 04/30/20 10:53 Freq: Status: Active Protocol: Document 06/01/20 12:00 AW (Rec: 06/01/20 17:02 AW [email or web address]) OP-PT Balance Assessment Sitting Balance Static Sitting Balance Ability Good Dynamic Sitting Balance Ability Good Standing Balance Static Standing Balance Ability Good Dynamic Standing Balance Ability Fair Device Used No AD Balance Tests Semi-Tandem Standing Semi-Tandem Standing Balance ~5 sec with SBA Tandem Tandem Standing unable Giraldo Fall Scale Copyright Permission PT-OP-E Functional Tests Start: 06/01/20 11:03 Freq: Status: Active Protocol: Document 06/01/20 12:00 AW (Rec: 06/01/20 17:02 AW [email or web address]) Functional Tests 10 Meter Walk Test Distance 10.45 sec, 15 steps Device Used none Comments 0.96 m/s; step length .67 m or 2.2 feet Functional Gait Assessment Score 18 Functional Gait Assessment Impairment 40 to <60% Impaired (Score 13- Rating 18) PT-OP-G Mobility & Gait Start: 04/30/20 10:53 Freq: Status: Active Protocol: Document 06/01/20 12:00 AW (Rec: 06/01/20 17:02 AW [email or web address]) OP Gait Assessment Gait Gait Assistance Required: Standby Assistance Distance (Feet) 200 Assistive Devices Assistive Device Gait Belt Orthotic/Prosthetic Devices or Brace: No Gait Deviations General Gait Pattern Flexed Trunk Factors Limiting Gait Function Factors Limiting Gait Function Decreased Activity Tolerance, Poor Balance,Poor Safety Awareness Comments Gait Comments Pt ambulates with limited trunk rotation and minimal arm swing excursion. Stair Climbing Evaluation Evaluation Level of Assist On Stairs Standby Assistance Devices Stair Climbing Assistive Devices Left Railing Technique/Endurance Stair Climbing Direction Ascend and Descend Stair Climbing Technique Step Over Step Number of Steps Climbed 4 Stair Climbing Set # Repetitions (reps) 2 PT-OP-H Neuro Start: 04/30/20 10:53 Freq: Status: Active Protocol: Document 06/01/20 12:00 AW (Rec: 06/01/20 17:02 AW [email or web address]) Sensation Evaluation Gross Sensation Gross Sensation WNL Coordination Evaluation Comments Coordination Comments Coordination grossly normal on finger to nose but mildly impaired with rapid pronation and supination. Deep Tendon Reflex & Clonus Assessment Deep Tendon Reflex Bilateral Achilles Deep Tendon Reflex 1+ Diminished Bilateral Patellar Deep Tendon Reflex 1+ Diminished Bilateral Bicep Deep Tendon Reflex 2+ Normal Ankle Clonus Bilateral Clonus Assessment Absent Muscle Tone Tone Assessment Upper Extremity Manifestations of Tone Intention Tremors Muscle Tone Comments BUE intention tremors described by pt but not elicited on exam. Vital Signs Blood Pressure Sitting Blood Pressure (90/60-120/80 mmHg) 148/90 H Blood Pressure Source Manual Cuff,Right Upper Extremity PT-OP-K Range of Motion Start: 04/30/20 10:53 Freq: Status: Active Protocol: Document 06/01/20 12:00 AW (Rec: 06/01/20 17:08 AW [email or web address]) Shoulder Goniometric Range of Motion Shoulder bilateral Shoulder ROM WFL Yes Elbow/Forearm Range of Motion Elbow/Forearm bilateral Elbow/Forearm ROM WFL Yes Hip Goniometric Range of Motion Hip bilateral Hip ROM WFL Yes Knee Goniometric Range of Motion Knee bilateral Knee ROM WFL Yes Patient Position Supine Comments lacks <5 degrees extension bilaterally Knee ROM Limitations Knee ROM Limitations Soft Tissue Tightness PT-OP-M Strength Start: 04/30/20 10:53 Freq: Status: Active Protocol: Document 06/01/20 12:00 AW (Rec: 06/01/20 17:08 AW [email or web address]) Shoulder Strength Shoulder Manual Muscle Testing bilateral Flexion 5 Normal Extension 5 Normal Abduction (C5) 4+ Good+ External Rotation 4+ Good+ Internal Rotation 5 Normal Hip Strength Hip Manual Muscle Testing bilateral Flexion (L2) 4 Good Extension (S1) 4+ Good+ Abduction 4+ Good+ External Rotation 4+ Good+ Internal Rotation 4+ Good+ Knee Strength Knee Manual Muscle Testing bilateral Flexion (S2) 4+ Good+ Extension (L3) 5 Normal Ankle/Foot Strength Ankle and Foot Manual Muscle Testing bilateral Dorsiflexion (L4) 5 Normal Plantarflexion (S1) 4 Good Inversion 5 Normal Eversion (S1) 5 Normal PT-OP-Q Treatments Start: 04/30/20 10:53 Freq: Status: Active Protocol: Document 06/10/20 14:15 MB (Rec: 06/10/20 15:39 MB [id number]) Therapeutic Exercises Sitting Exercises BIG sit to stands Equipment Used Black mat in gym Reps/Minutes 10 reps Comments Cues to reach forward and to sit all the way back down Side to side Side bilateral Equipment Used Black mat in gym Reps/Minutes 5 reps Comments Improvement today Floor to ceiling Equipment Used Black mat in gym Reps/Minutes 5 reps Comments Improvement today Standing Exercises Side rock and reach Side bilateral Reps/Minutes 8 reps Comments Tried adapted but pt cannot keep hand on chair, trouble with pivot Forward rock and reach Side bilateral Reps/Minutes 10 reps x2 Comments Tried adapted but pt cannot coordinate, LOB without chair, superv Backward stepping Standing Exercise Name Adapted Side bilateral Reps/Minutes 5 reps without chair, 5 each side with chair Comments Pt requests to try with chair and he does perform better with it Side step Side bilateral Reps/Minutes 8 reps Comments Cues to look to the side he is stepping to and then look forward Forward step Side bilateral Reps/Minutes 10 reps Comments Cues for BIG stance and for bringing foot back Gait Training Gait Activity BIG walking Description BIG walking and functional activity of carrying object with walking Level of Assistance SBA Surface Carpet and tile Distance/Duration Many trials, see below, about 11 minutes Treatment Focus BIG stepping, keep jovanny up, try to increase time Comments Several gait trials of pt walking twice around gym, both clockwise and counterclockwise direction and he requires superv to SBA. He becomes RESTREPO with reports of 3 /4 Dyspnea Scale and his O2 sats stay in the high 90s and HR high 80s to 90s BPM. 1 min 47 sec 2 min 10 sec heavy mouth breathing 1 minute and carrying cup in left hand and walking clockwise 2 min and carrying cup in right hand and walking counterclockwise 1 minute and 52 sec and pt walking clockwise with cup in left hand 2 minutes and pt walking clockwise carrying 6 wooden step. He c/o back pain after 1 min 30 and PT takes step from him. His jovanny drops each gait trial after 1', RESTREPO and heavy mouth breathing PT-OP-T Assessment and Plan Start: 04/30/20 10:53 Freq: Status: Active Protocol: Document 06/10/20 14:15 MB (Rec: 06/10/20 15:39 MB [id number]) Physical Therapy Assessment Rehab Potential Rehabilitation Potential Fair Evaluation Complexity Number of Personal Factors/Comorbidities 3 or More Number of Body Systems Impaired 3 Clinical Presentation at Evaluation Evolving Impairments Impairments Activity Tolerance,Balance, Coordination,Functional Activities,Functional Mobility ,Gait,Posture,Strength, Transfers Other Impairments Personal factors include memory impairment, hypoverbal, not interested in smoking cessation or nasal breathing. Body systems affected include cognitive, neurological, musculoskeletal, and cardiopulmonary. His clinical presentation is evolving. Other Concerns Fall Risk high Barriers to Rehabilitation (-) current daily smoker (-) impaired short term memory Poor cardiopulmonary health and easy 3/4 RESTREPO, mouth breathing, reports of back and leg pain occ Goals Four Impairment bradykinesia Windmill Technician Goal (LTG) Pt will improve self-selected gait speed on 10 Meter Walk Test from 0.96 m/s to 1.3 m/s or greater to demonstrate recalibration and reduction in falls risk. 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 LTG Duration 16 treatments Two Impairment Pt lacks HEP Prison Goal (LTG) Pt will perform BIG exercises and functional tasks BID with handouts to improve amplitude and quality of movement. LTG Duration 16 treatments One Impairment dynamic balance Prison Goal (LTG) Pt will score 24/30 (baseline 18/30) or greater on Functional Gait Assessment for reduction of falls risk. LTG Duration 16 treatments Assessment Summary Assessment PT updated assessment today with changes in functional prognosis (fair) and personal and medical factors, which are many. Pt con't to get dyspneic quickly with PT and require frequenct rest breaks between exercises and gait trials with exercises between each gait trial. Was unable to increase gait time to 6 minutes d/t RESTREPO. He reports occ back and calf discomfort that resolve with stopping gait. He requires superv to SBA for exercises and gait d/t imbalance and decreased safety awareness and communication. He cannot state if he performed adapted rocking exercises at home or not and he demonstrates them poorly today so did not push using the chair. He did perform backwards step better with the chair. Con't efforts. Physical Therapy Plan Frequency and Duration Frequency of Treatment 4x/Week Duration of Treatment 16 total treatments Plan of Care Start Date 06/10/20 Plan of Care End Date 07/09/20 Therapeutic Interventions Therapeutic Interventions Balance Training,Coordination Training,Gait Training,Home Exercise Program,Neuromuscular Re-education,Patient/ Caregiver Education,Self-Care/ Home Management,Sensory Integration,Therapeutic Activities,Therapeutic Exercises Next Visit Focus/Plan Next Note Type Treatment Note Next Visit Plan Ongoing gait carrying objects, increase some steps and unstable surfaces
--- NOTE | 2020-06-10 15:40 | PT.OPPOC ---
Physical, Occupational & Speech Therapy At [facility] Current Diagnoses Parkinson's disease (06/10/20) Difficulty in walking, not elsewhere classified (06/10/20) Visit Care Team Role Provider Type Olaf Espinosa MD Family Provider Physician Primary Care Provider Specialty: Internal Medicine Address: [address] [place] [address], [facility] [address], [place], [address] Email: [email or web address] Manuel Bob MD Attending Provider Non-Staff Referring Provider Specialty: Neurology Address: [address] [place] [address], [phone] Email: Plan Of Care PT-OP-T Assessment and Plan Start: 04/30/20 10:53 Freq: Status: Active Protocol: Document 06/10/20 14:15 MB (Rec: 06/10/20 15:39 MB [id number]) Physical Therapy Assessment Rehab Potential Rehabilitation Potential Fair Evaluation Complexity Number of Personal Factors/Comorbidities 3 or More Number of Body Systems Impaired 3 Clinical Presentation at Evaluation Evolving Impairments Impairments Activity Tolerance,Balance, Coordination,Functional Activities,Functional Mobility ,Gait,Posture,Strength, Transfers Other Impairments Personal factors include memory impairment, hypoverbal, not interested in smoking cessation or nasal breathing. Body systems affected include cognitive, neurological, musculoskeletal, and cardiopulmonary. His clinical presentation is evolving. Other Concerns Fall Risk high Barriers to Rehabilitation (-) current daily smoker (-) impaired short term memory Poor cardiopulmonary health and easy 3/4 RESTREPO, mouth breathing, reports of back and leg pain occ Goals Four Impairment bradykinesia Usp Goal (LTG) Pt will improve self-selected gait speed on 10 Meter Walk Test from 0.96 m/s to 1.3 m/s or greater to demonstrate recalibration and reduction in falls risk. 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 LTG Duration 16 treatments Two Impairment Pt lacks HEP Usp Goal (LTG) Pt will perform BIG exercises and functional tasks BID with handouts to improve amplitude and quality of movement. LTG Duration 16 treatments One Impairment dynamic balance Usp Goal (LTG) Pt will score 24/30 (baseline 18/30) or greater on Functional Gait Assessment for reduction of falls risk. LTG Duration 16 treatments Assessment Summary Assessment PT updated assessment today with changes in functional prognosis (fair) and personal and medical factors, which are many. Pt con't to get dyspneic quickly with PT and require frequenct rest breaks between exercises and gait trials with exercises between each gait trial. Was unable to increase gait time to 6 minutes d/t RESTREPO. He reports occ back and calf discomfort that resolve with stopping gait. He requires superv to SBA for exercises and gait d/t imbalance and decreased safety awareness and communication. He cannot state if he performed adapted rocking exercises at home or not and he demonstrates them poorly today so did not push using the chair. He did perform backwards step better with the chair. Con't efforts. Physical Therapy Plan Frequency and Duration Frequency of Treatment 4x/Week Duration of Treatment 16 total treatments Plan of Care Start Date 06/10/20 Plan of Care End Date 07/09/20 Therapeutic Interventions Therapeutic Interventions Balance Training,Coordination Training,Gait Training,Home Exercise Program,Neuromuscular Re-education,Patient/ Caregiver Education,Self-Care/ Home Management,Sensory Integration,Therapeutic Activities,Therapeutic Exercises Next Visit Focus/Plan Next Note Type Treatment Note Next Visit Plan Ongoing gait carrying objects, increase some steps and unstable surfaces Plan of Care Dates Plan of Care Start Date 06/10/20 Plan of Care End Date 07/09/20 Electronically Signed by: Dee Shah PT 06/10/20 [id number] Please Sign and Return: I have reviewed this Plan of Care and certify that the skilled therapy services above are required to meet the patient?s needs. Physician Signature Date Printed Name and Credentials Clinical Instructor Signature Printed Name and Credentials
--- NOTE | 2020-06-14 15:33 | PT.OTN ---
Current Diagnoses Parkinson's disease (06/14/20) Difficulty in walking, not elsewhere classified (06/14/20) Physical Therapy Treatment Note PT-OP-A Visit Information Start: 04/30/20 10:53 Freq: Status: Active Protocol: Document 06/14/20 15:15 AW (Rec: 06/14/20 15:28 AW [id number]) Out-Patient Physical Therapy Visit Information Visit Information Visit Type Treatment Note Visit Start Time 14:19 Visit Stop Time 15:15 Total Visit Minutes 56 Visit Number 6 Evaluation Information Evaluation Date 06/01/20 Precautions Precautions history of a fib, syncope, ~25 % ejection fraction, frequent falls, SOB easily in setting of active smoker. This date, state that pt has rods in his pelvis and history of coronary bypass. Pt presents with functional left foot drop with gait. PT-OP-B Current Condition Start: 04/30/20 10:53 Freq: Status: Active Protocol: Document 06/01/20 12:00 AW (Rec: 06/01/20 12:37 AW [email or web address]) Current Condition History of Current Condition Onset Date diagnosed in early 2020 Current Complaints poor balance; frequent falls; tremor with fine motor activity History of Current Condition Pt states he began to notice he was off with his balance about a year ago. His believes his balance began to deteriorate about three years ago. He started carbidopa levodopa earlier this year and is currently taking it three times per day. He does not appreciate any change in his function that he can contribute to medication. Neurologist Dr. Bob mentioned his parkinsonism may be atypical. Pt reports falling once every 3-4 days. Unrelated to PD, pt fell ~7 years ago from a height and fractured his pelvis. About a year ago, pt fell forward and fractured his supraorbital bone. He denies other injurious falls. Other than balance, pt notices his writing has become smaller and messier. He mentions shaking with fine motor activities such as using a screwdriver. Gait is especially challenged during turns and on inclines. Pt reports short term memory challenges. Prior Treatments and Tests Pt is followed by Dr. 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 Espinosa for primary care. Future Testing and Treatments Planned Speech evaluation for consideration of [facility] program. Treatment Goals Patient/Caregiver Goals I want to fall less often and have more confidence in my movement. Pt's states she would like to keep her safe and to be able to stay in their multilevel home as long as possible. There are 10 [address] and 15 steps inside to the bedroom level. Pt and his mention they would like to be able to take longer walks including inclines without pt falling. Prior Functional Status Baseline Function- ADL's Independent Baseline Function- Mobility Independent Baseline Function- Gait Uses SPC for walking outside, no AD for inside. 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 Current Functional Impairments (Reported) Functional Limitations- ADL's Pt reports falling forward when reaching down to the ground during dressing and other tasks Functional Limitations- Mobility/Gait Frequent falls, impaired dynamic balance, turns and inclines challenging Functional Limitations- Recreation/ Difficulty with fine motor Hobbies control due to intention tremor Personal Factors Other Personal Factors That May Effect (-) smokes 10-15 cigarettes Therapy/Recovery daily (-) poor short term memory may influence carryover (+) supportive spouse PT-OP-C Subjective Start: 04/30/20 10:53 Freq: Status: Active Protocol: Document 06/14/20 15:15 AW (Rec: 06/14/20 15:28 AW [id number]) OP-PT Subjective Patient Comments Patient Comments Pt states he did his exercises over the weekend twice daily. Celeste is helping him and he says he did use a chair for two of the exercises. PT-OP-D Balance Start: 04/30/20 10:53 Freq: Status: Active Protocol: Document 06/01/20 12:00 AW (Rec: 06/01/20 17:02 AW [email or web address]) OP-PT Balance Assessment Sitting Balance Static Sitting Balance Ability Good Dynamic Sitting Balance Ability Good Standing Balance Static Standing Balance Ability Good Dynamic Standing Balance Ability Fair Device Used No AD Balance Tests Semi-Tandem Standing Semi-Tandem Standing Balance ~5 sec with SBA Tandem Tandem Standing unable Giraldo Fall Scale Copyright Permission PT-OP-E Functional Tests Start: 06/01/20 11:03 Freq: Status: Active Protocol: Document 06/01/20 12:00 AW (Rec: 06/01/20 17:02 AW [email or web address]) Functional Tests 10 Meter Walk Test Distance 10.45 sec, 15 steps Device Used none Comments 0.96 m/s; step length .67 m or 2.2 feet Functional Gait Assessment Score 18 Functional Gait Assessment Impairment 40 to <60% Impaired (Score 13- Rating 18) PT-OP-G Mobility & Gait Start: 04/30/20 10:53 Freq: Status: Active Protocol: Document 06/01/20 12:00 AW (Rec: 06/01/20 17:02 AW [email or web address]) OP Gait Assessment Gait Gait Assistance Required: Standby Assistance Distance (Feet) 200 Assistive Devices Assistive Device Gait Belt Orthotic/Prosthetic Devices or Brace: No Gait Deviations General Gait Pattern Flexed Trunk Factors Limiting Gait Function Factors Limiting Gait Function Decreased Activity Tolerance, Poor Balance,Poor Safety Awareness Comments Gait Comments Pt ambulates with limited trunk rotation and minimal arm swing excursion. Stair Climbing Evaluation Evaluation Level of Assist On Stairs Standby Assistance Devices Stair Climbing Assistive Devices Left Railing Technique/Endurance Stair Climbing Direction Ascend and Descend Stair Climbing Technique Step Over Step Number of Steps Climbed 4 Stair Climbing Set # Repetitions (reps) 2 PT-OP-H Neuro Start: 04/30/20 10:53 Freq: Status: Active Protocol: Document 06/01/20 12:00 AW (Rec: 06/01/20 17:02 AW [email or web address]) Sensation Evaluation Gross Sensation Gross Sensation WNL Coordination Evaluation Comments Coordination Comments Coordination grossly normal on finger to nose but mildly impaired with rapid pronation and supination. Deep Tendon Reflex & Clonus Assessment Deep Tendon Reflex Bilateral Achilles Deep Tendon Reflex 1+ Diminished Bilateral Patellar Deep Tendon Reflex 1+ Diminished Bilateral Bicep Deep Tendon Reflex 2+ Normal Ankle Clonus Bilateral Clonus Assessment Absent Muscle Tone Tone Assessment Upper Extremity Manifestations of Tone Intention Tremors Muscle Tone Comments BUE intention tremors described by pt but not elicited on exam. Vital Signs Blood Pressure Sitting Blood Pressure (90/60-120/80 mmHg) 148/90 H Blood Pressure Source Manual Cuff,Right Upper Extremity PT-OP-K Range of Motion Start: 04/30/20 10:53 Freq: Status: Active Protocol: Document 06/01/20 12:00 AW (Rec: 06/01/20 17:08 AW [email or web address]) Shoulder Goniometric Range of Motion Shoulder bilateral Shoulder ROM WFL Yes Elbow/Forearm Range of Motion Elbow/Forearm bilateral Elbow/Forearm ROM WFL Yes Hip Goniometric Range of Motion Hip bilateral Hip ROM WFL Yes Knee Goniometric Range of Motion Knee bilateral Knee ROM WFL Yes Patient Position Supine Comments lacks <5 degrees extension bilaterally Knee ROM Limitations Knee ROM Limitations Soft Tissue Tightness PT-OP-M Strength Start: 04/30/20 10:53 Freq: Status: Active Protocol: Document 06/01/20 12:00 AW (Rec: 06/01/20 17:08 AW [email or web address]) Shoulder Strength Shoulder Manual Muscle Testing bilateral Flexion 5 Normal Extension 5 Normal Abduction (C5) 4+ Good+ External Rotation 4+ Good+ Internal Rotation 5 Normal Hip Strength Hip Manual Muscle Testing bilateral Flexion (L2) 4 Good Extension (S1) 4+ Good+ Abduction 4+ Good+ External Rotation 4+ Good+ Internal Rotation 4+ Good+ Knee Strength Knee Manual Muscle Testing bilateral Flexion (S2) 4+ Good+ Extension (L3) 5 Normal Ankle/Foot Strength Ankle and Foot Manual Muscle Testing bilateral Dorsiflexion (L4) 5 Normal Plantarflexion (S1) 4 Good Inversion 5 Normal Eversion (S1) 5 Normal PT-OP-Q Treatments Start: 04/30/20 10:53 Freq: Status: Active Protocol: Document 06/14/20 15:15 AW (Rec: 06/14/20 15:28 AW [id number]) Therapeutic Exercises Sitting Exercises BIG sit to stands Sitting Exercise Name first set from chair; second set from chair with blue foam under feet Resistance gait belt and min assist for 3 reps Equipment Used green chair Reps/Minutes 8 reps x 2 Comments cues for full extension; Side to side Side bilateral Equipment Used green chair Reps/Minutes 5 reps Comments shaping for hip extension Floor to ceiling Equipment Used green chair Reps/Minutes 5 reps Comments cues for big hands Standing Exercises Side rock and reach Standing Exercise Name ADAPTED Side bilateral Reps/Minutes 8 reps Comments chair slightly behind pt as in pic; good rotation, cued and uncued Forward rock and reach Standing Exercise Name ADAPTED Side bilateral Reps/Minutes 10 reps Comments improved arm reach/swing with chair support Backward stepping Standing Exercise Name Adapted Side bilateral Equipment Used chair support at side Reps/Minutes 10 reps Comments focused on foot clearance Side step Side bilateral Reps/Minutes 8 reps Comments Cues to look to the side he is stepping to and then look forward Forward step Side bilateral Reps/Minutes 10 reps Comments Cues for BIG foot return Gait Training Gait Activity BIG walking Description BIG walking and functional activity of carrying object with walking Level of Assistance SBA Surface Carpet and tile Distance/Duration 15 min total in 2-3 min increments Treatment Focus BIG stepping, keep jovanny up, try to increase time Comments continued focus on endurance and maintaining amplitude with fatigue. VSS throughout with BP high 130's/80's and HR 90- 99 bpm. SpO2 above 96% at all times. Incorporated figure eights/ tight turns with use of three cones both with and without carrying object. Pt slows significantly in both conditions PT-OP-T Assessment and Plan Start: 04/30/20 10:53 Freq: Status: Active Protocol: Document 06/14/20 15:15 AW (Rec: 06/14/20 15:32 AW [id number]) Physical Therapy Assessment Rehab Potential Rehabilitation Potential Fair Evaluation Complexity Number of Personal Factors/Comorbidities 3 or More Number of Body Systems Impaired 3 Clinical Presentation at Evaluation Evolving Impairments Impairments Activity Tolerance,Balance, Coordination,Functional Activities,Functional Mobility ,Gait,Posture,Strength, Transfers Other Impairments Personal factors include memory impairment, hypoverbal, not interested in smoking cessation or nasal breathing. Body systems affected include cognitive, neurological, musculoskeletal, and cardiopulmonary. His clinical presentation is evolving. Other Concerns Fall Risk high Barriers to Rehabilitation (-) current daily smoker (-) impaired short term memory Poor cardiopulmonary health and easy 3/4 RESTREPO, mouth breathing, reports of back and leg pain occ Goals Four Impairment bradykinesia Shelter Goal (LTG) Pt will improve self-selected gait speed on 10 Meter Walk Test from 0.96 m/s to 1.3 m/s or greater to demonstrate recalibration and reduction in falls risk. 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 LTG Duration 16 treatments Two Impairment Pt lacks HEP Shelter Goal (LTG) Pt will perform BIG exercises and functional tasks BID with handouts to improve amplitude and quality of movement. LTG Duration 16 treatments One Impairment dynamic balance Shelter Goal (LTG) Pt will score 24/30 (baseline 18/30) or greater on Functional Gait Assessment for reduction of falls risk. LTG Duration 16 treatments Assessment Summary Assessment Pt continues to exhibit RESTREPO and need for multiple rest breaks throughout treatment. Pt has flat affect and does not communicate frustration but effort and amplitude do flag with increased exertion. Pt responds to cueing for amplitude but reverts as he becomes more dyspneic. Will continue intervention with goal of improving overall activity tolerance. Physical Therapy Plan Frequency and Duration Frequency of Treatment 4x/Week Duration of Treatment 16 total treatments Plan of Care Start Date 06/10/20 Plan of Care End Date 07/09/20 Therapeutic Interventions Therapeutic Interventions Balance Training,Coordination Training,Gait Training,Home Exercise Program,Neuromuscular Re-education,Patient/ Caregiver Education,Self-Care/ Home Management,Sensory Integration,Therapeutic Activities,Therapeutic Exercises Next Visit Focus/Plan Next Note Type Treatment Note Next Visit Plan Ongoing gait carrying objects, increase some steps and unstable surfaces
--- NOTE | 2020-06-15 15:23 | PT.OTN ---
Current Diagnoses Parkinson's disease (06/15/20) Difficulty in walking, not elsewhere classified (06/15/20) Physical Therapy Treatment Note PT-OP-A Visit Information Start: 04/30/20 10:53 Freq: Status: Active Protocol: Document 06/15/20 14:15 MB (Rec: 06/15/20 15:22 MB [email or web address]) Out-Patient Physical Therapy Visit Information Visit Information Visit Type Treatment Note Visit Start Time 14:15 Visit Stop Time 15:08 Total Visit Minutes 53 Visit Number 7 Precautions Precautions history of a fib, syncope, ~25 % ejection fraction, frequent falls, SOB easily in setting of active smoker. This date, state that pt has rods in his pelvis and history of coronary bypass. Pt presents with functional left foot drop with gait. PT-OP-B Current Condition Start: 04/30/20 10:53 Freq: Status: Active Protocol: Document 06/01/20 12:00 AW (Rec: 06/01/20 12:37 AW [email or web address]) Current Condition History of Current Condition Onset Date diagnosed in early 2020 Current Complaints poor balance; frequent falls; tremor with fine motor activity History of Current Condition Pt states he began to notice he was off with his balance about a year ago. His believes his balance began to deteriorate about three years ago. He started carbidopa levodopa earlier this year and is currently taking it three times per day. He does not appreciate any change in his function that he can contribute to medication. Neurologist Dr. Bob mentioned his parkinsonism may be atypical. Pt reports falling once every 3-4 days. Unrelated to PD, pt fell ~7 years ago from a height and fractured his pelvis. About a year ago, pt fell forward and fractured his supraorbital bone. He denies other injurious falls. Other than balance, pt notices his writing has become smaller and messier. He mentions shaking with fine motor activities such as using a screwdriver. Gait is especially challenged during turns and on inclines. Pt reports short term memory challenges. Prior Treatments and Tests Pt is followed by Dr. Bob for neurology, an unknown tug hand, and Dr. Espinosa for primary care. Future Testing and Treatments Planned Speech evaluation for consideration of LOUD program. Treatment Goals Patient/Caregiver Goals I want to fall less often and have more confidence in my movement. Pt's states she would like to keep her safe and to be able to stay in their multilevel home as long as possible. There are 10 [address] and 15 steps inside to the bedroom level. Pt and his mention they would like to be able to take longer walks including inclines without pt falling. Prior Functional Status Baseline Function- ADL's Independent Baseline Function- Mobility Independent Baseline Function- Gait Uses SPC for walking outside, no AD for inside. 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 Current Functional Impairments (Reported) Functional Limitations- ADL's Pt reports falling forward when reaching down to the ground during dressing and other tasks Functional Limitations- Mobility/Gait Frequent falls, impaired dynamic balance, turns and inclines challenging Functional Limitations- Recreation/ Difficulty with fine motor Hobbies control due to intention tremor Personal Factors Other Personal Factors That May Effect (-) smokes 10-15 cigarettes Therapy/Recovery daily (-) poor short term memory may influence carryover (+) supportive spouse PT-OP-C Subjective Start: 04/30/20 10:53 Freq: Status: Active Protocol: Document 06/15/20 14:15 MB (Rec: 06/15/20 15:22 MB [id number]) OP-PT Subjective Patient Comments Patient Comments Pt states that he is doing his exercises. PT-OP-D Balance Start: 04/30/20 10:53 Freq: Status: Active Protocol: Document 06/01/20 12:00 AW (Rec: 06/01/20 17:02 AW [email or web address]) OP-PT Balance Assessment Sitting Balance Static Sitting Balance Ability Good Dynamic Sitting Balance Ability Good Standing Balance Static Standing Balance Ability Good Dynamic Standing Balance Ability Fair Device Used No AD Balance Tests Semi-Tandem Standing Semi-Tandem Standing Balance ~5 sec with SBA Tandem Tandem Standing unable Giraldo Fall Scale Copyright Permission PT-OP-E Functional Tests Start: 06/01/20 11:03 Freq: Status: Active Protocol: Document 06/01/20 12:00 AW (Rec: 06/01/20 17:02 AW [email or web address]) Functional Tests 10 Meter Walk Test Distance 10.45 sec, 15 steps Device Used none Comments 0.96 m/s; step length .67 m or 2.2 feet Functional Gait Assessment Score 18 Functional Gait Assessment Impairment 40 to <60% Impaired (Score 13- Rating 18) PT-OP-G Mobility & Gait Start: 04/30/20 10:53 Freq: Status: Active Protocol: Document 06/01/20 12:00 AW (Rec: 06/01/20 17:02 AW [email or web address]) OP Gait Assessment Gait Gait Assistance Required: Standby Assistance Distance (Feet) 200 Assistive Devices Assistive Device Gait Belt Orthotic/Prosthetic Devices or Brace: No Gait Deviations General Gait Pattern Flexed Trunk Factors Limiting Gait Function Factors Limiting Gait Function Decreased Activity Tolerance, Poor Balance,Poor Safety Awareness Comments Gait Comments Pt ambulates with limited trunk rotation and minimal arm swing excursion. Stair Climbing Evaluation Evaluation Level of Assist On Stairs Standby Assistance Devices Stair Climbing Assistive Devices Left Railing Technique/Endurance Stair Climbing Direction Ascend and Descend Stair Climbing Technique Step Over Step Number of Steps Climbed 4 Stair Climbing Set # Repetitions (reps) 2 PT-OP-H Neuro Start: 04/30/20 10:53 Freq: Status: Active Protocol: Document 06/01/20 12:00 AW (Rec: 06/01/20 17:02 AW [email or web address]) Sensation Evaluation Gross Sensation Gross Sensation WNL Coordination Evaluation Comments Coordination Comments Coordination grossly normal on finger to nose but mildly impaired with rapid pronation and supination. Deep Tendon Reflex & Clonus Assessment Deep Tendon Reflex Bilateral Achilles Deep Tendon Reflex 1+ Diminished Bilateral Patellar Deep Tendon Reflex 1+ Diminished Bilateral Bicep Deep Tendon Reflex 2+ Normal Ankle Clonus Bilateral Clonus Assessment Absent Muscle Tone Tone Assessment Upper Extremity Manifestations of Tone Intention Tremors Muscle Tone Comments BUE intention tremors described by pt but not elicited on exam. Vital Signs Blood Pressure Sitting Blood Pressure (90/60-120/80 mmHg) 148/90 H Blood Pressure Source Manual Cuff,Right Upper Extremity PT-OP-K Range of Motion Start: 04/30/20 10:53 Freq: Status: Active Protocol: Document 06/01/20 12:00 AW (Rec: 06/01/20 17:08 AW [email or web address]) Shoulder Goniometric Range of Motion Shoulder bilateral Shoulder ROM WFL Yes Elbow/Forearm Range of Motion Elbow/Forearm bilateral Elbow/Forearm ROM WFL Yes Hip Goniometric Range of Motion Hip bilateral Hip ROM WFL Yes Knee Goniometric Range of Motion Knee bilateral Knee ROM WFL Yes Patient Position Supine Comments lacks <5 degrees extension bilaterally Knee ROM Limitations Knee ROM Limitations Soft Tissue Tightness PT-OP-M Strength Start: 04/30/20 10:53 Freq: Status: Active Protocol: Document 06/01/20 12:00 AW (Rec: 06/01/20 17:08 AW [email or web address]) Shoulder Strength Shoulder Manual Muscle Testing bilateral Flexion 5 Normal Extension 5 Normal Abduction (C5) 4+ Good+ External Rotation 4+ Good+ Internal Rotation 5 Normal Hip Strength Hip Manual Muscle Testing bilateral Flexion (L2) 4 Good Extension (S1) 4+ Good+ Abduction 4+ Good+ External Rotation 4+ Good+ Internal Rotation 4+ Good+ Knee Strength Knee Manual Muscle Testing bilateral Flexion (S2) 4+ Good+ Extension (L3) 5 Normal Ankle/Foot Strength Ankle and Foot Manual Muscle Testing bilateral Dorsiflexion (L4) 5 Normal Plantarflexion (S1) 4 Good Inversion 5 Normal Eversion (S1) 5 Normal PT-OP-Q Treatments Start: 04/30/20 10:53 Freq: Status: Active Protocol: Document 06/15/20 14:15 MB (Rec: 06/15/20 15:22 MB [id number]) Therapeutic Exercises Sitting Exercises BIG sit to stands Equipment Used Black mat in gym Reps/Minutes 10 reps Comments Cues to reach forward and to sit all the way back down Side to side Side bilateral Equipment Used Black mat in gym Reps/Minutes 5 reps Comments Alternating sides today Floor to ceiling Equipment Used Black mat in gym Reps/Minutes 10 reps Comments Cues to reach up big Standing Exercises Side rock and reach Side bilateral Reps/Minutes 5 reps Comments Cues to slow down and finish big, slapping thighs, cues for big stance Forward rock and reach Side bilateral Reps/Minutes 10 reps Comments Improvement today Backward stepping Side bilateral Reps/Minutes 5 reps Comments Cues for form and pt has trouble with it Side step Side bilateral Reps/Minutes 5 reps alternating Comments Cues to look to the side he is stepping to and then look forward Forward step Side bilateral Reps/Minutes 10 reps Comments Cues for BIG stance and for bringing foot back Gait Training Gait Activity BIG walking Level of Assistance SBA Surface Carpet, tile, outdoors steps, pavement and grass, side walk Distance/Duration 15' total time, many trials interspersed with exercises Treatment Focus BIG stepping, altering terraine Comments BIG walking out back of clinic up the steps, in the grass next to pavement, on pavement and side walk. Pt reports progressive leg discomfort with gait and he has trouble controlling descent outside steps once fatigued, no use of rail. PT-OP-T Assessment and Plan Start: 04/30/20 10:53 Freq: Status: Active Protocol: Document 06/15/20 14:15 MB (Rec: 06/15/20 15:22 MB [id number]) Physical Therapy Assessment Rehab Potential Rehabilitation Potential Fair Evaluation Complexity Number of Personal Factors/Comorbidities 3 or More Number of Body Systems Impaired 3 Clinical Presentation at Evaluation Evolving Impairments Impairments Activity Tolerance,Balance, Coordination,Functional Activities,Functional Mobility ,Gait,Posture,Strength, Transfers Other Impairments Personal factors include memory impairment, hypoverbal, not interested in smoking cessation or nasal breathing. Body systems affected include cognitive, neurological, musculoskeletal, and cardiopulmonary. His clinical presentation is evolving. Other Concerns Fall Risk high Barriers to Rehabilitation (-) current daily smoker (-) impaired short term memory Poor cardiopulmonary health and easy 3/4 RESTREPO, mouth breathing, reports of back and leg pain occ Goals Four Impairment bradykinesia Nursing Home Goal (LTG) Pt will improve self-selected gait speed on 10 Meter Walk Test from 0.96 m/s to 1.3 m/s or greater to demonstrate recalibration and reduction in falls risk. 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 LTG Duration 16 treatments Two Impairment Pt lacks HEP Nursing Home Goal (LTG) Pt will perform BIG exercises and functional tasks BID with handouts to improve amplitude and quality of movement. LTG Duration 16 treatments One Impairment dynamic balance Nursing Home Goal (LTG) Pt will score 24/30 (baseline 18/30) or greater on Functional Gait Assessment for reduction of falls risk. LTG Duration 16 treatments Assessment Summary Assessment Able to progress gait trials outside today and up onto grass over curb. He does not have LOB with gait but he does with side to side rock and reach and occ with balance exercises. Pt requires frequent rest breaks for exercises and gait d/t RESTREPO 3/4 Dyspnea Scale and leg pain. He states he has the leg pain for 6 months and drinks Gatorade. PT encourages pt to talk with his doctor about his leg complaints. Pt is able to carry golf club in right hand and cup with water 3/4 full and maintain BIG walking today . Physical Therapy Plan Frequency and Duration Frequency of Treatment 4x/Week Duration of Treatment 16 total treatments Plan of Care Start Date 06/10/20 Plan of Care End Date 07/09/20 Therapeutic Interventions Therapeutic Interventions Balance Training,Coordination Training,Gait Training,Home Exercise Program,Neuromuscular Re-education,Patient/ Caregiver Education,Self-Care/ Home Management,Sensory Integration,Therapeutic Activities,Therapeutic Exercises Next Visit Focus/Plan Next Note Type Treatment Note Next Visit Plan Ongoing gait challenges inside and outside carrying objects, increase some steps and unstable surfaces
--- NOTE | 2020-06-16 17:17 | PT.OTN ---
Current Diagnoses Parkinson's disease (06/16/20) Difficulty in walking, not elsewhere classified (06/16/20) Physical Therapy Treatment Note PT-OP-A Visit Information Start: 04/30/20 10:53 Freq: Status: Active Protocol: Document 06/16/20 17:05 AW (Rec: 06/16/20 17:17 AW [email or web address]) Out-Patient Physical Therapy Visit Information Visit Information Visit Type Treatment Note Visit Start Time 14:10 Visit Stop Time 15:04 Total Visit Minutes 54 Visit Number 8 Evaluation Information Evaluation Date 06/01/20 Precautions Precautions history of a fib, syncope, ~25 % ejection fraction, frequent falls, SOB easily in setting of active smoker. This date, state that pt has rods in his pelvis and history of coronary bypass. Pt presents with functional left foot drop with gait. PT-OP-B Current Condition Start: 04/30/20 10:53 Freq: Status: Active Protocol: Document 06/01/20 12:00 AW (Rec: 06/01/20 12:37 AW [email or web address]) Current Condition History of Current Condition Onset Date diagnosed in early 2020 Current Complaints poor balance; frequent falls; tremor with fine motor activity History of Current Condition Pt states he began to notice he was off with his balance about a year ago. His believes his balance began to deteriorate about three years ago. He started carbidopa levodopa earlier this year and is currently taking it three times per day. He does not appreciate any change in his function that he can contribute to medication. Neurologist Dr. Bob mentioned his parkinsonism may be atypical. Pt reports falling once every 3-4 days. Unrelated to PD, pt fell ~7 years ago from a height and fractured his pelvis. About a year ago, pt fell forward and fractured his supraorbital bone. He denies other injurious falls. Other than balance, pt notices his writing has become smaller and messier. He mentions shaking with fine motor activities such as using a screwdriver. Gait is especially challenged during turns and on inclines. Pt reports short term memory challenges. Prior Treatments and Tests Pt is followed by Dr. 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 Espinosa for primary care. Future Testing and Treatments Planned Speech evaluation for consideration of [facility]OU[facility] program. Treatment Goals Patient/Caregiver Goals I want to fall less often and have more confidence in my movement. Pt's states she would like to keep her safe and to be able to stay in their multilevel home as long as possible. There are 10 [address] and 15 steps inside to the bedroom level. Pt and his mention they would like to be able to take longer walks including inclines without pt falling. Prior Functional Status Baseline Function- ADL's Independent Baseline Function- Mobility Independent Baseline Function- Gait Uses SPC for walking outside, no AD for inside. 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 Current Functional Impairments (Reported) Functional Limitations- ADL's Pt reports falling forward when reaching down to the ground during dressing and other tasks Functional Limitations- Mobility/Gait Frequent falls, impaired dynamic balance, turns and inclines challenging Functional Limitations- Recreation/ Difficulty with fine motor Hobbies control due to intention tremor Personal Factors Other Personal Factors That May Effect (-) smokes 10-15 cigarettes Therapy/Recovery daily (-) poor short term memory may influence carryover (+) supportive spouse PT-OP-C Subjective Start: 04/30/20 10:53 Freq: Status: Active Protocol: Document 06/16/20 17:05 AW (Rec: 06/16/20 17:17 AW [email or web address]) OP-PT Subjective Patient Comments Patient Comments Pt has not done his exercises today, states he has been doing them later in the day. PT-OP-D Balance Start: 04/30/20 10:53 Freq: Status: Active Protocol: Document 06/01/20 12:00 AW (Rec: 06/01/20 17:02 AW [email or web address]) OP-PT Balance Assessment Sitting Balance Static Sitting Balance Ability Good Dynamic Sitting Balance Ability Good Standing Balance Static Standing Balance Ability Good Dynamic Standing Balance Ability Fair Device Used No AD Balance Tests Semi-Tandem Standing Semi-Tandem Standing Balance ~5 sec with SBA Tandem Tandem Standing unable Giraldo Fall Scale Copyright Permission PT-OP-E Functional Tests Start: 06/01/20 11:03 Freq: Status: Active Protocol: Document 06/01/20 12:00 AW (Rec: 06/01/20 17:02 AW [email or web address]) Functional Tests 10 Meter Walk Test Distance 10.45 sec, 15 steps Device Used none Comments 0.96 m/s; step length .67 m or 2.2 feet Functional Gait Assessment Score 18 Functional Gait Assessment Impairment 40 to <60% Impaired (Score 13- Rating 18) PT-OP-G Mobility & Gait Start: 04/30/20 10:53 Freq: Status: Active Protocol: Document 06/01/20 12:00 AW (Rec: 06/01/20 17:02 AW [email or web address]) OP Gait Assessment Gait Gait Assistance Required: Standby Assistance Distance (Feet) 200 Assistive Devices Assistive Device Gait Belt Orthotic/Prosthetic Devices or Brace: No Gait Deviations General Gait Pattern Flexed Trunk Factors Limiting Gait Function Factors Limiting Gait Function Decreased Activity Tolerance, Poor Balance,Poor Safety Awareness Comments Gait Comments Pt ambulates with limited trunk rotation and minimal arm swing excursion. Stair Climbing Evaluation Evaluation Level of Assist On Stairs Standby Assistance Devices Stair Climbing Assistive Devices Left Railing Technique/Endurance Stair Climbing Direction Ascend and Descend Stair Climbing Technique Step Over Step Number of Steps Climbed 4 Stair Climbing Set # Repetitions (reps) 2 PT-OP-H Neuro Start: 04/30/20 10:53 Freq: Status: Active Protocol: Document 06/01/20 12:00 AW (Rec: 06/01/20 17:02 AW [email or web address]) Sensation Evaluation Gross Sensation Gross Sensation WNL Coordination Evaluation Comments Coordination Comments Coordination grossly normal on finger to nose but mildly impaired with rapid pronation and supination. Deep Tendon Reflex & Clonus Assessment Deep Tendon Reflex Bilateral Achilles Deep Tendon Reflex 1+ Diminished Bilateral Patellar Deep Tendon Reflex 1+ Diminished Bilateral Bicep Deep Tendon Reflex 2+ Normal Ankle Clonus Bilateral Clonus Assessment Absent Muscle Tone Tone Assessment Upper Extremity Manifestations of Tone Intention Tremors Muscle Tone Comments BUE intention tremors described by pt but not elicited on exam. Vital Signs Blood Pressure Sitting Blood Pressure (90/60-120/80 mmHg) 148/90 H Blood Pressure Source Manual Cuff,Right Upper Extremity PT-OP-K Range of Motion Start: 04/30/20 10:53 Freq: Status: Active Protocol: Document 06/01/20 12:00 AW (Rec: 06/01/20 17:08 AW [email or web address]) Shoulder Goniometric Range of Motion Shoulder bilateral Shoulder ROM WFL Yes Elbow/Forearm Range of Motion Elbow/Forearm bilateral Elbow/Forearm ROM WFL Yes Hip Goniometric Range of Motion Hip bilateral Hip ROM WFL Yes Knee Goniometric Range of Motion Knee bilateral Knee ROM WFL Yes Patient Position Supine Comments lacks <5 degrees extension bilaterally Knee ROM Limitations Knee ROM Limitations Soft Tissue Tightness PT-OP-M Strength Start: 04/30/20 10:53 Freq: Status: Active Protocol: Document 06/01/20 12:00 AW (Rec: 06/01/20 17:08 AW [email or web address]) Shoulder Strength Shoulder Manual Muscle Testing bilateral Flexion 5 Normal Extension 5 Normal Abduction (C5) 4+ Good+ External Rotation 4+ Good+ Internal Rotation 5 Normal Hip Strength Hip Manual Muscle Testing bilateral Flexion (L2) 4 Good Extension (S1) 4+ Good+ Abduction 4+ Good+ External Rotation 4+ Good+ Internal Rotation 4+ Good+ Knee Strength Knee Manual Muscle Testing bilateral Flexion (S2) 4+ Good+ Extension (L3) 5 Normal Ankle/Foot Strength Ankle and Foot Manual Muscle Testing bilateral Dorsiflexion (L4) 5 Normal Plantarflexion (S1) 4 Good Inversion 5 Normal Eversion (S1) 5 Normal PT-OP-Q Treatments Start: 04/30/20 10:53 Freq: Status: Active Protocol: Document 06/16/20 17:05 AW (Rec: 06/16/20 17:17 AW [email or web address]) Therapeutic Exercises Sitting Exercises BIG sit to stands Equipment Used Black mat in gym in lowest position Reps/Minutes 5 reps x 3 Comments cues for full extension in standing Side to side Side bilateral Equipment Used Black mat in gym Reps/Minutes 5 reps Comments Alternating sides today Floor to ceiling Equipment Used Black mat in gym Reps/Minutes 10 reps Comments Cues to reach up big Standing Exercises Side rock and reach Standing Exercise Name ADAPTED Side bilateral Reps/Minutes 5 reps Comments chair behind; demonstration required Forward rock and reach Standing Exercise Name ADAPTED Side bilateral Reps/Minutes 10 reps Comments cues for bigger reach Backward stepping Side bilateral Reps/Minutes 5 reps Comments cues for BIG weight shift Side step Side bilateral Reps/Minutes 5 reps alternating Comments continued cues for rotation most reps Forward step Side bilateral Reps/Minutes 10 reps Comments PVC placed horizontally as external cue for pt to step over Therapeutic Activity Therapeutic Activity getting out of car Name getting out of car Reps/Minutes 10 min Comments Practiced getting out of passenger seat by placing wedge on floor right side of pt. He stepped over the wedge with his right foot, stood up intermediate, and then cleared his left foot over the wedge to simulate clearing foot over rocker board. Gait Training Gait Activity BIG walking Surface Carpet, tile, up and down curbs, grassy hill Distance/Duration 15 min total in short increments Treatment Focus jovanny, step length modulation on hills Comments BIG walking behind clinic on pavement, up and down curbs, up and down grassy hills. Pt has difficulty maintaining amplitude with changes in height/curbs and on inclines. PT-OP-T Assessment and Plan Start: 04/30/20 10:53 Freq: Status: Active Protocol: Document 06/16/20 17:05 AW (Rec: 06/16/20 17:17 AW [email or web address]) Physical Therapy Assessment Rehab Potential Rehabilitation Potential Fair Evaluation Complexity Number of Personal Factors/Comorbidities 3 or More Number of Body Systems Impaired 3 Clinical Presentation at Evaluation Evolving Impairments Impairments Activity Tolerance,Balance, Coordination,Functional Activities,Functional Mobility ,Gait,Posture,Strength, Transfers Other Impairments Personal factors include memory impairment, hypoverbal, not interested in smoking cessation or nasal breathing. Body systems affected include cognitive, neurological, musculoskeletal, and cardiopulmonary. His clinical presentation is evolving. Other Concerns Fall Risk high Barriers to Rehabilitation (-) current daily smoker (-) impaired short term memory Poor cardiopulmonary health and easy 3/4 RESTREPO, mouth breathing, reports of back and leg pain occ Goals Four Impairment bradykinesia Retirement Goal (LTG) Pt will improve self-selected gait speed on 10 Meter Walk Test from 0.96 m/s to 1.3 m/s or greater to demonstrate recalibration and reduction in falls risk. Three Impairment functional mobility Retirement Goal (LTG) Pt will complete 5 Time Sit to drainage inspector under 10 seconds without need for UE support and with no failed attempts. LTG Duration 16 treatments Two Impairment Pt lacks HEP Retirement Goal (LTG) Pt will perform BIG exercises and functional tasks BID with handouts to improve amplitude and quality of movement. LTG Duration 16 treatments One Impairment dynamic balance District Administrator Goal (LTG) Pt will score 24/30 (baseline 18/30) or greater on Functional Gait Assessment for reduction of falls risk. LTG Duration 16 treatments Assessment Summary Assessment Pt requires frequent shaping and external cues. Recalibration is slow with poor carryover. Pt did identify functional task of getting out of passenger seat which was practiced in clinic. Would benefit from working on some fine motor or ADL tasks in order to break up exertion of exercise and gait training and to broaden application of amplitude training. Physical Therapy Plan Frequency and Duration Frequency of Treatment 4x/Week Duration of Treatment 16 total treatments Plan of Care Start Date 06/10/20 Plan of Care End Date 07/09/20 Therapeutic Interventions Therapeutic Interventions Balance Training,Coordination Training,Gait Training,Home Exercise Program,Neuromuscular Re-education,Patient/ Caregiver Education,Self-Care/ Home Management,Sensory Integration,Therapeutic Activities,Therapeutic Exercises Next Visit Focus/Plan Next Note Type Treatment Note Next Visit Plan Ongoing gait challenges inside and outside carrying objects, increase some steps and unstable surfaces
--- NOTE | 2020-06-17 15:39 | PT.OTN ---
Current Diagnoses Parkinson's disease (06/17/20) Difficulty in walking, not elsewhere classified (06/17/20) Physical Therapy Treatment Note PT-OP-A Visit Information Start: 04/30/20 10:53 Freq: Status: Active Protocol: Document 06/17/20 14:15 MB (Rec: 06/17/20 15:39 MB [id number]) Out-Patient Physical Therapy Visit Information Visit Information Visit Type Treatment Note Visit Start Time 14:15 Visit Stop Time 15:15 Total Visit Minutes 60 Visit Number 9 Precautions Precautions history of a fib, syncope, ~25 % ejection fraction, frequent falls, SOB easily in setting of active smoker. This date, state that pt has rods in his pelvis and history of coronary bypass. Pt presents with functional left foot drop with gait. PT-OP-B Current Condition Start: 04/30/20 10:53 Freq: Status: Active Protocol: Document 06/01/20 12:00 AW (Rec: 06/01/20 12:37 AW [email or web address]) Current Condition History of Current Condition Onset Date diagnosed in early 2020 Current Complaints poor balance; frequent falls; tremor with fine motor activity History of Current Condition Pt states he began to notice he was off with his balance about a year ago. His believes his balance began to deteriorate about three years ago. He started carbidopa levodopa earlier this year and is currently taking it three times per day. He does not appreciate any change in his function that he can contribute to medication. Neurologist Dr. Bob mentioned his parkinsonism may be atypical. Pt reports falling once every 3-4 days. Unrelated to PD, pt fell ~7 years ago from a height and fractured his pelvis. About a year ago, pt fell forward and fractured his supraorbital bone. He denies other injurious falls. Other than balance, pt notices his writing has become smaller and messier. He mentions shaking with fine motor activities such as using a screwdriver. Gait is especially challenged during turns and on inclines. Pt reports short term memory challenges. Prior Treatments and Tests Pt is followed by Dr. Bob for neurology, an unknown compounding assistant, and Dr. Espinosa for primary care. Future Testing and Treatments Planned Speech evaluation for consideration of LOUD program. Treatment Goals Patient/Caregiver Goals I want to fall less often and have more confidence in my movement. Pt's states she would like to keep her safe and to be able to stay in their multilevel home as long as possible. There are 10 [address]LEN[address] and 15 steps inside to the bedroom level. Pt and his mention they would like to be able to take longer walks including inclines without pt falling. Prior Functional Status Baseline Function- ADL's Independent Baseline Function- Mobility Independent Baseline Function- Gait Uses SPC for walking outside, no AD for inside. 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 Current Functional Impairments (Reported) Functional Limitations- ADL's Pt reports falling forward when reaching down to the ground during dressing and other tasks Functional Limitations- Mobility/Gait Frequent falls, impaired dynamic balance, turns and inclines challenging Functional Limitations- Recreation/ Difficulty with fine motor Hobbies control due to intention tremor Personal Factors Other Personal Factors That May Effect (-) smokes 10-15 cigarettes Therapy/Recovery daily (-) poor short term memory may influence carryover (+) supportive spouse PT-OP-C Subjective Start: 04/30/20 10:53 Freq: Status: Active Protocol: Document 06/17/20 14:15 MB (Rec: 06/17/20 15:39 MB [id number]) OP-PT Subjective Patient Comments Patient Comments Pt states that he has been doing his exercises when asked . At end of treatment, PT speaks with , eCleste, and she states that they have not been doing BIG exercises on therapy days d/t he gets so worn out. PT-OP-D Balance Start: 04/30/20 10:53 Freq: Status: Active Protocol: Document 06/01/20 12:00 AW (Rec: 06/01/20 17:02 AW [email or web address]) OP-PT Balance Assessment Sitting Balance Static Sitting Balance Ability Good Dynamic Sitting Balance Ability Good Standing Balance Static Standing Balance Ability Good Dynamic Standing Balance Ability Fair Device Used No AD Balance Tests Semi-Tandem Standing Semi-Tandem Standing Balance ~5 sec with SBA Tandem Tandem Standing unable Giraldo Fall Scale Copyright Permission PT-OP-E Functional Tests Start: 06/01/20 11:03 Freq: Status: Active Protocol: Document 06/01/20 12:00 AW (Rec: 06/01/20 17:02 AW [email or web address]) Functional Tests 10 Meter Walk Test Distance 10.45 sec, 15 steps Device Used none Comments 0.96 m/s; step length .67 m or 2.2 feet Functional Gait Assessment Score 18 Functional Gait Assessment Impairment 40 to <60% Impaired (Score 13- Rating 18) PT-OP-G Mobility & Gait Start: 04/30/20 10:53 Freq: Status: Active Protocol: Document 06/01/20 12:00 AW (Rec: 06/01/20 17:02 AW [email or web address]) OP Gait Assessment Gait Gait Assistance Required: Standby Assistance Distance (Feet) 200 Assistive Devices Assistive Device Gait Belt Orthotic/Prosthetic Devices or Brace: No Gait Deviations General Gait Pattern Flexed Trunk Factors Limiting Gait Function Factors Limiting Gait Function Decreased Activity Tolerance, Poor Balance,Poor Safety Awareness Comments Gait Comments Pt ambulates with limited trunk rotation and minimal arm swing excursion. Stair Climbing Evaluation Evaluation Level of Assist On Stairs Standby Assistance Devices Stair Climbing Assistive Devices Left Railing Technique/Endurance Stair Climbing Direction Ascend and Descend Stair Climbing Technique Step Over Step Number of Steps Climbed 4 Stair Climbing Set # Repetitions (reps) 2 PT-OP-H Neuro Start: 04/30/20 10:53 Freq: Status: Active Protocol: Document 06/01/20 12:00 AW (Rec: 06/01/20 17:02 AW [email or web address]) Sensation Evaluation Gross Sensation Gross Sensation WNL Coordination Evaluation Comments Coordination Comments Coordination grossly normal on finger to nose but mildly impaired with rapid pronation and supination. Deep Tendon Reflex & Clonus Assessment Deep Tendon Reflex Bilateral Achilles Deep Tendon Reflex 1+ Diminished Bilateral Patellar Deep Tendon Reflex 1+ Diminished Bilateral Bicep Deep Tendon Reflex 2+ Normal Ankle Clonus Bilateral Clonus Assessment Absent Muscle Tone Tone Assessment Upper Extremity Manifestations of Tone Intention Tremors Muscle Tone Comments BUE intention tremors described by pt but not elicited on exam. Vital Signs Blood Pressure Sitting Blood Pressure (90/60-120/80 mmHg) 148/90 H Blood Pressure Source Manual Cuff,Right Upper Extremity PT-OP-K Range of Motion Start: 04/30/20 10:53 Freq: Status: Active Protocol: Document 06/01/20 12:00 AW (Rec: 06/01/20 17:08 AW [email or web address]) Shoulder Goniometric Range of Motion Shoulder bilateral Shoulder ROM WFL Yes Elbow/Forearm Range of Motion Elbow/Forearm bilateral Elbow/Forearm ROM WFL Yes Hip Goniometric Range of Motion Hip bilateral Hip ROM WFL Yes Knee Goniometric Range of Motion Knee bilateral Knee ROM WFL Yes Patient Position Supine Comments lacks <5 degrees extension bilaterally Knee ROM Limitations Knee ROM Limitations Soft Tissue Tightness PT-OP-M Strength Start: 04/30/20 10:53 Freq: Status: Active Protocol: Document 06/01/20 12:00 AW (Rec: 06/01/20 17:08 AW [email or web address]) Shoulder Strength Shoulder Manual Muscle Testing bilateral Flexion 5 Normal Extension 5 Normal Abduction (C5) 4+ Good+ External Rotation 4+ Good+ Internal Rotation 5 Normal Hip Strength Hip Manual Muscle Testing bilateral Flexion (L2) 4 Good Extension (S1) 4+ Good+ Abduction 4+ Good+ External Rotation 4+ Good+ Internal Rotation 4+ Good+ Knee Strength Knee Manual Muscle Testing bilateral Flexion (S2) 4+ Good+ Extension (L3) 5 Normal Ankle/Foot Strength Ankle and Foot Manual Muscle Testing bilateral Dorsiflexion (L4) 5 Normal Plantarflexion (S1) 4 Good Inversion 5 Normal Eversion (S1) 5 Normal PT-OP-Q Treatments Start: 04/30/20 10:53 Freq: Status: Active Protocol: Document 06/17/20 14:15 MB (Rec: 06/17/20 15:39 MB [id number]) Therapeutic Exercises Sitting Exercises BIG sit to stands Equipment Used Blue chair in gym Comments Performed during transitions today Side to side Side bilateral Equipment Used Blue chair in gym Reps/Minutes 5 reps alternating Comments Cues to start with BIG leg stance and forward Floor to ceiling Equipment Used Blue chair in gym Reps/Minutes 6 reps Comments Cues to reach forward and up BIG Standing Exercises Side rock and reach Standing Exercise Name Adapted Side bilateral Reps/Minutes 5 reps Comments Cues for hand position and to pivot on foot Forward rock and reach Standing Exercise Name Adapted Side bilateral Reps/Minutes 10 reps Comments Cues for BIG front toe and back heel, BIG stance Backward stepping Side bilateral Reps/Minutes 5 reps Comments One side at a time, improvement with this exercise Side step Side bilateral Reps/Minutes 5 reps alternating Comments Cues for BIG step and turn head where looking Forward step Side bilateral Reps/Minutes 10 reps Comments Cues to start and finish with BIG feet, to slow down Therapeutic Activity Therapeutic Activity getting out of car Name Getting in and out of car Reps/Minutes 5 Comments Blue chair in gym, stepping over wedge with BIG leg, cues to push up with right and and reach back. This does not carryover when he gets into passenger side of car after treatment and PT cues for hand use to help slow descent Gait Training Gait Activity BIG walking Level of Assistance SBA Surface Carpet, tile, over curb, sidewalk, grass and pavement Distance/Duration 15' total with 3-5' increments Treatment Focus Barby Comments BIG walking inside and outside clinic with pt holding cup of water x1 set. He improves with gait time up to 3' before rest break and then con't on after standing break twice today. He con't to report leg pain with activity. He is challenged by walking up incline on grass Self-Care/Home Management Treatment Education Caregiver Education Ed to pt and : pt states that he only drinks gatorade during the day and up to 48 oz . Ed to speak with compounding assistant about this and to consider decreasing this and increasing non-caffeinated fluid intake d/t leg cramps and history of heart issues, ed in potential gains of BIG: improvement in amplitude and tolerance of exercises and gait, improved balance, sleeping better and improvements in functional activities and pt and state that he has not had any of these gains and in fact does not do exercises on BIG therapy days. Discussed options about continuing in setting of this and cardiopulmonary and leg pain issues and pt states that he would like to complete next week. They are doing exercises on non-therapy days. PT-OP-T Assessment and Plan Start: 04/30/20 10:53 Freq: Status: Active Protocol: Document 06/17/20 14:15 MB (Rec: 06/17/20 15:39 MB [id number]) Physical Therapy Assessment Rehab Potential Rehabilitation Potential Fair Evaluation Complexity Number of Personal Factors/Comorbidities 3 or More Number of Body Systems Impaired 3 Clinical Presentation at Evaluation Evolving Impairments Impairments Activity Tolerance,Balance, Coordination,Functional Activities,Functional Mobility ,Gait,Posture,Strength, Transfers Other Impairments Personal factors include memory impairment, hypoverbal, not interested in smoking cessation or nasal breathing. Body systems affected include cognitive, neurological, musculoskeletal, and cardiopulmonary. His clinical presentation is evolving. Other Concerns Fall Risk high Barriers to Rehabilitation (-) current daily smoker (-) impaired short term memory Poor cardiopulmonary health and easy 3/4 RESTREPO, mouth breathing, reports of back and leg pain occ Goals Four Impairment bradykinesia [facility] Goal (LTG) Pt will improve self-selected gait speed on 10 Meter Walk Test from 0.96 m/s to 1.3 m/s or greater to demonstrate recalibration and reduction in falls risk. Three Impairment functional mobility [facility] Goal (LTG) Pt will complete 5 Time Sit to germination testing manager under 10 seconds without need for UE support and with no failed attempts. LTG Duration 16 treatments Two Impairment Pt lacks HEP [facility] Goal (LTG) Pt will perform BIG exercises and functional tasks BID with handouts to improve amplitude and quality of movement. LTG Duration 16 treatments One Impairment dynamic balance [facility] Goal (LTG) Pt will score 24/30 (baseline 18/30) or greater on Functional Gait Assessment for reduction of falls risk. LTG Duration 16 treatments Assessment Summary Assessment PT speaks with and pt after treatment about how he is doing with BIG. The ask about what gains could happen and PT ed in potential gains of BIG: improvement in amplitude and tolerance of exercises and gait, improved balance, sleeping better and improvements in functional activities and pt and state that he has not had any of these gains and in fact does not do exercises on BIG therapy days. Discussed options about continuing in setting of this and cardiopulmonary and leg pain issues and pt states that he would like to complete next week. They are doing exercises on non-therapy days. Pt did gait train for slightly longer bouts today and backward stepping exercise is better. Overall, he con't to require cues for BIG stance, weight shift, BIG effort and bringing stepping foot back to stationary foot with all exercises. His clinical presentation is complicated and do wish to con't to encourage balance and gait exercises for his overall health and balance and so PT agrees to con't BIG treatment course currently. Physical Therapy Plan Frequency and Duration Frequency of Treatment 4x/Week Duration of Treatment 16 total treatments Plan of Care Start Date 06/10/20 Plan of Care End Date 07/09/20 Therapeutic Interventions Therapeutic Interventions Balance Training,Coordination Training,Gait Training,Home Exercise Program,Neuromuscular Re-education,Patient/ Caregiver Education,Self-Care/ Home Management,Sensory Integration,Therapeutic Activities,Therapeutic Exercises Other Referrals/Consults Referrals/Consults Recommended Possible cardiopulmonary rehab in the future. Next Visit Focus/Plan Next Note Type Treatment Note Next Visit Plan Ongoing gait challenges inside and outside carrying objects, increase some steps and unstable surfaces
--- NOTE | 2020-06-21 15:30 | PT.OTN ---
Current Diagnoses Parkinson's disease (06/21/20) Difficulty in walking, not elsewhere classified (06/21/20) Physical Therapy Treatment Note PT-OP-A Visit Information Start: 04/30/20 10:53 Freq: Status: Active Protocol: Document 06/21/20 14:15 MB (Rec: 06/21/20 15:30 MB [id number]) Out-Patient Physical Therapy Visit Information Visit Information Visit Type Treatment Note Visit Note Pt is hypoverbal, does state that he and would like to con't BIG treatments this week Visit Start Time 14:15 Visit Stop Time 15:18 Total Visit Minutes 53 Visit Number 10 Precautions Precautions history of a fib, syncope, ~25 % ejection fraction, frequent falls, SOB easily in setting of active smoker. This date, state that pt has rods in his pelvis and history of coronary bypass. Pt presents with functional left foot drop with gait. PT-OP-B Current Condition Start: 04/30/20 10:53 Freq: Status: Active Protocol: Document 06/01/20 12:00 AW (Rec: 06/01/20 12:37 AW [email or web address]) Current Condition History of Current Condition Onset Date diagnosed in early 2020 Current Complaints poor balance; frequent falls; tremor with fine motor activity History of Current Condition Pt states he began to notice he was off with his balance about a year ago. His believes his balance began to deteriorate about three years ago. He started carbidopa levodopa earlier this year and is currently taking it three times per day. He does not appreciate any change in his function that he can contribute to medication. Neurologist Dr. Bob mentioned his parkinsonism may be atypical. Pt reports falling once every 3-4 days. Unrelated to PD, pt fell ~7 years ago from a height and fractured his pelvis. About a year ago, pt fell forward and fractured his supraorbital bone. He denies other injurious falls. Other than balance, pt notices his writing has become smaller and messier. He mentions shaking with fine motor activities such as using a screwdriver. Gait is especially challenged during turns and on inclines. Pt reports short term memory challenges. Prior Treatments and Tests Pt is followed by Dr. 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 Espinosa for primary care. Future Testing and Treatments Planned Speech evaluation for consideration of LOUD program. Treatment Goals Patient/Caregiver Goals I want to fall less often and have more confidence in my movement. Pt's states she would like to keep her safe and to be able to stay in their multilevel home as long as possible. There are 10 MYLENE and 15 steps inside to the bedroom level. Pt and his mention they would like to be able to take longer walks including inclines without pt falling. Prior Functional Status Baseline Function- ADL's Independent Baseline Function- Mobility Independent Baseline Function- Gait Uses SPC for walking outside, no AD for inside. 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 Current Functional Impairments (Reported) Functional Limitations- ADL's Pt reports falling forward when reaching down to the ground during dressing and other tasks Functional Limitations- Mobility/Gait Frequent falls, impaired dynamic balance, turns and inclines challenging Functional Limitations- Recreation/ Difficulty with fine motor Hobbies control due to intention tremor Personal Factors Other Personal Factors That May Effect (-) smokes 10-15 cigarettes Therapy/Recovery daily (-) poor short term memory may influence carryover (+) supportive spouse PT-OP-C Subjective Start: 04/30/20 10:53 Freq: Status: Active Protocol: Document 06/21/20 14:15 MB (Rec: 06/21/20 15:30 MB [id number]) OP-PT Subjective Patient Comments Patient Comments Pt states that he went for a nice walk yesterday at [facility] . He did not do BIG exercises over the weekend. He did LOUD exercises. PT-OP-D Balance Start: 04/30/20 10:53 Freq: Status: Active Protocol: Document 06/01/20 12:00 AW (Rec: 06/01/20 17:02 AW [email or web address]) OP-PT Balance Assessment Sitting Balance Static Sitting Balance Ability Good Dynamic Sitting Balance Ability Good Standing Balance Static Standing Balance Ability Good Dynamic Standing Balance Ability Fair Device Used No AD Balance Tests Semi-Tandem Standing Semi-Tandem Standing Balance ~5 sec with SBA Tandem Tandem Standing unable Giraldo Fall Scale Copyright Permission PT-OP-E Functional Tests Start: 06/01/20 11:03 Freq: Status: Active Protocol: Document 06/01/20 12:00 AW (Rec: 06/01/20 17:02 AW [email or web address]) Functional Tests 10 Meter Walk Test Distance 10.45 sec, 15 steps Device Used none Comments 0.96 m/s; step length .67 m or 2.2 feet Functional Gait Assessment Score 18 Functional Gait Assessment Impairment 40 to <60% Impaired (Score 13- Rating 18) PT-OP-G Mobility & Gait Start: 04/30/20 10:53 Freq: Status: Active Protocol: Document 06/01/20 12:00 AW (Rec: 06/01/20 17:02 AW [email or web address]) OP Gait Assessment Gait Gait Assistance Required: Standby Assistance Distance (Feet) 200 Assistive Devices Assistive Device Gait Belt Orthotic/Prosthetic Devices or Brace: No Gait Deviations General Gait Pattern Flexed Trunk Factors Limiting Gait Function Factors Limiting Gait Function Decreased Activity Tolerance, Poor Balance,Poor Safety Awareness Comments Gait Comments Pt ambulates with limited trunk rotation and minimal arm swing excursion. Stair Climbing Evaluation Evaluation Level of Assist On Stairs Standby Assistance Devices Stair Climbing Assistive Devices Left Railing Technique/Endurance Stair Climbing Direction Ascend and Descend Stair Climbing Technique Step Over Step Number of Steps Climbed 4 Stair Climbing Set # Repetitions (reps) 2 PT-OP-H Neuro Start: 04/30/20 10:53 Freq: Status: Active Protocol: Document 06/01/20 12:00 AW (Rec: 06/01/20 17:02 AW [email or web address]) Sensation Evaluation Gross Sensation Gross Sensation WNL Coordination Evaluation Comments Coordination Comments Coordination grossly normal on finger to nose but mildly impaired with rapid pronation and supination. Deep Tendon Reflex & Clonus Assessment Deep Tendon Reflex Bilateral Achilles Deep Tendon Reflex 1+ Diminished Bilateral Patellar Deep Tendon Reflex 1+ Diminished Bilateral Bicep Deep Tendon Reflex 2+ Normal Ankle Clonus Bilateral Clonus Assessment Absent Muscle Tone Tone Assessment Upper Extremity Manifestations of Tone Intention Tremors Muscle Tone Comments BUE intention tremors described by pt but not elicited on exam. Vital Signs Blood Pressure Sitting Blood Pressure (90/60-120/80 mmHg) 148/90 H Blood Pressure Source Manual Cuff,Right Upper Extremity PT-OP-K Range of Motion Start: 04/30/20 10:53 Freq: Status: Active Protocol: Document 06/01/20 12:00 AW (Rec: 06/01/20 17:08 AW [email or web address]) Shoulder Goniometric Range of Motion Shoulder bilateral Shoulder ROM WFL Yes Elbow/Forearm Range of Motion Elbow/Forearm bilateral Elbow/Forearm ROM WFL Yes Hip Goniometric Range of Motion Hip bilateral Hip ROM WFL Yes Knee Goniometric Range of Motion Knee bilateral Knee ROM WFL Yes Patient Position Supine Comments lacks <5 degrees extension bilaterally Knee ROM Limitations Knee ROM Limitations Soft Tissue Tightness PT-OP-M Strength Start: 04/30/20 10:53 Freq: Status: Active Protocol: Document 06/01/20 12:00 AW (Rec: 06/01/20 17:08 AW [email or web address]) Shoulder Strength Shoulder Manual Muscle Testing bilateral Flexion 5 Normal Extension 5 Normal Abduction (C5) 4+ Good+ External Rotation 4+ Good+ Internal Rotation 5 Normal Hip Strength Hip Manual Muscle Testing bilateral Flexion (L2) 4 Good Extension (S1) 4+ Good+ Abduction 4+ Good+ External Rotation 4+ Good+ Internal Rotation 4+ Good+ Knee Strength Knee Manual Muscle Testing bilateral Flexion (S2) 4+ Good+ Extension (L3) 5 Normal Ankle/Foot Strength Ankle and Foot Manual Muscle Testing bilateral Dorsiflexion (L4) 5 Normal Plantarflexion (S1) 4 Good Inversion 5 Normal Eversion (S1) 5 Normal PT-OP-Q Treatments Start: 04/30/20 10:53 Freq: Status: Active Protocol: Document 06/21/20 14:15 MB (Rec: 06/21/20 15:30 MB [id number]) Therapeutic Exercises Sitting Exercises BIG sit to stands Equipment Used Blue chair in gym Comments 10 reps, cues to reach forward and to sit back fully on chair Side to side Side bilateral Equipment Used Blue chair in gym Reps/Minutes 5 reps alternating Comments Cues for BIG positioning Floor to ceiling Equipment Used Blue chair in gym Reps/Minutes 5 reps Comments Cues to reach forward and up BIG Standing Exercises Side rock and reach Standing Exercise Name Adapted Side bilateral Reps/Minutes 5 reps Comments Cues for hand position and to pivot on foot Forward rock and reach Standing Exercise Name Adapted Side bilateral Reps/Minutes 10 reps Comments Cues for BIG front toe and back heel, BIG stance Backward stepping Side bilateral Reps/Minutes 5 reps Side step Side bilateral Reps/Minutes 5 reps alternating Comments Cues for BIG step and turn head where looking Forward step Side bilateral Reps/Minutes 10 reps, alternating Comments Cues to start and finish with BIG feet, to slow down Gait Training Gait Activity BIG walking Level of Assistance SBA Surface Carpet, tile, over curb, sidewalk, grass, pavement, steps Distance/Duration 15' total with breaks, 2-3' gait trials Treatment Focus Keep speed up with gait with steps Comments BIG walking around clinic inside in hallway, steps outside clinic in the building , on the sidewalk, pavement and up in the grass and over curb. Decreased control of balance with slanting down the hill in grass, occ need to stop and rest against wall d/t fatigue and pt reports legs giving way Self-Care/Home Management Treatment Education Caregiver Education Con't non-caffeinated fluid intake, con't BIG exercises at home, work on communication if he feels like tired or if his legs feel weak like they are going to give way. PT-OP-T Assessment and Plan Start: 04/30/20 10:53 Freq: Status: Active Protocol: Document 06/21/20 14:15 MB (Rec: 06/21/20 15:30 MB [id number]) Physical Therapy Assessment Rehab Potential Rehabilitation Potential Fair Evaluation Complexity Number of Personal Factors/Comorbidities 3 or More Number of Body Systems Impaired 3 Clinical Presentation at Evaluation Evolving Impairments Impairments Activity Tolerance,Balance, Coordination,Functional Activities,Functional Mobility ,Gait,Posture,Strength, Transfers Other Impairments Personal factors include memory impairment, hypoverbal, not interested in smoking cessation or nasal breathing. Body systems affected include cognitive, neurological, musculoskeletal, and cardiopulmonary. His clinical presentation is evolving. Other Concerns Fall Risk high Barriers to Rehabilitation (-) current daily smoker (-) impaired short term memory Poor cardiopulmonary health and easy 3/4 RESTREPO, mouth breathing, reports of back and leg pain occ Goals Four Impairment bradykinesia Longterm Goal (LTG) Pt will improve self-selected gait speed on 10 Meter Walk Test from 0.96 m/s to 1.3 m/s or greater to demonstrate recalibration and reduction in falls risk. Three Impairment functional mobility Supervisor Solder Making Goal (LTG) Pt will complete 5 Time Sit to vice president for instruction under 10 seconds without need for UE support and with no failed attempts. LTG Duration 16 treatments Two Impairment Pt lacks HEP Supervisor Solder Making Goal (LTG) Pt will perform BIG exercises and functional tasks BID with handouts to improve amplitude and quality of movement. LTG Duration 16 treatments One Impairment dynamic balance Supervisor Solder Making Goal (LTG) Pt will score 24/30 (baseline 1830) or greater on Functional Gait Assessment for reduction of falls risk. LTG Duration 16 treatments Assessment Summary Assessment Pt con't to require frequent rest breaks and is only able to walk 2-3' before needing a rest break d/t RESTREPO and reports of his legs giving way. Ascending steps is particularly challenging and he slows a lot and becomes less steady with ascending steps. O2 sats are 94% on RA and HR 97 BPM after gait. Pt makes a good effort with BIG treatments and only has 4 treatments left and so will con't efforts. Re-ed pt today about need to perform exercises at home and communicate when he feels tired and unsteady with PT ( safety first). Overall, he has not made a lot of improvements with BIG therapy. Physical Therapy Plan Frequency and Duration Frequency of Treatment 4x/Week Duration of Treatment 16 total treatments Plan of Care Start Date 06/10/20 Plan of Care End Date 07/09/20 Therapeutic Interventions Therapeutic Interventions Balance Training,Coordination Training,Gait Training,Home Exercise Program,Neuromuscular Re-education,Patient/ Caregiver Education,Self-Care/ Home Management,Sensory Integration,Therapeutic Activities,Therapeutic Exercises Other Referrals/Consults Referrals/Consults Recommended Possible cardiopulmonary rehab in the future. Next Visit Focus/Plan Next Note Type Treatment Note Next Visit Plan Gait challenges inside and outside carrying objects, increase some steps and unstable surfaces
--- NOTE | 2020-06-22 07:24 | PT.OPDS ---
Current Diagnoses Parkinson's disease (06/21/20) Difficulty in walking, not elsewhere classified (06/21/20) Visit Care Team Role Provider Type Olaf Espinosa MD Family Provider Physician Primary Care Provider Specialty: Internal Medicine Address: [address] [place] [address], [address], [place], [address] Email: [email or web address] Manuel Bob MD Attending Provider Non-Staff Referring Provider Specialty: Neurology Address: [address] [place], [address] Email: Visit Number Visit Number 10 Discharge Summary PT-OP-B Current Condition Start: 04/30/20 10:53 Freq: Status: Active Protocol: Document 06/01/20 12:00 AW (Rec: 06/01/20 12:37 AW [email or web address]) Current Condition History of Current Condition Onset Date diagnosed in early 2020 Current Complaints poor balance; frequent falls; tremor with fine motor activity History of Current Condition Pt states he began to notice he was off with his balance about a year ago. His believes his balance began to deteriorate about three years ago. He started carbidopa levodopa earlier this year and is currently taking it three times per day. He does not appreciate any change in his function that he can contribute to medication. Neurologist Dr. Bob mentioned his parkinsonism may be atypical. Pt reports falling once every 3-4 days. Unrelated to PD, pt fell ~7 years ago from a height and fractured his pelvis. About a year ago, pt fell forward and fractured his supraorbital bone. He denies other injurious falls. Other than balance, pt notices his writing has become smaller and messier. He mentions shaking with fine motor activities such as using a screwdriver. Gait is especially challenged during turns and on inclines. Pt reports short term memory challenges. Prior Treatments and Tests Pt is followed by Dr. Bob for neurology, an unknown blocker hand, and Dr. Espinosa for primary care. Future Testing and Treatments Planned Speech evaluation for consideration of LOUD program. Treatment Goals Patient/Caregiver Goals I want to fall less often and have more confidence in my movement. Pt's states she would like to keep her safe and to be able to stay in their multilevel home as long as possible. There are 10 MYLENE and 15 steps inside to the bedroom level. Pt and his mention they would like to be able to take longer walks including inclines without pt falling. Prior Functional Status Baseline Function- ADL's Independent Baseline Function- Mobility Independent Baseline Function- Gait Uses SPC for walking outside, no AD for inside. 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 Current Functional Impairments (Reported) Functional Limitations- ADL's Pt reports falling forward when reaching down to the ground during dressing and other tasks Functional Limitations- Mobility/Gait Frequent falls, impaired dynamic balance, turns and inclines challenging Functional Limitations- Recreation/ Difficulty with fine motor Hobbies control due to intention tremor Personal Factors Other Personal Factors That May Effect (-) smokes 10-15 cigarettes Therapy/Recovery daily (-) poor short term memory may influence carryover (+) supportive spouse PT-OP-C Subjective Start: 04/30/20 10:53 Freq: Status: Active Protocol: Document 06/21/20 14:15 MB (Rec: 06/21/20 15:30 MB [id number]) OP-PT Subjective Patient Comments Patient Comments Pt states that he went for a nice walk yesterday at [facility] . He did not do BIG exercises over the weekend. He did LOUD exercises. PT-OP-D Balance Start: 04/30/20 10:53 Freq: Status: Active Protocol: Document 06/01/20 12:00 AW (Rec: 06/01/20 17:02 AW [email or web address]) OP-PT Balance Assessment Sitting Balance Static Sitting Balance Ability Good Dynamic Sitting Balance Ability Good Standing Balance Static Standing Balance Ability Good Dynamic Standing Balance Ability Fair Device Used No AD Balance Tests Semi-Tandem Standing Semi-Tandem Standing Balance ~5 sec with SBA Tandem Tandem Standing unable Giraldo Fall Scale Copyright Permission PT-OP-E Functional Tests Start: 06/01/20 11:03 Freq: Status: Active Protocol: Document 06/01/20 12:00 AW (Rec: 06/01/20 17:02 AW [email or web address]) Functional Tests 10 Meter Walk Test Distance 10.45 sec, 15 steps Device Used none Comments 0.96 m/s; step length .67 m or 2.2 feet Functional Gait Assessment Score 18 Functional Gait Assessment Impairment 40 to <60% Impaired (Score 13- Rating 18) PT-OP-G Mobility & Gait Start: 04/30/20 10:53 Freq: Status: Active Protocol: Document 06/01/20 12:00 AW (Rec: 06/01/20 17:02 AW [email or web address]) OP Gait Assessment Gait Gait Assistance Required: Standby Assistance Distance (Feet) 200 Assistive Devices Assistive Device Gait Belt Orthotic/Prosthetic Devices or Brace: No Gait Deviations General Gait Pattern Flexed Trunk Factors Limiting Gait Function Factors Limiting Gait Function Decreased Activity Tolerance, Poor Balance,Poor Safety Awareness Comments Gait Comments Pt ambulates with limited trunk rotation and minimal arm swing excursion. Stair Climbing Evaluation Evaluation Level of Assist On Stairs Standby Assistance Devices Stair Climbing Assistive Devices Left Railing Technique/Endurance Stair Climbing Direction Ascend and Descend Stair Climbing Technique Step Over Step Number of Steps Climbed 4 Stair Climbing Set # Repetitions (reps) 2 PT-OP-H Neuro Start: 04/30/20 10:53 Freq: Status: Active Protocol: Document 06/01/20 12:00 AW (Rec: 06/01/20 17:02 AW [email or web address]) Sensation Evaluation Gross Sensation Gross Sensation WNL Coordination Evaluation Comments Coordination Comments Coordination grossly normal on finger to nose but mildly impaired with rapid pronation and supination. Deep Tendon Reflex & Clonus Assessment Deep Tendon Reflex Bilateral Achilles Deep Tendon Reflex 1+ Diminished Bilateral Patellar Deep Tendon Reflex 1+ Diminished Bilateral Bicep Deep Tendon Reflex 2+ Normal Ankle Clonus Bilateral Clonus Assessment Absent Muscle Tone Tone Assessment Upper Extremity Manifestations of Tone Intention Tremors Muscle Tone Comments BUE intention tremors described by pt but not elicited on exam. Vital Signs Blood Pressure Sitting Blood Pressure (90/60-120/80 mmHg) 148/90 H Blood Pressure Source Manual Cuff,Right Upper Extremity PT-OP-K Range of Motion Start: 04/30/20 10:53 Freq: Status: Active Protocol: Document 06/01/20 12:00 AW (Rec: 06/01/20 17:08 AW [email or web address]) Shoulder Goniometric Range of Motion Shoulder bilateral Shoulder ROM WFL Yes Elbow/Forearm Range of Motion Elbow/Forearm bilateral Elbow/Forearm ROM WFL Yes Hip Goniometric Range of Motion Hip bilateral Hip ROM WFL Yes Knee Goniometric Range of Motion Knee bilateral Knee ROM WFL Yes Patient Position Supine Comments lacks <5 degrees extension bilaterally Knee ROM Limitations Knee ROM Limitations Soft Tissue Tightness PT-OP-M Strength Start: 04/30/20 10:53 Freq: Status: Active Protocol: Document 06/01/20 12:00 AW (Rec: 06/01/20 17:08 AW [email or web address]) Shoulder Strength Shoulder Manual Muscle Testing bilateral Flexion 5 Normal Extension 5 Normal Abduction (C5) 4+ Good+ External Rotation 4+ Good+ Internal Rotation 5 Normal Hip Strength Hip Manual Muscle Testing bilateral Flexion (L2) 4 Good Extension (S1) 4+ Good+ Abduction 4+ Good+ External Rotation 4+ Good+ Internal Rotation 4+ Good+ Knee Strength Knee Manual Muscle Testing bilateral Flexion (S2) 4+ Good+ Extension (L3) 5 Normal Ankle/Foot Strength Ankle and Foot Manual Muscle Testing bilateral Dorsiflexion (L4) 5 Normal Plantarflexion (S1) 4 Good Inversion 5 Normal Eversion (S1) 5 Normal PT-OP-T Assessment and Plan Start: 04/30/20 10:53 Freq: Status: Active Protocol: Document 06/22/20 07:23 MB (Rec: 06/22/20 07:23 MB [id number]) Physical Therapy Plan Discharge Physical Therapy Discharge Reasons Patient Request Discharge Comments After PT spoke with patient yesterday about decreased progress with BIG, his calls and cancels the rest of BIG treatments. Will d/c PT.
== END 2020-06-22 09:22 | disposition home or self-care (01) ==
LOC: PHYS 14:15
PROVIDERS: Family Provider Internal Medicine; PCP Internal Medicine; Referring Provider Psychiatry & Neurology Neurology; Visit Provider Psychiatry & Neurology Neurology
DX: G20 Parkinson's disease (principal); R26.2 Difficulty in walking, not elsewhere classified
CPT/HCPCS: 97110; 97116; 97161; 97530; 97535

== ENCOUNTER → 2020-06-22 14:16 | Outpatient (CLI) | payer OTHER, SELFPAY ==
[2019-11-02 15:04] VITALS: BMI 22.8
[2020-06-22 16:57] LABS: Albumin 4.3 g/dL (3.5-5.0); Albumin Globulin Ratio 1.7 (1.0-2.8); Alkaline Phosphatase 93 U/L (38-126); Aspartate Aminotransferase 26 IU/L (17-59); BUN Creatinine Ratio 17.5 (6-22); Bilirubin Total 0.5 mg/dL (0.2-1.3); Blood Urea Nitrogen 22 mg/dL (9-20); Calcium 9.5 mg/dL (8.4-10.2); Carbon Dioxide 29 mmol/L (22-32); Chloride 101 mmol/L (98-107); Estimated Glomerular Filt Rate 54.5 mL/min (>60); Globulin 2.6 g/dL (1.7-4.1); Glucose 102 mg/dL (80-110); HEMOLYSIS < 15 (0-50); Potassium 4.9 mmol/L (3.4-5.1); Sodium 140 mmol/L (137-145); Total Protein 6.9 g/dL (6.3-8.2)
[2020-06-22 17:21] LABS: Alanine Aminotransferase < 4 IU/L (<50)
== END ==
PROVIDERS: Family Provider Internal Medicine; PCP Internal Medicine; Referring Provider Internal Medicine; Visit Provider Internal Medicine
DX: E78.2 Mixed hyperlipidemia (principal); G20 Parkinson's disease; I10 Essential (primary) hypertension; I25.10 Atherosclerotic heart disease of native coronary artery without angina pectoris
CPT/HCPCS: 36415; 80053

== ENCOUNTER 2020-07-09 10:30 | Outpatient (RCR) | payer OTHER, SELFPAY ==
[2019-11-02 15:04] VITALS: BMI 22.8
--- NOTE | 2020-06-07 13:27 | ST.OPIE ---
Visit Care Team Role Provider Type Olaf Espinosa MD Family Provider Physician Primary Care Provider Specialty: Internal Medicine Address: [address] [place] [address], [address], [place], [address] Email: [email or web address] Manuel Bob MD Attending Provider Non-Staff Referring Provider Specialty: Neurology Address: [address] [place] [address], [phone] Email: Speech-Language Pathology Initial Evaluation TEACHER ADULT EDUCATION Clinical Instructor Line Start: 06/04/20 16:40 Freq: Status: Active Protocol: Document 06/07/20 10:04 LNK (Rec: 06/07/20 10:04 LNK [email or web address]) Clinical Instructor Signature Clinical Instructor Clinical Instructor Yes TEACHER ADULT EDUCATION Voice Resonance Evaluation Start: 06/04/20 16:40 Freq: Status: Active Protocol: Document 06/04/20 16:41 HM (Rec: 06/04/20 17:45 HM [id number]) Voice and Resonance Assessment Session Time Visit Start Time 13:30 Visit Stop Time 14:15 Total Visit Minutes 45 Visit Information Visit Number 1 Plan of Care Dates 06/04/20-09/03/20 Insurance Information [facility] Advantage Next Note Type Next Note Type Treatment Note Referral Referring Physician Manuel Bob Reason for Referral Voice, dysphagia Setting Setting Outpatient Care Patient History General Information Je is an 84-year-old male with a history of Parkinson's disease, diagnosed 4-5 months ago. Symptoms addressed during this evaluation included vocal weakness and coughing episodes while swallowing thin liquid (coffee). He was accompanied by his , Celeste . At the beginning of the session, she reported they were attending the appointment to learn about voice therapy and the LSVT LOUD program. A voice evaluation was completed . Additionally, a swallow screen was conducted after pt report of coughing while drinking coffee for the past two weeks, and once with saliva. Hearing Hearing Level Impaired Auditory History Pt did not appear to be wearing hearing aids, but his reported he has hearing loss. Vision Vision Status Not Impaired Comments Wears eyeglasses Previous Therapy Previous Speech-Language Therapy No Oral Motor Assessment Source: [place] [employer] ([place]). Oral-Motor Eval Completed Yes Oral-Motor Assessment Dentition, velum, tongue, lips , and jaw structures and function were within normal limits. Mild delays to initiate movement, and slowed diadochokinesis was observed. - Laryngeal Performance CAPE-V Overall Severity 69 Roughness 60 Breathiness 71 Strain 29 Pitch 8 Loudness 45 Normal Resonance? Yes Additional Features Asthenia,Other Other Features Observed Flutter Maximum Phonation Time MPT Norms: Women (15-25) Men (25-35) Loudness (50-60 dB); Speaking Rate: Oral Reading of Sentences (190 Words Per Minute); Oral Reading of Paragraphs (160-170 WPM); Speaking Rate in Conversation (150-250 WPM) Maximum Phonation Time 8.4 seconds Maximum Phonation Time Reduced Jitter/Shimmer Norms: Jitter (Less than or equal to 1.040% - Frequency) Norms: Shimmer (Less than or equal to 3.810% - Amplitude) Jitter 4.4074 Shimmer 8.8083 Pitch Mulhall Pitch Mulhall Comments 56 Hz - 212 Hz. Muscle Tension Assessment Muscle Tension Assessment None Tenderness with Palpation/Massage No Breath Support Breath Support At Rest Abdominal,Thoracic Breath Support Sustained Phonation Abdominal,Thoracic Breath Support Conversation Abdominal,Thoracic Speaks on Room Air Yes Postural Alignment Stance Slumped Neck Free and Loose Voice Pitch Range Norms: Women (100-300 Hz) Men (70-250 Hz) Fundamental Frequency Norms: Women (Mean: 225 Hz; Range: 155-334 Hz) Men ( Mean: 128 Hz; Range: 85-196 Hz) Voice Pitch Normal Voice Loudness Mildly Soft/Quiet,Moderately Soft/Quiet Voice Phonatory-based Quality Breathy,Quivering,Weak Fundamental Frequency While readin.2 Hz Intensity While readin dB Paradoxical Vocal Fold Movement No Indications Resonance Nasal Resonance Normal Oral Resonance Normal Other Observations Progressively Weak Voice,Mouth Breathing,Inadequate Breath Support Therapeutic Techniques Therapy Tactics Hard Glottal Onset,Breath Support,Increase Loudness Other Tactics LSVT Loud is recommended. Findings Findings Moderate Impairment Observations A swallow screen was also completed. Pt swallowed 1 tsp thin liquid (coffee with sugar ), 1 cup sip, and 3 consecutive sips. Laryngeal palpation during the first trial indicated adequate laryngeal elevation and hyoid excursion. Effortful swallow and chin tuck strategies were trialed. Chin tuck was identified as the more effective strategy, and pt was instructed to swallow one small sip at a time, with a chin tuck. Pt presents with moderate voice deficits and mild dysphagia. His voicing is characterized by poor breath support, decreased phonation time, and decreased loudness with use. The vocal quality and swallowing deficits described are secondary to Parkinson's Disease, which is characterized by slowed initiation or movement and overall muscle weakness. The combination of weakness in laryngeal musculature and slowed initiation of movement lead to inadequate closure of the vocal folds required for voicing. In addition, the weakened laryngeal musculature and movements coincide with poor airway protection when swallowing thin liquids. Prognosis Rehabilitation Potential Excellent - Recommendations Treatment Recommended Yes Treatment Frequency/Duration 1x/week for 4 weeks, then 4x/ week for 12 weeks. Placement Recommendation Outpatient Therapy Therapy Recommendations Therapy including voice treatment and glottal adduction exercises is recommended to increase laryngeal muscular strength required for voicing and airway protection during swallowing. Short Term Goals Pt will report completion of vocal fold adduction exercises, 30x/3x per day. Pt will report completion of tongue base exercises as prescribed, in order to increase strength required for safe swallowing. Pt will be instructed in and use safe swallow strategies to prevent aspiration when drinking thin liquid, per pt report. Advertising Layout Worker Goals Pt will demonstrate improved vocal quality and loudness as measured in a post-treatment evaluation. Pt will report minimal coughing episodes while drinking coffee. Patient/Caregiver Education Patient/Family Education Described results of evaluation,Patient Understanding,Family Understanding,Patient Demonstration,Patient Needs More Info,Family Needs More Info Vocally Abusive Behavior Behavior Rating Mouth Breathing Frequently Caffeine Use Frequently
--- NOTE | 2020-06-07 13:37 | ST.OPPOC ---
Physical, Occupational & Speech Therapy At [facility] Visit Care Team Role Provider Type Olaf Espinosa MD Family Provider Physician Primary Care Provider Address: [address] [place] [address], [address], [place], [address] Manuel Bob MD Attending Provider Non-Staff Referring Provider Address: [address] [place] [address], [phone] Speech Pathology Plan of Care GROUP CONTROLLER Clinical Instructor Line Start: 06/04/20 16:40 Freq: Status: Active Protocol: Document 06/07/20 10:04 DAKSHA (Rec: 06/07/20 10:04 DAKSHA [email or web address]) Clinical Instructor Signature Clinical Instructor Clinical Instructor Yes Speech Pathology Plan of Care General Information Je is an 84-year-old male with a history of Parkinson's disease, diagnosed 4-5 months ago. Symptoms addressed during this evaluation included vocal weakness and coughing episodes while swallowing thin liquid (coffee). He was accompanied by his , Celeste. At the beginning of the session, she reported they were attending the appointment to learn about voice therapy and the LSVT LOUD program. A voice evaluation was completed. Additionally, a swallow screen was conducted after pt report of coughing while drinking coffee for the past two weeks, and once with saliva. Plan of Care Dates 06/04/20-09/03/20 Senior Care Goals Pt will demonstrate improved vocal quality and loudness as measured in a post-treatment evaluation. Pt will report minimal coughing episodes while drinking coffee. Electronically Signed by: OMER Mcintyre 06/07/20 1627 Please Sign and Return: I have reviewed this Plan of Care and certify that the skilled therapy services above are required to meet the patient?s needs. Physician Signature Date Printed Name and Credentials Clinical Instructor Signature Printed Name and Credentials
--- NOTE | 2020-06-11 16:39 | ST.OPTN ---
Visit Care Team Role Provider Type Olaf Espinosa MD Family Provider Physician Primary Care Provider Address: [address] [place] [address], [address], [place], [address] Manuel Bob MD Attending Provider Non-Staff Referring Provider Address: [facility] [place], [address] [employer]ER Treatment Note [employer] Clinical Instructor Line Start: 06/04/20 16:40 Freq: Status: Active Protocol: Document 06/11/20 13:03 LNK (Rec: 06/11/20 13:03 LNK [email or web address]) Clinical Instructor Signature Clinical Instructor Clinical Instructor Yes [employer] Treatment Note Start: 06/04/20 16:41 Freq: Status: Active Protocol: Document 06/11/20 11:23 HM (Rec: 06/11/20 11:42 HM [id number]) Speech Pathology Treatment Note Session Time Visit Start Time 10:30 Visit Stop Time 11:15 Total Visit Minutes 45 Visit Information Visit Number 2 Plan of Care Dates 06/04/20-09/03/20 Insurance Information [facility] Advantage Setting Treatment Setting Outpatient Care Visit Type Note Type Treatment Note Next Note Type Next Note Type Treatment Note General Information General Information Je is an 84-year-old male with a history of Parkinson's disease, diagnosed 4-5 months ago. Symptoms addressed during this evaluation included vocal weakness and coughing episodes while swallowing thin liquid (coffee). He was accompanied by his , Celeste . At the beginning of the session, she reported they were attending the appointment to learn about voice therapy and the LSVT LOUD program. A voice evaluation was completed . Additionally, a swallow screen was conducted after pt report of coughing while drinking coffee for the past two weeks, and once with saliva. Subjective Identification Type Name Identification Reconciled With Medical Record Others Present Family Observations/Patient Presentation Je was accompanied by his , Celeste, during the session. Chief Complaint(s) Swallowing,Voice Rehab Expectation/Goals: Patient Goals To reduce coughing/choking episodes. To maintain vocal loudness. 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 Pt will report completion of tongue base exercises as prescribed, in order to increase strength required for safe swallowing. Pt will be instructed in and use safe swallow strategies to prevent aspiration when drinking thin liquid, per pt report. Hydroelectric Plant Technician Goals Pt will demonstrate improved vocal quality and loudness as measured in a post-treatment evaluation. Pt will report minimal coughing episodes while drinking coffee. Treatment Activities Je reported using the chin tuck during swallowing of thin liquid. However, he had a significant coughing episode yesterday while taking his first sip of coffee. Further education provided on incorporating an effortful swallow in addition to the chin tuck. Also, pt should remove distractions (e.g., reading) during swallow, especially first sip. Following initial instructions , pt demonstrated tongue base exercises including effortful swallow, back of tongue /k/ production, and lifting/ holding tongue base to the roof of the mouth. Following initial instruction, pt demonstrated vocal adduction exercises. Prescribed completion of tongue base and vocal adduction exercises 2-3x/day. Pt provided with handout on Parkinson's Disease and the role of speech therapy. Assessment Assessment of Improvement Pt reports follow-through with swallow strategies and responded well to additional strategy instruction. Recommend follow-up on exercises during the next session, and adjusting as needed. Reviewed with Patient Goals,Progress Being Made Patient/Caregiver Understanding Good Plan Amount of Therapy Recommended 1-2 Months Frequency of Treatment Once a Week Length of Session 45 Minutes Provided Patient/Caregiver Instruction Home Exercise Program,Plan of Care,Questions/Concerns Therapy Recommendations Continue with Current Program Comment Recommend LSVT Loud program.
--- NOTE | 2020-06-18 13:20 | ST.OPTN ---
Visit Care Team Role Provider Type Olaf Espinosa MD Family Provider Physician Primary Care Provider Address: [address] [place] [address], [address], [place], [address] Manuel Bob MD Attending Provider Non-Staff Referring Provider Address: [facility] [place], [address] LOOM BLOWER Treatment Note LOOM BLOWER Clinical Instructor Line Start: 06/04/20 16:40 Freq: Status: Active Protocol: Document 06/18/20 13:16 LNK (Rec: 06/18/20 13:16 LNK [email or web address]) Clinical Instructor Signature Clinical Instructor Clinical Instructor Yes LOOM BLOWER Treatment Note Start: 06/04/20 16:41 Freq: Status: Active Protocol: Document 06/18/20 11:31 HM (Rec: 06/18/20 11:44 HM [id number]) Speech Pathology Treatment Note Session Time Visit Start Time 10:30 Visit Stop Time 11:15 Total Visit Minutes 45 Visit Information Visit Number 3 Plan of Care Dates 06/04/20-09/03/20 Insurance Information [facility] Advantage Setting Treatment Setting Outpatient Care Visit Type Note Type Treatment Note Next Note Type Next Note Type Treatment Note General Information General Information Je is an 84-year-old male with a history of Parkinson's disease, diagnosed 4-5 months ago. Symptoms addressed during his evaluation included vocal weakness and coughing episodes while swallowing thin liquid (coffee). His previously reported they were attending therapy to learn about voice therapy and the [facility] LOUD program. A voice evaluation was completed. Additionally, a swallow screen was conducted after pt report of coughing while drinking coffee for the past two weeks, and once with saliva. Subjective Identification Type Name Identification Reconciled With Medical Record Observations/Patient Presentation Je attended this session on his own. Chief Complaint(s) Swallowing,Voice Rehab Expectation/Goals: Patient Goals To reduce coughing/choking episodes. To maintain vocal loudness. Patient Knowledge/Awareness of LOOM BLOWER Role Excellent in Treatment Parent/Caretake Knowledge/Awareness of Excellent LOOM BLOWER Role in Treatment Patient/Caregiver Compliance with Home Good Exercise Program Objective Short Term Goals NEW GOALS: Pt will utilize abdominal breathing to read a 5-6 paragraph passage with paced breaths in order to facilitate adequate breath support for speech. Pt will utilize abdominal breathing to maintain a loudness level of 70-80 db SPL while reading a 2-3 paragraph passage. Pt will report completion of vocal fold adduction exercises, 30x/3x per day. ONGOING Pt will report completion of tongue base exercises as prescribed, in order to increase strength required for safe swallowing. Pt will be instructed in and use safe swallow strategies to prevent aspiration when drinking thin liquid, per pt report. Group Home Goals Pt will demonstrate improved vocal quality and loudness as measured in a post-treatment evaluation. Pt will report minimal coughing episodes while drinking coffee. Treatment Activities Je reported he has been completing all prescribed exercises and has not had any coughing/choking while drinking his coffee. Given initial instructions, Je counted to 24 on one abdominal breath, maintaining a loudness between 70-80 dB. Given initial instructions, Je produced a steady ah for 7.5 seconds, maintaining a loudness between 70-80 dB. Given initial instructions, Je read the [place] with adequate loudness and paced breathing with 1 unpaced breath toward the end of the passage. Assessment Assessment of Improvement Pt reports follow-through with swallow strategies and responded well to additional instruction on abdominal breathing and maintaining loudness/breath support during speech. Recommend continued practice with reading aloud while maintaining loudness (70 -85 dB) and using appropriate pauses for breathing. Reviewed with Patient Goals,Progress Being Made Patient/Caregiver Understanding Good Plan Amount of Therapy Recommended 1-2 Months Frequency of Treatment Once a Week Length of Session 45 Minutes Provided Patient/Caregiver Instruction Home Exercise Program,Plan of Care,Questions/Concerns Therapy Recommendations Continue with Current Program Comment Recommend LSVT Loud program.
--- NOTE | 2020-06-25 16:58 | ST.OPTN ---
Visit Care Team Role Provider Type Olaf Espinosa MD Family Provider Physician Primary Care Provider Address: [address] [place] [address], [address], [place], [address] Manuel Bob MD Attending Provider Non-Staff Referring Provider Address: [facility] [place], [address] CONE TREATER Treatment Note CONE TREATER Clinical Instructor Line Start: 06/04/20 16:40 Freq: Status: Active Protocol: Document 06/25/20 16:22 LNK (Rec: 06/25/20 16:22 LNK [id number]) Clinical Instructor Signature Clinical Instructor Clinical Instructor Yes CONE TREATER Treatment Note Start: 06/04/20 16:41 Freq: Status: Active Protocol: Document 06/25/20 15:41 HM (Rec: 06/25/20 15:47 HM [id number]) Speech Pathology Treatment Note Session Time Visit Start Time 10:30 Visit Stop Time 11:15 Total Visit Minutes 45 Visit Information Visit Number 4 Plan of Care Dates 06/04/20-09/03/20 Insurance Information [facility] Advantage Setting Treatment Setting Outpatient Care Visit Type Note Type Treatment Note Next Note Type Next Note Type Treatment Note General Information General Information Je is an 84-year-old male with a history of Parkinson's disease, diagnosed 4-5 months ago. Symptoms addressed during his evaluation included vocal weakness and coughing episodes while swallowing thin liquid (coffee). His previously reported they were attending therapy to learn about voice therapy and the [facility] program. A voice evaluation was completed. Additionally, a swallow screen was conducted after pt report of coughing while drinking coffee for the past two weeks, and once with saliva. Subjective Identification Type Name Identification Reconciled With Medical Record Observations/Patient Presentation Je attended this session with his , Celeste. Chief Complaint(s) Swallowing,Voice Rehab Expectation/Goals: Patient Goals To reduce coughing/choking episodes. To maintain vocal loudness. Patient Knowledge/Awareness of CONE TREATER Role Excellent in Treatment Parent/Caretake Knowledge/Awareness of Excellent CONE TREATER Role in Treatment Patient/Caregiver Compliance with Home Good Exercise Program Objective Short Term Goals NEW GOALS: Pt will utilize abdominal breathing to read a 5-6 paragraph passage with paced breaths in order to facilitate adequate breath support for speech. Pt will utilize abdominal breathing to maintain a loudness level of 70-80 db SPL while reading a 2-3 paragraph passage. Pt will report completion of vocal fold adduction exercises, 30x/3x per day. ONGOING Pt will report completion of tongue base exercises as prescribed, in order to increase strength required for safe swallowing. Pt will be instructed in and use safe swallow strategies to prevent aspiration when drinking thin liquid, per pt report. Critical Care Nurse Specialist Goals Pt will demonstrate improved vocal quality and loudness as measured in a post-treatment evaluation. Pt will report minimal coughing episodes while drinking coffee. Treatment Activities Je reported he has been completing all prescribed exercises and has not had any coughing/choking while drinking his coffee in the past two weeks. Given initial instructions and breath cues, Je read a 2 paragraph passage with adequate loudness and paced breaths for 5/6 opportunities (83%). Pt maintained an average loudness level of 70-76 dB throughout conversation, when prompted to use abdominal breathing and speak to someone far away. Assessment Assessment of Improvement Pt reports follow-through with swallow strategies. Recommend continued practice with reading aloud while maintaining loudness (70-85 dB ) and using appropriate pauses for breathing. Reviewed with Patient Goals,Progress Being Made Patient/Caregiver Understanding Good Plan Amount of Therapy Recommended 1-2 Months Frequency of Treatment Once a Week Length of Session 45 Minutes Provided Patient/Caregiver Instruction Home Exercise Program,Plan of Care,Questions/Concerns Therapy Recommendations Continue with Current Program Comment Recommend [facility] program.
--- NOTE | 2020-07-09 15:08 | ST.OPTN ---
Visit Care Team Role Provider Type Olaf Espinosa MD Family Provider Physician Primary Care Provider Address: [address] [place] [address], [address], [place], [address] Manuel Bob MD Attending Provider Non-Staff Referring Provider Address: [facility] [place], [address] TALENT MANAGEMENT SPECIALIST Treatment Note TALENT MANAGEMENT SPECIALIST Clinical Instructor Line Start: 06/04/20 16:40 Freq: Status: Active Protocol: Document 07/09/20 14:59 LNK (Rec: 07/09/20 14:59 LNK [id number]) Clinical Instructor Signature Clinical Instructor Clinical Instructor Yes TALENT MANAGEMENT SPECIALIST Treatment Note Start: 06/04/20 16:41 Freq: Status: Active Protocol: Document 07/09/20 11:43 HM (Rec: 07/09/20 12:05 HM [id number]) Speech Pathology Treatment Note Session Time Visit Start Time 10:30 Visit Stop Time 11:05 Total Visit Minutes 35 Visit Information Visit Number 5 Plan of Care Dates 06/04/20-09/03/20 Insurance Information [facility] Advantage Setting Treatment Setting Outpatient Care Visit Type Note Type Treatment Note Next Note Type Next Note Type Treatment Note General Information General Information Je is an 84-year-old male with Parkinson's disease, diagnosed 4-5 months ago. Symptoms addressed during his evaluation included vocal weakness and coughing episodes while swallowing thin liquid (coffee). His previously reported they were attending therapy to learn about voice therapy and the [facility] program. A voice evaluation was completed. Additionally, a swallow screen was conducted after pt report of coughing while drinking coffee for the past two weeks, and once with saliva. Subjective Identification Type Name Identification Reconciled With Medical Record Observations/Patient Presentation Je attended this session with his , Celeste. Chief Complaint(s) Swallowing,Voice Rehab Expectation/Goals: Patient Goals To reduce coughing/choking episodes. To maintain vocal loudness. Patient Knowledge/Awareness of TALENT MANAGEMENT SPECIALIST Role Excellent in Treatment Parent/Caretake Knowledge/Awareness of Excellent TALENT MANAGEMENT SPECIALIST Role in Treatment Patient/Caregiver Compliance with Home Good Exercise Program Objective Short Term Goals NEW GOALS: Pt will utilize abdominal breathing to read a 5-6 paragraph passage with paced breaths in order to facilitate adequate breath support for speech. Pt will utilize abdominal breathing to maintain a loudness level of 70-80 db SPL while reading a 2-3 paragraph passage. Pt will report completion of vocal fold adduction excercises, 30x/3x per day. ONGOING Pt will report completion of tongue base exercises as prescribed, in order to increase strength required for safe swallowing. Pt will be instructed in and use safe swallow strategies to prevent aspiration when drinking thin liquid, per pt report. Tower Technician Goals Pt will demonstrate improved vocal quality and loudness as measured in a post-treatment evaluation. Pt will report minimal coughing episodes while drinking coffee. Treatment Activities Je reported he has been completing all prescribed exercises. His reported one minor coughing incident a few days ago, but that is a significant reduction from the past few months. Given instructions, Je read an 11-sentence passage with appropriate breath pauses in 73% of opportunities. When prompted to monitor his abdominal breathing while counting on one breath, Je increased from 23 to 25. While reading, Je maintained adequate loudness between 75-80 dB. Assessment Assessment of Improvement Pt reports follow-through with swallow strategies. Recommend continued practice with reading aloud while maintaining loudness (70-85 dB ) and using appropriate pauses for breathing. It was suggested that he focus on breath support while his monitors loudness on a sound meter vanessa. Reviewed with Patient Goals,Progress Being Made Patient/Caregiver Understanding Good Plan Amount of Therapy Recommended 1-2 Months Frequency of Treatment Once a Week Length of Session 45 Minutes Provided Patient/Caregiver Instruction Home Exercise Program,Plan of Care,Questions/Concerns Therapy Recommendations Continue with Current Program Comment Recommend [facility] program.
--- NOTE | 2020-08-23 15:42 | ST.OPDS ---
Visit Care Team Role Provider Type Olaf Espinosa MD Family Provider Physician Primary Care Provider Address: [address] [place] [address], [address], [place], [address] Manuel Bob MD Attending Provider Non-Staff Referring Provider Address: [address] [place], [address] [employer] Treatment Note [employer] Clinical Instructor Line Start: 06/04/20 16:40 Freq: Status: Active Protocol: Document 07/09/20 14:59 LNK (Rec: 07/09/20 14:59 LNK [email or web address]) Clinical Instructor Signature Clinical Instructor Clinical Instructor Yes [employer] Treatment Note Start: 06/04/20 16:41 Freq: Status: Active Protocol: Document 08/23/20 15:41 LNK (Rec: 08/23/20 15:42 LNK [email or web address]) Speech Pathology Treatment Note Visit Information Plan of Care Dates 06/04/20-09/03/20 Setting Treatment Setting Outpatient Care General Information General Information Je is an 84-year-old male with Parkinson's disease, diagnosed 4-5 months ago. Symptoms addressed during his evaluation included vocal weakness and coughing episodes while swallowing thin liquid (coffee). His previously reported they were attending therapy to learn about voice therapy and the [facility] program. A voice evaluation was completed. Additionally, a swallow screen was conducted after pt report of coughing while drinking coffee for the past two weeks, and once with saliva. Objective Short Term Goals NEW GOALS: Pt will utilize abdominal breathing to read a 5-6 paragraph passage with paced breaths in order to facilitate adequate breath support for speech. Pt will utilize abdominal breathing to maintain a loudness level of 70-80 db SPL while reading a 2-3 paragraph passage. Pt will report completion of vocal fold adduction exercises, 30x/3x per day. ONGOING Pt will report completion of tongue base exercises as prescribed, in order to increase strength required for safe swallowing. Pt will be instructed in and use safe swallow strategies to prevent aspiration when drinking thin liquid, per pt report. Treatment Activities pt has not been seen for therapy since 07/09/20. Will discharge Assessment Assessment of Improvement Pt reports follow-through with swallow strategies. Recommend continued practice with reading aloud while maintaining loudness (70-85 dB ) and using appropriate pauses for breathing. It was suggested that he focus on breath support while his monitors loudness on a sound meter vanessa. Plan Frequency of Treatment No Further Therapy Therapy Recommendations Discharge from Speech Therapy
== END 2020-08-24 08:30 | disposition home or self-care (01) ==
LOC: SP 10:30
PROVIDERS: Family Provider Internal Medicine; PCP Internal Medicine; Referring Provider Psychiatry & Neurology Neurology; Visit Provider Psychiatry & Neurology Neurology
DX: R13.12 Dysphagia, oropharyngeal phase (principal); G20 Parkinson's disease
CPT/HCPCS: 92507; 92520; 92524; 92526

== ENCOUNTER 2020-07-16 20:14 | Emergency (ER) | payer OTHER, SELFPAY ==
[2019-11-02 15:04] VITALS: BMI 22.8
[2020-07-16] VITALS (10 sets, daily range): BP systolic 144–169; BP diastolic 71–118; PULSE 63–91; RESP 17–25; TEMP 36.4; O2SAT 93–96; BMI 22.8
--- NOTE | 2020-07-16 | DI.CT.S_ITS ---
PROCEDURE: CT UE LT WO CON INDICATIONS: FALL CONCERNS FOR SC SIDE OF CLAVICLE. TECHNIQUE: Noncontrast 1-1.5 mm thick sections acquired from the acromioclavicular joint to the inferior scapula, with coronal and sagittal reformatting. In this patient, 3-D reformatted images were also performed. COMPARISON: [facility], CT, CT CHEST ABD PEL W CON, 07/16/2020, 20:49. [facility], CR, XR CLAVICLE LT, 07/16/2020, 22:43. This study was performed from reconstructed data from the CT of the chest abdomen and pelvis performed earlier. FINDINGS: Image quality: Excellent. Bones: There is a highly comminuted fracture of the medial aspect of the left clavicle, with anterior dislocation of the fracture fragments. Moderate to prominent displacement of fracture fragments can be seen, which are displaced up to 1.5 cm. No posterior displacement of the fracture fragments can be seen. Degenerative changes can be seen throughout, particularly involving visualized lower cervical spine. Sternotomy wires are seen. No suspicious lytic or blastic lesions are seen. Soft tissues: Associated soft tissue swelling is seen, with soft tissue hematoma that measures up to approximately 6 cm. Hematoma is seen involving the left pectoralis major muscle. No pneumothorax is seen. Mild emphysematous changes can be seen at the lung apices. IMPRESSION: Highly comminuted fracture of the medial aspect of the left clavicle, with soft tissue swelling and hematoma. Note: No significant discrepancy from the preliminary report. Dictated by: Trip Velarde M.D. on 07/17/2020 at 8:28 Approved by: Trip Velarde M.D. on 07/17/2020 at 8:33
--- NOTE | 2020-07-16 20:38 | ED.FALL ---
HPI - Fall General Chief Complaint: Fall Stated Complaint: FALL CHEST AND BUTT LACERATION OF THE FINGER LEFT Time Seen by Provider: 07/16/20 20:35 Source: patient Mode of arrival: Ambulatory Limitations: no limitations History of Present Illness HPI Narrative: Patient is an 85-year-old male. History of Parkinson's disease. Not on anticoagulation who is here for evaluation of injuries that he sustained when is reported that he was standing at the top of the stairs and lost his balance falling down the stairs. Hurt his left shoulder. Sustained a cut to his left little finger. He did not hit his head. No loss of conscious. No neck pain. No back pain. He is at his baseline neurologic status. Related Data Home Medications Medication Instructions Recorded Confirmed amlodipine 2.5 mg PO DAILY 12/27/18 06/22/20 hydrochlorothiazide 12.5 mg PO DAILY 12/27/18 06/22/20 nitroglycerin 0.4 mg sublingual 0.4 mg SL Q5M PRN 03/10/19 06/22/20 tablet aspirin 81 mg tablet,delayed 81 mg PO DAILY 09/22/19 06/22/20 release carbidopa 25 mg-levodopa 100 mg 1 tab PO TID tab 03/23/20 06/22/20 tablet atorvastatin 20 mg tablet 20 mg PO DAILY tab 06/22/20 06/22/20 mometasone 0.1 % topical ointment TOPICAL 06/22/20 06/22/20 Allergies Allergy/AdvReac Type Severity Reaction Status Date / Time No Known Drug Allergies Allergy Verified 06/22/20 13:35 Review of Systems Constitutional Constitutional: Denies frequent falls and Denies headache(s) Eyes Eyes: Denies change in vision ENT Ears, Nose, Mouth, and Throat: Reports system reviewed and no additional complaints, except as documented, Denies vertigo, Denies dizziness and Denies headache(s) Cardiovascular Cardiovascular: Denies chest pain and Denies dyspnea Respiratory Respiratory: Denies dyspnea Gastrointestinal Gastrointestinal: Denies abdominal pain and Denies vomiting Genitourinary Genitourinary: Reports system reviewed and no additional complaints, except as documented Musculoskeletal Comments: Left shoulder pain left little finger pain, Integumentary/Breasts Comments: The cut the left little finger, abrasion of left shoulder, injury to left elbow Neurologic Neurologic: Denies vertigo, Denies dizziness, Denies frequent falls and Denies headache(s) Endocrine Endocrine: Reports system reviewed and no additional complaints, except as documented Hematologic/Lymphatic On Anticoagulants: No Allergic/Immunologic Allergic/Immunologic: Reports system reviewed and no additional complaints, except as documented Patient History Medical History COPD (chronic obstructive pulmonary disease) Coronary artery disease (~2010) Essential hypertension Hearing loss (~2013) Hemorrhoid (~1979) Ischemic cardiomyopathy Mixed hyperlipidemia Parkinson's disease Paroxysmal atrial fibrillation Peripheral vascular disease (~2016) Wears glasses Surgical History (Updated 11/17/19 @ 15:40 by Olaf Espinosa MD) Anesthesia Gallstones (~2017) History of cataract removal with insertion of prosthetic lens (~2018) History of heart bypass surgery (~2011) History of surgery (~2016) History of surgery (~2016) Pelvis fracture (~2012) Right groin hernia (~2018) S/P laparoscopic cholecystectomy Family History Father History of heart disease Mother No problems noted. Grandmother Diabetes mellitus Grandfather History of heart disease Family/Other No problems noted. Social History marital status: household members: spouse occupational status: previously employed Smoking Status: Current every day smoker alcohol intake: never substance use type: does not use Smoking Status: Current every day smoker tobacco type: cigarettes Substance Use Type: does not use Exam Initial Vital Signs Initial Vital Signs: Vital Signs Temperature 97.5 F L 07/16/20 20:21 Pulse Rate 91 H 07/16/20 20:21 Respiratory Rate 25 H 07/16/20 20:21 Blood Pressure 169/77 H 07/16/20 20:21 Pulse Oximetry 96 07/16/20 20:21 Const General: cooperative and comfortable Limitations: mental status not altered HENMT Head: normal to inspection and normocephalic Ears: hearing grossly normal bilaterally Face and sinus: normal facial exam Mouth: oral mucosae normal Eyes General: appearance normal, both eyes and all related structures Chest Chest: No crepitus Other: Patient does have what appears to be a hematoma on his left upper chest. Is slightly tender to palpation. No crepitus. Resp Effort & Inspection: tachypneic Auscultation: clear to auscultation bilaterally Other: Patient is tachypneic however he states this is his normal way breathing. Cardio Rate: regular rate Rhythm: regular rhythm Pulses: radial pulses present bilaterally GI Inspection: non-distended Palpation: soft Back/Spine/Pelvis Cervical Spine: No collar present and No cervical spinal tenderness Thoracic/Lumbar Spine: No thoracic spinal tenderness Skin Other: Patient with superficial abrasion over his left shoulder. Has 2 small skin tears over his left elbow. Has a laceration to the ulnar aspect on the dorsum of his left finger and also a small skin tear on the volar aspect of his left finger. Has bruising over his left anterior chest. Neuro General: patient alert, patient awake and patient oriented x3 Cognition: normal cognition Extrem General: capillary refill normal Other: His bilateral lower extremities are unremarkable. His pelvis is stable. His right upper extremity is unremarkable. His left wrist and left elbow have full range of motion. He does have discomfort over his anterior chest with movement of his left shoulder. Psych Appearance: grossly normal and well kempt Procedures Laceration Repair Laceration 1: Site: other (Left little finger) Side (If applicable): left Size (cm): 3 Description: linear Depth: simple, single layer Local Anesthetic: lidocaine 1% Pre-repair: wound explored, irrigated extensively and deep structures intact Skin layer closed with: nylon Size (cm): 4-0 Number of sutures: 6 Technique: simple, interrupted Laceration 2: Site: other (Left little finger) Side (If applicable): left Size (cm): 1 Description: flap Depth: simple, single layer Local Anesthetic: lidocaine 1% Pre-repair: wound explored and irrigated extensively Skin layer closed with: nylon Size (cm): 4-0 Number of sutures: 1 Nerve Block Nerve Block 1: Time out performed: Yes Local Anesthetic: lidocaine 1% and with bicarb Amount of anesthesia used (mL): 5 Side: left Nerve Blocks: digital Procedure Successful: Yes Patient Tolerated Procedure: Well Complications: none Scores GCS [place] coma scale eye opening: Spontaneous Brianna coma scale verbal response: Orientated [place] coma scale motor response: Obey commands [place] coma scale total score: 15 Nexus Score for C-Spine Focal Neurologic deficit present: No Midline spinal tenderness present: No Altered level of conciousness present: No Intoxication present: No Distracting Injury Present: No Nexus Criteria for C-spine: 0 Course Orders Ordered: ED Orders 07/16/20 22:32 XR clavicle LT Stat Discontinued Medications Bacitracin (Bacitracin Oint 0.9 Gm Pckt) 1 applic TOP NOW ONE Stop: 07/17/20 01:03 Last Admin: 07/17/20 01:08 Dose: 1 applic Documented by: SEJAL Sodium Chloride (Normal Saline 0.9%) 1,000 mls @ 125 mls/hr IV CONT YOKASTA Last Infusion: 07/17/20 01:08 Dose: 0 mls/hr Documented by: Admin: 07/16/20 22:07 Dose: 125 mls/hr Documented by: ATAYLOR Lidocaine/Sodium Bicarbonate (Lido 1%/Sod Bicarb 8.4% (10ml) 10 Ml Syringe) 10 ml INJ NOW ONE Stop: 07/16/20 22:33 Last Admin: 07/17/20 01:09 Dose: 10 ml Documented by: SEJAL Vital Signs Vital signs: Vital Signs - 8 hr 07/16/20 21:55 07/16/20 22:00 07/16/20 22:01 Temperature Pulse Rate 70 66 69 Respiratory Rate 22 21 21 Blood Pressure 144/71 H Pulse Oximetry 95 96 93 07/16/20 22:30 07/16/20 22:31 07/16/20 23:00 Temperature Pulse Rate 72 73 63 Respiratory Rate 24 17 Blood Pressure 154/81 H Pulse Oximetry 96 96 96 07/16/20 23:01 07/16/20 23:30 07/16/20 23:31 Temperature Pulse Rate 67 70 73 Respiratory Rate 23 25 H 24 Blood Pressure 148/78 H 168/118 H Pulse Oximetry 95 96 96 07/17/20 00:00 07/17/20 00:01 07/17/20 00:30 Temperature Pulse Rate 71 73 70 Respiratory Rate 21 21 13 Blood Pressure 146/68 H Pulse Oximetry 95 94 95 07/17/20 00:31 07/17/20 01:00 07/17/20 01:01 Temperature Pulse Rate 75 75 73 Respiratory Rate 21 25 H 23 Blood Pressure 120/77 110/75 Pulse Oximetry 94 95 95 07/17/20 01:09 07/17/20 01:25 Temperature 97.9 F Pulse Rate 73 66 Respiratory Rate 25 H 26 H Blood Pressure 160/91 H 160/91 H Pulse Oximetry 93 94 MDM - Fall Lab Data Attestation: I reviewed the patient's lab results. Result diagrams: 07/16/20 20:51 07/16/20 20:51 Labs: Lab Results 07/16/20 07/16/20 Range/Units 20:51 20:51 WBC 8.1 (4.5-11.0) X10^3/uL RBC 5.31 (4.5-5.9) X10^6/uL Hgb 16.7 (13.5-17.5) g/dL Hct 48.1 (41-53) % MCV 90.5 (80-100) fL MCH 31.4 (26-34) PG MCHC 34.7 (30-36) % RDW 13.8 (11.6-14.8) % Plt Count 169 (150-400) X10^3/uL Neut % (Auto) 65.0 (50-75) % Lymph % (Auto) 26.6 (25-40) % [place] % (Auto) 5.7 (3-14) % Eos % (Auto) 1.9 L (2-4) % Baso % (Auto) 0.8 (0-2) % Neut # (Auto) 5300 (6393-0422) /uL Lymph # (Auto) 2200 (0388-8285) /uL [place] # (Auto) 500 (0-900) /uL Eos # (Auto) 200 (0-450) /uL Baso # (Auto) 100 (0-100) /uL Sodium 138 (137-145) mmol/L Potassium 4.0 (3.4-5.1) mmol/L Chloride 105 (98-107) mmol/L Carbon Dioxide 24 (22-32) mmol/L BUN 19 (9-20) mg/dL Creatinine 1.02 (0.66-1.25) mg/dL Estimated GFR > 60.0 (>60) mL/min BUN/Creatinine Ratio 18.6 (6-22) Glucose 115 H (80-110) mg/dL Calcium 9.2 (8.4-10.2) mg/dL Total Bilirubin 0.6 (0.2-1.3) mg/dL AST 28 (17-59) IU/L ALT 6 (<50) IU/L Alkaline Phosphatase 118 (38-126) U/L Total Creatine Kinase 87 (55-170) U/L CK-MB (CK-2) TNP CK-MB (CK-2) Rel Index TNP Troponin I < 0.012 (0.01-0.034) ng/mL Total Protein 6.9 (6.3-8.2) g/dL Albumin 4.1 (3.5-5.0) g/dL Globulin 2.8 (1.7-4.1) g/dL Albumin/Globulin Ratio 1.5 (1.0-2.8) Lipase 143 (23-300) U/L Imaging Data Chest abdomen pelvis CT: Radiologist's Impression: [address] [id number] Scan ReportSigned Patient: Je Hassan VMR#: [id number]: 7Acct:[id number]/Sex: 85 / MDate of Service: 07/16/20Loc: EDAccession Number: [id number] Procedure: CT chest abd pel w con Ordering Provider: Dyllan Dueñas D.O. PROCEDURE: CT CHEST ABD PEL W CON INDICATIONS: fall down stairs TECHNIQUE: After the administration of oral and intravenous contrast, axial sections acquired from the supraclavicular neck to the pubic symphysis. Coronal and sagittal reformats were performed. For radiation dose reduction, the following was used: automated exposure control, adjustment of mA and/or kV according to patient size. COMPARISON:CT, ABDOMEN/PELVIS WITH CONTRAST, 04/10/2015, 18:59. CT, PELVIS WITHOUT CONTRAST, 04/10/2015, 17:38. CT, ABDOMEN/PELVIS WITH CONTRAST, 04/10/2014, 23:54. FINDINGS: Image quality: Excellent. CHEST: Lower Neck: No enlarged lymph nodes. Thyroid: Not well seen Axillae: No enlarged lymph nodes. Chest Wall: Unremarkable. Lungs and Airways: No consolidation or suspicious nodules but there is a chronic interstitial prominence consistent with longstanding smoking history or interstitial lung disease. Pleura: No pneumothorax or pleural effusions. Heart: Heart size is normal. No pericardial effusion. Thoracic Vessels: The aorta and pulmonary arteries demonstrate normal size. Mediastinum and Izzy: No enlarged lymph nodes. Esophagus: No wall thickening. No hiatal hernia. ABDOMEN: Liver: Unremarkable. Gallbladder: Previously resected. Biliary ducts: Unremarkable. Pancreas: Unremarkable. Spleen: Unremarkable. Adrenal Glands: Unremarkable. Kidneys and Ureters: Unremarkable. Stomach and Bowel: Stomach, small bowel loops, and colon are unremarkable. Peritoneum: No abnormal intraperitoneal fluid. No free air. Ventral Wall: No hernia. Abdominal Nodes: No retroperitoneal or mesenteric adenopathy by size criteria. Vessels: Aorta and inferior vena cava are normal in size. PELVIS: Pelvic Organs: Unremarkable. Bladder: Unremarkable. Pelvic Nodes: No enlarged lymph nodes. Miscellaneous: No inguinal hernias are seen. Note is made of multiple pelvic fracture from past, including bilateral inferior obturator ring fractures. No acute fracture is found,. Bones: Unremarkable. No osteolytic or blastic bone lesion. IMPRESSION: Old pelvic fractures, no acute fracture is found. No visceral trauma identified. Chronic interstitial lung disease, perhaps reflecting longstanding smoking history or idiopathic interstitial lung disease, no neoplasm found. Dictated by: Ronen Barnard M.D. on 07/16/2020 at 22:11 X-ray hand: Radiologist's Impression: [address] [id number] ReportSigned Patient: Je Hassan R#: [id number]: 1935cct:[id number]/Sex: 85 / MDate of Service: 07/16/20Loc: EDAccession Number: [id number] Procedure: XR hand LT min 3V Ordering Provider: Dyllan Dueñas D.O. PROCEDURE: XR HAND LT MIN 3V INDICATIONS: Finger injuries after fall TECHNIQUE: 3 views of the hand(s) acquired. COMPARISON: None. FINDINGS: Bones: No fractures or dislocations. Carpal bones are normally aligned. No suspicious bony lesions. Soft tissues: No suspicious soft tissue calcifications. 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 No definite acute fracture found. Dictated by: Ronen Barnard M.D. on 07/16/2020 at 22:09 Approved by: Ronen Barnard M.D. on 07/16/2020 at 22:10 Left clavicle x-ray: Radiologist's Impression: No acute fracture dislocation CT left clavicle: Radiologist's Impression: Comminuted fracture of the proximal left clavicle No fracture of the manubrium. First ribs intact. Acromioclavicular joint is intact. There is a hematoma in the superior chest wall to the left of midline surrounding the clavicular fracture. Hematomas within the left pectoralis major muscle ECG Data Attestation: I personally reviewed and interpreted this ECG as follows: Prior ECG tracings: not available for review Interpretation: Sinus rhythm Ventricular rate is 79 Left axis deviation LVH Frequent PVC MDM Narrative Medical decision making narrative: Modified trauma called secondary to mechanism. Patient was alert oriented x3. GCS of 15. This did appear to be a mechanical fall. His C-spine is cleared by nexus criteria. He is not on anticoagulation. He had no head injury. No loss of consciousness. Sustained an abrasion to the left shoulder which needed no intervention. Small skin tears to the left elbow which needed no intervention. Sustained a laceration to the left little finger. There was no fractures noted on the x-rays. These for closed as described above and he was given care instructions and return precautions for this. CT scan initially read is no acute findings. There was a rather large hematoma on his left upper chest and evaluation under this area on the CT scan is somewhat concerning for a clavicle fracture. A dedicated clavicle x-ray of this area did not show any fractures but it was difficult to see the medial aspect of the clavicle. We were able to reconstruct a left clavicle CT scan from the pictures that were already obtained. This was read by radiology and did confirm a medial comminuted clavicle fracture which corresponds to the bruising over his chest. The 1st rib was unremarkable. The underlying lung in this area is unremarkable. There were no acute fractures of his manubrium. Patient was observed here in the emergency department for a period of time without any expanding of the hematoma of his left chest. I do suspect this is related to the clavicle fracture. We will discharge the patient home. His is at bedside. They were given strict return precautions with regard to this hematoma on his left chest. They were informed that this could potentially spread out over the next couple days but will in the next 12-24 hours of him noticed that the swelling was getting worse or he was having problems breathing or swallowing her had any other symptoms that he needed to return to the emergency department immediately for further evaluation. June expressed understanding and agreement with this. Discharge Plan Departure Patient Disposition: Home Clinical Impression: Fall, Clavicle fracture, sternal end, Finger laceration, Abrasion of skin Instructions: How to Use a Sling, DI for Clavicle Fracture-Adult, DI for Laceration Repair Activity Restrictions/Additional Instructions: I recommend that on Sunday you contact your primary provider for a follow-up. The stitches that were placed today do need to be removed in 7-10 days. The sling is for your comfort. He did fracture your clavicle. I recommend you contact the [facility] group at [phone]. I do recommend you place ice over the bruise of your left chest. If you start to have problems breathing or swallowing or if this starts to worsen you do need to return to the emergency department for evaluation. Prescriptions: No Action nitroglycerin 0.4 mg tablet, sublingual 0.4 mg SL Q5M PRN (Reason: Angina) RF: 0 aspirin [Adult Low Dose Aspirin] 81 mg tablet,delayed release (DR/EC) 81 mg PO DAILY RF: 0 carbidopa-levodopa 25-100 mg tablet 1 tab PO TID RF: 0 mometasone 0.1 % ointment topical RF: 0 atorvastatin 20 mg tablet 20 mg PO DAILY RF: 0 amlodipine 2.5 mg tablet 2.5 mg PO DAILY RF: 0 hydrochlorothiazide 12.5 mg capsule 12.5 mg PO DAILY RF: 0 Referrals: Olaf Espinosa MD [Primary Care Provider] -
[2020-07-16 20:59] LABS: Add Manual Diff / Slide Review NO; Basophils Absolute Auto 100 /uL (0-100); Basophils Percent Auto 0.8 % (0-2); Eosinophils Absolute Auto 200 /uL (0-450); Eosinophils Percent Auto 1.9 % (2-4); Hematocrit 48.1 % (41-53); Hemoglobin 16.7 g/dL (13.5-17.5); Lymphocytes Absolute Auto 2200 /uL (1100-4500); Lymphocytes Percent Auto 26.6 % (25-40); Mean Corpuscular HGB Conc 34.7 % (30-36); Mean Corpuscular Hemoglobin 31.4 PG (26-34); Mean Corpuscular Volume 90.5 fL (80-100); Monocytes Absolute Auto 500 /uL (0-900); Monocytes Percent Auto 5.7 % (3-14); Neutrophils Absolute Auto 5300 /uL (1500-7000); Platelet Count 169 X10^3/uL (150-400); Red Blood Cell Count 5.31 X10^6/uL (4.5-5.9); Red Cell Distribution Width 13.8 % (11.6-14.8); White Blood Cell Count 8.1 X10^3/uL (4.5-11.0)
[2020-07-16 21:09] LABS: Alanine Aminotransferase 6 IU/L (<50); Albumin 4.1 g/dL (3.5-5.0); Albumin Globulin Ratio 1.5 (1.0-2.8); Alkaline Phosphatase 118 U/L (38-126); Aspartate Aminotransferase 28 IU/L (17-59); BUN Creatinine Ratio 18.6 (6-22); Bilirubin Total 0.6 mg/dL (0.2-1.3); Blood Urea Nitrogen 19 mg/dL (9-20); Calcium 9.2 mg/dL (8.4-10.2); Carbon Dioxide 24 mmol/L (22-32); Chloride 105 mmol/L (98-107); Creatine Kinase 87 U/L (55-170); Estimated Glomerular Filt Rate > 60.0 mL/min (>60); Globulin 2.8 g/dL (1.7-4.1); Glucose 115 mg/dL (80-110); HEMOLYSIS 34 (0-50); Lipase 143 U/L (23-300); Sodium 138 mmol/L (137-145); Total Protein 6.9 g/dL (6.3-8.2)
[2020-07-16 21:21] LABS: Troponin I < 0.012 ng/mL (0.01-0.034)
[2020-07-16] MEDS: SODIUM CHLORIDE 0.9% 1,000 ML 125 ML IV (22:07)
--- NOTE | 2020-07-16 22:32 | DI.RAD.S_ITS ---
PROCEDURE: XR CLAVICLE LT INDICATIONS: eval for fracture TECHNIQUE: 2 views of the clavicle were acquired. COMPARISON: [facility], CT, CT CHEST ABD PEL W CON, 07/16/2020, 20:49. [facility], CT, CT UE LT WO CON, 07/16/2020, 20:49. FINDINGS: Bones: The known left medial clavicle fracture is obscured on this study. Age-appropriate bony degenerative changes are seen. Sternotomy wires are seen. Soft tissues: No suspicious soft tissue calcifications. The visualized lung demonstrates an unremarkable appearance. IMPRESSION: The left medial clavicle fracture is not seen on this examination, although it is well seen on the accompanying CT examinations. Note: No significant discrepancy from the preliminary report. Dictated by: Trip Velarde M.D. on 07/17/2020 at 8:33 Approved by: Trip Velarde M.D. on 07/17/2020 at 8:35
[2020-07-17] VITALS (8 sets, daily range): BP systolic 110–160; BP diastolic 68–91; PULSE 66–75; RESP 13–26; TEMP 36.6; O2SAT 93–95
[2020-07-17] MEDS: BACITRACIN OINT 0.9 GM PCKT 1 APPLIC TOP (01:08)
[2020-07-17] MEDS: LIDO 1%/SOD BICARB 8.4% (10ML) 10 ML SYRINGE INJ (01:09)
--- NOTE | 2020-07-17 01:26 | PC.NURSE ---
bacitracin applied to abrasions and surures and covered with bandages prior to discharge.
== END 2020-07-17 01:27 | disposition home or self-care (01) ==
PROVIDERS: Emergency Provider Emergency Medicine; Family Provider Internal Medicine; PCP Internal Medicine
DX: S42.018A Nondisplaced fracture of sternal end of left clavicle, initial encounter for closed fracture (principal); S61.217A Laceration without foreign body of left little finger without damage to nail, initial encounter; S20.212A Contusion of left front wall of thorax, initial encounter; S40.212A Abrasion of left shoulder, initial encounter; W10.9XXA Fall (on) (from) unspecified stairs and steps, initial encounter
CPT/HCPCS: 12002; 36415; 64450; 71260; 73000; 73130; 73200; 74177; 80053; 82550; 83690; 84484; 85025; 93005; 96360; 96361; 99285; Q9967

== ENCOUNTER 2020-07-19 09:28 | Observation (INO) | payer OTHER, SELFPAY ==
[2019-11-02 15:04] VITALS: BMI 22.8
[2020-07-19] VITALS (22 sets, daily range): BP systolic 101–148; BP diastolic 56–77; PULSE 58–83; RESP 6–28; TEMP 36.1–37.3; O2SAT 94–98; BMI 23.0
--- NOTE | 2020-07-19 10:05 | DI.RAD.S_ITS ---
PROCEDURE: XR CHEST 1V INDICATIONS: chest pain TECHNIQUE: One view of the chest was acquired. COMPARISON: [facility], CR, XR CHEST 1V, 11/02/2019, 9:52. FINDINGS: Surgical changes and devices: Sternotomy and CABG. Sternal wires are fractured, but unchanged compared to the last exam. Lungs and pleura: Bilateral perihilar infiltrates consistent with pulmonary edema secondary to congestive heart failure. No pleural effusions or pneumothorax. Mediastinum: Mediastinal contours appear normal. Heart size is mildly enlarged. Bones and chest wall: No suspicious bony lesions. Overlying soft tissues appear unremarkable. IMPRESSION: Congestive heart failure. Dictated by: Angela Guallpa M.D. on 07/19/2020 at 11:05 Approved by: Angela Guallpa M.D. on 07/19/2020 at 11:08
--- NOTE | 2020-07-19 10:06 | DI.RAD.S_ITS ---
PROCEDURE: XR HIP W PEL IF DONE LT 2V INDICATIONS: fall Magdaleno night, left hip / pelvis pain. TECHNIQUE: AP pelvis with lateral view(s) of the left hip(s). COMPARISON: [facility], CR, XR HIP W PEL IF DONE [place] 3TO4V, 03/10/2019, 12:03. US, ARTERIAL LOW.EXTREM.BILATERAL, 03/01/2016, 10:37. FINDINGS: Bones: No fractures or dislocations. Pelvic ring appears intact. No suspicious bony lesions. There is arthrodesis of the sacroiliac joints bilaterally. Old right superior pubic remote fracture with internal fixation. Soft tissues: The visualized bowel gas pattern is normal. No suspicious soft tissue calcifications. Severe atherosclerotic calcifications of femoral arteries bilaterally. IMPRESSION: No acute osseous abnormalities. Dictated by: Angela Guallpa M.D. on 07/19/2020 at 11:09 Approved by: Angela Guallpa M.D. on 07/19/2020 at 11:16
--- NOTE | 2020-07-19 10:17 | ED.FALL ---
HPI - Fall <Juliette Guy DO - Last Filed: 07/19/20 20:32> General Chief Complaint: Fall Stated Complaint: Pelvic pain from a fall was here sunday Time Seen by Provider: 07/19/20 10:17 Source: patient Limitations: no limitations History of Present Illness HPI Narrative: This is an 85-year-old male comes emergency department with increasing bruising and swelling of his chest as well as his neck. Patient had a ground level mechanical fall on Sunday. Patient denies hitting his head. Denies any loss of consciousness. Patient was found to have a medial comminuted clavicular fracture. Patient was noted have some bruising but has had increasing bruising over last several days on covering his entire chest and also going up into his neck with some increasing swelling of his neck over the last day and half. Patient has not any fevers or chills. He denies any pressure sensation or difficulty with breathing. No pressure or sensation of difficulty breathing in his neck or throat. He denies any new shortness of breath. He denies any chest pain or pressure. He states he has some left pelvic discomfort when sitting. He has been able to ambulate but gingerly. Patient denies any new numbness, tingling or weakness. No nausea or vomiting. No abdominal pain. No other new GI or urinary symptoms. He does take an aspirin daily. He has a history of cardiac bypass, Parkinson's as well as a ?RotoRooter of his left leg vasculature. Patient also takes amlodipine, atorvastatin carbidopa levodopa 3 times daily and nitroglycerin as needed. Patient has history of cholecystectomy as well. Known drug allergies. Patient is accompanied by his . Related Data Home Medications Medication Instructions Recorded Confirmed amlodipine 2.5 mg PO DAILY 12/27/18 07/19/20 hydrochlorothiazide 12.5 mg PO DAILY 12/27/18 07/19/20 nitroglycerin 0.4 mg sublingual 0.4 mg SL Q5M PRN 03/10/19 07/19/20 tablet aspirin 81 mg tablet,delayed 81 mg PO DAILY 09/22/19 07/19/20 release carbidopa 25 mg-levodopa 100 mg 1 tab PO TID tab 03/23/20 07/19/20 tablet atorvastatin 20 mg tablet 20 mg PO DAILY tab 06/22/20 07/19/20 mometasone 0.1 % topical ointment 1 applic TOPICAL DAILY PRN 06/22/20 07/19/20 Allergies Allergy/AdvReac Type Severity Reaction Status Date / Time No Known Drug Allergies Allergy Verified 06/22/20 13:35 Review of Systems <Juliette Guy DO - Last Filed: 07/19/20 20:32> Review of Systems ROS Unobtainable: All systems reviewed & are unremarkable except as noted in HPI and below Patient History <Juliette Guy DO - Last Filed: 07/19/20 20:32> Medical History COPD (chronic obstructive pulmonary disease) Coronary artery disease (~2010) Essential hypertension Hearing loss (~2013) Hemorrhoid (~1979) Ischemic cardiomyopathy Mixed hyperlipidemia Parkinson's disease Paroxysmal atrial fibrillation Peripheral vascular disease (~2016) Wears glasses Surgical History Anesthesia Gallstones (~2017) History of cataract removal with insertion of prosthetic lens (~2018) History of heart bypass surgery (~2011) History of surgery (~2016) History of surgery (~2016) Pelvis fracture (~2012) Right groin hernia (~2018) S/P laparoscopic cholecystectomy Family History Father History of heart disease Mother No problems noted. Grandmother Diabetes mellitus Grandfather History of heart disease Family/Other No problems noted. Social History marital status: household members: spouse occupational status: previously employed Smoking Status: Current every day smoker alcohol intake: never substance use type: does not use Smoking Status: Current every day smoker tobacco type: cigarettes Substance Use Type: does not use Exam <Juliette Guy DO - Last Filed: 07/19/20 20:32> Narrative Exam Narrative: GEN: Patient appears in mild distress. Patient is resting comfortably on the bed at 30?. HEAD: No evidence of trauma, no raccoon/De Los Santos sign. NECK: Nontender, painless range of motion, trachea midline Negative for Nexus criteria, there is no mid line tenderness, distracting injury, altered mental status, neuro deficit, recent EtOH. Patient does have swelling of the neck as well as ecchymosis over the left side of the neck and extending towards the right. There is no palpable hematoma or induration. This tissue appears soft. EYES: PERRLA, EOMI ENT: External inspection normal, trachea is midline, Nares are clear, no septal hematoma, no dental or oral injury, airway is normal and with normal occlusion, No bony tenderness RESP: Chest is nontender and has symmetric movement, breath sounds are normal no crackles, wheezes or rales. Patient does have obvious deformity of the medial clavicle with no tenting. Patient has significant ecchymoses over his anterior chest on both sides and extending to mid abdomen. No palpable hematoma appreciated. No subcutaneous emphysema. CVS: Heart sounds are normal, no murmur noted, No JVD. ABG/GI: Nontender, soft, normal bowel sounds, no distention, no organomegaly, pelvic rock is negative NEURO: Oriented AOx3, neuro is grossly intact, sensation and motor is normal all 4 extremities moving, cranial nerves II through XII are intact, GCS is 15 PSYCH: Normal mood and affect SKIN: Intact, warm and dry, no crepitus and without decubitus BACK: No CVA tenderness, no vertebral tenderness, no step-off's, no crepitus EXT: Patient has healing lacerations of left hand. hips are nontender, no pedal edema, normal color and temperature, 2+ pulses all four extremities. Initial Vital Signs Initial Vital Signs: Vital Signs Temperature 97.0 F L 07/19/20 10:00 Pulse Rate 58 L 07/19/20 10:00 Respiratory Rate 28 H 07/19/20 10:00 Blood Pressure 139/77 07/19/20 10:00 Pulse Oximetry 97 07/19/20 10:00 <Antonia Gonzales MD - Last Filed: 07/19/20 18:57> Initial Vital Signs Initial Vital Signs: Vital Signs Temperature 97.0 F L 07/19/20 10:00 Pulse Rate 58 L 07/19/20 10:00 Respiratory Rate 28 H 07/19/20 10:00 Blood Pressure 139/77 07/19/20 10:00 Pulse Oximetry 97 07/19/20 10:00 Scores <Juliette Guy DO - Last Filed: 07/19/20 20:32> GCS Barnard coma scale eye opening: Spontaneous Brianna coma scale verbal response: Orientated Brianna coma scale motor response: Obey commands Brianna coma scale total score: 15 Course <Juliette Guy, - Last Filed: 07/19/20 20:32> Orders Ordered: ED Orders 07/19/20 12:25 COVID19 - ADMIT (NEUROSURGERY RESEARCH DIRECTOR swab/PCR) Stat Acetaminophen (Acetaminophen 325 Mg Tablet) 650 mg PO Q6HR PRN PRN Reason: Fever/Mild Pain (1-3) Last Admin: 07/19/20 16:24 Dose: 650 mg Documented by: [email or web address] Amlodipine Besylate (Amlodipine 5 Mg Tablet) 2.5 mg PO DAILY YOKASTA Atorvastatin Calcium (Atorvastatin 20 Mg Tablet) 20 mg PO BEDTIME YOKASTA Carbidopa/Levodopa (Carbidopa-Levodopa 25/100 Tablet) 1 each PO TIDWM YOKASTA Last Admin: 07/19/20 18:35 Dose: 1 each Documented by: CORONA Hydrochlorothiazide (Hydrochlorothiazide 25 Mg Tablet) 12.5 mg PO DAILY YOKASTA Nitroglycerin (Nitroglycerin 0.4 Mg Sl Tab) 0.4 mg SL Q5M PRN PRN Reason: Angina Oxycodone HCl (Oxycodone Ir 5 Mg Tablet) 5 mg PO Q4HR PRN PRN Reason: Pain, Moderate (4-6) Last Admin: 07/19/20 16:23 Dose: 5 mg Documented by: [email or web address] Discontinued Medications Acetaminophen (Acetaminophen 325 Mg Tablet) 975 mg PO NOW ONE Stop: 07/19/20 16:02 Last Admin: 07/19/20 16:47 Dose: Not Given Documented by: CORONA Consultations Consultation #1: Dr. Gonzales, from general surgery. [facility] feel appropriate for us to observe can watch her overnight verses transfer. Recontacted Dr. Gonzales, updated on [facility] recommendations. Discussed will also consult with Orthopedic surgery. Time: 13:03 Consultation #2: Dr. Cruz, [facility] trauma surgery does agree with observation overnight here at [facility] and to follow hemoglobin hematocrit. Recommend holding aspirin 1-2 weeks patient can tolerate from a cardiac standpoint. PT OT here in the hospital and follow up with home. Does not feel patient needs transfer to [facility] at this time. Time: 14:55 Consultation #3: Dr. Avilez, was able to review patient's images. No plan for surgical intervention. Time: 14:55 Vital Signs Vital signs: Vital Signs - 8 hr 07/19/20 12:30 07/19/20 13:00 07/19/20 13:01 Pulse Rate 67 75 71 Respiratory Rate Blood Pressure 109/76 113/68 Pulse Oximetry 96 97 96 07/19/20 13:30 07/19/20 14:00 07/19/20 14:30 Pulse Rate 76 74 80 Respiratory Rate 20 Blood Pressure 101/56 L 108/56 L Pulse Oximetry 96 94 95 07/19/20 14:31 Pulse Rate 78 Respiratory Rate 22 Blood Pressure 148/65 H Pulse Oximetry 95 <Antonia Gonzales MD - Last Filed: 07/19/20 18:57> Orders Ordered: ED Orders 07/19/20 12:25 COVID19 - ADMIT (NEUROSURGERY RESEARCH DIRECTOR swab/PCR) Stat Acetaminophen (Acetaminophen 325 Mg Tablet) 650 mg PO Q6HR PRN PRN Reason: Fever/Mild Pain (1-3) Last Admin: 07/19/20 16:24 Dose: 650 mg Documented by: CTRPEDRITO Amlodipine Besylate (Amlodipine 5 Mg Tablet) 2.5 mg PO DAILY YOKASTA Atorvastatin Calcium (Atorvastatin 20 Mg Tablet) 20 mg PO BEDTIME YOKASTA Carbidopa/Levodopa (Carbidopa-Levodopa 25/100 Tablet) 1 each PO TIDWM YOKASTA Last Admin: 07/19/20 18:35 Dose: 1 each Documented by: CORONA Hydrochlorothiazide (Hydrochlorothiazide 25 Mg Tablet) 12.5 mg PO DAILY YOKASTA Nitroglycerin (Nitroglycerin 0.4 Mg Sl Tab) 0.4 mg SL Q5M PRN PRN Reason: Angina Oxycodone HCl (Oxycodone Ir 5 Mg Tablet) 5 mg PO Q4HR PRN PRN Reason: Pain, Moderate (4-6) Last Admin: 07/19/20 16:23 Dose: 5 mg Documented by: CTRPEDRITO Discontinued Medications Acetaminophen (Acetaminophen 325 Mg Tablet) 975 mg PO NOW ONE Stop: 07/19/20 16:02 Last Admin: 07/19/20 16:47 Dose: Not Given Documented by: CORONA Vital Signs Vital signs: Vital Signs - 8 hr 07/19/20 12:30 07/19/20 13:00 07/19/20 13:01 Pulse Rate 67 75 71 Respiratory Rate Blood Pressure 109/76 113/68 Pulse Oximetry 96 97 96 07/19/20 13:30 07/19/20 14:00 07/19/20 14:30 Pulse Rate 76 74 80 Respiratory Rate 20 Blood Pressure 101/56 L 108/56 L Pulse Oximetry 96 94 95 07/19/20 14:31 Pulse Rate 78 Respiratory Rate 22 Blood Pressure 148/65 H Pulse Oximetry 95 MDM - Fall <Juliette Guy, - Last Filed: 07/19/20 20:32> Lab Data Attestation: I reviewed the patient's lab results. Result diagrams: 07/19/20 11:14 07/19/20 11:14 Labs: Lab Results 07/19/20 07/19/20 07/19/20 Range/Units 11:14 11:14 11:14 WBC 10.3 (4.5-11.0) X10^3/uL RBC 4.29 L (4.5-5.9) X10^6/uL Hgb 13.3 L (13.5-17.5) g/dL Hct 39.0 L (41-53) % MCV 91.0 (80-100) fL MCH 31.0 (26-34) PG MCHC 34.0 (30-36) % RDW 13.6 (11.6-14.8) % Plt Count 186 (150-400) X10^3/uL Neut % (Auto) 76.2 H (50-75) % Lymph % (Auto) 15.7 L (25-40) % [place] % (Auto) 6.9 (3-14) % Eos % (Auto) 0.7 L (2-4) % Baso % (Auto) 0.5 (0-2) % Neut # (Auto) 7800 H (1362-9714) /uL Lymph # (Auto) 1600 (7246-7218) /uL [place] # (Auto) 700 (0-900) /uL Eos # (Auto) 100 (0-450) /uL Baso # (Auto) 0 (0-100) /uL PT 12.0 (10.1-12.7) SECONDS INR 1.1 (0.9-1.3) APTT 29 (26.4-36.2) SECONDS Sodium 134 L (137-145) mmol/L Potassium 4.0 (3.4-5.1) mmol/L Chloride 101 (98-107) mmol/L Carbon Dioxide 25 (22-32) mmol/L BUN 20 (9-20) mg/dL Creatinine 1.23 (0.66-1.25) mg/dL Estimated GFR 56.1 L (>60) mL/min BUN/Creatinine Ratio 16.3 (6-22) Glucose 95 (80-110) mg/dL Calcium 9.0 (8.4-10.2) mg/dL Magnesium 1.9 (1.6-2.3) mg/dL Total Bilirubin 0.9 (0.2-1.3) mg/dL AST 25 (17-59) IU/L ALT 5 (<50) IU/L Alkaline Phosphatase 78 (38-126) U/L Total Creatine Kinase 101 (55-170) U/L CK-MB (CK-2) 3.30 H (<2.37) ng/mL CK-MB (CK-2) Rel Index 3.3 (1.5-5.0) % Troponin I < 0.012 (0.01-0.034) ng/mL Total Protein 6.6 (6.3-8.2) g/dL Albumin 3.8 (3.5-5.0) g/dL Globulin 2.8 (1.7-4.1) g/dL Albumin/Globulin Ratio 1.4 (1.0-2.8) Lipase 73 (23-300) U/L SARS-CoV-2 (PCR) (Negative) Blood Type Antibody Screen 07/19/20 07/19/20 Range/Units 11:14 12:25 WBC (4.5-11.0) X10^3/uL RBC (4.5-5.9) X10^6/uL Hgb (13.5-17.5) g/dL Hct (41-53) % MCV (80-100) fL MCH (26-34) PG MCHC (30-36) % RDW (11.6-14.8) % Plt Count (150-400) X10^3/uL Neut % (Auto) (50-75) % Lymph % (Auto) (25-40) % [place] % (Auto) (3-14) % Eos % (Auto) (2-4) % Baso % (Auto) (0-2) % Neut # (Auto) (6392-8600) /uL Lymph # (Auto) (8974-3908) /uL [place] # (Auto) (0-900) /uL Eos # (Auto) (0-450) /uL Baso # (Auto) (0-100) /uL PT (10.1-12.7) SECONDS INR (0.9-1.3) APTT (26.4-36.2) SECONDS Sodium (137-145) mmol/L Potassium (3.4-5.1) mmol/L Chloride (98-107) mmol/L Carbon Dioxide (22-32) mmol/L BUN (9-20) mg/dL Creatinine (0.66-1.25) mg/dL Estimated GFR (>60) mL/min BUN/Creatinine Ratio (6-22) Glucose (80-110) mg/dL Calcium (8.4-10.2) mg/dL Magnesium (1.6-2.3) mg/dL Total Bilirubin (0.2-1.3) mg/dL AST (17-59) IU/L ALT (<50) IU/L Alkaline Phosphatase (38-126) U/L Total Creatine Kinase (55-170) U/L CK-MB (CK-2) (<2.37) ng/mL CK-MB (CK-2) Rel Index (1.5-5.0) % Troponin I (0.01-0.034) ng/mL Total Protein (6.3-8.2) g/dL Albumin (3.5-5.0) g/dL Globulin (1.7-4.1) g/dL Albumin/Globulin Ratio (1.0-2.8) Lipase (23-300) U/L SARS-CoV-2 (PCR) Negative (Negative) Blood Type O Positive Antibody Screen Negative Urine Dip Bedside Urine Glucose Negative Bedside Urine Bilirubin - Negative Bedside Urine Ketone - Negative Urine Specific [place] 1.030 Bedside Urine Occult Blood - Negative Bedside Urine pH 6.0 Bedside Urine Protein - Negative Bedside Urine Urobilinogen - Negative Bedside Urine Nitrite - Negative Bedside Urine Leukocytes - Negative Esterase Imaging Data soft tissue CT neck: Radiologist's Impression: [address] [id number] Scan ReportSigned Patient: Je Hassan VMR#: [id number]: [id number]/Sex: 85 / MDate of Service: 07/19/20Loc: EDAccession Number: [id number] Procedure: CT soft tissue neck w con Ordering Provider: Juliette uGy D.O. PROCEDURE: CT SOFT TISSUE NECK W CON INDICATIONS: hx clavicle fracture, worsening bruising/swelling neck chest TECHNIQUE: After the administration of intravenous contrast, 3.0 mm axial sections acquired from the sella to the aortic arch. Additional oblique axial 3.0 mm sections acquired through the pharynx. 3 mm thick coronal and sagittal reformats were generated. For radiation dose reduction, the following was used: automated exposure control. COMPARISON: None. FINDINGS: Image quality: Excellent. Lymph nodes: No enlarged lymph nodes seen throughout the neck. Vessels: Visualized vasculature appears patent. Neck spaces: The oropharynx, nasopharynx, and pharynx demonstrate no mucosal lesions. The vocal cords, false vocal cords, pyriform sinuses, epiglottis, vallecula, and tongue base all appear normal. Extramucosal spaces appear unremarkable. Glands: The parotid and submandibular glands appear normal. Thyroid gland is normal. Miscellaneous: Visualized brain and orbits appear normal. Lung apices appear clear. Superficial soft tissues appear normal. Bones: Comminuted left medial clavicular head fracture with associated soft tissue contusion. Small hematoma is seen adjacent to the medial head of the left clavicle. Visualized sinuses and mastoids appear unremarkable. Severe degenerative disc disease at C4-C5, C5-C6 and C6-C7. Bilateral facet arthropathy scattered in cervical spine, most pronounced at C2-C3 and C3-C4 on the left. Extensive atherosclerotic calcifications at the carotid bifurcations bilaterally. IMPRESSION: 1. Comminuted left medial clavicular head fracture with associated soft tissue contusion with hematoma around the medial head of the left clavicle. Dictated by: Angela Guallpa M.D. on 07/19/2020 at 11:41 Approved by: Angela Guallpa M.D. on 07/19/2020 at 11:46 CT scan - chest: Radiologist's Impression: [address] [id number] Scan ReportSigned Patient: Je Hassan R#: [id number]: [id number]/Sex: 85 / MDate of Service: 07/19/20Loc: EDAccession Number: [id number] Procedure: CT chest abd pel w con Ordering Provider: Juliette Guy D.O. PROCEDURE: CT CHEST ABD PEL W CON INDICATIONS: Trauma TECHNIQUE: After the administration of intravenous contrast, 5 mm thick sections acquired from the lung apices to the symphysis. 5 mm coronal and sagittal reformats were performed, with additional 7 mm MIP reformats through the lungs. For radiation dose reduction, the following was used: automated exposure control, adjustment of mA and/or kV according to patient size. COMPARISON: [facility], CT, CT SOFT TISSUE NECK W CON, 07/19/2020, 10:26. [facility], CT, CT CHEST ABD PEL W CON, 07/16/2020, 20:49. FINDINGS: Image quality: Excellent. CHEST: Lungs and pleura: Subpleural septal thickening and pulmonary fibrosis. Moderate emphysema. No acute airspace opacities. No pleural effusions or pneumothorax. Central and peripheral airways appear patent and normal in caliber. Mediastinum: Mild stranding and trace retrosternal hematoma the level just below the aortic arch. No evidence for aortic or great vessel injuries. Heart size is normal. Severe coronary artery calcification. CABG. No pericardial effusion. No mediastinal or hilar adenopathy by size criteria. Thoracic aorta and central pulmonary arteries are normal in size. Esophagus is normal in caliber. Small hiatal hernia. Chest wall: Comminuted left medial clavicular head fracture with displacement. There is a hematoma adjacent to the medial head of the clavicle measuring 5.4 x 5.6 cm. There is enlargement of the left pectoralis major muscle, which may be secondary to intramuscular hematoma. There is extensive soft tissue swelling consistent with contusion in the anterior chest wall bilaterally. Sternotomy related to CABG. No sternal fracture. No axillary or supraclavicular adenopathy by size criteria. Thyroid gland is normal. ABDOMEN: Solid organs: Liver is normal in size and enhancement. Gallbladder is surgically absent. Biliary system is non dilated. Pancreas enhances normally. Spleen is mildly enlarged. No adrenal nodules. Kidneys demonstrate normal size and enhancement, without hydronephrosis. Small calcific foci in renal yaquelin bilaterally may be vascular calcifications or nonobstructive renal stones. Peritoneum and bowel: Bowel loops demonstrate normal wall thickness and caliber. Extensive diverticulosis. No evident to suggest acute diverticulitis. No free fluid or air. Nodes and vessels: No retroperitoneal or mesenteric adenopathy by size criteria. Aorta and inferior vena cava are normal in size. Extensive atherosclerosis. Bilateral common iliac artery aneurysm measuring 3.2 cm on the right and 2.6 cm on the left. Miscellaneous: There is a small ventral hernia above the umbilicus containing short segment of small intestine. PELVIS: Genitourinary: Bladder wall thickness is normal. Prostate is enlarged. Miscellaneous: No inguinal hernias or adenopathy. Bones: Old pelvic ramal fractures bilaterally. No suspicious bony lesions. No vertebral body compression fractures. Mild levoscoliosis. Grade 1 anterolisthesis of L4 on L5. There is moderate to severe degenerative disc and facet disease in cervical, thoracic and lumbar spine. IMPRESSION: 1. Comminuted left medial clavicular head fracture with hematoma adjacent fracture measuring 5.4 x 5.6 cm . There is enlargement of the left pectoralis major muscle, which may be secondary to intramuscular hematoma. There is extensive soft tissue swelling consistent with contusion in the anterior chest wall bilaterally. 2. Mild stranding and trace retrosternal hematoma in the anterior mediastinum the level just below the aortic arch. No findings to suggest aorta injury or great vessel injury. 3. No traumatic visceral injuries in abdomen or pelvis. 4. Subpleural septal thickening and pulmonary fibrosis. 5. Mild emphysema. 6. There is a small ventral hernia above the umbilicus containing a short segment of small intestine. 7. Extensive diverticulosis without diverticulitis. 8. Bilateral common iliac artery aneurysms. The result was discussed with Dr. Guy. Dictated by: Angela Guallpa M.D. on 07/19/2020 at 11:46 Approved by: Angela Guallpa M.D. on 07/19/2020 at 12:42 MDM Narrative Medical decision making narrative: This an 85-year-old male comes with increasing contusion of his anterior chest into his upper abdomen and neck with some increasing swelling. Patient has a known comminuted left clavicular fracture. He does take an aspirin 81 mg daily but is otherwise not anticoagulated. Patient's main complaint is his increasing contusion as well as some pain when sitting on his ischium. Patient has been taking Tylenol for his pain. They come in today because he has had increasing swelling and contusion over the last several days. Hemoglobin appears to have dropped 3 points. Patient is not hypotensive or tachycardic. CT imaging of the chest abdomen pelvis and soft tissue neck was included which does show contusion with some hematoma and a trace retrosternal hematoma. There is no obvious active aortic or vasculature injury. Discussed with General surgery here at the hospital as well as at [facility]. in conjunction plan for observation to General surgery as a trauma, hold aspirin and repeat hemoglobin hematocrit. If these continue to be stable patient can DC home with PT OT follow-up. Also spoke with orthopedic surgery who is aware of the patient but states no surgical intervention. <Antonia Gonzales MD - Last Filed: 07/19/20 18:57> Lab Data Labs: Lab Results 07/19/20 07/19/20 07/19/20 Range/Units 11:14 11:14 11:14 WBC 10.3 (4.5-11.0) X10^3/uL RBC 4.29 L (4.5-5.9) X10^6/uL Hgb 13.3 L (13.5-17.5) g/dL Hct 39.0 L (41-53) % MCV 91.0 (80-100) fL MCH 31.0 (26-34) PG MCHC 34.0 (30-36) % RDW 13.6 (11.6-14.8) % Plt Count 186 (150-400) X10^3/uL Neut % (Auto) 76.2 H (50-75) % Lymph % (Auto) 15.7 L (25-40) % [place] % (Auto) 6.9 (3-14) % Eos % (Auto) 0.7 L (2-4) % Baso % (Auto) 0.5 (0-2) % Neut # (Auto) 7800 H (6357-3654) /uL Lymph # (Auto) 1600 (7906-6354) /uL [place] # (Auto) 700 (0-900) /uL Eos # (Auto) 100 (0-450) /uL Baso # (Auto) 0 (0-100) /uL PT 12.0 (10.1-12.7) SECONDS INR 1.1 (0.9-1.3) APTT 29 (26.4-36.2) SECONDS Sodium 134 L (137-145) mmol/L Potassium 4.0 (3.4-5.1) mmol/L Chloride 101 (98-107) mmol/L Carbon Dioxide 25 (22-32) mmol/L BUN 20 (9-20) mg/dL Creatinine 1.23 (0.66-1.25) mg/dL Estimated GFR 56.1 L (>60) mL/min BUN/Creatinine Ratio 16.3 (6-22) Glucose 95 (80-110) mg/dL Calcium 9.0 (8.4-10.2) mg/dL Magnesium 1.9 (1.6-2.3) mg/dL Total Bilirubin 0.9 (0.2-1.3) mg/dL AST 25 (17-59) IU/L ALT 5 (<50) IU/L Alkaline Phosphatase 78 (38-126) U/L Total Creatine Kinase 101 (55-170) U/L CK-MB (CK-2) 3.30 H (<2.37) ng/mL CK-MB (CK-2) Rel Index 3.3 (1.5-5.0) % Troponin I < 0.012 (0.01-0.034) ng/mL Total Protein 6.6 (6.3-8.2) g/dL Albumin 3.8 (3.5-5.0) g/dL Globulin 2.8 (1.7-4.1) g/dL Albumin/Globulin Ratio 1.4 (1.0-2.8) Lipase 73 (23-300) U/L SARS-CoV-2 (PCR) (Negative) Blood Type Antibody Screen 07/19/20 07/19/20 Range/Units 11:14 12:25 WBC (4.5-11.0) X10^3/uL RBC (4.5-5.9) X10^6/uL Hgb (13.5-17.5) g/dL Hct (41-53) % MCV (80-100) fL MCH (26-34) PG MCHC (30-36) % RDW (11.6-14.8) % Plt Count (150-400) X10^3/uL Neut % (Auto) (50-75) % Lymph % (Auto) (25-40) % [place] % (Auto) (3-14) % Eos % (Auto) (2-4) % Baso % (Auto) (0-2) % Neut # (Auto) (5304-3080) /uL Lymph # (Auto) (7006-5820) /uL [place] # (Auto) (0-900) /uL Eos # (Auto) (0-450) /uL Baso # (Auto) (0-100) /uL PT (10.1-12.7) SECONDS INR (0.9-1.3) APTT (26.4-36.2) SECONDS Sodium (137-145) mmol/L Potassium (3.4-5.1) mmol/L Chloride (98-107) mmol/L Carbon Dioxide (22-32) mmol/L BUN (9-20) mg/dL Creatinine (0.66-1.25) mg/dL Estimated GFR (>60) mL/min BUN/Creatinine Ratio (6-22) Glucose (80-110) mg/dL Calcium (8.4-10.2) mg/dL Magnesium (1.6-2.3) mg/dL Total Bilirubin (0.2-1.3) mg/dL AST (17-59) IU/L ALT (<50) IU/L Alkaline Phosphatase (38-126) U/L Total Creatine Kinase (55-170) U/L CK-MB (CK-2) (<2.37) ng/mL CK-MB (CK-2) Rel Index (1.5-5.0) % Troponin I (0.01-0.034) ng/mL Total Protein (6.3-8.2) g/dL Albumin (3.5-5.0) g/dL Globulin (1.7-4.1) g/dL Albumin/Globulin Ratio (1.0-2.8) Lipase (23-300) U/L SARS-CoV-2 (PCR) Negative (Negative) Blood Type O Positive Antibody Screen Negative Urine Dip Bedside Urine Glucose Negative Bedside Urine Bilirubin - Negative Bedside Urine Ketone - Negative Urine Specific [place] 1.030 Bedside Urine Occult Blood - Negative Bedside Urine pH 6.0 Bedside Urine Protein - Negative Bedside Urine Urobilinogen - Negative Bedside Urine Nitrite - Negative Bedside Urine Leukocytes - Negative Esterase Discharge Plan Departure Patient Disposition: Admitted as Observation Clinical Impression: Clavicle fracture, Traumatic mediastinal hematoma, Anemia, Contusion of chest wall, Contusion of neck Admit Date/Time: 07/19/20 14:50 Admit Provider: Antonia Gonzales
--- NOTE | 2020-07-19 10:51 | DI.CT.S_ITS ---
PROCEDURE: CT CHEST ABD PEL W CON INDICATIONS: Trauma TECHNIQUE: After the administration of intravenous contrast, 5 mm thick sections acquired from the lung apices to the symphysis. 5 mm coronal and sagittal reformats were performed, with additional 7 mm MIP reformats through the lungs. For radiation dose reduction, the following was used: automated exposure control, adjustment of mA and/or kV according to patient size. COMPARISON: [facility], CT, CT SOFT TISSUE NECK W CON, 07/19/2020, 10:26. [facility], CT, CT CHEST ABD PEL W CON, 07/16/2020, 20:49. FINDINGS: Image quality: Excellent. CHEST: Lungs and pleura: Subpleural septal thickening and pulmonary fibrosis. Moderate emphysema. No acute airspace opacities. No pleural effusions or pneumothorax. Central and peripheral airways appear patent and normal in caliber. Mediastinum: Mild stranding and trace retrosternal hematoma the level just below the aortic arch. No evidence for aortic or great vessel injuries. Heart size is normal. Severe coronary artery calcification. CABG. No pericardial effusion. No mediastinal or hilar adenopathy by size criteria. Thoracic aorta and central pulmonary arteries are normal in size. Esophagus is normal in caliber. Small hiatal hernia. Chest wall: Comminuted left medial clavicular head fracture with displacement. There is a hematoma adjacent to the medial head of the clavicle measuring 5.4 x 5.6 cm. There is enlargement of the left pectoralis major muscle, which may be secondary to intramuscular hematoma. There is extensive soft tissue swelling consistent with contusion in the anterior chest wall bilaterally. Sternotomy related to CABG. No sternal fracture. No axillary or supraclavicular adenopathy by size criteria. Thyroid gland is normal. ABDOMEN: Solid organs: Liver is normal in size and enhancement. Gallbladder is surgically absent. Biliary system is non dilated. Pancreas enhances normally. Spleen is mildly enlarged. No adrenal nodules. Kidneys demonstrate normal size and enhancement, without hydronephrosis. Small calcific foci in renal yaquelin bilaterally may be vascular calcifications or nonobstructive renal stones. Peritoneum and bowel: Bowel loops demonstrate normal wall thickness and caliber. Extensive diverticulosis. No evident to suggest acute diverticulitis. No free fluid or air. Nodes and vessels: No retroperitoneal or mesenteric adenopathy by size criteria. Aorta and inferior vena cava are normal in size. Extensive atherosclerosis. Bilateral common iliac artery aneurysm measuring 3.2 cm on the right and 2.6 cm on the left. Miscellaneous: There is a small ventral hernia above the umbilicus containing short segment of small intestine. PELVIS: Genitourinary: Bladder wall thickness is normal. Prostate is enlarged. Miscellaneous: No inguinal hernias or adenopathy. Bones: Old pelvic ramal fractures bilaterally. No suspicious bony lesions. No vertebral body compression fractures. Mild levoscoliosis. Grade 1 anterolisthesis of L4 on L5. There is moderate to severe degenerative disc and facet disease in cervical, thoracic and lumbar spine. IMPRESSION: 1. Comminuted left medial clavicular head fracture with hematoma adjacent fracture measuring 5.4 x 5.6 cm . There is enlargement of the left pectoralis major muscle, which may be secondary to intramuscular hematoma. There is extensive soft tissue swelling consistent with contusion in the anterior chest wall bilaterally. 2. Mild stranding and trace retrosternal hematoma in the anterior mediastinum the level just below the aortic arch. No findings to suggest aorta injury or great vessel injury. 3. No traumatic visceral injuries in abdomen or pelvis. 4. Subpleural septal thickening and pulmonary fibrosis. 5. Mild emphysema. 6. There is a small ventral hernia above the umbilicus containing a short segment of small intestine. 7. Extensive diverticulosis without diverticulitis. 8. Bilateral common iliac artery aneurysms. The result was discussed with Dr. Guy. Dictated by: Angela Guallpa M.D. on 07/19/2020 at 11:46 Approved by: Angela Guallpa M.D. on 07/19/2020 at 12:42
[2020-07-19 11:39] LABS: Add Manual Diff / Slide Review NO; Basophils Absolute Auto 0 /uL (0-100); Basophils Percent Auto 0.5 % (0-2); Eosinophils Absolute Auto 100 /uL (0-450); Eosinophils Percent Auto 0.7 % (2-4); Hemoglobin 13.3 g/dL (13.5-17.5); Lymphocytes Absolute Auto 1600 /uL (1100-4500); Lymphocytes Percent Auto 15.7 % (25-40); Monocytes Absolute Auto 700 /uL (0-900); Monocytes Percent Auto 6.9 % (3-14); Neutrophils Absolute Auto 7800 /uL (1500-7000); Neutrophils Percent Auto 76.2 % (50-75); Platelet Count 186 X10^3/uL (150-400); Red Blood Cell Count 4.29 X10^6/uL (4.5-5.9); Red Cell Distribution Width 13.6 % (11.6-14.8); White Blood Cell Count 10.3 X10^3/uL (4.5-11.0)
[2020-07-19 11:43] LABS: INR 1.1 (0.9-1.3)
[2020-07-19 11:46] LABS: PTT Partial Thromboplastin Tim 29 SECONDS (26.4-36.2)
[2020-07-19 11:48] LABS: Alanine Aminotransferase 5 IU/L (<50); Albumin 3.8 g/dL (3.5-5.0); Albumin Globulin Ratio 1.4 (1.0-2.8); Alkaline Phosphatase 78 U/L (38-126); Aspartate Aminotransferase 25 IU/L (17-59); BUN Creatinine Ratio 16.3 (6-22); Bilirubin Total 0.9 mg/dL (0.2-1.3); Blood Urea Nitrogen 20 mg/dL (9-20); Carbon Dioxide 25 mmol/L (22-32); Chloride 101 mmol/L (98-107); Creatine Kinase 101 U/L (55-170); Estimated Glomerular Filt Rate 56.1 mL/min (>60); Globulin 2.8 g/dL (1.7-4.1); Glucose 95 mg/dL (80-110); HEMOLYSIS < 15 (0-50); Lipase 73 U/L (23-300); Magnesium 1.9 mg/dL (1.6-2.3); Sodium 134 mmol/L (137-145); Total Protein 6.6 g/dL (6.3-8.2)
[2020-07-19 11:59] LABS: Troponin I < 0.012 ng/mL (0.01-0.034)
[2020-07-19 12:02] LABS: CKMB % Relative Index 3.3 % (1.5-5.0)
[2020-07-19 13:19] LABS: COVID19 - ADMIT (NP swab/PCR) Negative (Negative)
[2020-07-19] MEDS: OXYCODONE IR 5 MG TABLET PO (16:23)
[2020-07-19] MEDS: ACETAMINOPHEN 325 MG TABLET 650 MG PO (16:24)
[2020-07-19] MEDS: CARBIDOPA-LEVODOPA 25/100 TABLET 1 EACH PO (18:35)
--- NOTE | 2020-07-19 18:57 | PM.HP.1 ---
History of Present Illness History of Present Illness Date Patient Seen: 07/19/20 Time Patient Seen: 16:58 Date of Onset of Symptoms: 07/16/20 Chief complaint: Pelvic pain from a fall was here sunday Narrative: Ground level fall on Sunday was seen in ED and discharged home. Returns today with increased swelling in chest and neck. No LOC on initial event. ASA as only anticoagulation. H/O Cardiac arrythmia, EF 20-25% and Parkinson's among other issues. No significant pain. Smoker's cough, no difficulty swallowing. NO dizziness. CT scan of chest shows communutided left clavicale fracture and associated >5cm hematoma, no active extravasations or association with large vessel. Substernal haziness c/w blood, s/p open heart , no sternal fracture Patient History Medical History COPD (chronic obstructive pulmonary disease) Coronary artery disease (~2010) Essential hypertension Hearing loss (~2013) Hemorrhoid (~1979) Ischemic cardiomyopathy Mixed hyperlipidemia Parkinson's disease Paroxysmal atrial fibrillation Peripheral vascular disease (~2016) Wears glasses Surgical History Anesthesia Gallstones (~2017) History of cataract removal with insertion of prosthetic lens (~2018) History of heart bypass surgery (~2011) History of surgery (~2016) History of surgery (~2016) Pelvis fracture (~2012) Right groin hernia (~2018) S/P laparoscopic cholecystectomy Family & Social History Family History Father History of heart disease Mother No problems noted. Grandmother Diabetes mellitus Grandfather History of heart disease Family/Other No problems noted. Social History: household members spouse Prior Living Arrangements House Safety & Behavioral: Feels Safe in Current Yes Environment Been Physically Hurt or No Threatened By a Person Suicidal Ideation Description None Suicide Plan Description No Plan Tobacco & Substance use: Tobacco type cigarettes Smoking Status Current every day smoker alcohol intake never Substance Use Type does not use Meds Home Medications and Allergies Home Medications Medication Instructions Recorded Confirmed Type amlodipine 2.5 mg PO DAILY 12/27/18 07/19/20 History hydrochlorothiazide 12.5 mg PO DAILY 12/27/18 07/19/20 History nitroglycerin 0.4 mg sublingual 0.4 mg SL Q5M PRN 03/10/19 07/19/20 History tablet aspirin 81 mg tablet,delayed 81 mg PO DAILY 09/22/19 07/19/20 History release carbidopa 25 mg-levodopa 100 mg 1 tab PO TID tab 03/23/20 07/19/20 History tablet atorvastatin 20 mg tablet 20 mg PO DAILY tab 06/22/20 07/19/20 History mometasone 0.1 % topical ointment 1 applic TOPICAL DAILY PRN 06/22/20 07/19/20 History Allergies Allergy/AdvReac Type Severity Reaction Status Date / Time No Known Drug Allergies Allergy Verified 06/22/20 13:35 Review of Systems Review of Systems ROS: Yes All systems reviewed with the patient and are negative except as otherwise documented Constitutional Constitutional: Denies snoring ENT Ears, Nose, Mouth, and Throat: Yes abnormal hearing Comments: neck swelling Cardiovascular Cardiovascular: Reports system reviewed and no additional complaints, except as documented, Denies dyspnea and Denies dyspnea on exertion Respiratory Respiratory: Reports as per HPI, Reports system reviewed and no additional complaints, except as documented, Denies change in phlegm color, Denies chest congestion, Reports cough, Denies hemoptysis, Denies excessive phlegm production, Denies pain on inspiration, Denies pain with cough, Denies dyspnea, Denies dyspnea on exertion, Denies snoring, Denies stridor, Denies wheezing and Denies other Neurologic Neurologic: Reports abnormal hearing Allergic/Immunologic Allergic/Immunologic: Denies wheezing Exam Vital Signs (past 8 hours): - 07/19/20 11:00 07/19/20 11:26 07/19/20 11:30 Temperature Pulse Rate 79 65 73 Respiratory Rate 6 L 16 Blood Pressure 123/56 L 110/62 Pulse Oximetry 97 96 07/19/20 12:00 07/19/20 12:01 07/19/20 12:30 Temperature Pulse Rate 70 71 67 Respiratory Rate Blood Pressure 111/64 109/76 Pulse Oximetry 96 98 96 07/19/20 13:00 07/19/20 13:01 07/19/20 13:30 Temperature Pulse Rate 75 71 76 Respiratory Rate Blood Pressure 113/68 101/56 L Pulse Oximetry 97 96 96 07/19/20 14:00 07/19/20 14:30 07/19/20 14:31 Temperature Pulse Rate 74 80 78 Respiratory Rate 20 22 Blood Pressure 108/56 L 148/65 H Pulse Oximetry 94 95 95 07/19/20 15:00 07/19/20 15:30 07/19/20 15:31 Temperature Pulse Rate 77 78 77 Respiratory Rate 24 20 19 Blood Pressure 127/69 121/58 L Pulse Oximetry 94 94 94 07/19/20 16:00 07/19/20 16:45 Temperature 98.6 F Pulse Rate 78 63 Respiratory Rate 20 24 Blood Pressure 127/65 Pulse Oximetry 95 95 Oxygen Delivery Method Room Air Oxygen Flow Rate 0 Const General: cooperative and comfortable Nutritional Appearance: average body habitus [facility] Head: normocephalic Ears: hearing grossly normal bilaterally Nose: external nose normal Eyes Sclera: sclerae normal Neck Neck: trachea midline Other: bruising of left neck Chest Chest: abnormal inspection of the chest (swelling left clavicular area with extensive brusing ) and tenderness Other: bruising extending via gravity down along left chest and upper abd Resp Effort & Inspection: normal respiratory effort and able to speak in complete sentences Cardio Rate: regular rate Rhythm: abnormal rhythm with ectopic beats GI Palpation: soft Other: non tender Back/Spine/Pelvis Back: normal to inspection, back tenderness (left buttock, no mass or bruising), No crepitance, No CVA tenderness, No ecchymosis, No erythema, No Schwarz-Wadsworth sign present, No mass, No sacral edema, No warmth and No other Skin General: ecchymosis (extensive upper left torso) Neuro General: patient alert, patient oriented x3 and moves all extremities Psych Appearance: well kempt Mental Status: mental status grossly normal Affect: normal affect Objective Labs Result Diagrams: 07/19/20 11:14 07/19/20 11:14 Labs: Laboratory Results - last 24 hr 07/19/20 07/19/20 07/19/20 11:14 11:14 11:14 WBC 10.3 RBC 4.29 L Hgb 13.3 L Hct 39.0 L MCV 91.0 MCH 31.0 MCHC 34.0 RDW 13.6 Plt Count 186 Neut % (Auto) 76.2 H Lymph % (Auto) 15.7 L [place] % (Auto) 6.9 Eos % (Auto) 0.7 L Baso % (Auto) 0.5 Neut # (Auto) 7800 H Lymph # (Auto) 1600 [place] # (Auto) 700 Eos # (Auto) 100 Baso # (Auto) 0 PT 12.0 INR 1.1 APTT 29 Sodium 134 L Potassium 4.0 Chloride 101 Carbon Dioxide 25 BUN 20 Creatinine 1.23 Estimated GFR 56.1 L BUN/Creatinine Ratio 16.3 Glucose 95 Calcium 9.0 Magnesium 1.9 Total Bilirubin 0.9 AST 25 ALT 5 Alkaline Phosphatase 78 Total Creatine Kinase 101 CK-MB (CK-2) 3.30 H CK-MB (CK-2) Rel Index 3.3 Troponin I < 0.012 Total Protein 6.6 Albumin 3.8 Globulin 2.8 Albumin/Globulin Ratio 1.4 Lipase 73 SARS-CoV-2 (PCR) Blood Type Antibody Screen 07/19/20 07/19/20 11:14 12:25 WBC RBC Hgb Hct MCV MCH MCHC RDW Plt Count Neut % (Auto) Lymph % (Auto) [place] % (Auto) Eos % (Auto) Baso % (Auto) Neut # (Auto) Lymph # (Auto) [place] # (Auto) Eos # (Auto) Baso # (Auto) PT INR APTT Sodium Potassium Chloride Carbon Dioxide BUN Creatinine Estimated GFR BUN/Creatinine Ratio Glucose Calcium Magnesium Total Bilirubin AST ALT Alkaline Phosphatase Total Creatine Kinase CK-MB (CK-2) CK-MB (CK-2) Rel Index Troponin I Total Protein Albumin Globulin Albumin/Globulin Ratio Lipase SARS-CoV-2 (PCR) Negative Blood Type O Positive Antibody Screen Negative Assessment & Plan Assessment & Plan narrative: Fall from standing with left clavicular fracture Anemia from acute blood loss, no active bleeding No evidence of cardiac contusion or damage to great vessels of chest Soft tissue hematoma left chest wall No evidence of coagulopathy. Comorbid states contributing: Parkinson Low cardiac EF Chronic ASA use Plan: Observation with telemetry and repeat hct. Ortho consult for left clavicle fracture Hold ASA for minimum of 2 weeks PT consult for clavicle fracture COVID-19 COVID-19 status: Negative Result date/Date tested (Pos, Neg/Pending): 07/19/20
[2020-07-19] MEDS: ATORVASTATIN 20 MG TABLET PO (21:03)
[2020-07-20 05:31] VITALS: BP 120/58; PULSE 74; RESP 16; TEMP 36.6; O2SAT 92
[2020-07-20] MEDS: OXYCODONE IR 5 MG TABLET PO (06:30)
[2020-07-20] MEDS: ACETAMINOPHEN 325 MG TABLET 650 MG PO (06:31)
[2020-07-20 06:41] LABS: Creatine Kinase 58 U/L (55-170)
[2020-07-20 06:52] LABS: Troponin I < 0.012 ng/mL (0.01-0.034)
[2020-07-20 08:00] VITALS: BP 102/43; PULSE 67; RESP 18; TEMP 36.3; O2SAT 96
[2020-07-20 08:10] LABS: Add Manual Diff / Slide Review NO; Basophils Absolute Auto 0 /uL (0-100); Basophils Percent Auto 0.6 % (0-2); Eosinophils Absolute Auto 200 /uL (0-450); Eosinophils Percent Auto 1.9 % (2-4); Hematocrit 37.5 % (41-53); Hemoglobin 12.6 g/dL (13.5-17.5); Lymphocytes Absolute Auto 2200 /uL (1100-4500); Lymphocytes Percent Auto 27.7 % (25-40); Mean Corpuscular HGB Conc 33.7 % (30-36); Mean Corpuscular Hemoglobin 30.6 PG (26-34); Mean Corpuscular Volume 90.6 fL (80-100); Monocytes Absolute Auto 600 /uL (0-900); Monocytes Percent Auto 7.1 % (3-14); Neutrophils Absolute Auto 5100 /uL (1500-7000); Neutrophils Percent Auto 62.7 % (50-75); Platelet Count 176 X10^3/uL (150-400); Red Blood Cell Count 4.14 X10^6/uL (4.5-5.9); Red Cell Distribution Width 13.8 % (11.6-14.8); White Blood Cell Count 8.1 X10^3/uL (4.5-11.0)
[2020-07-20] MEDS: SODIUM CHLORIDE 0.9% FLUSH 10 ML IV (08:42)
[2020-07-20] MEDS: CARBIDOPA-LEVODOPA 25/100 TABLET 1 EACH PO (08:42)
[2020-07-20] MEDS: hydroCHLOROthiazide 25 MG TABLET 12.5 MG PO (08:42)
[2020-07-20] MEDS: HYDROCODONE/ACET 5/325 TABLET 1 TAB PO (10:54)
--- NOTE | 2020-07-20 11:15 | PT.IIE ---
Surgical History (Last Reviewed 07/19/20 @ 18:57 by Antonia Gonzales MD) Anesthesia Gallstones (~2017) History of cataract removal with insertion of prosthetic lens (~2018) History of heart bypass surgery (~2011) History of surgery (~2016) History of surgery (~2016) Pelvis fracture (~2012) Right groin hernia (~2018) S/P laparoscopic cholecystectomy Medical History (Last Updated 07/20/20 @ 08:44 by Johanna Quarles RN) COPD (chronic obstructive pulmonary disease) Coronary artery disease (~2010) Essential hypertension Hearing loss (~2013) Hemorrhoid (~1979) Ischemic cardiomyopathy Mixed hyperlipidemia Parkinson disease Parkinson's disease Paroxysmal atrial fibrillation Peripheral vascular disease (~2016) Wears glasses Physical Therapy Inpatient Evaluation/Re-Eval M1 PT/OT-IP Prior Functional Status Start: 07/20/20 11:57 Freq: NEEDED Status: Active Protocol: Document 07/20/20 11:15 AB (Rec: 07/20/20 12:13 AB [email or web address]) Medical Review Prior Functional Status Medical History Reviewed Yes Communication able to make needs known Mobility and Gait pt stated that he is modified independent with all mobilities and ambulation without AD indoors but uses SPC for outdoor mobility Social History Household Members spouse Living Arrangements House Number of Floors (Floors) Two Floors Number of Stairs To Enter/Railing? 10 steps to enter with bilateral rails 15 steps with B rails to get to 2nd level bed room but spouse stated that they moved him to sleep downstairs since last sunday's fall Home Environment High Toilet,Walk in Shower, Built-In Shower Seat Home Equipment Four Wheel Walker,Straight Cane,Grab Bars Near Toilet M2 PT-IP Current Condition Start: 07/20/20 11:57 Freq: NEEDED Status: Active Protocol: Document 07/20/20 11:15 AB (Rec: 07/20/20 12:13 AB [email or web address]) Physical Therapy Current Condition Current Condition Evaluation Date 07/20/20 Treatment Diagnosis s/p fall; L comminuted medial clavicluar head fx; difficulty in walking Onset Date 07/19/20 Precautions Shoulder Precautions Sling Weight Bearing Status Weight Bearing Status Non-Weight Bearing Allowed Weight Bearing Amount (enter % LLE NWB or #) (%) M3 PT-IP Subjective Start: 07/20/20 11:57 Freq: NEEDED Status: Active Protocol: Document 07/20/20 11:15 AB (Rec: 07/20/20 12:13 AB [email or web address]) Subjective Physical Therapy Visit Type Type Initial Evaluation Visit Start Time 11:15 Visit Stop Time 11:45 Total Visit Minutes 30 Number of ATG JAVA DEVELOPER Visits 0 Physical Therapy Visit Comments Patient Comments agreeable to do PT Therapy Pain Assessment Pain When Pain Assessed At Rest Pain Present Pain Present Pain Reported Location Left Shoulder Intensity 1 Scale Used Numeric (0 - 10) Pain Management Techniques Distraction,Modification of Treatment,Re-positioning, Timing of Activity with Medications left hip Intensity 3 Pain Management Techniques Distraction,Modification of Treatment,Re-positioning, Timing of Activity with Medications M4 PT-IP Mobility and Gait Start: 07/20/20 11:57 Freq: NEEDED Status: Active Protocol: Document 07/20/20 11:15 AB (Rec: 07/20/20 12:13 AB [email or web address]) PT-Bed Mobility Assessment Supine to Sit Supine to Sit Standby Assistance Sit to Supine Sit to Supine Standby Assistance PT-Transfer Assessment Sit to and From Stand Sit to and from Stand Standby Assistance Equipment Transfer Assistive Device None,Gait Belt Orthotic/Prosthetic Devices or Brace: No Transfers Transfer Destination Chair Transfer Technique ambulated without AD Transfer Ability Level of Assist Standby Assistance Comments Mobility Comments pt supine in bed. spouse in room. spouse stated that pt's sling is at home. offered another sling but pt refuse. pt refuse to use sling and also refuse to use SPC indoors . pt educated on precautions and safety and understood but continues to refuse use of sling. completed supine to sit SBA. cued pt not to use or push with LUE during movement. pt was able to sit on EOB SBA. completed sit to stand sBA and ambulated in room without AD SBA. pt can be impulsive and cued for safety. pt agreed to walk in the hallway and do stair climbing. completed ambulation without AD SBA to CGA ~ 150 ft. pt with increase lateral trunk lean to the R with unsteady gait and slight LOB requiring CGA for safety. completed up/down stair using R rail SBA to occasionally CGA for safety due to pt's impulsiveness. pt ambulated back to his room SBA to CGA without AD. requested to go back to bed and completed SBa. positioned in bed. call light and table placed within reach. informed pt and spouse regarding LUE precautions, use of sling, use of SPC for steadiness. pt understood. Gait Assessment Gait Gait Assistance Required: Standby Assistance,Contact Guard Assist Distance (Feet) 150 Able to Maintain Weight Bearing Status Yes During Gait Assistive Devices Assistive Device None,Gait Belt Orthotic/Prosthetic Devices or Brace: No Gait Deviations General Gait Pattern Antalgic,Lateral Trunk Lean Factors Limiting Gait Function Factors Limiting Gait Function Decreased Activity Tolerance, Decreased Strength,Limited Range of Motion,Pain,Poor Balance,Poor Safety Awareness Comments Gait Comments pls refer to mobility section for details Stair Climbing Assessment Devices Stair Climbing Assistive Devices Right Railing Technique/Endurance Stair Climbing Direction Ascend and Descend Stair Climbing Technique Step Over Step Number of Steps Climbed 3 Query Text: Comments Stair Climbing Comments 3 PT-Balance Assessment Sitting Balance and Reactions Static Sitting Balance Ability Normal Dynamic Sitting Balance Ability Good Standing Balance and Reactions Static Standing Balance Ability Good Dynamic Standing Balance Ability Fair Device Used without AD M5 PT-IP Objective Assessments Start: 07/20/20 11:57 Freq: NEEDED Status: Active Protocol: Document 07/20/20 11:15 AB (Rec: 07/20/20 12:13 AB [facility] Orientation Orientation/Cognition Level of Alertness Alert Orientation Name,Place,Situation Language Function Ability Hard of Hearing Safety Awareness Decreased Safety Awareness Gross Range of Motion Lower Extremity ROM Assessment Within Functional Limits Strength Lower Extremity Strength Assessment Within Functional Limits Muscle Tone Muscle Tone WNL Yes M6 PT-IP Treatment Start: 07/20/20 11:57 Freq: NEEDED Status: Active Protocol: Document 07/20/20 11:15 AB (Rec: 07/20/20 12:13 AB [facility] Physical Therapy Treatment Education Education Provided Precautions,Weight Bearing Status,Safety Other Treatments Other Treatment Performed educated pt and spouse on proper positioning and use of sling. pt refusing to use sling. pt encouraged to use and educated on benefits and proper UE position on sling. pt continues to refuse M7 PT-IP Assessment and Plan Start: 07/20/20 11:57 Freq: NEEDED Status: Active Protocol: Document 07/20/20 11:15 AB (Rec: 07/20/20 12:13 AB [facility]) PT Summary Assessment and Plan Potential Rehabilitation Potential Good Summary Impairments Pain,ROM,Strength,Balance, Coordination,Cognition,Bed Mobility,Transfers,Gait, Activity Tolerance Assessment Summary pt requiring SBA to CGA with mobility. pt can be impulsive and educated on safety. educated on LUE precautions and use of sling. also recommending use of SPC even indoors but pt refuse. informed spouse regarding recommendations and agreed and stated that she will encouragement pt to use SPC and sling at home. stated that she will be with pt and if not, her daugther can assist and if needed will hire visiting nurses. pt plans to go home and spouse to assist. pt may go home when medically stable. Goals Bed Mobility Goal Independent Transfer Goal Independent Gait Goal Independent Gait Distance 200 Other Goals up/down 10 steps 1 rail mod I Days to Meet Goals 3 Frequency of Treatment Frequency Of Treatment Once a Day Treatment Plan Physical Therapy Treatment Plan Bed Mobility Training,Transfer Training,Gait Training, Therapeutic Exercise,Balance Retraining,Discharge Planning, Hot or Cold Pack,Neuromuscular Re-ed,Coordination Retraining Precautions Shoulder Precautions Sling Other Precautions LUE NWB Recommendations To Nursing Amount of Assist Needed 1 Person Assist Discharge Recommendations PT Discharge Recommendations Home with Assistance Transportation Needs at Discharge Private Vehicle
--- NOTE | 2020-07-20 11:45 | P.PN_ITS ---
Subjective Subjective Date Patient Seen: 07/20/20 Time Patient Seen: 11:46 Interval history: NO neck or shoulder pain, only left buttock pain. H/o internal fix of pelvic fracture. Exam Vital Signs (past 8 hours): - 07/20/20 05:31 07/20/20 08:00 Temperature 97.9 F 97.4 F L Pulse Rate 74 67 Respiratory Rate 16 18 Blood Pressure 120/58 L 102/43 L Pulse Oximetry 92 96 Oxygen Delivery Method Room Air Oxygen Flow Rate 0 Narrative Exam Narrative: Stable over night. No cardiac or pulmonary issues. Continues to report left buttock pain as the only bad thing. Const General: cooperative Nutritional Appearance: average body habitus [facility] Head: normal to inspection Neck Other: eccymosis in bilateral left >right with bulge as left clavicle Chest Other: bruising following gravity to the left side and down, no loss of skin intergrity. Resp Effort & Inspection: normal respiratory effort and able to speak in complete sentences Cardio Other: no tele events over night. Hct stable or as anticipated GI Palpation: soft Back/Spine/Pelvis Other: left buttock pain to palpation w/o deformity or discoloration. Films reviewed again and are normal Psych Affect: normal affect Attitude: cooperative Objective Labs Result Diagrams: 07/20/20 06:11 07/19/20 11:14 Labs: Laboratory Results - last 24 hr 07/19/20 07/19/20 07/19/20 11:14 11:14 11:14 WBC RBC Hgb Hct MCV MCH MCHC RDW Plt Count Neut % (Auto) Lymph % (Auto) [place] % (Auto) Eos % (Auto) Baso % (Auto) Neut # (Auto) Lymph # (Auto) [place] # (Auto) Eos # (Auto) Baso # (Auto) PT 12.0 INR 1.1 APTT 29 Sodium 134 L Potassium 4.0 Chloride 101 Carbon Dioxide 25 BUN 20 Creatinine 1.23 Estimated GFR 56.1 L BUN/Creatinine Ratio 16.3 Glucose 95 Calcium 9.0 Magnesium 1.9 Total Bilirubin 0.9 AST 25 ALT 5 Alkaline Phosphatase 78 Total Creatine Kinase 101 CK-MB (CK-2) 3.30 H CK-MB (CK-2) Rel Index 3.3 Troponin I < 0.012 Total Protein 6.6 Albumin 3.8 Globulin 2.8 Albumin/Globulin Ratio 1.4 Lipase 73 SARS-CoV-2 (PCR) Blood Type O Positive Antibody Screen Negative 07/19/20 07/20/20 07/20/20 12:25 06:11 06:11 WBC 8.1 RBC 4.14 L Hgb 12.6 L Hct 37.5 L MCV 90.6 MCH 30.6 MCHC 33.7 RDW 13.8 Plt Count 176 Neut % (Auto) 62.7 Lymph % (Auto) 27.7 [place] % (Auto) 7.1 Eos % (Auto) 1.9 L Baso % (Auto) 0.6 Neut # (Auto) 5100 Lymph # (Auto) 2200 [place] # (Auto) 600 Eos # (Auto) 200 Baso # (Auto) 0 PT INR APTT Sodium Potassium Chloride Carbon Dioxide BUN Creatinine Estimated GFR BUN/Creatinine Ratio Glucose Calcium Magnesium Total Bilirubin AST ALT Alkaline Phosphatase Total Creatine Kinase 58 CK-MB (CK-2) TNP CK-MB (CK-2) Rel Index TNP Troponin I < 0.012 Total Protein Albumin Globulin Albumin/Globulin Ratio Lipase SARS-CoV-2 (PCR) Negative Blood Type Antibody Screen [facility] Medical History (Updated 07/20/20 @ 08:44 by Johanna Quarles RN) COPD (chronic obstructive pulmonary disease) Coronary artery disease (~2010) Essential hypertension Hearing loss (~2013) Hemorrhoid (~1979) Ischemic cardiomyopathy Mixed hyperlipidemia Parkinson disease Parkinson's disease Paroxysmal atrial fibrillation Peripheral vascular disease (~2016) Wears glasses Surgical History Anesthesia Gallstones (~2017) History of cataract removal with insertion of prosthetic lens (~2018) History of heart bypass surgery (~2011) History of surgery (~2016) History of surgery (~2016) Pelvis fracture (~2012) Right groin hernia (~2018) S/P laparoscopic cholecystectomy Family History Father History of heart disease Mother No problems noted. Grandmother Diabetes mellitus Grandfather History of heart disease Family/Other No problems noted. Social History marital status: household members: spouse occupational status: previously employed Smoking Status: Current every day smoker alcohol intake: never substance use type: does not use Assessment & Plan Assessment & Plan narrative: No concern for cardiac or bleeding issues after overnight observation. Left buttock pain w/o clinical findings may represent tearing of scar tissue. Plan: discharge home after PT has seen him. Lambert for pain Hold ASA for 2 weeks No surgical fix on clavicular fracture. COVID-19 COVID-19 status: Negative Time Spent With Patient Time with patient: Greater than 35 minutes
--- NOTE | 2020-07-20 11:54 | PM.DS.1 ---
History of Present Illness History of Present Illness Chief complaint: Pelvic pain from a fall was here sunday Narrative: Ground level fall on Sunday was seen in ED and discharged home. Returns today with increased swelling in chest and neck. No LOC on initial event. ASA as only anticoagulation. H/O Cardiac arrythmia, EF 20-25% and Parkinson's among other issues. No significant pain. Smoker's cough, no difficulty swallowing. NO dizziness. CT scan of chest shows communutided left clavicale fracture and associated >5cm hematoma, no active extravasations or association with large vessel. Substernal haziness c/w blood, s/p open heart , no sternal fracture Discharge Providers Provider Date of admission: 07/19/20 14:50 Discharge Date: 07/20/20 Primary care physician: Olaf Espinosa MD Consults: 07/19/20 15:00 Consult to Respiratory Therapy Evaluate & Treat Comment: goal of 80% inspirority cap[place] or max 1500mL Physician Instructions: Baseline spriometry vol 07/19/20 19:27 Consult to Respiratory Therapy Evaluate & Treat Comment: pulmonary toilet Physician Instructions: Evaluate and treat 07/19/20 19:28 Consult to Physical Therapy Evaluate & Treat Comment: left clavicle fracture Physician Instructions: Evaluate and Treat Discharge provider: Antonia Gonzales MD Summary Hospital Course Discharge Diagnosis: s/p ground level fall with left clavicle fracture and associated hematoma that is disbursing appropriately. Left hip/buttock pain to be treated as soft tissue only with warm pack and pain medication Hospital Course: uncomplicated Status at Discharge Cognitive/behavioral status at discharge: oriented Overall status at discharge: patient is back to baseline Time Spent with Patient Time spent: Greater than 30 minutes Exam Vital Signs (past 8 hours): - 07/20/20 05:31 07/20/20 08:00 Temperature 97.9 F 97.4 F L Pulse Rate 74 67 Respiratory Rate 16 18 Blood Pressure 120/58 L 102/43 L Pulse Oximetry 92 96 Oxygen Delivery Method Room Air Oxygen Flow Rate 0 Narrative Exam Narrative: see progess note Objective Labs Result Diagrams: 07/20/20 06:11 07/19/20 11:14 Labs: Laboratory Results - last 24 hr 07/19/20 07/19/20 07/19/20 11:14 11:14 12:25 WBC RBC Hgb Hct MCV MCH MCHC RDW Plt Count Neut % (Auto) Lymph % (Auto) [place] % (Auto) Eos % (Auto) Baso % (Auto) Neut # (Auto) Lymph # (Auto) [place] # (Auto) Eos # (Auto) Baso # (Auto) Total Creatine Kinase CK-MB (CK-2) 3.30 H CK-MB (CK-2) Rel Index 3.3 Troponin I < 0.012 SARS-CoV-2 (PCR) Negative Blood Type O Positive Antibody Screen Negative 07/20/20 07/20/20 06:11 06:11 WBC 8.1 RBC 4.14 L Hgb 12.6 L Hct 37.5 L MCV 90.6 MCH 30.6 MCHC 33.7 RDW 13.8 Plt Count 176 Neut % (Auto) 62.7 Lymph % (Auto) 27.7 [place]ope % (Auto) 7.1 Eos % (Auto) 1.9 L Baso % (Auto) 0.6 Neut # (Auto) 5100 Lymph # (Auto) 2200 [place] # (Auto) 600 Eos # (Auto) 200 Baso # (Auto) 0 Total Creatine Kinase 58 CK-MB (CK-2) TNP CK-MB (CK-2) Rel Index TNP Troponin I < 0.012 SARS-CoV-2 (PCR) Blood Type Antibody Screen [facility] Medical History (Updated 07/20/20 @ 08:44 by Johanna Quarles RN) COPD (chronic obstructive pulmonary disease) Coronary artery disease (~2010) Essential hypertension Hearing loss (~2013) Hemorrhoid (~1979) Ischemic cardiomyopathy Mixed hyperlipidemia Parkinson disease Parkinson's disease Paroxysmal atrial fibrillation Peripheral vascular disease (~2016) Wears glasses Surgical History Anesthesia Gallstones (~2017) History of cataract removal with insertion of prosthetic lens (~2018) History of heart bypass surgery (~2011) History of surgery (~2016) History of surgery (~2016) Pelvis fracture (~2012) Right groin hernia (~2018) S/P laparoscopic cholecystectomy Family History Father History of heart disease Mother No problems noted. Grandmother Diabetes mellitus Grandfather History of heart disease Family/Other No problems noted. Social History marital status: household members: spouse occupational status: previously employed Smoking Status: Current every day smoker alcohol intake: never substance use type: does not use Discharge Assessment & Plan Assessment and Plan Assessment: s/p fall with left clavicle fracture, left clavicular hematoma, mild anemia of acute blood loss, chronic issues of Parkinson's and cardiac decline. main complaint of left buttock pain. Appears from workup and exam to be soft tissue. Plan of Treatment: home with with Morton, avoid asa for 2 weeks as well as ibuprofen (do to age). Follow up PCP prn. Discharge Plan Discharge Plan Patient Disposition: Home Provider Discharge Comment: wait 2 weeks to restart your asprin Discharge orders & Medications Prescriptions: New hydrocodone-acetaminophen 5-325 mg Tablet 1 tab PO Q4HR PRN (Reason: Pain, Moderate (4-6)) Qty: 20 RF: 0 Continued nitroglycerin 0.4 mg tablet, sublingual 0.4 mg SL Q5M PRN (Reason: Angina) RF: 0 aspirin [Adult Low Dose Aspirin] 81 mg tablet,delayed release (DR/EC) 81 mg PO DAILY RF: 0 carbidopa-levodopa 25-100 mg tablet 1 tab PO TID RF: 0 mometasone 0.1 % ointment 1 applic topical DAILY PRN (Reason: Rash) RF: 0 atorvastatin 20 mg tablet 20 mg PO DAILY RF: 0 amlodipine 2.5 mg tablet 2.5 mg PO DAILY RF: 0 hydrochlorothiazide 12.5 mg capsule 12.5 mg PO DAILY RF: 0 Follow up/Referrals: Olaf Espinosa MD [Primary Care Provider] - Visit Report/Discharge Packet Instructions: DI for Prescription Opioid Use, Hydrocodone Discharge Data Primary Care Provider: Olaf Espinosa Attending Provider: Antonia Gonzales
--- NOTE | 2020-07-20 12:13 | PC.NURSE ---
Went over dc instructions and medications with patient and patients spouse. Questions answered. Rx sent to [facility]. Patient taken via wc to vehicle driven by spouse. Patient had all belongings.
--- NOTE | 2020-07-20 14:49 | CM.DANOTE ---
DCP Brief Assessment Note Patient is an 85 yo male who was admitted on 07/19/20 for Pelvic Pain from GLF. Pt has [facility] for insurance and his PCP is Dr. Espinosa. EMR was reviewed. Per Surgeon, pt with hx of Parkinsons, EF 20-25%, COPD and admitted after GLF a few days ago and returns with L Clavicle fx. Per Ortho, no surgical intervention needed at this time and recommendation of sling and PT. Per PT, pt somewhat impulsive but was able to ambulate 150 ft CGA/SBA and pt not wanting to use sling but spouse educated on recommendations and precautions and PT recommends safe d/c home with family assist. Per Surgeon and Ortho, pt medically stable to d/c home today with outpt follow up with PCP and Dudley dee. Pt resides at home with spouse who is his primary CG and they have local DPOA/Dtr Marsa who lives in [place] but can assist if needed. Pt was last admitted to [facility] in Oct 2019 last year for CHF and was able to d/c home with family assist and Cardiology outpt follow up. SW met bedside with pt and explained role and pt confirms that he lives at home in [place] with his Celeste and pt is mostly independent with ADLs at baseline and confirms he has had hx of multiple falls in the past year or two. Pt denies any hx of HH but states after a hip fx he went to SNF in [place] a few years ago. Pt states his spouse and adult Dtr in [place] are his DPOA's. Since pt's last fall a few days ago on Sunday, family temporarily moved his bedroom items downstairs to main level where there is also access to a bathroom and all his needs. Spouse confirms that she is agreeable with transporting pt home today and Dtr can assist if needed and they are aware of hiring PP CG if more support is needed. Plan: Patient to d/c home today via spouse POV and family assist and outpt follow up. No further SW needs at this time. NICHOLE Greenberg
== END 2020-07-20 12:15 | disposition home or self-care (01) ==
LOC: ED 14:42 → AC 14:50
PROVIDERS: Admitting Provider Surgery; Emergency Provider Emergency Medicine; Family Provider Internal Medicine; PCP Internal Medicine; Referring Provider Emergency Medicine; Visit Provider Surgery
DX: S42.012A Anterior displaced fracture of sternal end of left clavicle, initial encounter for closed fracture (principal); S20.212A Contusion of left front wall of thorax, initial encounter; D62 Acute posthemorrhagic anemia; M25.552 Pain in left hip; W18.30XA Fall on same level, unspecified, initial encounter; Z79.82 Long term (current) use of aspirin; G20 Parkinson's disease; I25.5 Ischemic cardiomyopathy; I73.9 Peripheral vascular disease, unspecified; I10 Essential (primary) hypertension; I25.10 Atherosclerotic heart disease of native coronary artery without angina pectoris; J44.9 Chronic obstructive pulmonary disease, unspecified; I48.0 Paroxysmal atrial fibrillation; E78.2 Mixed hyperlipidemia; F17.210 Nicotine dependence, cigarettes, uncomplicated; Z20.822 Contact with and (suspected) exposure to COVID-19
CPT/HCPCS: 36415; 70491; 71045; 71260; 73502; 74177; 80053; 81003; 82550; 82553; 83690; 83735; 84484; 85025; 85610; 85730; 86850; 86900; 86901; 87635; 93005; 93010; 97161; 99217; 99218; 99283; 99284; C9803; G0378; Q9967

== ENCOUNTER → 2020-09-24 07:05 | Outpatient (CLI) | payer OTHER, SELFPAY ==
[2020-07-19 16:37] VITALS: BMI 23.0
[2020-09-24 09:00] LABS: BUN Creatinine Ratio 13.5 (6-22); Blood Urea Nitrogen 14 mg/dL (9-20); Calcium 9.2 mg/dL (8.4-10.2); Carbon Dioxide 30 mmol/L (22-32); Chloride 102 mmol/L (98-107); Cholesterol 115 mg/dL (140-199); Estimated Glomerular Filt Rate > 60.0 mL/min (>60); Glucose 99 mg/dL (80-110); HDL Cholesterol 39 mg/dL (40-60); HEMOLYSIS 18 (0-50); LDL Cholesterol Calculated 48 mg/dL (<100); Potassium 4.1 mmol/L (3.4-5.1); Sodium 139 mmol/L (137-145); Triglycerides 139 mg/dL (35-150)
== END ==
PROVIDERS: Family Provider Internal Medicine; PCP Internal Medicine; Referring Provider Internal Medicine Interventional Cardiology; Visit Provider Internal Medicine Interventional Cardiology
DX: I25.810 Atherosclerosis of coronary artery bypass graft(s) without angina pectoris (principal)
CPT/HCPCS: 36415; 80048; 80061

== ENCOUNTER 2021-01-17 10:30 | Outpatient (RCR) | payer OTHER, SELFPAY ==
[2020-07-19 16:37] VITALS: BMI 23.0
[2020-11-08 13:45] VITALS: O2SAT 95
--- NOTE | 2020-11-08 15:32 | PT.OIE ---
Current Diagnoses Parkinson's disease (11/08/20) Past Medical History (Last Updated 07/20/20 @ 08:44 by Johanna Quarles RN) COPD (chronic obstructive pulmonary disease) Coronary artery disease (~2010) Essential hypertension Hearing loss (~2013) Hemorrhoid (~1979) History of cataract removal with insertion of prosthetic lens (~2018) History of heart bypass surgery (~2011) History of surgery (~2016) History of surgery (~2016) Ischemic cardiomyopathy Mixed hyperlipidemia Parkinson disease Parkinson's disease Paroxysmal atrial fibrillation Peripheral vascular disease (~2016) S/P laparoscopic cholecystectomy Wears glasses Past Surgical History (Last Reviewed 07/19/20 @ 18:57 by Antonia Gonzales MD) Anesthesia Gallstones (~2017) History of cataract removal with insertion of prosthetic lens (~2018) History of heart bypass surgery (~2011) History of surgery (~2016) History of surgery (~2016) Pelvis fracture (~2012) Right groin hernia (~2018) S/P laparoscopic cholecystectomy Visit Care Team Role Provider Type Olaf Espinosa MD Family Provider Physician Primary Care Provider Specialty: Internal Medicine Address: [address] [place] [address], [address], [address] Email: [email or web address] Manuel Bob MD Attending Provider Non-Staff Referring Provider Specialty: Neurology Address: [address] [place] [address], [phone] Email: Physical Therapy Initial Evaluation PT-OP-A Visit Information Start: 11/08/20 10:38 Freq: Status: Active Protocol: Document 11/08/20 13:45 AMB (Rec: 11/08/20 15:27 AMB [email or web address]) Out-Patient Physical Therapy Visit Information Visit Information Visit Type Initial Evaluation Visit Start Time 13:45 Visit Stop Time 14:30 Total Visit Minutes 45 Visit Number 1 PT-OP-B Current Condition Start: 11/08/20 10:38 Freq: Status: Active Protocol: Document 11/08/20 13:45 AMB (Rec: 11/08/20 14:06 AMB [id number]) Current Condition History of Current Condition Onset Date chronic Current Complaints History of falls History of Current Condition Je has had multiple falls. Celeste is scared of the stairs and reports she is concerned with his safety with moving from sit to stand. Recent clavicle fracture makes getting out of bed harder. He does report L shoulder pain after the clavicle fracture when he uses the arm, and pain in the backs of the legs and weakness that he reports is more chronic. He reports he uses a SPC in the community and recently in the house somewhat in the R UE. He lives in a private home with 10 steps to enter and one railing with his . Prior Functional Status Baseline Function- ADL's Modified Independent Baseline Function- Mobility Modified Independent Current Functional Impairments (Reported) Functional Limitations- ADL's Difficulty with sit to stand ( safety with moving into sitting) and pain with L shoulder with bed mobility, thought he was sitting to shower but pt reports he is standing. Personal Factors Other Personal Factors That May Effect Pt is a current every day Therapy/Recovery smoker, history MO, PVD, multiple falls with resultant L clavicle and old pelvic fracture PT-OP-D Balance Start: 11/08/20 10:38 Freq: Status: Active Protocol: Document 11/08/20 13:45 AMB (Rec: 11/09/20 08:58 AMB [email or web address]) Balance Tests mCTSIB mCTSIB Position 1 30 seconds mCTSIB Position 2 falls posteriorly PT-OP-E Functional Tests Start: 11/08/20 10:38 Freq: Status: Active Protocol: Document 11/08/20 13:45 AMB (Rec: 11/08/20 15:43 AMB [email or web address]) Functional Tests Five Times Sit to Stand Test Score 14 seconds Comments 2 LOB posteriorly Timed Up and Go (TUG) Score 13.5 seconds Comments no AD TUG Impairment Rating 40 to <60% Impaired (Score 14- 15) PT-OP-G Mobility & Gait Start: 11/08/20 10:38 Freq: Status: Active Protocol: Document 11/08/20 13:45 AMB (Rec: 11/09/20 08:58 AMB [email or web address]) OP Mobility Evaluation Transfers Sit to Stand needs UEs, poor control when moving from standing to sitting. Does not have good awareness of where the chair is. Does not move COG anteriorly enough and tends to lose balance backwards. OP Gait Assessment Comments Gait Comments Pt is aware to swing arms but it is definitely a cognitive task. Otherwise stiff gait. Stair Climbing Evaluation Evaluation Level of Assist On Stairs Standby Assistance Devices Stair Climbing Assistive Devices Left Railing,Right Railing Technique/Endurance Stair Climbing Direction Ascend and Descend Stair Climbing Technique Step Over Step Number of Steps Climbed 4 Stair Climbing Set # Repetitions (reps) 2 Comments Stair Climbing Comments Pt is unsure how to manage SPC on stairs PT-OP-H Neuro Start: 11/08/20 10:38 Freq: Status: Active Protocol: Document 11/08/20 13:45 AMB (Rec: 11/09/20 08:58 AMB [email or web address]) Sensation Evaluation Comments Summary Comments Pt reports bilateral LE numbness with standing for ~2 minutes. However when sitting was able to distinguish L/R light touch 100%. Coordination Evaluation Lower Extremity Tests Left Foot Tapping Test good with slow, difficult with increased speed Vital Signs Oxygen Pulse Oximetry at Rest (%) (95-100 %) 95 Oxygen Delivery Method Room Air PT-OP-J Posture/Palpation/Skin Start: 11/08/20 10:38 Freq: Status: Active Protocol: Document 11/08/20 13:45 AMB (Rec: 11/09/20 08:58 AMB [email or web address]) Posture Evaluation Comments Posture Comments forward head, forward shoulders PT-OP-K Range of Motion Start: 11/08/20 10:38 Freq: Status: Active Protocol: Document 11/08/20 13:45 AMB (Rec: 11/09/20 08:58 AMB [email or web address]) Shoulder Goniometric Range of Motion Shoulder ROM Limitations Comments L shoulder flexion limited to approx 110 degrees with pain, R limited to approx 150 PT-OP-M Strength Start: 11/08/20 10:38 Freq: Status: Active Protocol: Document 11/08/20 13:45 AMB (Rec: 11/09/20 08:58 AMB [email or web address]) Knee Strength Knee Manual Muscle Testing Right Flexion (S2) 4+ Good+ Extension (L3) 4+ Good+ Left Flexion (S2) 4+ Good+ Extension (L3) 4+ Good+ Ankle/Foot Strength Ankle and Foot Manual Muscle Testing Right Dorsiflexion (L4) 4- Good- Plantarflexion (S1) 4 Good Left Dorsiflexion (L4) 4 Good Plantarflexion (S1) 4 Good PT-OP-T Assessment and Plan Start: 11/08/20 10:38 Freq: Status: Active Protocol: Document 11/08/20 13:45 AMB (Rec: 11/09/20 10:22 AMB [email or web address]) Physical Therapy Assessment Rehab Potential Rehabilitation Potential Good Evaluation Complexity Number of Personal Factors/Comorbidities 3 or More Number of Body Systems Impaired 4 or More Clinical Presentation at Evaluation Evolving Impairments Impairments Activity Tolerance,Balance, Functional Activities, Functional Mobility,Gait,Pain, Posture,ROM,Strength,Transfers Goals Three Impairment HEP Short Term Goal (STG) Je will be independent and consistent with a strengthening and balance HEP. STG Duration 4 weeks Two Impairment Transfers Short Term Goal (STG) Je will move from sit to stand safely without using his UEs. STG Duration 4 weeks Assisted Goal (LTG) Je will perform a floor transfer with environmental support and CGA. LTG Duration 8 weeks One Impairment Gait Short Term Goal (STG) Je will ascend and descend 10 stairs with SBA, a SPC, and 1 railing. STG Duration 4 weeks Assisted Goal (LTG) Je will ambulate 2 minutes with SPC over smooth terrain without LOB. LTG Duration 8 weeks Assessment Summary Assessment Je attends physical therapy with a long history of serious falls. His cardiopulmonary system will be a limiting factor. Physical therapy will focus on safety with gait, stairs, and transfers. Currently his LE weakness, balance, and safety awareness are areas that we will need to address. Physical Therapy Plan Frequency and Duration Frequency of Treatment 1x/Week Duration of Treatment 10 weeks Plan of Care Start Date 11/09/20 Plan of Care End Date 01/18/21 Therapeutic Interventions Therapeutic Interventions Balance Training,Gait Training ,Home Exercise Program,Manual Therapy,Self-Care/Home Management,Therapeutic Activities,Therapeutic Exercises Next Visit Focus/Plan Next Note Type Treatment Note Next Visit Plan Assess safety with SPC and stairs, work on sit to stand safety, moving COG more anteriorly
--- NOTE | 2020-11-08 15:34 | PT.OPPOC ---
Physical, Occupational & Speech Therapy At [facility] Current Diagnoses Parkinson's disease (11/08/20) Unspecified abnormalities of gait and mobility (11/08/20) History of falling (11/08/20) Visit Care Team Role Provider Type Olaf Espinosa MD Family Provider Physician Primary Care Provider Specialty: Internal Medicine Address: [address] [place] [address], [address], [place], [address] Email: [email or web address] Manuel Bob MD Attending Provider Non-Staff Referring Provider Specialty: Neurology Address: [address] [facility], [place], [address] Email: Plan Of Care PT-OP-T Assessment and Plan Start: 11/08/20 10:38 Freq: Status: Active Protocol: Document 11/08/20 13:45 AMB (Rec: 11/09/20 10:22 AMB [email or web address]) Physical Therapy Assessment Rehab Potential Rehabilitation Potential Good Evaluation Complexity Number of Personal Factors/Comorbidities 3 or More Number of Body Systems Impaired 4 or More Clinical Presentation at Evaluation Evolving Impairments Impairments Activity Tolerance,Balance, Functional Activities, Functional Mobility,Gait,Pain, Posture,ROM,Strength,Transfers Goals Three Impairment HEP Short Term Goal (STG) Je will be independent and consistent with a strengthening and balance HEP. STG Duration 4 weeks Two Impairment Transfers Short Term Goal (STG) Je will move from sit to stand safely without using his UEs. STG Duration 4 weeks [facility] [facility] Goal (LTG) Je will perform a floor transfer with environmental support and CGA. LTG Duration 8 weeks One Impairment Gait Short Term Goal (STG) Je will ascend and descend 10 stairs with SBA, a SPC, and 1 railing. STG Duration 4 weeks Correction Goal (LTG) Je will ambulate 2 minutes with SPC over smooth terrain without LOB. LTG Duration 8 weeks Assessment Summary Assessment Je attends physical therapy with a long history of serious falls. His cardiopulmonary system will be a limiting factor. Physical therapy will focus on safety with gait, stairs, and transfers. Currently his LE weakness, balance, and safety awareness are areas that we will need to address. Physical Therapy Plan Frequency and Duration Frequency of Treatment 1x/Week Duration of Treatment 10 weeks Plan of Care Start Date 11/09/20 Plan of Care End Date 01/18/21 Therapeutic Interventions Therapeutic Interventions Balance Training,Gait Training ,Home Exercise Program,Manual Therapy,Self-Care/Home Management,Therapeutic Activities,Therapeutic Exercises Next Visit Focus/Plan Next Note Type Treatment Note Next Visit Plan Assess safety with SPC and stairs, work on sit to stand safety, moving COG more anteriorly Plan of Care Dates Plan of Care Start Date 11/09/20 Plan of Care End Date 01/18/21 Electronically Signed by: Gem Magallanes, PT 11/09/20 [id number] Please Sign and Return: I have reviewed this Plan of Care and certify that the skilled therapy services above are required to meet the patient?s needs. Physician Signature Date Printed Name and Credentials Clinical Instructor Signature Printed Name and Credentials
--- NOTE | 2020-11-15 15:29 | PT.OTN ---
Current Diagnoses Parkinson's disease (11/15/20) Unspecified abnormalities of gait and mobility (11/15/20) History of falling (11/15/20) Physical Therapy Treatment Note PT-OP-A Visit Information Start: 11/08/20 10:38 Freq: Status: Active Protocol: Document 11/15/20 10:30 AMB (Rec: 11/15/20 13:01 AMB [email or web address]) Out-Patient Physical Therapy Visit Information Visit Information Visit Type Treatment Note Visit Start Time 10:30 Visit Stop Time 11:15 Total Visit Minutes 45 Visit Number 2 PT-OP-B Current Condition Start: 11/08/20 10:38 Freq: Status: Active Protocol: Document 11/08/20 13:45 AMB (Rec: 11/08/20 14:06 AMB [id number]) Current Condition History of Current Condition Onset Date chronic Current Complaints History of falls History of Current Condition Je has had multiple falls. Celeste is scared of the stairs and reports she is concerned with his safety with moving from sit to stand. Recent clavicle fracture makes getting out of bed harder. He does report L shoulder pain after the clavicle fracture when he uses the arm, and pain in the backs of the legs and weakness that he reports is more chronic. He reports he uses a SPC in the community and recently in the house somewhat in the R UE. He lives in a private home with 10 steps to enter and one railing with his . Prior Functional Status Baseline Function- ADL's Modified Independent Baseline Function- Mobility Modified Independent Current Functional Impairments (Reported) Functional Limitations- ADL's Difficulty with sit to stand ( safety with moving into sitting) and pain with L shoulder with bed mobility, thought he was sitting to shower but pt reports he is standing. Personal Factors Other Personal Factors That May Effect Pt is a current every day Therapy/Recovery smoker, history [place], PVD, multiple falls with resultant L clavicle and old pelvic fracture PT-OP-C Subjective Start: 11/08/20 10:38 Freq: Status: Active Protocol: Document 11/15/20 10:30 AMB (Rec: 11/16/20 15:28 AMB [email or web address]) OP-PT Subjective Patient Comments Patient Comments Je attends with his , she is concerned about his safety on the stairs PT-OP-D Balance Start: 11/08/20 10:38 Freq: Status: Active Protocol: Document 11/08/20 13:45 AMB (Rec: 11/09/20 08:58 AMB [email or web address]) Balance Tests mCTSIB mCTSIB Position 1 30 seconds mCTSIB Position 2 falls posteriorly PT-OP-E Functional Tests Start: 11/08/20 10:38 Freq: Status: Active Protocol: Document 11/08/20 13:45 AMB (Rec: 11/08/20 15:43 AMB [email or web address]) Functional Tests Five Times Sit to Stand Test Score 14 seconds Comments 2 LOB posteriorly Timed Up and Go (TUG) Score 13.5 seconds Comments no AD TUG Impairment Rating 40 to <60% Impaired (Score 14- 15) PT-OP-G Mobility & Gait Start: 11/08/20 10:38 Freq: Status: Active Protocol: Document 11/08/20 13:45 AMB (Rec: 11/09/20 08:58 AMB [email or web address]) OP Mobility Evaluation Transfers Sit to Stand needs UEs, poor control when moving from standing to sitting. Does not have good awareness of where the chair is. Does not move COG anteriorly enough and tends to lose balance backwards. OP Gait Assessment Comments Gait Comments Pt is aware to swing arms but it is definitely a cognitive task. Otherwise stiff gait. Stair Climbing Evaluation Evaluation Level of Assist On Stairs Standby Assistance Devices Stair Climbing Assistive Devices Left Railing,Right Railing Technique/Endurance Stair Climbing Direction Ascend and Descend Stair Climbing Technique Step Over Step Number of Steps Climbed 4 Stair Climbing Set # Repetitions (reps) 2 Comments Stair Climbing Comments Pt is unsure how to manage SPC on stairs PT-OP-H Neuro Start: 11/08/20 10:38 Freq: Status: Active Protocol: Document 11/08/20 13:45 AMB (Rec: 11/09/20 08:58 AMB [email or web address]) Sensation Evaluation Comments Summary Comments Pt reports bilateral LE numbness with standing for ~2 minutes. However when sitting was able to distinguish L/R light touch 100%. Coordination Evaluation Lower Extremity Tests Left Foot Tapping Test good with slow, difficult with increased speed Vital Signs Oxygen Pulse Oximetry at Rest (%) (95-100 %) 95 Oxygen Delivery Method Room Air PT-OP-J Posture/Palpation/Skin Start: 11/08/20 10:38 Freq: Status: Active Protocol: Document 11/08/20 13:45 AMB (Rec: 11/09/20 08:58 AMB [email or web address]) Posture Evaluation Comments Posture Comments forward head, forward shoulders PT-OP-K Range of Motion Start: 11/08/20 10:38 Freq: Status: Active Protocol: Document 11/08/20 13:45 AMB (Rec: 11/09/20 08:58 AMB [email or web address]) Shoulder Goniometric Range of Motion Shoulder ROM Limitations Comments L shoulder flexion limited to approx 110 degrees with pain, R limited to approx 150 PT-OP-M Strength Start: 11/08/20 10:38 Freq: Status: Active Protocol: Document 11/08/20 13:45 AMB (Rec: 11/09/20 08:58 AMB [email or web address]) Knee Strength Knee Manual Muscle Testing Right Flexion (S2) 4+ Good+ Extension (L3) 4+ Good+ Left Flexion (S2) 4+ Good+ Extension (L3) 4+ Good+ Ankle/Foot Strength Ankle and Foot Manual Muscle Testing Right Dorsiflexion (L4) 4- Good- Plantarflexion (S1) 4 Good Left Dorsiflexion (L4) 4 Good Plantarflexion (S1) 4 Good PT-OP-Q Treatments Start: 11/08/20 10:38 Freq: Status: Active Protocol: Document 11/15/20 10:30 AMB (Rec: 11/16/20 15:28 AMB [email or web address]) Therapeutic Activity Therapeutic Activity 1 Name sit to stand Comments extensive ed on forward lean for both sit to stand and stand to sit Gait Training Gait Activity stairs Comments with and without SPC, pt educated in step to gait pattern but pt does not prefer this method because it is slow. Pt's does prefer as it is safer. Pt tends to benton. Encouraged pt to take his time, educated in patterning with SPC, but pt is safer when he doesn't have to process this. BIG walking Description 2MWT Device Used SPC Level of Assistance SBA Surface smooth PT-OP-T Assessment and Plan Start: 11/08/20 10:38 Freq: Status: Active Protocol: Document 11/15/20 10:30 AMB (Rec: 11/16/20 15:28 AMB [email or web address]) Physical Therapy Assessment Assessment Summary Assessment Je did well with sit to stand training and stair training when given cues, but will need to follow up to see if improvement continues when PT is not constantly cueing. Sit to stand with forward lean given as written HEP. [id number] ft in 2 min, 97% SpO2 went down to 96% after walk. Physical Therapy Plan Next Visit Focus/Plan Next Note Type Treatment Note Next Visit Plan Progress stability with gait, stairs and sit to stand
--- NOTE | 2020-12-02 09:28 | PT.OTN ---
Current Diagnoses Parkinson's disease (11/30/20) Unspecified abnormalities of gait and mobility (11/30/20) History of falling (11/30/20) Physical Therapy Treatment Note PT-OP-A Visit Information Start: 11/08/20 10:38 Freq: Status: Active Protocol: Document 11/30/20 13:00 AMB (Rec: 11/30/20 13:22 AMB [id number]) Out-Patient Physical Therapy Visit Information Visit Information Visit Type Treatment Note Visit Start Time 13:00 Visit Stop Time 13:45 Total Visit Minutes 45 Visit Number 3 PT-OP-B Current Condition Start: 11/08/20 10:38 Freq: Status: Active Protocol: Document 11/08/20 13:45 AMB (Rec: 11/08/20 14:06 AMB [id number]) Current Condition History of Current Condition Onset Date chronic Current Complaints History of falls History of Current Condition Je has had multiple falls. Celeste is scared of the stairs and reports she is concerned with his safety with moving from sit to stand. Recent clavicle fracture makes getting out of bed harder. He does report L shoulder pain after the clavicle fracture when he uses the arm, and pain in the backs of the legs and weakness that he reports is more chronic. He reports he uses a SPC in the community and recently in the house somewhat in the R UE. He lives in a private home with 10 steps to enter and one railing with his . Prior Functional Status Baseline Function- ADL's Modified Independent Baseline Function- Mobility Modified Independent Current Functional Impairments (Reported) Functional Limitations- ADL's Difficulty with sit to stand ( safety with moving into sitting) and pain with L shoulder with bed mobility, thought he was sitting to shower but pt reports he is standing. Personal Factors Other Personal Factors That May Effect Pt is a current every day Therapy/Recovery smoker, history [place], PVD, multiple falls with resultant L clavicle and old pelvic fracture PT-OP-C Subjective Start: 11/08/20 10:38 Freq: Status: Active Protocol: Document 11/30/20 13:00 AMB (Rec: 11/30/20 13:22 AMB [id number]) OP-PT Subjective Patient Comments Patient Comments Je had a fall this morning getting out of bed, his feet got tangled in his clothes from last night. PT-OP-D Balance Start: 11/08/20 10:38 Freq: Status: Active Protocol: Document 11/08/20 13:45 AMB (Rec: 11/09/20 08:58 AMB [email or web address]) Balance Tests mCTSIB mCTSIB Position 1 30 seconds mCTSIB Position 2 falls posteriorly PT-OP-E Functional Tests Start: 11/08/20 10:38 Freq: Status: Active Protocol: Document 11/08/20 13:45 AMB (Rec: 11/08/20 15:43 AMB [email or web address]) Functional Tests Five Times Sit to Stand Test Score 14 seconds Comments 2 LOB posteriorly Timed Up and Go (TUG) Score 13.5 seconds Comments no AD TUG Impairment Rating 40 to <60% Impaired (Score 14- 15) PT-OP-G Mobility & Gait Start: 11/08/20 10:38 Freq: Status: Active Protocol: Document 11/08/20 13:45 AMB (Rec: 11/09/20 08:58 AMB [email or web address]) OP Mobility Evaluation Transfers Sit to Stand needs UEs, poor control when moving from standing to sitting. Does not have good awareness of where the chair is. Does not move COG anteriorly enough and tends to lose balance backwards. OP Gait Assessment Comments Gait Comments Pt is aware to swing arms but it is definitely a cognitive task. Otherwise stiff gait. Stair Climbing Evaluation Evaluation Level of Assist On Stairs Standby Assistance Devices Stair Climbing Assistive Devices Left Railing,Right Railing Technique/Endurance Stair Climbing Direction Ascend and Descend Stair Climbing Technique Step Over Step Number of Steps Climbed 4 Stair Climbing Set # Repetitions (reps) 2 Comments Stair Climbing Comments Pt is unsure how to manage SPC on stairs PT-OP-H Neuro Start: 11/08/20 10:38 Freq: Status: Active Protocol: Document 11/08/20 13:45 AMB (Rec: 11/09/20 08:58 AMB [email or web address]) Sensation Evaluation Comments Summary Comments Pt reports bilateral LE numbness with standing for ~2 minutes. However when sitting was able to distinguish L/R light touch 100%. Coordination Evaluation Lower Extremity Tests Left Foot Tapping Test good with slow, difficult with increased speed Vital Signs Oxygen Pulse Oximetry at Rest (%) (95-100 %) 95 Oxygen Delivery Method Room Air PT-OP-J Posture/Palpation/Skin Start: 11/08/20 10:38 Freq: Status: Active Protocol: Document 11/08/20 13:45 AMB (Rec: 11/09/20 08:58 AMB [email or web address]) Posture Evaluation Comments Posture Comments forward head, forward shoulders PT-OP-K Range of Motion Start: 11/08/20 10:38 Freq: Status: Active Protocol: Document 11/08/20 13:45 AMB (Rec: 11/09/20 08:58 AMB [email or web address]) Shoulder Goniometric Range of Motion Shoulder ROM Limitations Comments L shoulder flexion limited to approx 110 degrees with pain, R limited to approx 150 PT-OP-M Strength Start: 11/08/20 10:38 Freq: Status: Active Protocol: Document 11/08/20 13:45 AMB (Rec: 11/09/20 08:58 AMB [email or web address]) Knee Strength Knee Manual Muscle Testing Right Flexion (S2) 4+ Good+ Extension (L3) 4+ Good+ Left Flexion (S2) 4+ Good+ Extension (L3) 4+ Good+ Ankle/Foot Strength Ankle and Foot Manual Muscle Testing Right Dorsiflexion (L4) 4- Good- Plantarflexion (S1) 4 Good Left Dorsiflexion (L4) 4 Good Plantarflexion (S1) 4 Good PT-OP-Q Treatments Start: 11/08/20 10:38 Freq: Status: Active Protocol: Document 11/30/20 13:00 AMB (Rec: 12/02/20 09:27 AMB [email or web address]) Gym Equipment Shuttle Recovery Bilateral Squats Details 62 Shuttle Recovery Platform Stable Reps/Time 2x10 Therapeutic Exercises Standing Exercises 1 Standing Exercise Name sidestepping at rail Reps/Minutes 10 Comments cues for lifting feet sit to stand Standing Exercise Name cues for form, cues for eccentric control stair taps Standing Exercise Name 6 stairs Gait Training Gait Activity stairs Comments step to pattern with 1 rail x 3 BIG walking Description 100'x3 Device Used none Level of Assistance SBA Surface smooth PT-OP-T Assessment and Plan Start: 11/08/20 10:38 Freq: Status: Active Protocol: Document 11/30/20 13:00 AMB (Rec: 12/02/20 09:27 AMB [email or web address]) Physical Therapy Assessment Assessment Summary Assessment Je did well today, good understanding of step taps. Does state that he does his exercises with his watching. states that he is good with control of his sit to stand with exercises, but he needs to work more on control when he's just naturally sitting and not really thinking about how he sits. Physical Therapy Plan Next Visit Focus/Plan Next Note Type Treatment Note Next Visit Plan Progress stability with gait, stairs and sit to stand
--- NOTE | 2020-12-08 13:00 | PT.OTN ---
Current Diagnoses Parkinson's disease (12/08/20) Unspecified abnormalities of gait and mobility (12/08/20) History of falling (12/08/20) Physical Therapy Treatment Note PT-OP-A Visit Information Start: 11/08/20 10:38 Freq: Status: Active Protocol: Document 12/08/20 10:31 AMB (Rec: 12/08/20 11:09 AMB [id number]) Out-Patient Physical Therapy Visit Information Visit Information Visit Type Treatment Note Visit Start Time 10:30 Visit Stop Time 11:15 Total Visit Minutes 45 Visit Number 4 PT-OP-B Current Condition Start: 11/08/20 10:38 Freq: Status: Active Protocol: Document 11/08/20 13:45 AMB (Rec: 11/08/20 14:06 AMB [id number]) Current Condition History of Current Condition Onset Date chronic Current Complaints History of falls History of Current Condition Je has had multiple falls. Celeste is scared of the stairs and reports she is concerned with his safety with moving from sit to stand. Recent clavicle fracture makes getting out of bed harder. He does report L shoulder pain after the clavicle fracture when he uses the arm, and pain in the backs of the legs and weakness that he reports is more chronic. He reports he uses a SPC in the community and recently in the house somewhat in the R UE. He lives in a private home with 10 steps to enter and one railing with his . Prior Functional Status Baseline Function- ADL's Modified Independent Baseline Function- Mobility Modified Independent Current Functional Impairments (Reported) Functional Limitations- ADL's Difficulty with sit to stand ( safety with moving into sitting) and pain with L shoulder with bed mobility, thought he was sitting to shower but pt reports he is standing. Personal Factors Other Personal Factors That May Effect Pt is a current every day Therapy/Recovery smoker, history [place], PVD, multiple falls with resultant L clavicle and old pelvic fracture PT-OP-C Subjective Start: 11/08/20 10:38 Freq: Status: Active Protocol: Document 12/08/20 10:31 AMB (Rec: 12/08/20 11:09 AMB [id number]) OP-PT Subjective Patient Comments Patient Comments Pt reports one fall yesterday, when going up stairs while carrying coffee. Did have one hand on a rail, fell back on buttocks which are sore, but was able to get up independently. PT-OP-D Balance Start: 11/08/20 10:38 Freq: Status: Active Protocol: Document 11/08/20 13:45 AMB (Rec: 11/09/20 08:58 AMB [email or web address]) Balance Tests mCTSIB mCTSIB Position 1 30 seconds mCTSIB Position 2 falls posteriorly PT-OP-E Functional Tests Start: 11/08/20 10:38 Freq: Status: Active Protocol: Document 11/08/20 13:45 AMB (Rec: 11/08/20 15:43 AMB [email or web address]) Functional Tests Five Times Sit to Stand Test Score 14 seconds Comments 2 LOB posteriorly Timed Up and Go (TUG) Score 13.5 seconds Comments no AD TUG Impairment Rating 40 to <60% Impaired (Score 14- 15) PT-OP-G Mobility & Gait Start: 11/08/20 10:38 Freq: Status: Active Protocol: Document 11/08/20 13:45 AMB (Rec: 11/09/20 08:58 AMB [email or web address]) OP Mobility Evaluation Transfers Sit to Stand needs UEs, poor control when moving from standing to sitting. Does not have good awareness of where the chair is. Does not move COG anteriorly enough and tends to lose balance backwards. OP Gait Assessment Comments Gait Comments Pt is aware to swing arms but it is definitely a cognitive task. Otherwise stiff gait. Stair Climbing Evaluation Evaluation Level of Assist On Stairs Standby Assistance Devices Stair Climbing Assistive Devices Left Railing,Right Railing Technique/Endurance Stair Climbing Direction Ascend and Descend Stair Climbing Technique Step Over Step Number of Steps Climbed 4 Stair Climbing Set # Repetitions (reps) 2 Comments Stair Climbing Comments Pt is unsure how to manage SPC on stairs PT-OP-H Neuro Start: 11/08/20 10:38 Freq: Status: Active Protocol: Document 11/08/20 13:45 AMB (Rec: 11/09/20 08:58 AMB [email or web address]) Sensation Evaluation Comments Summary Comments Pt reports bilateral LE numbness with standing for ~2 minutes. However when sitting was able to distinguish L/R light touch 100%. Coordination Evaluation Lower Extremity Tests Left Foot Tapping Test good with slow, difficult with increased speed Vital Signs Oxygen Pulse Oximetry at Rest (%) (95-100 %) 95 Oxygen Delivery Method Room Air PT-OP-J Posture/Palpation/Skin Start: 11/08/20 10:38 Freq: Status: Active Protocol: Document 11/08/20 13:45 AMB (Rec: 11/09/20 08:58 AMB [email or web address]) Posture Evaluation Comments Posture Comments forward head, forward shoulders PT-OP-K Range of Motion Start: 11/08/20 10:38 Freq: Status: Active Protocol: Document 11/08/20 13:45 AMB (Rec: 11/09/20 08:58 AMB [email or web address]) Shoulder Goniometric Range of Motion Shoulder ROM Limitations Comments L shoulder flexion limited to approx 110 degrees with pain, R limited to approx 150 PT-OP-M Strength Start: 11/08/20 10:38 Freq: Status: Active Protocol: Document 11/08/20 13:45 AMB (Rec: 11/09/20 08:58 AMB [email or web address]) Knee Strength Knee Manual Muscle Testing Right Flexion (S2) 4+ Good+ Extension (L3) 4+ Good+ Left Flexion (S2) 4+ Good+ Extension (L3) 4+ Good+ Ankle/Foot Strength Ankle and Foot Manual Muscle Testing Right Dorsiflexion (L4) 4- Good- Plantarflexion (S1) 4 Good Left Dorsiflexion (L4) 4 Good Plantarflexion (S1) 4 Good PT-OP-Q Treatments Start: 11/08/20 10:38 Freq: Status: Active Protocol: Document 12/08/20 10:31 AMB (Rec: 12/08/20 11:09 AMB [id number]) Therapeutic Exercises Standing Exercises 2 Standing Exercise Name stair steps Reps/Minutes 2x10 calf/hamstring stretch Comments on stair sit to stand Standing Exercise Name cues for form, cues for eccentric control stair taps Standing Exercise Name 6 stairs Gait Training Gait Activity stairs Comments step to pattern with 1 rail x 3, carrying cup of water BIG walking Description 100'x3 Device Used none Level of Assistance SBA Surface smooth PT-OP-T Assessment and Plan Start: 11/08/20 10:38 Freq: Status: Active Protocol: Document 12/08/20 10:31 AMB (Rec: 12/08/20 11:09 AMB [id number]) Physical Therapy Assessment Goals Three Impairment HEP Short Term Goal (STG) Je will be independent and consistent with a strengthening and balance HEP. STG Duration 4 weeks Two Impairment Transfers Short Term Goal (STG) Je will move from sit to stand safely without using his UEs. STG Duration 4 weeks [facility] Goal (LTG) Je will perform a floor transfer with environmental support and CGA. LTG Duration 8 weeks One Impairment Gait Short Term Goal (STG) Je will ascend and descend 10 stairs with SBA, a SPC, and 1 railing. STG Duration 4 weeks [facility] Goal (LTG) Je will ambulate 2 minutes with SPC over smooth terrain without LOB. LTG Duration 8 weeks Assessment Summary Assessment Progressed stair taps to stair steps, breathing is a limiting factor. Pt does well when he is concentrating on his balance, but when distracted is definitely more of a fall risk. Physical Therapy Plan Next Visit Focus/Plan Next Note Type Treatment Note Next Visit Plan Progress stability with gait, stairs and sit to stand
--- NOTE | 2020-12-13 15:46 | PT.OTN ---
Current Diagnoses Parkinson's disease (12/13/20) Unspecified abnormalities of gait and mobility (12/13/20) History of falling (12/13/20) Physical Therapy Treatment Note PT-OP-A Visit Information Start: 11/08/20 10:38 Freq: Status: Active Protocol: Document 12/13/20 11:15 AMB (Rec: 12/13/20 11:48 AMB [id number]) Out-Patient Physical Therapy Visit Information Visit Information Visit Type Treatment Note Visit Start Time 11:15 Visit Stop Time 12:00 Total Visit Minutes 45 Visit Number 5 PT-OP-B Current Condition Start: 11/08/20 10:38 Freq: Status: Active Protocol: Document 11/08/20 13:45 AMB (Rec: 11/08/20 14:06 AMB [id number]) Current Condition History of Current Condition Onset Date chronic Current Complaints History of falls History of Current Condition eJ has had multiple falls. Celeste is scared of the stairs and reports she is concerned with his safety with moving from sit to stand. Recent clavicle fracture makes getting out of bed harder. He does report L shoulder pain after the clavicle fracture when he uses the arm, and pain in the backs of the legs and weakness that he reports is more chronic. He reports he uses a SPC in the community and recently in the house somewhat in the R UE. He lives in a private home with 10 steps to enter and one railing with his . Prior Functional Status Baseline Function- ADL's Modified Independent Baseline Function- Mobility Modified Independent Current Functional Impairments (Reported) Functional Limitations- ADL's Difficulty with sit to stand ( safety with moving into sitting) and pain with L shoulder with bed mobility, thought he was sitting to shower but pt reports he is standing. Personal Factors Other Personal Factors That May Effect Pt is a current every day Therapy/Recovery smoker, history [place], PVD, multiple falls with resultant L clavicle and old pelvic fracture PT-OP-C Subjective Start: 11/08/20 10:38 Freq: Status: Active Protocol: Document 12/13/20 11:15 AMB (Rec: 12/13/20 11:48 AMB [id number]) OP-PT Subjective Patient Comments Patient Comments Pt denies any falls in the last week. PT-OP-D Balance Start: 11/08/20 10:38 Freq: Status: Active Protocol: Document 11/08/20 13:45 AMB (Rec: 11/09/20 08:58 AMB [email or web address]) Balance Tests mCTSIB mCTSIB Position 1 30 seconds mCTSIB Position 2 falls posteriorly PT-OP-E Functional Tests Start: 11/08/20 10:38 Freq: Status: Active Protocol: Document 11/08/20 13:45 AMB (Rec: 11/08/20 15:43 AMB [email or web address]) Functional Tests Five Times Sit to Stand Test Score 14 seconds Comments 2 LOB posteriorly Timed Up and Go (TUG) Score 13.5 seconds Comments no AD TUG Impairment Rating 40 to <60% Impaired (Score 14- 15) PT-OP-G Mobility & Gait Start: 11/08/20 10:38 Freq: Status: Active Protocol: Document 11/08/20 13:45 AMB (Rec: 11/09/20 08:58 AMB [email or web address]) OP Mobility Evaluation Transfers Sit to Stand needs UEs, poor control when moving from standing to sitting. Does not have good awareness of where the chair is. Does not move COG anteriorly enough and tends to lose balance backwards. OP Gait Assessment Comments Gait Comments Pt is aware to swing arms but it is definitely a cognitive task. Otherwise stiff gait. Stair Climbing Evaluation Evaluation Level of Assist On Stairs Standby Assistance Devices Stair Climbing Assistive Devices Left Railing,Right Railing Technique/Endurance Stair Climbing Direction Ascend and Descend Stair Climbing Technique Step Over Step Number of Steps Climbed 4 Stair Climbing Set # Repetitions (reps) 2 Comments Stair Climbing Comments Pt is unsure how to manage SPC on stairs PT-OP-H Neuro Start: 11/08/20 10:38 Freq: Status: Active Protocol: Document 11/08/20 13:45 AMB (Rec: 11/09/20 08:58 AMB [email or web address]) Sensation Evaluation Comments Summary Comments Pt reports bilateral LE numbness with standing for ~2 minutes. However when sitting was able to distinguish L/R light touch 100%. Coordination Evaluation Lower Extremity Tests Left Foot Tapping Test good with slow, difficult with increased speed Vital Signs Oxygen Pulse Oximetry at Rest (%) (95-100 %) 95 Oxygen Delivery Method Room Air PT-OP-J Posture/Palpation/Skin Start: 11/08/20 10:38 Freq: Status: Active Protocol: Document 11/08/20 13:45 AMB (Rec: 11/09/20 08:58 AMB [email or web address]) Posture Evaluation Comments Posture Comments forward head, forward shoulders PT-OP-K Range of Motion Start: 11/08/20 10:38 Freq: Status: Active Protocol: Document 11/08/20 13:45 AMB (Rec: 11/09/20 08:58 AMB [email or web address]) Shoulder Goniometric Range of Motion Shoulder ROM Limitations Comments L shoulder flexion limited to approx 110 degrees with pain, R limited to approx 150 PT-OP-M Strength Start: 11/08/20 10:38 Freq: Status: Active Protocol: Document 11/08/20 13:45 AMB (Rec: 11/09/20 08:58 AMB [email or web address]) Knee Strength Knee Manual Muscle Testing Right Flexion (S2) 4+ Good+ Extension (L3) 4+ Good+ Left Flexion (S2) 4+ Good+ Extension (L3) 4+ Good+ Ankle/Foot Strength Ankle and Foot Manual Muscle Testing Right Dorsiflexion (L4) 4- Good- Plantarflexion (S1) 4 Good Left Dorsiflexion (L4) 4 Good Plantarflexion (S1) 4 Good PT-OP-Q Treatments Start: 11/08/20 10:38 Freq: Status: Active Protocol: Document 12/13/20 11:15 AMB (Rec: 12/13/20 11:48 AMB [id number]) Cardio Equipment Recumbent Elliptical (Biodex) Duration (Minutes) 3 Resistance 4 Therapeutic Exercises Standing Exercises 2 Standing Exercise Name stair steps Reps/Minutes 2x10 calf/hamstring stretch Comments on stair stair taps Standing Exercise Name 6 stairs Comments no railing Gait Training Gait Activity stairs Comments step to pattern with 1 rail x 2 flights of stairs BIG walking Description 100'x3 Device Used none Level of Assistance SBA Surface smooth Neuro Re-Education Treatment Other Activities 1 Details stride stance Comments horizontal and vertical head turns PT-OP-T Assessment and Plan Start: 11/08/20 10:38 Freq: Status: Active Protocol: Document 12/13/20 11:15 AMB (Rec: 12/13/20 11:48 AMB [id number]) Physical Therapy Assessment Assessment Summary Assessment Progressed exercises, gave less rest breaks today, SOB and leg weakness continue but pt able to tolerate more with less rest breaks. Pt does tend to lose balance backwards when looking up, also feels off balance with horizontal head turns. Physical Therapy Plan Next Visit Focus/Plan Next Note Type Treatment Note Next Visit Plan Progress stability with gait, stairs and sit to stand
--- NOTE | 2020-12-22 14:15 | PT.OTN ---
Current Diagnoses Parkinson's disease (12/22/20) Unspecified abnormalities of gait and mobility (12/22/20) History of falling (12/22/20) Physical Therapy Treatment Note PT-OP-A Visit Information Start: 11/08/20 10:38 Freq: Status: Active Protocol: Document 12/22/20 10:30 AMB (Rec: 12/22/20 10:53 AMB [id number]) Out-Patient Physical Therapy Visit Information Visit Information Visit Type Treatment Note Visit Start Time 10:30 Visit Stop Time 11:15 Total Visit Minutes 45 Visit Number 6 PT-OP-B Current Condition Start: 11/08/20 10:38 Freq: Status: Active Protocol: Document 11/08/20 13:45 AMB (Rec: 11/08/20 14:06 AMB [id number]) Current Condition History of Current Condition Onset Date chronic Current Complaints History of falls History of Current Condition Je has had multiple falls. Celeste is scared of the stairs and reports she is concerned with his safety with moving from sit to stand. Recent clavicle fracture makes getting out of bed harder. He does report L shoulder pain after the clavicle fracture when he uses the arm, and pain in the backs of the legs and weakness that he reports is more chronic. He reports he uses a SPC in the community and recently in the house somewhat in the R [place]. He lives in a private home with 10 steps to enter and one railing with his . Prior Functional Status Baseline Function- ADL's Modified Independent Baseline Function- Mobility Modified Independent Current Functional Impairments (Reported) Functional Limitations- ADL's Difficulty with sit to stand ( safety with moving into sitting) and pain with L shoulder with bed mobility, thought he was sitting to shower but pt reports he is standing. Personal Factors Other Personal Factors That May Effect Pt is a current every day Therapy/Recovery smoker, history [place], PVD, multiple falls with resultant L clavicle and old pelvic fracture PT-OP-C Subjective Start: 11/08/20 10:38 Freq: Status: Active Protocol: Document 12/22/20 10:30 AMB (Rec: 12/22/20 10:53 AMB [id number]) OP-PT Subjective Patient Comments Patient Comments Pt reports one fall, when outside. PT-OP-D Balance Start: 11/08/20 10:38 Freq: Status: Active Protocol: Document 11/08/20 13:45 AMB (Rec: 11/09/20 08:58 AMB [email or web address]) Balance Tests mCTSIB mCTSIB Position 1 30 seconds mCTSIB Position 2 falls posteriorly PT-OP-E Functional Tests Start: 11/08/20 10:38 Freq: Status: Active Protocol: Document 11/08/20 13:45 AMB (Rec: 11/08/20 15:43 AMB [email or web address]) Functional Tests Five Times Sit to Stand Test Score 14 seconds Comments 2 LOB posteriorly Timed Up and Go (TUG) Score 13.5 seconds Comments no AD TUG Impairment Rating 40 to <60% Impaired (Score 14- 15) PT-OP-G Mobility & Gait Start: 11/08/20 10:38 Freq: Status: Active Protocol: Document 11/08/20 13:45 AMB (Rec: 11/09/20 08:58 AMB [email or web address]) OP Mobility Evaluation Transfers Sit to Stand needs UEs, poor control when moving from standing to sitting. Does not have good awareness of where the chair is. Does not move COG anteriorly enough and tends to lose balance backwards. OP Gait Assessment Comments Gait Comments Pt is aware to swing arms but it is definitely a cognitive task. Otherwise stiff gait. Stair Climbing Evaluation Evaluation Level of Assist On Stairs Standby Assistance Devices Stair Climbing Assistive Devices Left Railing,Right Railing Technique/Endurance Stair Climbing Direction Ascend and Descend Stair Climbing Technique Step Over Step Number of Steps Climbed 4 Stair Climbing Set # Repetitions (reps) 2 Comments Stair Climbing Comments Pt is unsure how to manage SPC on stairs PT-OP-H Neuro Start: 11/08/20 10:38 Freq: Status: Active Protocol: Document 11/08/20 13:45 AMB (Rec: 11/09/20 08:58 AMB [email or web address]) Sensation Evaluation Comments Summary Comments Pt reports bilateral LE numbness with standing for ~2 minutes. However when sitting was able to distinguish L/R light touch 100%. Coordination Evaluation Lower Extremity Tests Left Foot Tapping Test good with slow, difficult with increased speed Vital Signs Oxygen Pulse Oximetry at Rest (%) (95-100 %) 95 Oxygen Delivery Method Room Air PT-OP-J Posture/Palpation/Skin Start: 11/08/20 10:38 Freq: Status: Active Protocol: Document 11/08/20 13:45 AMB (Rec: 11/09/20 08:58 AMB [email or web address]) Posture Evaluation Comments Posture Comments forward head, forward shoulders PT-OP-K Range of Motion Start: 11/08/20 10:38 Freq: Status: Active Protocol: Document 11/08/20 13:45 AMB (Rec: 11/09/20 08:58 AMB [email or web address]) Shoulder Goniometric Range of Motion Shoulder ROM Limitations Comments L shoulder flexion limited to approx 110 degrees with pain, R limited to approx 150 PT-OP-M Strength Start: 11/08/20 10:38 Freq: Status: Active Protocol: Document 11/08/20 13:45 AMB (Rec: 11/09/20 08:58 AMB [email or web address]) Knee Strength Knee Manual Muscle Testing Right Flexion (S2) 4+ Good+ Extension (L3) 4+ Good+ Left Flexion (S2) 4+ Good+ Extension (L3) 4+ Good+ Ankle/Foot Strength Ankle and Foot Manual Muscle Testing Right Dorsiflexion (L4) 4- Good- Plantarflexion (S1) 4 Good Left Dorsiflexion (L4) 4 Good Plantarflexion (S1) 4 Good PT-OP-Q Treatments Start: 11/08/20 10:38 Freq: Status: Active Protocol: Document 12/22/20 10:30 AMB (Rec: 12/22/20 14:15 AMB [email or web address]) Cardio Equipment Recumbent Stepper (Sci-Fit) Duration (Minutes) 7 Resistance 2 Therapeutic Exercises Standing Exercises sit to stand Standing Exercise Name cues for form, cues for eccentric control Neuro Re-Education Treatment Balance Activities NBOS, stride stance Comments EC, then EO HT PT-OP-T Assessment and Plan Start: 11/08/20 10:38 Freq: Status: Active Protocol: Document 12/22/20 10:30 AMB (Rec: 12/22/20 10:53 AMB [id number]) Physical Therapy Assessment Goals Three Impairment HEP Short Term Goal (STG) Je will be independent and consistent with a strengthening and balance HEP. STG Duration 4 weeks Two Impairment Transfers Short Term Goal (STG) Je will move from sit to stand safely without using his UEs. STG Duration [address] Goal (LTG) Je will perform a floor transfer with environmental support and CGA. LTG Duration 8 weeks One Impairment Gait Short Term Goal (STG) Je will ascend and descend 10 stairs with SBA, a SPC, and 1 railing. STG Duration [address] Goal (LTG) Je will ambulate 2 minutes with SPC over smooth terrain without LOB. LTG Duration 8 weeks Assessment Summary Assessment Pt does continue to have posterior lean with balance exercises, and tends to have poor control when moving from stand to sit. Physical Therapy Plan Next Visit Focus/Plan Next Note Type Treatment Note Next Visit Plan Progress stability with gait, stairs and sit to stand
--- NOTE | 2021-01-04 16:06 | PT.OTN ---
Current Diagnoses Parkinson's disease (01/04/21) Unspecified abnormalities of gait and mobility (01/04/21) History of falling (01/04/21) Physical Therapy Treatment Note PT-OP-A Visit Information Start: 11/08/20 10:38 Freq: Status: Active Protocol: Document 01/04/21 09:24 AMB (Rec: 01/04/21 09:48 AMB [id number]) Out-Patient Physical Therapy Visit Information Visit Information Visit Type Treatment Note Visit Start Time 09:00 Visit Stop Time 09:45 Total Visit Minutes 45 Visit Number 7 PT-OP-B Current Condition Start: 11/08/20 10:38 Freq: Status: Active Protocol: Document 11/08/20 13:45 AMB (Rec: 11/08/20 14:06 AMB [id number]) Current Condition History of Current Condition Onset Date chronic Current Complaints History of falls History of Current Condition Je has had multiple falls. Celeste is scared of the stairs and reports she is concerned with his safety with moving from sit to stand. Recent clavicle fracture makes getting out of bed harder. He does report L shoulder pain after the clavicle fracture when he uses the arm, and pain in the backs of the legs and weakness that he reports is more chronic. He reports he uses a SPC in the community and recently in the house somewhat in the R UE. He lives in a private home with 10 steps to enter and one railing with his . Prior Functional Status Baseline Function- ADL's Modified Independent Baseline Function- Mobility Modified Independent Current Functional Impairments (Reported) Functional Limitations- ADL's Difficulty with sit to stand ( safety with moving into sitting) and pain with L shoulder with bed mobility, thought he was sitting to shower but pt reports he is standing. Personal Factors Other Personal Factors That May Effect Pt is a current every day Therapy/Recovery smoker, history [place], PVD, multiple falls with resultant L clavicle and old pelvic fracture PT-OP-C Subjective Start: 11/08/20 10:38 Freq: Status: Active Protocol: Document 01/04/21 09:24 AMB (Rec: 01/04/21 09:48 AMB [id number]) OP-PT Subjective Patient Comments Patient Comments no falls, pt states he does not really get out of the house except for medical appts . PT-OP-D Balance Start: 11/08/20 10:38 Freq: Status: Active Protocol: Document 11/08/20 13:45 AMB (Rec: 11/09/20 08:58 AMB [email or web address]) Balance Tests mCTSIB mCTSIB Position 1 30 seconds mCTSIB Position 2 falls posteriorly PT-OP-E Functional Tests Start: 11/08/20 10:38 Freq: Status: Active Protocol: Document 11/08/20 13:45 AMB (Rec: 11/08/20 15:43 AMB [email or web address]) Functional Tests Five Times Sit to Stand Test Score 14 seconds Comments 2 LOB posteriorly Timed Up and Go (TUG) Score 13.5 seconds Comments no AD TUG Impairment Rating 40 to <60% Impaired (Score 14- 15) PT-OP-G Mobility & Gait Start: 11/08/20 10:38 Freq: Status: Active Protocol: Document 11/08/20 13:45 AMB (Rec: 11/09/20 08:58 AMB [email or web address]) OP Mobility Evaluation Transfers Sit to Stand needs UEs, poor control when moving from standing to sitting. Does not have good awareness of where the chair is. Does not move COG anteriorly enough and tends to lose balance backwards. OP Gait Assessment Comments Gait Comments Pt is aware to swing arms but it is definitely a cognitive task. Otherwise stiff gait. Stair Climbing Evaluation Evaluation Level of Assist On Stairs Standby Assistance Devices Stair Climbing Assistive Devices Left Railing,Right Railing Technique/Endurance Stair Climbing Direction Ascend and Descend Stair Climbing Technique Step Over Step Number of Steps Climbed 4 Stair Climbing Set # Repetitions (reps) 2 Comments Stair Climbing Comments Pt is unsure how to manage SPC on stairs PT-OP-H Neuro Start: 11/08/20 10:38 Freq: Status: Active Protocol: Document 11/08/20 13:45 AMB (Rec: 11/09/20 08:58 AMB [email or web address]) Sensation Evaluation Comments Summary Comments Pt reports bilateral LE numbness with standing for ~2 minutes. However when sitting was able to distinguish L/R light touch 100%. Coordination Evaluation Lower Extremity Tests Left Foot Tapping Test good with slow, difficult with increased speed Vital Signs Oxygen Pulse Oximetry at Rest (%) (95-100 %) 95 Oxygen Delivery Method Room Air PT-OP-J Posture/Palpation/Skin Start: 11/08/20 10:38 Freq: Status: Active Protocol: Document 11/08/20 13:45 AMB (Rec: 11/09/20 08:58 AMB [email or web address]) Posture Evaluation Comments Posture Comments forward head, forward shoulders PT-OP-K Range of Motion Start: 11/08/20 10:38 Freq: Status: Active Protocol: Document 11/08/20 13:45 AMB (Rec: 11/09/20 08:58 AMB [email or web address]) Shoulder Goniometric Range of Motion Shoulder ROM Limitations Comments L shoulder flexion limited to approx 110 degrees with pain, R limited to approx 150 PT-OP-M Strength Start: 11/08/20 10:38 Freq: Status: Active Protocol: Document 11/08/20 13:45 AMB (Rec: 11/09/20 08:58 AMB [email or web address]) Knee Strength Knee Manual Muscle Testing Right Flexion (S2) 4+ Good+ Extension (L3) 4+ Good+ Left Flexion (S2) 4+ Good+ Extension (L3) 4+ Good+ Ankle/Foot Strength Ankle and Foot Manual Muscle Testing Right Dorsiflexion (L4) 4- Good- Plantarflexion (S1) 4 Good Left Dorsiflexion (L4) 4 Good Plantarflexion (S1) 4 Good PT-OP-Q Treatments Start: 11/08/20 10:38 Freq: Status: Active Protocol: Document 01/04/21 09:24 AMB (Rec: 01/04/21 09:48 AMB [id number]) Gym Equipment Shuttle Recovery Bilateral Squats Details 75 Shuttle Recovery Platform Stable Reps/Time 2x10 Therapeutic Exercises Standing Exercises calf/hamstring stretch Comments on stair sit to stand Standing Exercise Name cues for form, cues for eccentric control Reps/Minutes 2x10 stair taps Standing Exercise Name 6 stairs Comments no railing Gait Training Gait Activity BIG walking Description 100'x3 Device Used none Level of Assistance SBA Surface smooth Neuro Re-Education Treatment Balance Activities NBOS, stride stance Comments EC, then EO HT Other Activities 1 Details stride stance Comments horizontal and vertical head turns PT-OP-T Assessment and Plan Start: 11/08/20 10:38 Freq: Status: Active Protocol: Document 01/04/21 09:01 AMB (Rec: 01/04/21 09:16 AMB [id number]) Physical Therapy Assessment Goals Three Impairment HEP Short Term Goal (STG) Je will be independent and consistent with a strengthening and balance HEP. STG Duration 4 weeks Two Impairment Transfers Short Term Goal (STG) Je will move from sit to stand safely without using his UEs. STG Duration 4 weeks Client Support Representative Goal (LTG) Je will perform a floor transfer with environmental support and CGA. LTG Duration 8 weeks One Impairment Gait Short Term Goal (STG) Je will ascend and descend 10 stairs with SBA, a SPC, and 1 railing. STG Duration 4 weeks Jail Goal (LTG) Je will ambulate 2 minutes with SPC over smooth terrain without LOB. LTG Duration 8 weeks Assessment Summary Assessment 334 feet in 1 minute 44 seconds, reports legs fatigued first before breathing. No falls in last week. Sit to stand 8 in 30 seconds. Physical Therapy Plan Next Visit Focus/Plan Next Note Type Treatment Note Next Visit Plan Progress stability with gait, stairs and sit to stand
--- NOTE | 2021-01-10 11:01 | PT.OTN ---
Current Diagnoses Parkinson's disease (01/10/21) Unspecified abnormalities of gait and mobility (01/10/21) History of falling (01/10/21) Physical Therapy Treatment Note PT-OP-A Visit Information Start: 11/08/20 10:38 Freq: Status: Active Protocol: Document 01/10/21 10:08 MA (Rec: 01/10/21 11:00 MA [id number]) Out-Patient Physical Therapy Visit Information Visit Information Visit Type Treatment Note Visit Start Time 10:15 Visit Stop Time 10:55 Total Visit Minutes 40 Visit Number 8 Number of RESTAURANT HOST/HOSTESS Visits 1 PT-OP-B Current Condition Start: 11/08/20 10:38 Freq: Status: Active Protocol: Document 11/08/20 13:45 AMB (Rec: 11/08/20 14:06 AMB [id number]) Current Condition History of Current Condition Onset Date chronic Current Complaints History of falls History of Current Condition Je has had multiple falls. Celeste is scared of the stairs and reports she is concerned with his safety with moving from sit to stand. Recent clavicle fracture makes getting out of bed harder. He does report L shoulder pain after the clavicle fracture when he uses the arm, and pain in the backs of the legs and weakness that he reports is more chronic. He reports he uses a SPC in the community and recently in the house somewhat in the R UE. He lives in a private home with 10 steps to enter and one railing with his . Prior Functional Status Baseline Function- ADL's Modified Independent Baseline Function- Mobility Modified Independent Current Functional Impairments (Reported) Functional Limitations- ADL's Difficulty with sit to stand ( safety with moving into sitting) and pain with L shoulder with bed mobility, thought he was sitting to shower but pt reports he is standing. Personal Factors Other Personal Factors That May Effect Pt is a current every day Therapy/Recovery smoker, history [place], PVD, multiple falls with resultant L clavicle and old pelvic fracture PT-OP-C Subjective Start: 11/08/20 10:38 Freq: Status: Active Protocol: Document 01/10/21 10:08 MA (Rec: 01/10/21 11:00 MA [id number]) OP-PT Subjective Patient Comments Patient Comments No recent falls, nothing new to report PT-OP-D Balance Start: 11/08/20 10:38 Freq: Status: Active Protocol: Document 11/08/20 13:45 AMB (Rec: 11/09/20 08:58 AMB [email or web address]) Balance Tests mCTSIB mCTSIB Position 1 30 seconds mCTSIB Position 2 falls posteriorly PT-OP-E Functional Tests Start: 11/08/20 10:38 Freq: Status: Active Protocol: Document 11/08/20 13:45 AMB (Rec: 11/08/20 15:43 AMB [email or web address]) Functional Tests Five Times Sit to Stand Test Score 14 seconds Comments 2 LOB posteriorly Timed Up and Go (TUG) Score 13.5 seconds Comments no AD TUG Impairment Rating 40 to <60% Impaired (Score 14- 15) PT-OP-G Mobility & Gait Start: 11/08/20 10:38 Freq: Status: Active Protocol: Document 11/08/20 13:45 AMB (Rec: 11/09/20 08:58 AMB [email or web address]) OP Mobility Evaluation Transfers Sit to Stand needs UEs, poor control when moving from standing to sitting. Does not have good awareness of where the chair is. Does not move COG anteriorly enough and tends to lose balance backwards. OP Gait Assessment Comments Gait Comments Pt is aware to swing arms but it is definitely a cognitive task. Otherwise stiff gait. Stair Climbing Evaluation Evaluation Level of Assist On Stairs Standby Assistance Devices Stair Climbing Assistive Devices Left Railing,Right Railing Technique/Endurance Stair Climbing Direction Ascend and Descend Stair Climbing Technique Step Over Step Number of Steps Climbed 4 Stair Climbing Set # Repetitions (reps) 2 Comments Stair Climbing Comments Pt is unsure how to manage SPC on stairs PT-OP-H Neuro Start: 11/08/20 10:38 Freq: Status: Active Protocol: Document 11/08/20 13:45 AMB (Rec: 11/09/20 08:58 AMB [email or web address]) Sensation Evaluation Comments Summary Comments Pt reports bilateral LE numbness with standing for ~2 minutes. However when sitting was able to distinguish L/R light touch 100%. Coordination Evaluation Lower Extremity Tests Left Foot Tapping Test good with slow, difficult with increased speed Vital Signs Oxygen Pulse Oximetry at Rest (%) (95-100 %) 95 Oxygen Delivery Method Room Air PT-OP-J Posture/Palpation/Skin Start: 11/08/20 10:38 Freq: Status: Active Protocol: Document 11/08/20 13:45 AMB (Rec: 11/09/20 08:58 AMB [email or web address]) Posture Evaluation Comments Posture Comments forward head, forward shoulders PT-OP-K Range of Motion Start: 11/08/20 10:38 Freq: Status: Active Protocol: Document 11/08/20 13:45 AMB (Rec: 11/09/20 08:58 AMB [email or web address]) Shoulder Goniometric Range of Motion Shoulder ROM Limitations Comments L shoulder flexion limited to approx 110 degrees with pain, R limited to approx 150 PT-OP-M Strength Start: 11/08/20 10:38 Freq: Status: Active Protocol: Document 11/08/20 13:45 AMB (Rec: 11/09/20 08:58 AMB [email or web address]) Knee Strength Knee Manual Muscle Testing Right Flexion (S2) 4+ Good+ Extension (L3) 4+ Good+ Left Flexion (S2) 4+ Good+ Extension (L3) 4+ Good+ Ankle/Foot Strength Ankle and Foot Manual Muscle Testing Right Dorsiflexion (L4) 4- Good- Plantarflexion (S1) 4 Good Left Dorsiflexion (L4) 4 Good Plantarflexion (S1) 4 Good PT-OP-Q Treatments Start: 11/08/20 10:38 Freq: Status: Active Protocol: Document 01/10/21 10:08 MA (Rec: 01/10/21 11:00 MA [id number]) Gym Equipment Shuttle Recovery Bilateral Squats Details 75, 87 Shuttle Recovery Platform Stable Reps/Time 2x10 Therapeutic Exercises Standing Exercises sit to stand Standing Exercise Name cues for form, cues for eccentric control Reps/Minutes 2x10 stair taps Standing Exercise Name 6 stairs Comments no railing Therapeutic Activity Therapeutic Activity Floor transfers Reps/Minutes 10' Comments 1. with single UE use on solid surface 2. no outside support-pt requires Mod A for balance Gait Training Gait Activity stairs Description 6 therpay stairs Device Used single rail Level of Assistance CGA Distance/Duration 2x 4 steps Comments step over pattern BIG walking Device Used none Level of Assistance SBA Surface smooth Comments 2 min walk test - 333 ft Neuro Re-Education Treatment Balance Activities NBOS, stride stance Comments WBOS and staggered stance on solid floor, then on blue foam , while throwing ball at rebounder PT-OP-T Assessment and Plan Start: 11/08/20 10:38 Freq: Status: Active Protocol: Document 01/10/21 10:08 [email or web address] (Rec: 01/10/21 11:00 MA [id number]) Physical Therapy Assessment Goals Three Impairment HEP Short Term Goal (STG) Je will be independent and consistent with a strengthening and balance HEP. STG Duration 4 weeks Two Impairment Transfers Short Term Goal (STG) Je will move from sit to stand safely without using his UEs. STG Duration 4 weeks Longterm Goal (LTG) Je will perform a floor transfer with environmental support and CGA. LTG Duration 8 weeks One Impairment Gait Short Term Goal (STG) Je will ascend and descend 10 stairs with SBA, a SPC, and 1 railing. STG Duration 4 weeks Longterm Goal (LTG) Je will ambulate 2 minutes with SPC over smooth terrain without LOB. LTG Duration 8 weeks Assessment Summary Assessment Pt was able to complete floor transfers SBA using single hand on solid surface for balance when standing. Attempted floor transfers without UE assistance with pt requiring Min A to help stand from tall kneeling position. Je did well with dual task challenge while throwing ball and balancing and was able to progress to balancing on uneven surface while throwing, with occasional Min A for balance when on uneven surfaces. He completes 2 minutes of walking and walks 333 ft today. Pt is limited by his SOB and requires frequent rest breaks throughout session. Physical Therapy Plan Frequency and Duration Frequency of Treatment 1x/Week Duration of Treatment 10 weeks Plan of Care Start Date 11/09/20 Plan of Care End Date 01/18/21 Therapeutic Interventions Therapeutic Interventions Balance Training,Gait Training ,Home Exercise Program,Manual Therapy,Self-Care/Home Management,Therapeutic Activities,Therapeutic Exercises Next Visit Focus/Plan Next Note Type Treatment Note Next Visit Plan Progress stability with gait, stairs and sit to stand
--- NOTE | 2021-01-17 12:12 | PT.OTN ---
Current Diagnoses Parkinson's disease (01/17/21) Unspecified abnormalities of gait and mobility (01/17/21) History of falling (01/17/21) Physical Therapy Treatment Note PT-OP-A Visit Information Start: 11/08/20 10:38 Freq: Status: Active Protocol: Document 01/17/21 10:28 AMB (Rec: 01/17/21 10:39 AMB [id number]) Out-Patient Physical Therapy Visit Information Visit Information Visit Type Progress Note Visit Start Time 10:30 Visit Stop Time 11:15 Total Visit Minutes 45 Visit Number 9 PT-OP-B Current Condition Start: 11/08/20 10:38 Freq: Status: Active Protocol: Document 11/08/20 13:45 AMB (Rec: 11/08/20 14:06 AMB [id number]) Current Condition History of Current Condition Onset Date chronic Current Complaints History of falls History of Current Condition Je has had multiple falls. Celeste is scared of the stairs and reports she is concerned with his safety with moving from sit to stand. Recent clavicle fracture makes getting out of bed harder. He does report L shoulder pain after the clavicle fracture when he uses the arm, and pain in the backs of the legs and weakness that he reports is more chronic. He reports he uses a SPC in the community and recently in the house somewhat in the R UE. He lives in a private home with 10 steps to enter and one railing with his . Prior Functional Status Baseline Function- ADL's Modified Independent Baseline Function- Mobility Modified Independent Current Functional Impairments (Reported) Functional Limitations- ADL's Difficulty with sit to stand ( safety with moving into sitting) and pain with L shoulder with bed mobility, thought he was sitting to shower but pt reports he is standing. Personal Factors Other Personal Factors That May Effect Pt is a current every day Therapy/Recovery smoker, history [place], PVD, multiple falls with resultant L clavicle and old pelvic fracture PT-OP-C Subjective Start: 11/08/20 10:38 Freq: Status: Active Protocol: Document 01/17/21 10:28 AMB (Rec: 01/17/21 10:39 AMB [id number]) OP-PT Subjective Patient Comments Patient Comments No recent falls. PT-OP-D Balance Start: 11/08/20 10:38 Freq: Status: Active Protocol: Document 11/08/20 13:45 AMB (Rec: 11/09/20 08:58 AMB [email or web address]) Balance Tests mCTSIB mCTSIB Position 1 30 seconds mCTSIB Position 2 falls posteriorly PT-OP-E Functional Tests Start: 11/08/20 10:38 Freq: Status: Active Protocol: Document 11/08/20 13:45 AMB (Rec: 11/08/20 15:43 AMB [email or web address]) Functional Tests Five Times Sit to Stand Test Score 14 seconds Comments 2 LOB posteriorly Timed Up and Go (TUG) Score 13.5 seconds Comments no AD TUG Impairment Rating 40 to <60% Impaired (Score 14- 15) PT-OP-G Mobility & Gait Start: 11/08/20 10:38 Freq: Status: Active Protocol: Document 11/08/20 13:45 AMB (Rec: 11/09/20 08:58 AMB [email or web address]) OP Mobility Evaluation Transfers Sit to Stand needs UEs, poor control when moving from standing to sitting. Does not have good awareness of where the chair is. Does not move COG anteriorly enough and tends to lose balance backwards. OP Gait Assessment Comments Gait Comments Pt is aware to swing arms but it is definitely a cognitive task. Otherwise stiff gait. Stair Climbing Evaluation Evaluation Level of Assist On Stairs Standby Assistance Devices Stair Climbing Assistive Devices Left Railing,Right Railing Technique/Endurance Stair Climbing Direction Ascend and Descend Stair Climbing Technique Step Over Step Number of Steps Climbed 4 Stair Climbing Set # Repetitions (reps) 2 Comments Stair Climbing Comments Pt is unsure how to manage SPC on stairs PT-OP-H Neuro Start: 11/08/20 10:38 Freq: Status: Active Protocol: Document 11/08/20 13:45 AMB (Rec: 11/09/20 08:58 AMB [email or web address]) Sensation Evaluation Comments Summary Comments Pt reports bilateral LE numbness with standing for ~2 minutes. However when sitting was able to distinguish L/R light touch 100%. Coordination Evaluation Lower Extremity Tests Left Foot Tapping Test good with slow, difficult with increased speed Vital Signs Oxygen Pulse Oximetry at Rest (%) (95-100 %) 95 Oxygen Delivery Method Room Air PT-OP-J Posture/Palpation/Skin Start: 11/08/20 10:38 Freq: Status: Active Protocol: Document 11/08/20 13:45 AMB (Rec: 11/09/20 08:58 AMB [email or web address]) Posture Evaluation Comments Posture Comments forward head, forward shoulders PT-OP-K Range of Motion Start: 11/08/20 10:38 Freq: Status: Active Protocol: Document 11/08/20 13:45 AMB (Rec: 11/09/20 08:58 AMB [email or web address]) Shoulder Goniometric Range of Motion Shoulder ROM Limitations Comments L shoulder flexion limited to approx 110 degrees with pain, R limited to approx 150 PT-OP-M Strength Start: 11/08/20 10:38 Freq: Status: Active Protocol: Document 11/08/20 13:45 AMB (Rec: 11/09/20 08:58 AMB [email or web address]) Knee Strength Knee Manual Muscle Testing Right Flexion (S2) 4+ Good+ Extension (L3) 4+ Good+ Left Flexion (S2) 4+ Good+ Extension (L3) 4+ Good+ Ankle/Foot Strength Ankle and Foot Manual Muscle Testing Right Dorsiflexion (L4) 4- Good- Plantarflexion (S1) 4 Good Left Dorsiflexion (L4) 4 Good Plantarflexion (S1) 4 Good PT-OP-Q Treatments Start: 11/08/20 10:38 Freq: Status: Active Protocol: Document 01/17/21 10:30 AMB (Rec: 01/17/21 10:51 AMB [id number]) Therapeutic Exercises Standing Exercises calf/hamstring stretch Reps/Minutes 30x4 Comments on stair 1 Standing Exercise Name double leg heel riase on stair Reps/Minutes 2x10 sit to stand Standing Exercise Name cues for form, cues for eccentric control Reps/Minutes 2x10 Gait Training Gait Activity BIG walking Description 2 minutes without AD x 4 Level of Assistance SBA Surface smooth Distance/Duration 344' Comments pt felt seizing in the calves in the latter part of the appt when walking. Neuro Re-Education Treatment Other Activities 1 Details stair taps Comments CGA without UE support PT-OP-T Assessment and Plan Start: 11/08/20 10:38 Freq: Status: Active Protocol: Document 01/17/21 10:28 AMB (Rec: 01/17/21 10:39 AMB [id number]) Physical Therapy Assessment Goals Three Impairment HEP Short Term Goal (STG) Je will be independent and consistent with a strengthening and balance HEP. STG Duration 4 weeks Two Impairment Transfers Short Term Goal (STG) Je will move from sit to stand safely without using his UEs. STG Duration 4 weeks Pressurizer Goal (LTG) Je will perform a floor transfer with environmental support and CGA. LTG Duration MET One Impairment Gait Short Term Goal (STG) Je will ascend and descend 10 stairs with SBA, a SPC, and 1 railing. STG Duration 4 weeks Mcc Goal (LTG) Je will ambulate 2 minutes with SPC over smooth terrain without LOB. LTG Duration MET Assessment Summary Assessment Je had increased muscle spasm/cramping in calves today that limited his walking. He has met about half of his goals so far, and will benefit from continued physical therapy to progress his gait/ balance safety. His progress is limited by his shortness of breath and leg fatigue, but he has shown progress, if not slow. Physical Therapy Plan Frequency and Duration Frequency of Treatment 1x/Week Duration of Treatment 4 weeks Plan of Care Start Date 01/17/21 Plan of Care End Date 02/14/21 Therapeutic Interventions Therapeutic Interventions Balance Training,Gait Training ,Home Exercise Program,Manual Therapy,Self-Care/Home Management,Therapeutic Activities,Therapeutic Exercises
--- NOTE | 2021-01-17 12:12 | PT.OPPOC ---
Physical, Occupational & Speech Therapy At [facility] Current Diagnoses Parkinson's disease (01/17/21) Unspecified abnormalities of gait and mobility (01/17/21) History of falling (01/17/21) Visit Care Team Role Provider Type Olaf Espinosa MD Family Provider Physician Primary Care Provider Specialty: Internal Medicine Address: [address] [place] [address], [facility] [address], [place], [address] Email: [email or web address] Manuel Bob MD Attending Provider Non-Staff Referring Provider Specialty: Neurology Address: [address] [facility], [place], [address] Email: Plan Of Care PT-OP-T Assessment and Plan Start: 11/08/20 10:38 Freq: Status: Active Protocol: Document 01/17/21 10:28 AMB (Rec: 01/17/21 10:39 AMB [id number]) Physical Therapy Assessment Goals Three Impairment HEP Short Term Goal (STG) Je will be independent and consistent with a strengthening and balance HEP. STG Duration 4 weeks Two Impairment Transfers Short Term Goal (STG) Je will move from sit to stand safely without using his UEs. STG Duration 4 weeks Load Haul Dump Operator Goal (LTG) Je will perform a floor transfer with environmental support and CGA. LTG Duration MET One Impairment Gait Short Term Goal (STG) Je will ascend and descend 10 stairs with SBA, a SPC, and 1 railing. STG Duration 4 weeks Load Haul Dump Operator Goal (LTG) Je will ambulate 2 minutes with SPC over smooth terrain without LOB. LTG Duration MET Assessment Summary Assessment Je had increased muscle spasm/cramping in calves today that limited his walking. He has met about half of his goals so far, and will benefit from continued physical therapy to progress his gait/ balance safety. His progress is limited by his shortness of breath and leg fatigue, but he has shown progress, if not slow. Physical Therapy Plan Frequency and Duration Frequency of Treatment 1x/Week Duration of Treatment 4 weeks Plan of Care Start Date 01/17/21 Plan of Care End Date 02/14/21 Therapeutic Interventions Therapeutic Interventions Balance Training,Gait Training ,Home Exercise Program,Manual Therapy,Self-Care/Home Management,Therapeutic Activities,Therapeutic Exercises Plan of Care Dates Plan of Care Start Date 01/17/21 Plan of Care End Date 02/14/21 Electronically Signed by: Gem Magallanes, PT 01/17/21 1212 Please Sign and Return: I have reviewed this Plan of Care and certify that the skilled therapy services above are required to meet the patient?s needs. Physician Signature Date Printed Name and Credentials Clinical Instructor Signature Printed Name and Credentials
--- NOTE | 2021-01-26 08:16 | PT.OPDS ---
Current Diagnoses Parkinson's disease (01/17/21) Unspecified abnormalities of gait and mobility (01/17/21) History of falling (01/17/21) Visit Care Team Role Provider Type Olaf Espinosa MD Family Provider Physician Primary Care Provider Specialty: Internal Medicine Address: [address] [place] [address], [address], [place], [address] Email: [email or web address] Manuel Bob MD Attending Provider Non-Staff Referring Provider Specialty: Neurology Address: [address] [place] [address], [place], [address] Email: Visit Number Visit Number 9 Discharge Summary PT-OP-B Current Condition Start: 11/08/20 10:38 Freq: Status: Active Protocol: Document 11/08/20 13:45 AMB (Rec: 11/08/20 14:06 AMB [id number]) Current Condition History of Current Condition Onset Date chronic Current Complaints History of falls History of Current Condition Je has had multiple falls. Celeste is scared of the stairs and reports she is concerned with his safety with moving from sit to stand. Recent clavicle fracture makes getting out of bed harder. He does report L shoulder pain after the clavicle fracture when he uses the arm, and pain in the backs of the legs and weakness that he reports is more chronic. He reports he uses a SPC in the community and recently in the house somewhat in the R UE. He lives in a private home with 10 steps to enter and one railing with his . Prior Functional Status Baseline Function- ADL's Modified Independent Baseline Function- Mobility Modified Independent Current Functional Impairments (Reported) Functional Limitations- ADL's Difficulty with sit to stand ( safety with moving into sitting) and pain with L shoulder with bed mobility, thought he was sitting to shower but pt reports he is standing. 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 PT-OP-D Balance Start: 11/08/20 10:38 Freq: Status: Active Protocol: Document 11/08/20 13:45 AMB (Rec: 11/09/20 08:58 AMB [email or web address]) Balance Tests mCTSIB mCTSIB Position 1 30 seconds mCTSIB Position 2 falls posteriorly PT-OP-E Functional Tests Start: 11/08/20 10:38 Freq: Status: Active Protocol: Document 11/08/20 13:45 AMB (Rec: 11/08/20 15:43 AMB [email or web address]) Functional Tests Five Times Sit to Stand Test Score 14 seconds Comments 2 LOB posteriorly Timed Up and Go (TUG) Score 13.5 seconds Comments no AD TUG Impairment Rating 40 to <60% Impaired (Score 14- 15) PT-OP-G Mobility & Gait Start: 11/08/20 10:38 Freq: Status: Active Protocol: Document 11/08/20 13:45 AMB (Rec: 11/09/20 08:58 AMB [email or web address]) OP Mobility Evaluation Transfers Sit to Stand needs UEs, poor control when moving from standing to sitting. Does not have good awareness of where the chair is. Does not move COG anteriorly enough and tends to lose balance backwards. OP Gait Assessment Comments Gait Comments Pt is aware to swing arms but it is definitely a cognitive task. Otherwise stiff gait. Stair Climbing Evaluation Evaluation Level of Assist On Stairs Standby Assistance Devices Stair Climbing Assistive Devices Left Railing,Right Railing Technique/Endurance Stair Climbing Direction Ascend and Descend Stair Climbing Technique Step Over Step Number of Steps Climbed 4 Stair Climbing Set # Repetitions (reps) 2 Comments Stair Climbing Comments Pt is unsure how to manage SPC on stairs PT-OP-H Neuro Start: 11/08/20 10:38 Freq: Status: Active Protocol: Document 11/08/20 13:45 AMB (Rec: 11/09/20 08:58 AMB [email or web address]) Sensation Evaluation Comments Summary Comments Pt reports bilateral LE numbness with standing for ~2 minutes. However when sitting was able to distinguish L/R light touch 100%. Coordination Evaluation Lower Extremity Tests Left Foot Tapping Test good with slow, difficult with increased speed Vital Signs Oxygen Pulse Oximetry at Rest (%) (95-100 %) 95 Oxygen Delivery Method Room Air PT-OP-J Posture/Palpation/Skin Start: 11/08/20 10:38 Freq: Status: Active Protocol: Document 11/08/20 13:45 AMB (Rec: 11/09/20 08:58 AMB [email or web address]) Posture Evaluation Comments Posture Comments forward head, forward shoulders PT-OP-K Range of Motion Start: 11/08/20 10:38 Freq: Status: Active Protocol: Document 11/08/20 13:45 AMB (Rec: 11/09/20 08:58 AMB [email or web address]) Shoulder Goniometric Range of Motion Shoulder ROM Limitations Comments L shoulder flexion limited to approx 110 degrees with pain, R limited to approx 150 PT-OP-M Strength Start: 11/08/20 10:38 Freq: Status: Active Protocol: Document 11/08/20 13:45 AMB (Rec: 11/09/20 08:58 AMB [email or web address]) Knee Strength Knee Manual Muscle Testing Right Flexion (S2) 4+ Good+ Extension (L3) 4+ Good+ Left Flexion (S2) 4+ Good+ Extension (L3) 4+ Good+ Ankle/Foot Strength Ankle and Foot Manual Muscle Testing Right Dorsiflexion (L4) 4- Good- Plantarflexion (S1) 4 Good Left Dorsiflexion (L4) 4 Good Plantarflexion (S1) 4 Good PT-OP-T Assessment and Plan Start: 11/08/20 10:38 Freq: Status: Active Protocol: Document 01/26/21 08:09 AMB (Rec: 01/26/21 08:16 AMB [id number]) Physical Therapy Assessment Goals Three Impairment HEP Short Term Goal (STG) Je will be independent and consistent with a strengthening and balance HEP. STG Duration 4 weeks Two Impairment Transfers Short Term Goal (STG) Je will move from sit to stand safely without using his UEs. STG Duration PARTIALLY MET [employer] Goal (LTG) Je will perform a floor transfer with environmental support and CGA. LTG Duration MET One Impairment Gait Short Term Goal (STG) Je will ascend and descend 10 stairs with SBA, a SPC, and 1 railing. STG Duration MET [employer] Goal (LTG) Je will ambulate 2 minutes with SPC over smooth terrain without LOB. LTG Duration MET Assessment Summary Assessment Je is going to be seen for his shoulder in the new year, his called to cancel his last appointment due to family being in town for the holidays. Pt had done well with PT, but needed reminders in safety.
== END 2021-01-27 09:56 ==
LOC: PHYS 10:30
PROVIDERS: Family Provider Internal Medicine; PCP Internal Medicine; Referring Provider Psychiatry & Neurology Neurology; Visit Provider Psychiatry & Neurology Neurology
DX: G20 Parkinson's disease (principal); Z91.81 History of falling; R26.9 Unspecified abnormalities of gait and mobility
CPT/HCPCS: 97110; 97112; 97116; 97162; 97530

== ENCOUNTER 2021-03-31 09:45 | Outpatient (RCR) | payer OTHER, SELFPAY ==
[2020-07-19 16:37] VITALS: BMI 23.0
--- NOTE | 2021-02-09 11:48 | PT.OIE ---
Current Diagnoses Pain in left shoulder (02/09/21) Past Medical History (Last Updated 07/20/20 @ 08:44 by Johanna Quarles RN) COPD (chronic obstructive pulmonary disease) Coronary artery disease (~2010) Essential hypertension Hearing loss (~2013) Hemorrhoid (~1979) History of cataract removal with insertion of prosthetic lens (~2018) History of heart bypass surgery (~2011) History of surgery (~2016) History of surgery (~2016) Ischemic cardiomyopathy Mixed hyperlipidemia Parkinson disease Parkinson's disease Paroxysmal atrial fibrillation Peripheral vascular disease (~2016) S/P laparoscopic cholecystectomy Wears glasses Past Surgical History (Last Reviewed 07/19/20 @ 18:57 by Antonia Gonzales MD) Anesthesia Gallstones (~2017) History of cataract removal with insertion of prosthetic lens (~2018) History of heart bypass surgery (~2011) History of surgery (~2016) History of surgery (~2016) Pelvis fracture (~2012) Right groin hernia (~2018) S/P laparoscopic cholecystectomy Visit Care Team Role Provider Type Olaf Espinosa MD Family Provider Physician Primary Care Provider Specialty: Internal Medicine Address: [address] [place] [address], [address], [address] Email: [email or web address] Jass Smith MD Attending Provider Physician Referring Provider Specialty: Orthopedic Surgery Address: [address] [place] [address], [address] Email: [email or web address] Physical Therapy Initial Evaluation PT-OP-A Visit Information Start: 02/08/21 15:28 Freq: Status: Active Protocol: Document 02/09/21 11:15 AMB (Rec: 02/09/21 11:17 AMB [id number]) Out-Patient Physical Therapy Visit Information Visit Information Visit Type Initial Evaluation Visit Start Time 11:15 Visit Stop Time 12:00 Total Visit Minutes 45 Visit Number 1 PT-OP-B Current Condition Start: 02/08/21 15:28 Freq: Status: Active Protocol: Document 02/09/21 10:30 AMB (Rec: 02/09/21 10:47 AMB [id number]) Current Condition History of Current Condition Onset Date July 2020 Current Complaints L shoulder pain History of Current Condition Getting out of bed is painful and weak due to left shoulder. Fractured left clavicle in a fall back in July. Did see ortho surgery and they are conservatively managing, hasn' t had formal PT for the shoulder. Getting better since fractured clavicle in a fall in July, but still having pain/limited mobility. Horizontal adduction is painful. Pushing with arm to get out of bed is painful. Pt denies falls since he was here last for his Parkinsons in mid January. Treatment Goals Patient/Caregiver Goals Lift arm more and get out of bed without pain Prior Functional Status Baseline Function- ADL's Modified Independent Baseline Function- Mobility Modified Independent Current Functional Impairments (Reported) Functional Limitations- ADL's Difficulty reaching through full ROM, difficulty with bed mobility due to left arm weakness/pain Personal Factors Other Personal Factors That May Effect Parkinson's, current every day Therapy/Recovery smoker. PT-OP-C Subjective Start: 02/08/21 15:28 Freq: Status: Active Protocol: Document 02/09/21 10:30 AMB (Rec: 02/10/21 11:45 AMB [id number]) OP-PT Pain Assessment Location Left Shoulder Intensity 4 Scale Used Numeric (0 - 10) PT-OP-J Posture/Palpation/Skin Start: 02/08/21 15:28 Freq: Status: Active Protocol: Document 02/09/21 10:30 AMB (Rec: 02/10/21 11:40 AMB [id number]) Posture Evaluation Comments Posture Comments Forward shoulder posture with winging scapula bilaterally Palpation Assessment Location One Palpation Location Left shoulder Palpation Details No pain over medial clavicle but pain more at lateral shoulder. PT-OP-K Range of Motion Start: 02/08/21 15:28 Freq: Status: Active Protocol: Document 02/09/21 10:30 AMB (Rec: 02/10/21 10:28 AMB [id number]) Shoulder Goniometric Range of Motion Shoulder Left Passive Testing Position Supine Flexion 154 Abduction 120 External Rotation at 45 degrees 60 Abduction Right Active Testing Position Sitting Flexion 150 Horizontal Adduction 50 Left Active Testing Position Sitting Flexion 120 Abduction 115 Horizontal Adduction 33 PT-OP-M Strength Start: 02/08/21 15:28 Freq: Status: Active Protocol: Document 02/09/21 10:30 AMB (Rec: 02/10/21 11:31 AMB [id number]) Shoulder Strength Shoulder Manual Muscle Testing Left Flexion 4 Good Abduction (C5) 4 Good External Rotation 4- Good- Internal Rotation 4+ Good+ Comments pain with abduction PT-OP-Q Treatments Start: 02/08/21 15:28 Freq: Status: Active Protocol: Document 02/09/21 10:30 AMB (Rec: 02/10/21 11:31 AMB [id number]) Therapeutic Exercises Sitting Exercises 1 Sitting Exercise Name shoulder ER Comments t band PT-OP-T Assessment and Plan Start: 02/08/21 15:28 Freq: Status: Active Protocol: Document 02/09/21 10:30 AMB (Rec: 02/10/21 11:37 AMB [id number]) Physical Therapy Assessment Rehab Potential Rehabilitation Potential Good Evaluation Complexity Number of Personal Factors/Comorbidities 1-2 Number of Body Systems Impaired 1-2 Clinical Presentation at Evaluation Stable Impairments Impairments Functional Activities,Pain, Posture,ROM,Strength Goals Three Impairment Strength Short Term Goal (STG) Je will be independent with a HEP for shoulder strengthening. STG Duration 5 weeks Two Impairment ROM Short Term Goal (STG) Je will increase his active shoulder flexion to 150 degrees. STG Duration 5 weeks [employer] Goal (LTG) Je will increase his pain free horizontal shoulder adduction to 45 degrees. LTG Duration 10 weeks One Impairment Bed mobility Short Term Goal (STG) Je will perform all bed mobility with 1/10 shoulder pain or less. STG Duration 5 weeks Assessment Summary Assessment Je attends physical therapy for his shoulder 6 months s/p medial clavicle fracture. He is continuing to have pain with overhead motions and with pushing on the arm to get up from the bed . During PT he was able to independently perform a bed transfer, but did have pain with pushing his body weight on the left arm. His range of motion is limited with overhead movement and he does have weakness in external rotation. He will be instructed in a strengthening and ROM program. His PT course may be limited by his Parkinsons and the chronic nature of the clavicle fracture. Physical Therapy Plan Frequency and Duration Frequency of Treatment 1x/Week Duration of Treatment 10 weeks Plan of Care Start Date 02/09/21 Plan of Care End Date 04/20/21 Therapeutic Interventions Therapeutic Interventions Home Exercise Program,Manual Therapy,Neuromuscular Re- education,Self-Care/Home Management,Therapeutic Activities,Therapeutic Exercises Modalities Cold Pack/Ice Massage,Electric Stimulation Next Visit Focus/Plan Next Note Type Treatment Note Next Visit Plan review HEP of t band ER, progress AROM and strengthening as able
--- NOTE | 2021-02-09 11:50 | PT.OPPOC ---
Physical, Occupational & Speech Therapy At [facility] Current Diagnoses Pain in left shoulder (02/09/21) Visit Care Team Role Provider Type Olaf Espinosa MD Family Provider Physician Primary Care Provider Specialty: Internal Medicine Address: [address] [place] [address], [address], [place], [address] Email: [email or web address] Jass Smith MD Attending Provider Physician Referring Provider Specialty: Orthopedic Surgery Address: [address] [place] [address], [id number] Email: [email or web address] Plan Of Care PT-OP-T Assessment and Plan Start: 02/08/21 15:28 Freq: Status: Active Protocol: Document 02/09/21 10:30 AMB (Rec: 02/10/21 11:37 AMB [id number]) Physical Therapy Assessment Rehab Potential Rehabilitation Potential Good Evaluation Complexity Number of Personal Factors/Comorbidities 1-2 Number of Body Systems Impaired 1-2 Clinical Presentation at Evaluation Stable Impairments Impairments Functional Activities,Pain, Posture,ROM,Strength Goals Three Impairment Strength Short Term Goal (STG) Je will be independent with a HEP for shoulder strengthening. STG Duration 5 weeks Two Impairment ROM Short Term Goal (STG) Je will increase his active shoulder flexion to 150 degrees. STG Duration 5 weeks [facility] Goal (LTG) Je will increase his pain free horizontal shoulder adduction to 45 degrees. LTG Duration 10 weeks One Impairment Bed mobility Short Term Goal (STG) Je will perform all bed mobility with 1/10 shoulder pain or less. STG Duration 5 weeks Assessment Summary Assessment Je attends physical therapy for his shoulder 6 months s/p medial clavicle fracture. He is continuing to have pain with overhead motions and with pushing on the arm to get up from the bed . During PT he was able to independently perform a bed transfer, but did have pain with pushing his body weight on the left arm. His range of motion is limited with overhead movement and he does have weakness in external rotation. He will be instructed in a strengthening and ROM program. His PT course may be limited by his Parkinsons and the chronic nature of the clavicle fracture. Physical Therapy Plan Frequency and Duration Frequency of Treatment 1x/Week Duration of Treatment 10 weeks Plan of Care Start Date 02/09/21 Plan of Care End Date 04/20/21 Therapeutic Interventions Therapeutic Interventions Home Exercise Program,Manual Therapy,Neuromuscular Re- education,Self-Care/Home Management,Therapeutic Activities,Therapeutic Exercises Modalities Cold Pack/Ice Massage,Electric Stimulation Next Visit Focus/Plan Next Note Type Treatment Note Next Visit Plan review HEP of t band ER, progress AROM and strengthening as able Plan of Care Dates Plan of Care Start Date 02/09/21 Plan of Care End Date 04/20/21 Electronically Signed by: Gem Magallanes, PT 02/10/21 [id number] Please Sign and Return: I have reviewed this Plan of Care and certify that the skilled therapy services above are required to meet the patient?s needs. Physician Signature Date Printed Name and Credentials Clinical Instructor Signature Printed Name and Credentials
--- NOTE | 2021-02-14 16:00 | PT.OTN ---
Current Diagnoses Pain in left shoulder (02/14/21) Physical Therapy Treatment Note PT-OP-A Visit Information Start: 02/08/21 15:28 Freq: Status: Active Protocol: Document 02/14/21 11:15 AMB (Rec: 02/14/21 12:10 AMB [id number]) Out-Patient Physical Therapy Visit Information Visit Information Visit Type Treatment Note Visit Start Time 11:15 Visit Stop Time 12:00 Total Visit Minutes 45 Visit Number 2 PT-OP-B Current Condition Start: 02/08/21 15:28 Freq: Status: Active Protocol: Document 02/09/21 10:30 AMB (Rec: 02/09/21 10:47 AMB [id number]) Current Condition History of Current Condition Onset Date July 2020 Current Complaints L shoulder pain History of Current Condition GEtting out of bed is painful and weak due to left shoulder. Fractured left clavicle in a fall back in July. Did see ortho surgery and they are conservatively managing, hasn' t had formal PT for the shoulder. Getting better since fractured clavicle in a fall in July, but still having pain/limited mobility. Horizontal adduction is painful. Pushing with arm to get out of bed is painful. Pt denies falls since he was here last for his Parkinsons in mid January. Treatment Goals Patient/Caregiver Goals Lift arm more and get out of bed without pain Prior Functional Status Baseline Function- ADL's Modified Independent Baseline Function- Mobility Modified Independent Current Functional Impairments (Reported) Functional Limitations- ADL's Difficulty reaching through full ROM, difficulty with bed mobility due to left arm weakness/pain Personal Factors Other Personal Factors That May Effect Parkinson's, current every day Therapy/Recovery smoker. PT-OP-C Subjective Start: 02/08/21 15:28 Freq: Status: Active Protocol: Document 02/14/21 11:15 AMB (Rec: 02/14/21 12:10 AMB [id number]) OP-PT Subjective Patient Comments Patient Comments Pt states exercise makes muscles sore, but only during exercise not afterwards. PT-OP-J Posture/Palpation/Skin Start: 02/08/21 15:28 Freq: Status: Active Protocol: Document 02/09/21 10:30 AMB (Rec: 02/10/21 11:40 AMB [id number]) Posture Evaluation Comments Posture Comments Forward shoulder posture with winging scapula bilaterally Palpation Assessment Location One Palpation Location Left shoulder Palpation Details No pain over medial clavicle but pain more at lateral shoulder. PT-OP-K Range of Motion Start: 02/08/21 15:28 Freq: Status: Active Protocol: Document 02/09/21 10:30 AMB (Rec: 02/10/21 10:28 AMB [id number]) Shoulder Goniometric Range of Motion Shoulder Left Passive Testing Position Supine Flexion 154 Abduction 120 External Rotation at 45 degrees 60 Abduction Right Active Testing Position Sitting Flexion 150 Horizontal Adduction 50 Left Active Testing Position Sitting Flexion 120 Abduction 115 Horizontal Adduction 33 PT-OP-M Strength Start: 02/08/21 15:28 Freq: Status: Active Protocol: Document 02/09/21 10:30 AMB (Rec: 02/10/21 11:31 AMB [id number]) Shoulder Strength Shoulder Manual Muscle Testing Left Flexion 4 Good Abduction (C5) 4 Good External Rotation 4- Good- Internal Rotation 4+ Good+ Comments pain with abduction PT-OP-Q Treatments Start: 02/08/21 15:28 Freq: Status: Active Protocol: Document 02/14/21 11:15 AMB (Rec: 02/14/21 12:10 AMB [id number]) Cardio Equipment Upper Body Ergometer (UBE) Duration (Minutes) 5 Other fwd back Therapeutic Exercises Supine Exercises scap punch Side left Equipment Used AROM Reps/Minutes 10 Sidelying Exercises ER Side left Resistance AROM Reps/Minutes 2x10 Comments cues for form Standing Exercises 3 Standing Exercise Name T band rows Resistance #1 t band Reps/Minutes 2x10 2 Standing Exercise Name T band IR Resistance #1 tband Reps/Minutes 2x10 1 Standing Exercise Name T band ER Resistance #1 t band Reps/Minutes 2x10 Comments cues for form Manual Therapy Treatment Soft Tissue Mobilization 1 Body Location biceps, deltoid Mobilization Type Myofascial Release Intensity/Depth Superficial Body Position Supine Joint Mobilizations 1 Joint L GH Direction AP and inferior glide Grade III Body Position Supine PT-OP-T Assessment and Plan Start: 02/08/21 15:28 Freq: Status: Active Protocol: Document 02/14/21 11:15 AMB (Rec: 02/14/21 12:10 AMB [id number]) Physical Therapy Assessment Assessment Summary Assessment Je did well with exercises today, continues to be tight in his shoulder. Rolling over to the right and getting up from the right was ok today. Physical Therapy Plan Next Visit Focus/Plan Next Visit Plan review t band ER, IR, and rows
--- NOTE | 2021-02-23 12:47 | PT.OTN ---
Current Diagnoses Pain in left shoulder (02/23/21) Physical Therapy Treatment Note PT-OP-A Visit Information Start: 02/08/21 15:28 Freq: Status: Active Protocol: Document 02/23/21 12:08 MA (Rec: 02/23/21 12:47 MA [id number]) Out-Patient Physical Therapy Visit Information Visit Information Visit Type Treatment Note Visit Start Time 12:05 Visit Stop Time 12:45 Total Visit Minutes 40 Visit Number 3 PT-OP-B Current Condition Start: 02/08/21 15:28 Freq: Status: Active Protocol: Document 02/09/21 10:30 AMB (Rec: 02/09/21 10:47 AMB [id number]) Current Condition History of Current Condition Onset Date July 2020 Current Complaints L shoulder pain History of Current Condition GEtting out of bed is painful and weak due to left shoulder. Fractured left clavicle in a fall back in July. Did see ortho surgery and they are conservatively managing, hasn' t had formal PT for the shoulder. Getting better since fractured clavicle in a fall in July, but still having pain/limited mobility. Horizontal adduction is painful. Pushing with arm to get out of bed is painful. Pt denies falls since he was here last for his Parkinsons in mid January. Treatment Goals Patient/Caregiver Goals Lift arm more and get out of bed without pain Prior Functional Status Baseline Function- ADL's Modified Independent Baseline Function- Mobility Modified Independent Current Functional Impairments (Reported) Functional Limitations- ADL's Difficulty reaching through full ROM, difficulty with bed mobility due to left arm weakness/pain Personal Factors Other Personal Factors That May Effect Parkinson's, current every day Therapy/Recovery smoker. PT-OP-C Subjective Start: 02/08/21 15:28 Freq: Status: Active Protocol: Document 02/23/21 12:08 MA (Rec: 02/23/21 12:47 MA [id number]) OP-PT Subjective Patient Comments Patient Comments PT states he has been doing his exercises and his shoulder feels a little better PT-OP-J Posture/Palpation/Skin Start: 02/08/21 15:28 Freq: Status: Active Protocol: Document 02/09/21 10:30 AMB (Rec: 02/10/21 11:40 AMB [id number]) Posture Evaluation Comments Posture Comments Forward shoulder posture with winging scapula bilaterally Palpation Assessment Location One Palpation Location Left shoulder Palpation Details No pain over medial clavicle but pain more at lateral shoulder. PT-OP-K Range of Motion Start: 02/08/21 15:28 Freq: Status: Active Protocol: Document 02/09/21 10:30 AMB (Rec: 02/10/21 10:28 AMB [id number]) Shoulder Goniometric Range of Motion Shoulder Left Passive Testing Position Supine Flexion 154 Abduction 120 External Rotation at 45 degrees 60 Abduction Right Active Testing Position Sitting Flexion 150 Horizontal Adduction 50 Left Active Testing Position Sitting Flexion 120 Abduction 115 Horizontal Adduction 33 PT-OP-M Strength Start: 02/08/21 15:28 Freq: Status: Active Protocol: Document 02/09/21 10:30 AMB (Rec: 02/10/21 11:31 AMB [id number]) Shoulder Strength Shoulder Manual Muscle Testing Left Flexion 4 Good Abduction (C5) 4 Good External Rotation 4- Good- Internal Rotation 4+ Good+ Comments pain with abduction PT-OP-Q Treatments Start: 02/08/21 15:28 Freq: Status: Active Protocol: Document 02/23/21 12:08 MA (Rec: 02/23/21 12:47 MA [id number]) Cardio Equipment Upper Body Ergometer (UBE) Duration (Minutes) 6 Other 1' fwd/1' back Therapeutic Exercises Sitting Exercises Bicep Curl Side bilateral Equipment Used 2#, 5# Reps/Minutes 2x10 Comments added to HEP- cues for posture Standing Exercises 3 Standing Exercise Name T band rows Side bilateral Resistance #1 t band Reps/Minutes 2x10 2 Standing Exercise Name T band IR Side bilateral Resistance #1 tband Reps/Minutes 2x10 1 Standing Exercise Name T band ER Side bilateral Resistance #1 t band Reps/Minutes 2x10 Comments cues for form Manual Therapy Treatment Soft Tissue Mobilization 1 Body Location L biceps Mobilization Type Myofascial Release Intensity/Depth Superficial Body Position Supine PT-OP-T Assessment and Plan Start: 02/08/21 15:28 Freq: Status: Active Protocol: Document 02/23/21 12:08 MA (Rec: 02/23/21 12:47 MA [id number]) Physical Therapy Assessment Goals Three Impairment Strength Short Term Goal (STG) Je will be independent with a HEP for shoulder strengthening. STG Duration 5 weeks Two Impairment ROM Short Term Goal (STG) Je will increase his active shoulder flexion to 150 degrees. STG Duration 5 weeks Rigging Loft Repairer Goal (LTG) Je will increase his pain free horizontal shoulder adduction to 45 degrees. LTG Duration 10 weeks One Impairment Bed mobility Short Term Goal (STG) Je will perform all bed mobility with 1/10 shoulder pain or less. STG Duration 5 weeks Assessment Summary Assessment Je was able to perform all exercises only requiring cues for posture. He had pain in anterior shd during ER & IR band exercises but states it' s tolerable pain. He has no pain with bicep curl exercise and states that he does have small weights at home that are 2.5 pounds and 5 pounds. Added bicep curl to HEP. Performed curls in seated today due to fatigue after band exercises, likely due to Parkinson's. Physical Therapy Plan Frequency and Duration Frequency of Treatment 1x/Week Duration of Treatment 10 weeks Plan of Care Start Date 02/09/21 Plan of Care End Date 04/20/21 Therapeutic Interventions Therapeutic Interventions Home Exercise Program,Manual Therapy,Neuromuscular Re- education,Self-Care/Home Management,Therapeutic Activities,Therapeutic Exercises Modalities Cold Pack/Ice Massage,Electric Stimulation Next Visit Focus/Plan Next Visit Plan review bicep curl, t band ER, IR, and rows
--- NOTE | 2021-03-03 10:35 | PT.OTN ---
Current Diagnoses Pain in left shoulder (03/03/21) Physical Therapy Treatment Note PT-OP-A Visit Information Start: 02/08/21 15:28 Freq: Status: Active Protocol: Document 03/03/21 09:50 AMB (Rec: 03/03/21 09:55 AMB [id number]) Out-Patient Physical Therapy Visit Information Visit Information Visit Type Treatment Note Visit Start Time 09:45 Visit Stop Time 10:30 Total Visit Minutes 40 Visit Number 4 PT-OP-B Current Condition Start: 02/08/21 15:28 Freq: Status: Active Protocol: Document 02/09/21 10:30 AMB (Rec: 02/09/21 10:47 AMB [id number]) Current Condition History of Current Condition Onset Date July 2020 Current Complaints L shoulder pain History of Current Condition GEtting out of bed is painful and weak due to left shoulder. Fractured left clavicle in a fall back in July. Did see ortho surgery and they are conservatively managing, hasn' t had formal PT for the shoulder. Getting better since fractured clavicle in a fall in July, but still having pain/limited mobility. Horizontal adduction is painful. Pushing with arm to get out of bed is painful. Pt denies falls since he was here last for his Parkinsons in mid January. Treatment Goals Patient/Caregiver Goals Lift arm more and get out of bed without pain Prior Functional Status Baseline Function- ADL's Modified Independent Baseline Function- Mobility Modified Independent Current Functional Impairments (Reported) Functional Limitations- ADL's Difficulty reaching through full ROM, difficulty with bed mobility due to left arm weakness/pain Personal Factors Other Personal Factors That May Effect Parkinson's, current every day Therapy/Recovery smoker. PT-OP-C Subjective Start: 02/08/21 15:28 Freq: Status: Active Protocol: Document 03/03/21 09:50 AMB (Rec: 03/03/21 09:55 AMB [id number]) OP-PT Subjective Patient Comments Patient Comments Pt states shoulder is feeling a bit better, he tried doing biceps curls at home with his 3# weight as that is the heaviest he was able to find. PT-OP-J Posture/Palpation/Skin Start: 02/08/21 15:28 Freq: Status: Active Protocol: Document 02/09/21 10:30 AMB (Rec: 02/10/21 11:40 AMB [id number]) Posture Evaluation Comments Posture Comments Forward shoulder posture with winging scapula bilaterally Palpation Assessment Location One Palpation Location Left shoulder Palpation Details No pain over medial clavicle but pain more at lateral shoulder. PT-OP-K Range of Motion Start: 02/08/21 15:28 Freq: Status: Active Protocol: Document 02/09/21 10:30 AMB (Rec: 02/10/21 10:28 AMB [id number]) Shoulder Goniometric Range of Motion Shoulder Left Passive Testing Position Supine Flexion 154 Abduction 120 External Rotation at 45 degrees 60 Abduction Right Active Testing Position Sitting Flexion 150 Horizontal Adduction 50 Left Active Testing Position Sitting Flexion 120 Abduction 115 Horizontal Adduction 33 PT-OP-M Strength Start: 02/08/21 15:28 Freq: Status: Active Protocol: Document 02/09/21 10:30 AMB (Rec: 02/10/21 11:31 AMB [id number]) Shoulder Strength Shoulder Manual Muscle Testing Left Flexion 4 Good Abduction (C5) 4 Good External Rotation 4- Good- Internal Rotation 4+ Good+ Comments pain with abduction PT-OP-Q Treatments Start: 02/08/21 15:28 Freq: Status: Active Protocol: Document 03/03/21 09:45 AMB (Rec: 03/03/21 10:09 AMB [id number]) Therapeutic Exercises Sitting Exercises Bicep Curl Side bilateral Equipment Used 2#, 5# Reps/Minutes 2x10 Comments added to HEP- cues for posture Standing Exercises 3 Standing Exercise Name T band rows Side bilateral Resistance #3 t band Reps/Minutes 2x10 2 Standing Exercise Name T band IR Side bilateral Resistance #2 tband Reps/Minutes 2x10 1 Standing Exercise Name T band ER Side bilateral Resistance #1 t band Reps/Minutes 2x10 Manual Therapy Treatment Soft Tissue Mobilization 1 Body Location L biceps Mobilization Type Myofascial Release Intensity/Depth Superficial Body Position Supine Joint Mobilizations 1 Joint L GH Direction AP and inferior glide Grade III Body Position Supine PT-OP-T Assessment and Plan Start: 02/08/21 15:28 Freq: Status: Active Protocol: Document 03/03/21 09:45 AMB (Rec: 03/03/21 10:09 AMB [id number]) Physical Therapy Assessment Goals Three Impairment Strength Short Term Goal (STG) Je will be independent with a HEP for shoulder strengthening. STG Duration 5 weeks Two Impairment ROM Short Term Goal (STG) Je will increase his active shoulder flexion to 150 degrees. STG Duration 5 weeks Lunchroom Aide Goal (LTG) Je will increase his pain free horizontal shoulder adduction to 45 degrees. LTG Duration 10 weeks One Impairment Bed mobility Short Term Goal (STG) Je will perform all bed mobility with 1/10 shoulder pain or less. STG Duration 5 weeks Assessment Summary Assessment Je felt more resistance with #2 t band than with the 3 # weight. Did have some discomfort with end of range abduction during manual. Feels tightness with biceps soft tissue, but overall feels like getting out of bed is getting easier. Physical Therapy Plan Next Visit Focus/Plan Next Visit Plan review bicep curl(option wiht t band), t band ER, IR, and rows
--- NOTE | 2021-03-10 11:44 | PT.OTN ---
Current Diagnoses Pain in left shoulder (03/10/21) Physical Therapy Treatment Note PT-OP-A Visit Information Start: 02/08/21 15:28 Freq: Status: Active Protocol: Document 03/10/21 09:42 AMB (Rec: 03/10/21 10:28 AMB [id number]) Out-Patient Physical Therapy Visit Information Visit Information Visit Type Treatment Note Visit Start Time 09:45 Visit Stop Time 10:30 Total Visit Minutes 40 Visit Number 5 PT-OP-B Current Condition Start: 02/08/21 15:28 Freq: Status: Active Protocol: Document 02/09/21 10:30 AMB (Rec: 02/09/21 10:47 AMB [id number]) Current Condition History of Current Condition Onset Date July 2020 Current Complaints L shoulder pain History of Current Condition GEtting out of bed is painful and weak due to left shoulder. Fractured left clavicle in a fall back in July. Did see ortho surgery and they are conservatively managing, hasn' t had formal PT for the shoulder. Getting better since fractured clavicle in a fall in July, but still having pain/limited mobility. Horizontal adduction is painful. Pushing with arm to get out of bed is painful. Pt denies falls since he was here last for his Parkinsons in mid January. Treatment Goals Patient/Caregiver Goals Lift arm more and get out of bed without pain Prior Functional Status Baseline Function- ADL's Modified Independent Baseline Function- Mobility Modified Independent Current Functional Impairments (Reported) Functional Limitations- ADL's Difficulty reaching through full ROM, difficulty with bed mobility due to left arm weakness/pain Personal Factors Other Personal Factors That May Effect Parkinson's, current every day Therapy/Recovery smoker. PT-OP-C Subjective Start: 02/08/21 15:28 Freq: Status: Active Protocol: Document 03/10/21 09:42 AMB (Rec: 03/10/21 10:28 AMB [id number]) OP-PT Subjective Patient Comments Patient Comments Pt feels like his shoulder is better, denies pain with getting up from bed. PT-OP-J Posture/Palpation/Skin Start: 02/08/21 15:28 Freq: Status: Active Protocol: Document 02/09/21 10:30 AMB (Rec: 02/10/21 11:40 AMB [id number]) Posture Evaluation Comments Posture Comments Forward shoulder posture with winging scapula bilaterally Palpation Assessment Location One Palpation Location Left shoulder Palpation Details No pain over medial clavicle but pain more at lateral shoulder. PT-OP-K Range of Motion Start: 02/08/21 15:28 Freq: Status: Active Protocol: Document 02/09/21 10:30 AMB (Rec: 02/10/21 10:28 AMB [id number]) Shoulder Goniometric Range of Motion Shoulder Left Passive Testing Position Supine Flexion 154 Abduction 120 External Rotation at 45 degrees 60 Abduction Right Active Testing Position Sitting Flexion 150 Horizontal Adduction 50 Left Active Testing Position Sitting Flexion 120 Abduction 115 Horizontal Adduction 33 PT-OP-M Strength Start: 02/08/21 15:28 Freq: Status: Active Protocol: Document 02/09/21 10:30 AMB (Rec: 02/10/21 11:31 AMB [id number]) Shoulder Strength Shoulder Manual Muscle Testing Left Flexion 4 Good Abduction (C5) 4 Good External Rotation 4- Good- Internal Rotation 4+ Good+ Comments pain with abduction PT-OP-Q Treatments Start: 02/08/21 15:28 Freq: Status: Active Protocol: Document 03/10/21 09:42 AMB (Rec: 03/10/21 10:28 AMB [id number]) Cardio Equipment Upper Body Ergometer (UBE) Duration (Minutes) 6 Other 1' fwd/1' back Therapeutic Exercises Standing Exercises 3 Standing Exercise Name T band rows Side bilateral Resistance #3 t band Reps/Minutes 2x10 2 Standing Exercise Name T band IR Side bilateral Resistance #2 tband Reps/Minutes 2x10 1 Standing Exercise Name T band ER Side bilateral Resistance #1 t band Reps/Minutes 2x10 Manual Therapy Treatment Soft Tissue Mobilization 1 Body Location L biceps Mobilization Type Myofascial Release Intensity/Depth Superficial Body Position Supine Manual Techniques 1 Type PROM with distraction Comments all planes PT-OP-T Assessment and Plan Start: 02/08/21 15:28 Freq: Status: Active Protocol: Document 03/10/21 09:42 AMB (Rec: 03/10/21 10:28 AMB [id number]) Physical Therapy Assessment Goals Three Impairment Strength Short Term Goal (STG) Je will be independent with a HEP for shoulder strengthening. STG Duration 5 weeks Two Impairment ROM Short Term Goal (STG) Je will increase his active shoulder flexion to 150 degrees. STG Duration 5 weeks Relief Worker Goal (LTG) Je will increase his pain free horizontal shoulder adduction to 45 degrees. LTG Duration 10 weeks One Impairment Bed mobility Short Term Goal (STG) Je will perform all bed mobility with 1/10 shoulder pain or less. STG Duration 5 weeks Assessment Summary Assessment Je's symptoms are improving, although tenderness at anterior shoulder continues. Cross body movement and pushing to get out of bed are both less symptomatic than they were. He does report doing his HEP. Physical Therapy Plan Next Visit Focus/Plan Next Visit Plan review bicep curl(option wiht t band), t band ER, IR, and rows
--- NOTE | 2021-03-17 12:00 | PT.OTN ---
Current Diagnoses Pain in left shoulder (03/17/21) Physical Therapy Treatment Note PT-OP-A Visit Information Start: 02/08/21 15:28 Freq: Status: Active Protocol: Document 03/17/21 09:45 AMB (Rec: 03/17/21 10:47 AMB [id number]) Out-Patient Physical Therapy Visit Information Visit Information Visit Type Treatment Note Visit Start Time 09:45 Visit Stop Time 10:30 Total Visit Minutes 40 Visit Number 5 PT-OP-B Current Condition Start: 02/08/21 15:28 Freq: Status: Active Protocol: Document 02/09/21 10:30 AMB (Rec: 02/09/21 10:47 AMB [id number]) Current Condition History of Current Condition Onset Date July 2020 Current Complaints L shoulder pain History of Current Condition GEtting out of bed is painful and weak due to left shoulder. Fractured left clavicle in a fall back in July. Did see ortho surgery and they are conservatively managing, hasn' t had formal PT for the shoulder. Getting better since fractured clavicle in a fall in July, but still having pain/limited mobility. Horizontal adduction is painful. Pushing with arm to get out of bed is painful. Pt denies falls since he was here last for his Parkinsons in mid January. Treatment Goals Patient/Caregiver Goals Lift arm more and get out of bed without pain Prior Functional Status Baseline Function- ADL's Modified Independent Baseline Function- Mobility Modified Independent Current Functional Impairments (Reported) Functional Limitations- ADL's Difficulty reaching through full ROM, difficulty with bed mobility due to left arm weakness/pain Personal Factors Other Personal Factors That May Effect Parkinson's, current every day Therapy/Recovery smoker. PT-OP-C Subjective Start: 02/08/21 15:28 Freq: Status: Active Protocol: Document 03/17/21 09:45 AMB (Rec: 03/17/21 10:47 AMB [id number]) OP-PT Subjective Patient Comments Patient Comments Pt fell yesterday while at [facility], was there for a swallow study. PT-OP-J Posture/Palpation/Skin Start: 02/08/21 15:28 Freq: Status: Active Protocol: Document 02/09/21 10:30 AMB (Rec: 02/10/21 11:40 AMB [id number]) Posture Evaluation Comments Posture Comments Forward shoulder posture with winging scapula bilaterally Palpation Assessment Location One Palpation Location Left shoulder Palpation Details No pain over medial clavicle but pain more at lateral shoulder. PT-OP-K Range of Motion Start: 02/08/21 15:28 Freq: Status: Active Protocol: Document 02/09/21 10:30 AMB (Rec: 02/10/21 10:28 AMB [id number]) Shoulder Goniometric Range of Motion Shoulder Left Passive Testing Position Supine Flexion 154 Abduction 120 External Rotation at 45 degrees 60 Abduction Right Active Testing Position Sitting Flexion 150 Horizontal Adduction 50 Left Active Testing Position Sitting Flexion 120 Abduction 115 Horizontal Adduction 33 PT-OP-M Strength Start: 02/08/21 15:28 Freq: Status: Active Protocol: Document 02/09/21 10:30 AMB (Rec: 02/10/21 11:31 AMB [id number]) Shoulder Strength Shoulder Manual Muscle Testing Left Flexion 4 Good Abduction (C5) 4 Good External Rotation 4- Good- Internal Rotation 4+ Good+ Comments pain with abduction PT-OP-Q Treatments Start: 02/08/21 15:28 Freq: Status: Active Protocol: Document 03/17/21 09:45 AMB (Rec: 03/17/21 10:47 AMB [id number]) Therapeutic Exercises Supine Exercises horiz abd/add Resistance AROM supine ER Supine Exercise Name t band Resistance #2 Reps/Minutes 2x10 Sitting Exercises kamilah Reps/Minutes 10min Comments flexion and scaption 1 Sitting Exercise Name shoulder ER Comments t band Manual Therapy Treatment Soft Tissue Mobilization 1 Body Location L biceps Mobilization Type Myofascial Release Intensity/Depth Superficial Body Position Supine Manual Techniques 1 Type PROM with distraction Comments all planes PT-OP-T Assessment and Plan Start: 02/08/21 15:28 Freq: Status: Active Protocol: Document 03/17/21 09:45 AMB (Rec: 03/17/21 10:47 AMB [id number]) Physical Therapy Assessment Goals Three Impairment Strength Short Term Goal (STG) Je will be independent with a HEP for shoulder strengthening. STG Duration 5 weeks Two Impairment ROM Short Term Goal (STG) Je will increase his active shoulder flexion to 150 degrees. STG Duration 5 weeks Halfway Goal (LTG) Je will increase his pain free horizontal shoulder adduction to 45 degrees. LTG Duration 10 weeks One Impairment Bed mobility Short Term Goal (STG) Je will perform all bed mobility with 1/10 shoulder pain or less. STG Duration MET Assessment Summary Assessment Je has some discomfort with t band ER at home. Did fine here with double arm ER. Overall pain is improving, does continue tohave pain at end range but range is improving. Physical Therapy Plan Next Visit Focus/Plan Next Visit Plan review bicep curl(option wiht t band), t band ER, IR, and rows
--- NOTE | 2021-03-24 10:31 | PT.OTN ---
Current Diagnoses Pain in left shoulder (03/24/21) Physical Therapy Treatment Note PT-OP-A Visit Information Start: 02/08/21 15:28 Freq: Status: Active Protocol: Document 03/24/21 09:46 AMB (Rec: 03/24/21 10:30 AMB [id number]) Out-Patient Physical Therapy Visit Information Visit Information Visit Type Treatment Note Visit Start Time 09:45 Visit Stop Time 10:30 Total Visit Minutes 45 Visit Number 7 PT-OP-B Current Condition Start: 02/08/21 15:28 Freq: Status: Active Protocol: Document 02/09/21 10:30 AMB (Rec: 02/09/21 10:47 AMB [id number]) Current Condition History of Current Condition Onset Date July 2020 Current Complaints L shoulder pain History of Current Condition GEtting out of bed is painful and weak due to left shoulder. Fractured left clavicle in a fall back in July. Did see ortho surgery and they are conservatively managing, hasn' t had formal PT for the shoulder. Getting better since fractured clavicle in a fall in July, but still having pain/limited mobility. Horizontal adduction is painful. Pushing with arm to get out of bed is painful. Pt denies falls since he was here last for his Parkinsons in mid January. Treatment Goals Patient/Caregiver Goals Lift arm more and get out of bed without pain Prior Functional Status Baseline Function- ADL's Modified Independent Baseline Function- Mobility Modified Independent Current Functional Impairments (Reported) Functional Limitations- ADL's Difficulty reaching through full ROM, difficulty with bed mobility due to left arm weakness/pain Personal Factors Other Personal Factors That May Effect Parkinson's, current every day Therapy/Recovery smoker. PT-OP-C Subjective Start: 02/08/21 15:28 Freq: Status: Active Protocol: Document 03/24/21 09:46 AMB (Rec: 03/24/21 10:30 AMB [id number]) OP-PT Subjective Patient Comments Patient Comments No new falls to report. No pain with getting out of bed, horizontal adduction can still be painful sometimes. PT-OP-J Posture/Palpation/Skin Start: 02/08/21 15:28 Freq: Status: Active Protocol: Document 02/09/21 10:30 AMB (Rec: 02/10/21 11:40 AMB [id number]) Posture Evaluation Comments Posture Comments Forward shoulder posture with winging scapula bilaterally Palpation Assessment Location One Palpation Location Left shoulder Palpation Details No pain over medial clavicle but pain more at lateral shoulder. PT-OP-K Range of Motion Start: 02/08/21 15:28 Freq: Status: Active Protocol: Document 02/09/21 10:30 AMB (Rec: 02/10/21 10:28 AMB [id number]) Shoulder Goniometric Range of Motion Shoulder Left Passive Testing Position Supine Flexion 154 Abduction 120 External Rotation at 45 degrees 60 Abduction Right Active Testing Position Sitting Flexion 150 Horizontal Adduction 50 Left Active Testing Position Sitting Flexion 120 Abduction 115 Horizontal Adduction 33 PT-OP-M Strength Start: 02/08/21 15:28 Freq: Status: Active Protocol: Document 02/09/21 10:30 AMB (Rec: 02/10/21 11:31 AMB [id number]) Shoulder Strength Shoulder Manual Muscle Testing Left Flexion 4 Good Abduction (C5) 4 Good External Rotation 4- Good- Internal Rotation 4+ Good+ Comments pain with abduction PT-OP-Q Treatments Start: 02/08/21 15:28 Freq: Status: Active Protocol: Document 03/24/21 09:46 AMB (Rec: 03/24/21 10:30 AMB [id number]) Therapeutic Exercises Standing Exercises 4 Standing Exercise Name D1 and D1 extension Resistance #2 t band Reps/Minutes 2x10 ea 3 Standing Exercise Name T band rows Side bilateral Resistance #3 t band Reps/Minutes 2x10 2 Standing Exercise Name T band IR Side bilateral Resistance #2 tband Reps/Minutes 2x10 1 Standing Exercise Name T band ER Side bilateral Resistance #1 t band Reps/Minutes 2x10 Manual Therapy Treatment Soft Tissue Mobilization 1 Body Location L biceps Mobilization Type Myofascial Release Intensity/Depth Superficial Body Position Supine Manual Techniques 1 Type PROM with distraction Comments all planes PT-OP-T Assessment and Plan Start: 02/08/21 15:28 Freq: Status: Active Protocol: Document 03/24/21 09:46 AMB (Rec: 03/24/21 10:30 AMB [id number]) Physical Therapy Assessment Goals Three Impairment Strength Short Term Goal (STG) Je will be independent with a HEP for shoulder strengthening. STG Duration MET Two Impairment ROM Short Term Goal (STG) Je will increase his active shoulder flexion to 150 degrees. STG Duration MET Cad Designer Drafter Goal (LTG) Je will increase his pain free horizontal shoulder adduction to 45 degrees. LTG Duration MET One Impairment Bed mobility Short Term Goal (STG) Je will perform all bed mobility with 1/10 shoulder pain or less. STG Duration MET Assessment Summary Assessment Je did well with exercises today, still has mild tenderness with palpation over biceps tendon but otherwise doing well. When asked what currently causes pain he states he can't remember, but he has had pain this last week . Asked pt to write down when he is noticing pain if there is a specific activity so we can go over that next time. Physical Therapy Plan Next Visit Focus/Plan Next Visit Plan Any specific functional activities that cause pain?
--- NOTE | 2021-03-31 15:51 | PT.OTN ---
Current Diagnoses Pain in left shoulder (03/31/21) Physical Therapy Treatment Note PT-OP-A Visit Information Start: 02/08/21 15:28 Freq: Status: Active Protocol: Document 03/31/21 09:45 AMB (Rec: 03/31/21 10:31 AMB [id number]) Out-Patient Physical Therapy Visit Information Visit Information Visit Type Treatment Note Visit Start Time 09:45 Visit Stop Time 10:30 Total Visit Minutes 45 Visit Number 8 PT-OP-B Current Condition Start: 02/08/21 15:28 Freq: Status: Active Protocol: Document 02/09/21 10:30 AMB (Rec: 02/09/21 10:47 AMB [id number]) Current Condition History of Current Condition Onset Date July 2020 Current Complaints L shoulder pain History of Current Condition GEtting out of bed is painful and weak due to left shoulder. Fractured left clavicle in a fall back in July. Did see ortho surgery and they are conservatively managing, hasn' t had formal PT for the shoulder. Getting better since fractured clavicle in a fall in July, but still having pain/limited mobility. Horizontal adduction is painful. Pushing with arm to get out of bed is painful. Pt denies falls since he was here last for his Parkinsons in mid January. Treatment Goals Patient/Caregiver Goals Lift arm more and get out of bed without pain Prior Functional Status Baseline Function- ADL's Modified Independent Baseline Function- Mobility Modified Independent Current Functional Impairments (Reported) Functional Limitations- ADL's Difficulty reaching through full ROM, difficulty with bed mobility due to left arm weakness/pain Personal Factors Other Personal Factors That May Effect Parkinson's, current every day Therapy/Recovery smoker. PT-OP-C Subjective Start: 02/08/21 15:28 Freq: Status: Active Protocol: Document 03/31/21 09:45 AMB (Rec: 03/31/21 10:31 AMB [id number]) OP-PT Subjective Patient Comments Patient Comments Je states he is doing well PT-OP-J Posture/Palpation/Skin Start: 02/08/21 15:28 Freq: Status: Active Protocol: Document 02/09/21 10:30 AMB (Rec: 02/10/21 11:40 AMB [id number]) Posture Evaluation Comments Posture Comments Forward shoulder posture with winging scapula bilaterally Palpation Assessment Location One Palpation Location Left shoulder Palpation Details No pain over medial clavicle but pain more at lateral shoulder. PT-OP-K Range of Motion Start: 02/08/21 15:28 Freq: Status: Active Protocol: Document 02/09/21 10:30 AMB (Rec: 02/10/21 10:28 AMB [id number]) Shoulder Goniometric Range of Motion Shoulder Left Passive Testing Position Supine Flexion 154 Abduction 120 External Rotation at 45 degrees 60 Abduction Right Active Testing Position Sitting Flexion 150 Horizontal Adduction 50 Left Active Testing Position Sitting Flexion 120 Abduction 115 Horizontal Adduction 33 PT-OP-M Strength Start: 02/08/21 15:28 Freq: Status: Active Protocol: Document 02/09/21 10:30 AMB (Rec: 02/10/21 11:31 AMB [id number]) Shoulder Strength Shoulder Manual Muscle Testing Left Flexion 4 Good Abduction (C5) 4 Good External Rotation 4- Good- Internal Rotation 4+ Good+ Comments pain with abduction PT-OP-Q Treatments Start: 02/08/21 15:28 Freq: Status: Active Protocol: Document 03/31/21 09:45 AMB (Rec: 03/31/21 13:45 AMB [id number]) Therapeutic Exercises Sitting Exercises Bicep Curl Side bilateral Equipment Used 2#, 5# Reps/Minutes 2x10 Comments added to HEP- cues for posture Standing Exercises 5 Standing Exercise Name T band flexion and abduction to 90 Resistance #3 Reps/Minutes 2x10 4 Standing Exercise Name D1 and D1 extension Resistance #2 t band Reps/Minutes 2x10 ea 3 Standing Exercise Name T band rows Side bilateral Resistance #3 t band Reps/Minutes 2x10 2 Standing Exercise Name T band IR Side bilateral Resistance #2 tband Reps/Minutes 2x10 1 Standing Exercise Name T band ER Side bilateral Resistance #1 t band Reps/Minutes 2x10 Manual Therapy Treatment Joint Mobilizations 1 Joint L GH Direction AP and inferior glide Grade III Body Position Supine Manual Techniques 1 Type PROM with distraction Comments all planes PT-OP-T Assessment and Plan Start: 02/08/21 15:28 Freq: Status: Active Protocol: Document 03/31/21 09:45 AMB (Rec: 03/31/21 10:31 AMB [id number]) Physical Therapy Assessment Goals Three Impairment Strength Short Term Goal (STG) Je will be independent with a HEP for shoulder strengthening. STG Duration MET Two Impairment ROM Short Term Goal (STG) Je will increase his active shoulder flexion to 150 degrees. STG Duration MET Pilot Boat Captain Goal (LTG) Je will increase his pain free horizontal shoulder adduction to 45 degrees. LTG Duration MET One Impairment Bed mobility Short Term Goal (STG) Je will perform all bed mobility with 1/10 shoulder pain or less. STG Duration MET Assessment Summary Assessment Je is doing well with pain management, range and strength, therefore discharged at this time. Recommended he continue with his HEP which is mostly t band related. Physical Therapy Plan Discharge Physical Therapy Discharge Reasons Goals Met
== END 2021-04-04 07:55 ==
LOC: PHYS 09:45
PROVIDERS: Family Provider Internal Medicine; PCP Internal Medicine; Referring Provider Orthopaedic Surgery; Visit Provider Orthopaedic Surgery
DX: M25.512 Pain in left shoulder (principal)
CPT/HCPCS: 97110; 97140; 97161

== ENCOUNTER 2021-04-13 09:30 | Outpatient (RCR) | payer OTHER, SELFPAY ==
[2020-07-19 16:37] VITALS: BMI 23.0
--- NOTE | 2021-03-25 12:02 | ST.OPIE ---
Visit Care Team Role Provider Type Olaf Espinosa MD Family Provider Physician Primary Care Provider Specialty: Internal Medicine Address: [address] [place] [address], [address], [place], [address] Email: [email or web address] Manuel Bob MD Attending Provider Non-Staff Referring Provider Specialty: Neurology Address: [address] [place] [address], [phone] Email: Speech-Language Pathology Initial Evaluation [employer] Clinical Swallow Evaluation Start: 03/24/21 12:53 Freq: Status: Active Protocol: Document 03/24/21 09:44 LNK (Rec: 03/25/21 10:30 LNK [id number]) Clinical Swallow Evaluation Session Time Visit Start Time 08:30 Visit Stop Time 09:30 Total Visit Minutes 60 Visit Information Visit Number 1 Plan of Care Dates 03/24/21-06/21/[address] Bob Setting Assessment Location Outpatient Care Visit Type Note Type Initial evaluation Patient Information Identification Type Name,Date of History Pt is seen for a clinical swallow evaluation at referral of his neurologist, Dr. Bob. Pt' PCP is Dr. Espinosa. Pt has diagnosis of Parkinson's disease. Pt had previously been seen by this [employer] in 2020 for clinical swallow assessment and therapy . At that time a MBSS was recommended to determine swallow function and determine pt's risk for aspiration. According to the pt and his , several unsuccessful attempts to schedule the MBSS at [facility] were made by pt's . Recently a referral to [facility] was made with MBSS completed on 03/14/21. Pt and are here to learn of the results of that MBSS and to determine plan of care going forward. Reported by Patient Comment Pt has a complaint of choking on his saliva. Current Diet Regular,Thin liquids Objective Assessment Mental Status Alert,Responsive Oral Integrity WFL Dentition Within normal limits Lip Function Mild impairment Pucker Within normal limits Lip Retraction Within normal limits Tongue Function Within normal limits Observations of Tongue at Rest Within normal limits Tongue Protrusion Within normal limits Tongue Retraction Within normal limits Jaw Function Within normal limits Hard/Soft Palate Function Within normal limits Comment Pt presented with oral structures WFL. Pt's ROM was WNL; however his strength and speed of movement were reduced . DKS was slow but accurate. Food and Liquid Trials Response/Comments PO trials were not provided as pt reported he has no difficulty chewing/swallowing; only with his saliva Findings Swallowing Function Comments Digital imaging was called requesting a copy of pt's MBSS report Comment Pt's MBS radiologist report was received during the session and reviewed with the pt and his . The radiologist reported oropropulsive, pharyngeal and esophageal phases of swallowing appear to be normal with all PO trials. Radiology report indicated no laryngeal penetration or tracheobrochial aspiration was observed. Requested [employer] report for the MBSS along with video for review with the pt. Based on the radiologist's report, pt's swallowing appears to be WFL. His cough/ choke on saliva is likely due to the body temperature of the saliva with reduced laryngopharyngeal sensory feedback needed to protect aspiration of saliva. Pt and his state that his cough is reported to be productive and effective. Impact on Safety and Functioning Risk for aspiration Recommendations Swallowing Treatment Yes Frequency to be determined afte [employer] report/CD are recieved and reviewed. Other Recommendations Continue current diet. Resume vocal fold adduction exercise program, Comments Pt to return i 2 weeks for F/U Education Patient/Caregiver Education Described results of evaluation,Patient expressed understanding of evaluation, Patient expressed agreement with goals & treatment plans, Family/caregivers expressed understanding of evaluation, Family/caregivers expressed agreement with goals & treatment plans Goals Short-term Goals to be determined Long-term Goals to be determined
--- NOTE | 2021-04-13 12:07 | ST.IPDYTX ---
Visit Care Team Role Provider Type Olaf Espinosa MD Family Provider Physician Primary Care Provider Specialty: Internal Medicine Address: [address] [place] [address], [address], [place], [address] Email: [email or web address] Manuel Bob MD Attending Provider Non-Staff Referring Provider Specialty: Neurology Address: [address] [place] [address], [phone] Email: FUNERAL PROFESSIONAL Dysphagia Treatment FUNERAL PROFESSIONAL Dysphagia Treatment Start: 03/24/21 12:53 Freq: Status: Active Protocol: Document 04/13/21 11:49 LNK (Rec: 04/13/21 12:06 LNK [id number]) Dysphagia Treatment Session Time Visit Start Time 09:30 Visit Stop Time 10:30 Total Visit Minutes 60 Visit Information Visit Number 2 Plan of Care Dates 03/24/21-06/21/21 Setting Assessment Location Outpatient Care Visit Type Note Type Treatment Note Next Note Type Next Note Type Discharge Summary Patient Information Identification Type Name,Date of Subjective Observations Pt arrived with his . They had a CD from [facility] sent over with MBS recorded on it. Unfortunately, the recording and playing systems could not translate to the CD player here at . However, I was able to get data from PACS system. Treatment Treatment Activities No PO trials attempted today. reviewed the video data from [facility] via PACS with pt and his . The MBS results indicated that the pt's swallow function was WNL. No penetration or aspiration was observed. Epiglottis was inverted with good airway penetration. Pt reports no coughing in the morning or with drinking his coffee. He reported no pneumonia in medical history. Pt's voice is strong and clear, indicating good vocal fold adduction/ abduction strength. Pt was encouraged to continue vocal fold adduction exercises to maintain adduction strength. This FUNERAL PROFESSIONAL explained that the results from this MBS (2.7.22) can serve as baseline data for any changes in pt's swallow in the future. No swallowing therapy is indicated at this time. Recommended pt contact MD if there are changes observed with swallowing in the future. Diet Recommendations Recommendations Continue Current Diet Medication Recommendations As Tolerated Treatment Plan Appropriate for Continued Therapy No
--- NOTE | 2021-04-13 12:10 | ST.IPDYTX ---
Visit Care Team Role Provider Type Olaf Espinosa MD Family Provider Physician Primary Care Provider Specialty: Internal Medicine Address: [address] [place] [address], [address], [place], [address] Email: [email or web address] Manuel Bob MD Attending Provider Non-Staff Referring Provider Specialty: Neurology Address: [address] [place] [address], [phone] Email: GAME TRAPPER Dysphagia Treatment GAME TRAPPER Dysphagia Treatment Start: 03/24/21 12:53 Freq: Status: Active Protocol: Document 04/13/21 11:49 LNK (Rec: 04/13/21 12:06 LNK [id number]) Dysphagia Treatment Session Time Visit Start Time 09:30 Visit Stop Time 10:30 Total Visit Minutes 60 Visit Information Visit Number 2 Plan of Care Dates 03/24/21-06/21/21 Setting Assessment Location Outpatient Care Visit Type Note Type Treatment Note Next Note Type Next Note Type Discharge Summary Patient Information Identification Type Name,Date of Subjective Observations Pt arrived with his . They had a CD from [facility] sent over with MBS recorded on it. Unfortunately, the recording and playing systems could not translate to the CD player here at . However, I was able to get data from PACS system. Treatment Treatment Activities No PO trials attempted tody. reviewed the video data from [facility] via PACS with pt and his . The MBS results indicated that the pt's swallow function was WNL. No penetration or aspiration was observed. Epiglottis was inverted with good airway protection. Pt reports no coughing in the morning or with drinking his coffee. He reported no pneumonia in medical history. Pt's voice is strong and clear, indicating good vocal fold adduction/ abduction strength. Pt was encouraged to continue vocal fold adduction exercises to maintain adduction strength. This GAME TRAPPER explained that the results from this MBS (2.7.22) can serve as baseline data for any changes in pt's swallow in the future. No swallowing therapy is indicated at this time. Recommended pt contact MD if there are changes observed with swallowing in the future. Diet Recommendations Recommendations Continue Current Diet Medication Recommendations As Tolerated Treatment Plan Appropriate for Continued Therapy No
--- NOTE | 2021-05-13 12:14 | ST.IPDYTX ---
Visit Care Team Role Provider Type Olaf Espinosa MD Family Provider Physician Primary Care Provider Specialty: Internal Medicine Address: [address] [place] [address], [address], [place], [address] Email: [email or web address] Manuel Bob MD Attending Provider Non-Staff Referring Provider Specialty: Neurology Address: [address] [place] [address], [phone] Email: EVENT HOST Dysphagia Treatment EVENT HOST Dysphagia Treatment Start: 03/24/21 12:53 Freq: Status: Active Protocol: Document 04/13/21 11:49 LNK (Rec: 04/13/21 12:06 LNK [id number]) Dysphagia Treatment Session Time Visit Start Time 09:30 Visit Stop Time 10:30 Total Visit Minutes 60 Visit Information Visit Number 2 Plan of Care Dates 03/24/21-06/21/21 Setting Assessment Location Outpatient Care Visit Type Note Type Treatment Note Next Note Type Next Note Type Discharge Summary Patient Information Identification Type Name,Date of Subjective Observations Pt arrived with his . They had a CD from [facility] sent over with MBS recorded on it. Unfortunately, the recording and playing systems could not translate to the CD player here at . However, I was able to get data from PACS system. Treatment Treatment Activities No PO trials attempted today. reviewed the video data from [facility] via PACS with pt and his . The MBS results indicated that the pt's swallow function was WNL. No penetration or aspiration was observed. Epiglottis was inverte with good airway protection. Pt reports no coughing in the morning or with drinking his coffee. He reported no pneumonia in medical history. Pt's voice is strong and clear, indicating good vocal fold adduction/ abduction strength. Pt was encouraged to continue vocal fold adduction exercises to maintain adduction strength. This EVENT HOST explained that the results from this MBS (2.7.22) can serve as baseline data for any changes in pt's swallow in the future. No swallowing therapy is indicated at this time. Recommended pt contact MD if there are changes observed with swallowing in the future. Diet Recommendations Recommendations Continue Current Diet Medication Recommendations As Tolerated Treatment Plan Appropriate for Continued Therapy No
== END 2021-05-19 14:28 ==
LOC: SP 09:30
PROVIDERS: Family Provider Internal Medicine; PCP Internal Medicine; Referring Provider Psychiatry & Neurology Neurology; Visit Provider Psychiatry & Neurology Neurology
DX: G20 Parkinson's disease (principal); R13.12 Dysphagia, oropharyngeal phase
CPT/HCPCS: 92526; 92610

== ENCOUNTER 2021-08-01 17:33 | Emergency (ER) | payer OTHER, SELFPAY ==
[2020-07-19 16:37] VITALS: BMI 23.0
[2021-08-01] VITALS (17 sets, daily range): BP systolic 122–144; BP diastolic 65–85; PULSE 73–98; RESP 16–31; TEMP 36.9; O2SAT 91–97; BMI 23.0
--- NOTE | 2021-08-01 17:44 | DI.CT.S_ITS ---
PROCEDURE: CT HEAD/BRAIN WO CON INDICATIONS: fall on thinner TECHNIQUE: Noncontrast 4.5 mm thick angled axial sections acquired from the foramen magnum to the vertex, with coronal and sagittal reformats. For radiation dose reduction, the following was used: automated exposure control, adjustment of mA and/or kV according to patient size. COMPARISON: [facility], CT, CT HEAD/BRAIN WO CON, 11/02/2019, 9:58. FINDINGS: Image quality: Excellent. CSF spaces: Basal cisterns are patent. No extra-axial fluid collections. The ventricles are symmetric in size and shape. Brain: No intracranial bleeds or masses. There is cerebral volume loss for age, with resultant ventricular and sulcal prominence. There are periventricular and deep white matter chronic small vessel ischemic changes. There is intracranial internal carotid artery atherosclerosis. Skull and face: Calvarium and visualized facial bones appear intact, without suspicious lesions. Sinuses: Mucoperiosteal thickening present in both maxillary sinuses, right worse than left. No definite air-fluid levels. IMPRESSION: No intracranial hemorrhage or other acute intracranial abnormality. Dictated by: Durga Hernandez M.D. on 08/01/2021 at 18:26 Approved by: Durga Hernandez M.D. on 08/01/2021 at 18:33
--- NOTE | 2021-08-01 17:44 | DI.CT.S_ITS ---
PROCEDURE: CT FACIAL BONES WO CON INDICATIONS: fall TECHNIQUE: Noncontrast 2.5 mm thick axial images acquired from the mandible through the frontal sinuses, with coronal and sagittal reformatting. For radiation dose reduction, the following was used: automated exposure control, adjustment of mA and/or kV according to patient size. COMPARISON: None. FINDINGS: Maxillofacial Bones: Nasal bone fracture, uncertain age. The zygomaticomaxillary complex is intact. The pterygoid plates and skull base are unremarkable. No evidence of fracture or lytic lesion. Mandible: The mandible is intact without fracture. Unremarkable temporomandibular articulation. Dentition: Unremarkable mandibular and maxillary dentition. Soft tissues: No maxillofacial soft tissue swelling. No radiopaque foreign bodies. Orbits: The osseous orbits, globes and ocular muscles unremarkable. Bilateral intraocular lens replacements noted. Sinuses and Mastoid: Bilateral maxillary sinus mucosal thickening measures up to 8 mm. Advanced degenerative disc disease and arthropathy in the upper cervical spine results in at least moderate central stenosis at C5-6 IMPRESSION: 1. Nasal bone fracture, uncertain age. 2. Bilateral maxillary mucosal sinus disease 3. 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 on 08/01/2021 at 17:37
--- NOTE | 2021-08-01 17:44 | DI.CT.S_ITS ---
PROCEDURE: CT CERVICAL SPINE WO CON INDICATIONS: fall TECHNIQUE: Noncontrast 3 mm thick sections acquired from the skull base to the T4 level. Sagittal and coronal reformats were then constructed. For radiation dose reduction, the following was used: automated exposure control, adjustment of mA and/or kV according to patient size. COMPARISON: None. FINDINGS: Image quality: Excellent. Bones: Multilevel degenerative disc disease and arthropathy noted throughout the exam results in straightening of the normal cervical lordosis. There is moderate central and severe bilateral foraminal stenosis at C5-6, as well as moderate central and severe bilateral foraminal stenosis at C6-7. Craniovertebral relationships normal. Soft tissues: Prevertebral soft tissues are normal in thickness. No paravertebral hematomas. No apical pneumothoraces. IMPRESSION: 1. No evidence of fracture or malalignment. 2. Degenerative disc disease and arthropathy results in straightening the normal cervical lordosis and moderate central with bilateral severe stenosis at C5-6 and C6-7. Approved by: Steven Archer M.D. on 08/01/2021 at 17:40
--- NOTE | 2021-08-01 18:19 | ED.TRAUMA ---
HPI - Trauma <Eddie Silverio DO - Last Filed: 08/03/21 05:13> General Chief Complaint: Trauma Stated Complaint: GLF Time Seen by Provider: 08/01/21 17:44 History of Present Illness HPI narrative: 86M daily smoker with parkinson's, HTN, hyperlipidemia, on Aspirin presents by EMS for evaluation of a ground level fall with injuries. He was in his normal state of health and is often unsteady and states he stumbled and fell down a gentle slope of [place]. He struggled to get up because of laying in an awkward position and was eventually able to notify family who called a neighbor for help and then EMS. He has a superficial laceration of the bridge was nose, presumably from his glasses and struck his head, but denies LOC, N/V. He's had no neck, chest, or back pain. He denies prodromal symptoms. He is activated as a modified trauma given fall, possible injury with his age while on anti-platelet agents Related Data Home Medications Medication Instructions Recorded Confirmed nitroglycerin 0.4 mg sublingual 0.4 mg sublingual Q5M PRN Angina 03/10/19 05/16/21 tablet aspirin 81 mg tablet,delayed 81 mg PO DAILY 09/22/19 05/16/21 release (Adult Low Dose Aspirin) mometasone 0.1 % topical ointment 1 applic topical DAILY PRN Rash 06/22/20 05/16/21 carbidopa 25 mg-levodopa 100 mg 1 tab PO TID 02/10/21 05/16/21 tablet atorvastatin 10 mg tablet 10 mg PO DAILY 05/16/21 05/16/21 Previous Rx's Medication Instructions Recorded tadalafil 20 mg tablet 10 - 20 mg PO ONCE PRN sexual 11/12/20 activity #10 tabs amlodipine 2.5 mg tablet 2.5 mg PO DAILY #90 tabs 12/07/20 hydrochlorothiazide 12.5 mg capsule 12.5 mg PO DAILY #90 caps 04/18/21 Allergies Allergy/AdvReac Type Severity Reaction Status Date / Time No Known Drug Allergies Allergy Verified 05/16/21 10:01 Review of Systems <DO Noel Joseph Last Filed: 08/03/21 05:13> Review of Systems Narrative: GENERAL: Denies chills, fatigue, malaise, fever, sweats. HEENT: Denies sinus pain, ear pain, sore throat, difficulty swallowing, dizziness. RESPIRATORY: Denies dyspnea, cough, wheezing, hemoptysis, sputum. CARDIOVASCULAR: Denies chest pain, palpitations, orthopnea, edema, GASTROINTESTINAL: Denies nausea, vomiting, abdominal pain, diarrhea, constipation, melena. : Denies dysuria, frequency, incontinence, hematuria, urinary retention. MUSCULOSKELETAL: denies weakness, joint pain, or bony pain SKIN: See HPI NEUROLOGIC: Denies weakness, headache, numbness, change in speech, confusion, seizures, incoordination. PSYCHIATRIC: No concerning psychosocial issues. 12 point review of systems is negative except for those stated above Patient History <Eddie Silverio DO - Last Filed: 08/03/21 05:13> Medical History COPD (chronic obstructive pulmonary disease) Coronary artery disease (~2010) Erectile dysfunction Essential hypertension Hearing loss (~2013) Hemorrhoid (~1979) Ischemic cardiomyopathy Mixed hyperlipidemia Parkinson disease Parkinson's disease Paroxysmal atrial fibrillation Peripheral vascular disease (~2016) Wears glasses Surgical History Anesthesia Gallstones (~2017) History of cataract removal with insertion of prosthetic lens (~2018) History of heart bypass surgery (~2011) History of surgery (~2016) History of surgery (~2016) Pelvis fracture (~2012) Right groin hernia (~2018) S/P laparoscopic cholecystectomy Family History Father History of heart disease Mother No problems noted. Grandmother Diabetes mellitus Grandfather History of heart disease Family/Other No problems noted. Social History marital status: household members: spouse occupational status: previously employed Smoking Status: Current every day smoker alcohol intake: never substance use type: does not use Smoking Status: Current every day smoker tobacco type: cigarettes Substance Use Type: does not use Exam <Eddie Silverio DO - Last Filed: 08/03/21 05:13> Narrative Exam Narrative: GENERAL: [86] year old patient appears stated age. Well-developed patient, in mild distress. At neurologic baseline per family at bedside, GCS 15 HEAD: Superficial abrasions on bridge of nose, dried blood, no repair needed. No other hematoma, abrasion or laceration noted. No evidence of depressed skull fracture EYES: Pupils equal round and reactive. No hyphema Extraocular motions intact. No scleral icterus. No injection or drainage. ENT: Nose without bleeding, purulent drainage. No nasal septal hematoma or hemotympanum Throat without erythema, tonsillar hypertrophy or exudate. Airway patent. NECK: Trachea midline. Non tender CARDIOVASCULAR: Regular rate and rhythm without murmurs, gallops, or rubs. RESPIRATORY: Clear to auscultation. Breath sounds equal bilaterally. No wheezes, rales, or rhonchi. GASTROINTESTINAL: Abdomen soft, non-tender, nondistended. EXTREMITIES: No edema or joint tenderness. BACK: Nontender without deformity or crepitance. No flank tenderness. NEURO: AOx3. SKIN: No rash or erythema of visible areas Initial Vital Signs Initial Vital Signs: Vital Signs Pulse Oximetry 94 08/01/21 17:37 <Vianey Rendon DO - Last Filed: 08/03/21 06:58> Initial Vital Signs Initial Vital Signs: Vital Signs Pulse Oximetry 94 08/01/21 17:37 Course <Eddie Silverio DO - Last Filed: 08/03/21 05:13> Orders Ordered: Discontinued Medications Amlodipine Besylate (Amlodipine 5 Mg Tablet) 2.5 mg PO NOW ONE Stop: 08/02/21 07:31 Last Admin: 08/02/21 08:08 Dose: 2.5 mg Documented By: KEAGAN Aspirin (Aspirin 81 Mg Chew Tab) 324 mg PO NOW ONE Stop: 08/02/21 07:31 Last Admin: 08/02/21 08:08 Dose: 324 mg Documented By: KEAGAN Atorvastatin Calcium (Atorvastatin 20 Mg Tablet) 40 mg PO NOW ONE Stop: 08/02/21 07:31 Last Admin: 08/02/21 08:06 Dose: 40 mg Documented By: KEAGAN Atorvastatin Calcium (Atorvastatin 20 Mg Tablet) 10 mg PO BEDTIME [facility] Carbidopa/Levodopa (Carbidopa-Levodopa 25/100 Tablet) 1 each PO TID [facility] Last Admin: 08/02/21 17:58 Dose: 1 each Documented By: BREEZY Carbidopa/Levodopa (Carbidopa-Levodopa 25/100 Tablet) 1 each PO 0600,1300,1800 Y[facility]ASTA Heparin Sodium (Porcine) (Heparin 5,000 Unit/Ml Vial) 4,000 unit IV NOW ONE Stop: 08/01/21 20:07 Last Admin: 08/01/21 20:46 Dose: 4,000 unit Documented By: KIT Sodium Chloride (Normal Saline 0.9%) 1,000 mls @ 125 mls/hr IV CONT YOKASTA Last Infusion: 08/01/21 20:52 Dose: 0 mls/hr Documented By: Infusion: 08/01/21 20:04 Dose: 999 mls/hr Documented By: Admin: 08/01/21 18:57 Dose: 125 mls/hr Documented By: ZACH Sodium Chloride (Normal Saline 0.9%) 1,000 mls @ 1,000 mls/hr IV BOLUS ONE Stop: 08/01/21 20:40 Last Infusion: 08/02/21 05:01 Dose: 0 mls/hr Documented By: Admin: 08/01/21 20:56 Dose: 125 mls/hr Documented By: MILTON Heparin Sodium/Dextrose (Heparin Drip) 25,000 unit in 500 mls @ 17.962 mls/hr IV CONT YOKASTA; Protocol Last Titration: 08/03/21 05:46 Dose: 0 units/kg/hr, 0 mls/hr Documented By: Admin: 08/02/21 23:20 Dose: 12.69 units/kg/hr, 18.995 mls/hr Documented By: Titration: 08/02/21 23:20 Dose: 0 units/kg/hr, 0 mls/hr Documented By: Titration: 08/02/21 15:45 Dose: 12.69 units/kg/hr, 19 mls/hr Documented By: ZACH(2) Admin: 08/01/21 20:47 Dose: 12 units/kg/hr, 17.962 mls/hr Documented By: KIT Amiodarone HCl/Dextrose (Nexterone) 150 mg in 100 mls @ 600 mls/hr IV NOW ONE; Protocol Stop: 08/02/21 05:11 Last Infusion: 08/02/21 05:56 Dose: 0 mls/hr Documented By: Admin: 08/02/21 05:20 Dose: 600 mls/hr Documented By: JAZZ Amiodarone HCl/Dextrose (Nexterone) 360 mg in 200 mls @ 33.333 mls/hr IV NOW ONE; Protocol Stop: 08/02/21 11:01 Last Titration: 08/02/21 11:20 Dose: 0 mg/hr, 0 mls/hr Documented By: ZACH(2) Admin: 08/02/21 05:46 Dose: 1 mg/hr, 0.556 mls/hr Documented By: JAZZ Amiodarone HCl/Dextrose (Nexterone) 360 mg in 200 mls @ 16.7 mls/hr IV CONT YOKASTA; Protocol Stop: 08/02/21 19:14 Last Titration: 08/02/21 23:45 Dose: 0 ml/hr, 0 mls/hr Documented By: Admin: 08/02/21 11:21 Dose: 16.7 ml/hr, 16.7 mls/hr Documented By: ZACH(2) Sodium Chloride (Normal Saline 0.9%) 1,000 mls @ 150 mls/hr IV CONT YOKASTA Last Infusion: 08/02/21 19:00 Dose: 0 mls/hr Documented By: Admin: 08/02/21 08:33 Dose: 150 mls/hr Documented By: ZACH(2) Amiodarone HCl/Dextrose (Nexterone) 181 mg in 100.56 mls @ 16.7 mls/hr IV CONT YOKASTA; Protocol Stop: 08/02/21 20:17 Last Admin: 08/02/21 23:47 Dose: Not Given Documented By: MATI Amiodarone HCl/Dextrose (Nexterone) 181 mg in 100.56 mls @ 16.7 mls/hr IV CONT YOKASTA; Protocol Stop: 08/03/21 05:32 Last Titration: 08/03/21 05:46 Dose: 0 mls/hr, 0 mls/hr Documented By: Titration: 08/03/21 05:43 Dose: 0 mls/hr, 0 mls/hr Documented By: Admin: 08/02/21 23:46 Dose: 16.7 mls/hr, 16.7 mls/hr Documented By: MATI Reevaluation(s) Reevaluation #1: 5692 - tele notes what appears to be about 6 beats of polymorphic VT. Patient unaware Reevaluation #2: 0500 - tele notes VT of about 10 beats. Repeat EKG ordered. Amio bolus and drip ordered. Call to Cardio at [facility] Consultations Consultation #1: discussed with cardio at [facility] (Yudith). He is in complete agreement with treatment plan including heparin and amio. Supports our efforts to continue to try to find placement Vital Signs Vital signs: Vital Signs - 8 hr 08/02/21 23:00 08/02/21 23:30 08/03/21 00:00 Pulse Rate 57 L 57 L Respiratory Rate 25 H 27 H Blood Pressure 109/59 L Pulse Oximetry 94 95 Oxygen Delivery Method 08/03/21 00:00 08/03/21 00:30 08/03/21 01:00 Pulse Rate 59 L 60 59 L Respiratory Rate 28 H 29 H 25 H Blood Pressure Pulse Oximetry 95 95 94 Oxygen Delivery Method Room Air 08/03/21 01:30 08/03/21 02:00 08/03/21 02:00 Pulse Rate 66 59 L Respiratory Rate 27 H 24 Blood Pressure 117/64 Pulse Oximetry 97 95 Oxygen Delivery Method Room Air 08/03/21 02:30 08/03/21 03:00 08/03/21 03:30 Pulse Rate 66 72 61 Respiratory Rate 25 H 33 H 30 H Blood Pressure Pulse Oximetry 93 94 93 Oxygen Delivery Method 08/03/21 04:00 08/03/21 04:01 08/03/21 04:01 Pulse Rate 69 63 Respiratory Rate 25 H 27 H Blood Pressure 109/55 L Pulse Oximetry 93 93 Oxygen Delivery Method 08/03/21 04:30 08/03/21 05:00 08/03/21 05:30 Pulse Rate 58 L 58 L 67 Respiratory Rate 28 H 19 29 H Blood Pressure Pulse Oximetry 94 93 93 Oxygen Delivery Method Room Air Room Air <Vianey Rendon DO - Last Filed: 08/03/21 06:58> Orders Ordered: Discontinued Medications Amlodipine Besylate (Amlodipine 5 Mg Tablet) 2.5 mg PO NOW ONE Stop: 08/02/21 07:31 Last Admin: 08/02/21 08:08 Dose: 2.5 mg Documented By: KEAGAN Aspirin (Aspirin 81 Mg Chew Tab) 324 mg PO NOW ONE Stop: 08/02/21 07:31 Last Admin: 08/02/21 08:08 Dose: 324 mg Documented By: KEAGAN Atorvastatin Calcium (Atorvastatin 20 Mg Tablet) 40 mg PO NOW ONE Stop: 08/02/21 07:31 Last Admin: 08/02/21 08:06 Dose: 40 mg Documented By: KEAGAN Atorvastatin Calcium (Atorvastatin 20 Mg Tablet) 10 mg PO BEDTIME [facility] Carbidopa/Levodopa (Carbidopa-Levodopa 25/100 Tablet) 1 each PO TID YOKASTA Last Admin: 08/02/21 17:58 Dose: 1 each Documented By: BREEZY Carbidopa/Levodopa (Carbidopa-Levodopa 25/100 Tablet) 1 each PO 0600,1300,1800 YOKASTA Heparin Sodium (Porcine) (Heparin 5,000 Unit/Ml Vial) 4,000 unit IV NOW ONE Stop: 08/01/21 20:07 Last Admin: 08/01/21 20:46 Dose: 4,000 unit Documented By: KIT Sodium Chloride (Normal Saline 0.9%) 1,000 mls @ 125 mls/hr IV CONT YOKASTA Last Infusion: 08/01/21 20:52 Dose: 0 mls/hr Documented By: Infusion: 08/01/21 20:04 Dose: 999 mls/hr Documented By: Admin: 08/01/21 18:57 Dose: 125 mls/hr Documented By: ZACH Sodium Chloride (Normal Saline 0.9%) 1,000 mls @ 1,000 mls/hr IV BOLUS ONE Stop: 08/01/21 20:40 Last Infusion: 08/02/21 05:01 Dose: 0 mls/hr Documented By: Admin: 08/01/21 20:56 Dose: 125 mls/hr Documented By: MILTON Heparin Sodium/Dextrose (Heparin Drip) 25,000 unit in 500 mls @ 17.962 mls/hr IV CONT YOKASTA; Protocol Last Titration: 08/03/21 05:46 Dose: 0 units/kg/hr, 0 mls/hr Documented By: Admin: 08/02/21 23:20 Dose: 12.69 units/kg/hr, 18.995 mls/hr Documented By: Titration: 08/02/21 23:20 Dose: 0 units/kg/hr, 0 mls/hr Documented By: Titration: 08/02/21 15:45 Dose: 12.69 units/kg/hr, 19 mls/hr Documented By: ZACH(2) Admin: 08/01/21 20:47 Dose: 12 units/kg/hr, 17.962 mls/hr Documented By: KIT Amiodarone HCl/Dextrose (Nexterone) 150 mg in 100 mls @ 600 mls/hr IV NOW ONE; Protocol Stop: 08/02/21 05:11 Last Infusion: 08/02/21 05:56 Dose: 0 mls/hr Documented By: Admin: 08/02/21 05:20 Dose: 600 mls/hr Documented By: JAZZ Amiodarone HCl/Dextrose (Nexterone) 360 mg in 200 mls @ 33.333 mls/hr IV NOW ONE; Protocol Stop: 08/02/21 11:01 Last Titration: 08/02/21 11:20 Dose: 0 mg/hr, 0 mls/hr Documented By: ZACH(2) Admin: 08/02/21 05:46 Dose: 1 mg/hr, 0.556 mls/hr Documented By: JAZZ Amiodarone HCl/Dextrose (Nexterone) 360 mg in 200 mls @ 16.7 mls/hr IV CONT YOKASTA; Protocol Stop: 08/02/21 19:14 Last Titration: 08/02/21 23:45 Dose: 0 ml/hr, 0 mls/hr Documented By: Admin: 08/02/21 11:21 Dose: 16.7 ml/hr, 16.7 mls/hr Documented By: ZACH(2) Sodium Chloride (Normal Saline 0.9%) 1,000 mls @ 150 mls/hr IV CONT YOKASTA Last Infusion: 08/02/21 19:00 Dose: 0 mls/hr Documented By: Admin: 08/02/21 08:33 Dose: 150 mls/hr Documented By: ZACH(2) Amiodarone HCl/Dextrose (Nexterone) 181 mg in 100.56 mls @ 16.7 mls/hr IV CONT YOKASTA; Protocol Stop: 08/02/21 20:17 Last Admin: 08/02/21 23:47 Dose: Not Given Documented By: MATI Amiodarone HCl/Dextrose (Nexterone) 181 mg in 100.56 mls @ 16.7 mls/hr IV CONT YOKASTA; Protocol Stop: 06/29/22 05:32 Last Titration: 08/03/21 05:46 Dose: 0 mls/hr, 0 mls/hr Documented By: Titration: 08/03/21 05:43 Dose: 0 mls/hr, 0 mls/hr Documented By: Admin: 08/02/21 23:46 Dose: 16.7 mls/hr, 16.7 mls/hr Documented By: MATI Vital Signs Vital signs: Vital Signs - 8 hr 08/02/21 23:00 08/02/21 23:30 08/03/21 00:00 Pulse Rate 57 L 57 L Respiratory Rate 25 H 27 H Blood Pressure 109/59 L Pulse Oximetry 94 95 Oxygen Delivery Method 08/03/21 00:00 08/03/21 00:30 08/03/21 01:00 Pulse Rate 59 L 60 59 L Respiratory Rate 28 H 29 H 25 H Blood Pressure Pulse Oximetry 95 95 94 Oxygen Delivery Method Room Air 08/03/21 01:30 08/03/21 02:00 08/03/21 02:00 Pulse Rate 66 59 L Respiratory Rate 27 H 24 Blood Pressure 117/64 Pulse Oximetry 97 95 Oxygen Delivery Method Room Air 08/03/21 02:30 08/03/21 03:00 08/03/21 03:30 Pulse Rate 66 72 61 Respiratory Rate 25 H 33 H 30 H Blood Pressure Pulse Oximetry 93 94 93 Oxygen Delivery Method 08/03/21 04:00 08/03/21 04:01 08/03/21 04:01 Pulse Rate 69 63 Respiratory Rate 25 H 27 H Blood Pressure 109/55 L Pulse Oximetry 93 93 Oxygen Delivery Method 08/03/21 04:30 08/03/21 05:00 08/03/21 05:30 Pulse Rate 58 L 58 L 67 Respiratory Rate 28 H 19 29 H Blood Pressure Pulse Oximetry 94 93 93 Oxygen Delivery Method Room Air Room Air MDM - Trauma <Eddie Silverio, DO - Last Filed: 08/03/21 05:13> Lab Data Result diagrams: 08/01/21 18:52 08/02/21 05:20 Labs: Lab Results 08/01/21 08/01/21 08/01/21 Range/Units 18:52 18:52 20:25 WBC 14.5 H (4.5-11.0) X10^3/uL RBC 5.36 (4.5-5.9) X10^6/uL Hgb 16.4 (13.5-17.5) g/dL Hct 47.3 (41-53) % MCV 88.2 (80-100) fL MCH 30.5 (26-34) PG MCHC 34.6 (30-36) % RDW 13.7 (11.6-14.8) % Plt Count 205 (150-400) X10^3/uL Neut % (Auto) 85.3 H (50-75) % Lymph % (Auto) 9.2 L (25-40) % Foard % (Auto) 5.1 (3-14) % Eos % (Auto) 0.1 L (2-4) % Baso % (Auto) 0.3 (0-2) % Neut # (Auto) 16925 H (9657-7897) /uL Lymph # (Auto) 1300 (0738-5106) /uL Foard # (Auto) 700 (0-900) /uL Eos # (Auto) 0 (0-450) /uL Baso # (Auto) 0 (0-100) /uL APTT (26.4-36.2) SECONDS Sodium 128 L (137-145) mmol/L Potassium 3.8 (3.4-5.1) mmol/L Chloride 104 (98-107) mmol/L Carbon Dioxide 24 (22-32) mmol/L BUN 30 H (9-20) mg/dL Creatinine 1.79 H (0.66-1.25) mg/dL Estimated GFR 37 L (>60) mL/min BUN/Creatinine Ratio 16.8 (6-22) Glucose 103 (80-110) mg/dL Calcium 9.0 (8.4-10.2) mg/dL Total Bilirubin 0.8 (0.2-1.3) mg/dL AST 85 H (17-59) IU/L ALT 14 (<50) IU/L Alkaline Phosphatase 93 (38-126) U/L Total Creatine Kinase 2462 H (55-170) U/L CK-MB (CK-2) 42.90 H (<2.37) ng/mL CK-MB (CK-2) Rel Index 1.7 (1.5-5.0) % Troponin I 6.410 H* (0.01-0.034) ng/mL NT-Pro-B Natriuret Pep (<450) pg/mL Total Protein 6.9 (6.3-8.2) g/dL Albumin 4.3 (3.5-5.0) g/dL Globulin 2.6 (1.7-4.1) g/dL Albumin/Globulin Ratio 1.7 (1.0-2.8) Urine Color Urine Appearance Urine pH (4.5-8.0) Ur Specific Craig (1.000-1.035) Urine Protein (Negative) Urine Glucose (UA) (Negative) g/dL Urine Ketones (NEGATIVE) Urine Occult Blood (Negative) Urine Nitrate (Negative) Urine Bilirubin (NEGATIVE) Urine Urobilinogen (0.2) E.U./dL Ur Leukocyte Esterase (NEGATIVE) Urine RBC (0-5/HPF) Urine WBC (0-5/HPF) Ur Squamous Epith Cells (0-5/HPF) Urine Bacteria (None) Hyaline Casts (None) Urine Mucus (Negative) Ur Culture Indicated? SARS-CoV-2 (PCR) Negative (Negative) 08/02/21 08/02/21 08/02/21 Range/Units 02:46 05:20 05:20 WBC (4.5-11.0) X10^3/uL RBC (4.5-5.9) X10^6/uL Hgb (13.5-17.5) g/dL Hct (41-53) % MCV (80-100) fL MCH (26-34) PG MCHC (30-36) % RDW (11.6-14.8) % Plt Count (150-400) X10^3/uL Neut % (Auto) (50-75) % Lymph % (Auto) (25-40) % Foard % (Auto) (3-14) % Eos % (Auto) (2-4) % Baso % (Auto) (0-2) % Neut # (Auto) (0635-5772) /uL Lymph # (Auto) (3420-8177) /uL Foard # (Auto) (0-900) /uL Eos # (Auto) (0-450) /uL Baso # (Auto) (0-100) /uL APTT 69 H D (26.4-36.2) SECONDS Sodium 137 (137-145) mmol/L Potassium 3.7 (3.4-5.1) mmol/L Chloride 109 H (98-107) mmol/L Carbon Dioxide 21 L (22-32) mmol/L BUN 25 H (9-20) mg/dL Creatinine 1.38 H (0.66-1.25) mg/dL Estimated GFR 50 L (>60) mL/min BUN/Creatinine Ratio 18.1 (6-22) Glucose 87 (80-110) mg/dL Calcium 8.5 (8.4-10.2) mg/dL Total Bilirubin (0.2-1.3) mg/dL AST (17-59) IU/L ALT (<50) IU/L Alkaline Phosphatase (38-126) U/L Total Creatine Kinase 4689 H D (55-170) U/L CK-MB (CK-2) 54.30 H (<2.37) ng/mL CK-MB (CK-2) Rel Index 1.2 L (1.5-5.0) % Troponin I 7.200 H* (0.01-0.034) ng/mL NT-Pro-B Natriuret Pep 2920 H (<450) pg/mL Total Protein (6.3-8.2) g/dL Albumin (3.5-5.0) g/dL Globulin (1.7-4.1) g/dL Albumin/Globulin Ratio (1.0-2.8) Urine Color Urine Appearance Urine pH (4.5-8.0) Ur Specific Craig (1.000-1.035) Urine Protein (Negative) Urine Glucose (UA) (Negative) g/dL Urine Ketones (NEGATIVE) Urine Occult Blood (Negative) Urine Nitrate (Negative) Urine Bilirubin (NEGATIVE) Urine Urobilinogen (0.2) E.U./dL Ur Leukocyte Esterase (NEGATIVE) Urine RBC (0-5/HPF) Urine WBC (0-5/HPF) Ur Squamous Epith Cells (0-5/HPF) Urine Bacteria (None) Hyaline Casts (None) Urine Mucus (Negative) Ur Culture Indicated? SARS-CoV-2 (PCR) (Negative) 08/02/21 08/02/21 08/02/21 Range/Units 09:00 12:10 14:30 WBC (4.5-11.0) X10^3/uL RBC (4.5-5.9) X10^6/uL Hgb (13.5-17.5) g/dL Hct (41-53) % MCV (80-100) fL MCH (26-34) PG MCHC (30-36) % RDW (11.6-14.8) % Plt Count (150-400) X10^3/uL Neut % (Auto) (50-75) % Lymph % (Auto) (25-40) % Foard % (Auto) (3-14) % Eos % (Auto) (2-4) % Baso % (Auto) (0-2) % Neut # (Auto) (7211-5663) /uL Lymph # (Auto) (7906-6039) /uL Foard # (Auto) (0-900) /uL Eos # (Auto) (0-450) /uL Baso # (Auto) (0-100) /uL APTT 53 H D (26.4-36.2) SECONDS Sodium (137-145) mmol/L Potassium (3.4-5.1) mmol/L Chloride (98-107) mmol/L Carbon Dioxide (22-32) mmol/L BUN (9-20) mg/dL Creatinine (0.66-1.25) mg/dL Estimated GFR (>60) mL/min BUN/Creatinine Ratio (6-22) Glucose (80-110) mg/dL Calcium (8.4-10.2) mg/dL Total Bilirubin (0.2-1.3) mg/dL AST (17-59) IU/L ALT (<50) IU/L Alkaline Phosphatase (38-126) U/L Total Creatine Kinase 2382 H D (55-170) U/L CK-MB (CK-2) 38.60 H (<2.37) ng/mL CK-MB (CK-2) Rel Index 1.6 (1.5-5.0) % Troponin I 4.340 H* (0.01-0.034) ng/mL NT-Pro-B Natriuret Pep (<450) pg/mL Total Protein (6.3-8.2) g/dL Albumin (3.5-5.0) g/dL Globulin (1.7-4.1) g/dL Albumin/Globulin Ratio (1.0-2.8) Urine Color Yellow Urine Appearance Clear Urine pH 5.0 (4.5-8.0) Ur Specific Craig 1.015 (1.000-1.035) Urine Protein Trace H (Negative) Urine Glucose (UA) Negative (Negative) g/dL Urine Ketones Negative (NEGATIVE) Urine Occult Blood Trace-lysed (Negative) Urine Nitrate Negative (Negative) Urine Bilirubin Negative (NEGATIVE) Urine Urobilinogen 0.2 (0.2) E.U./dL Ur Leukocyte Esterase Negative (NEGATIVE) Urine RBC 0-1/hpf (0-5/HPF) Urine WBC 1-5/hpf (0-5/HPF) Ur Squamous Epith Cells 0-1 /hpf (0-5/HPF) Urine Bacteria Few (2-10) H (None) Hyaline Casts 0-1/lpf (None) Urine Mucus 1+ H (Negative) Ur Culture Indicated? Specimen cultured SARS-CoV-2 (PCR) (Negative) 08/02/21 08/02/21 Range/Units 14:31 21:28 WBC (4.5-11.0) X10^3/uL RBC (4.5-5.9) X10^6/uL Hgb (13.5-17.5) g/dL Hct (41-53) % MCV (80-100) fL MCH (26-34) PG MCHC (30-36) % RDW (11.6-14.8) % Plt Count (150-400) X10^3/uL Neut % (Auto) (50-75) % Lymph % (Auto) (25-40) % Foard % (Auto) (3-14) % Eos % (Auto) (2-4) % Baso % (Auto) (0-2) % Neut # (Auto) (6003-4154) /uL Lymph # (Auto) (7761-1819) /uL Foard # (Auto) (0-900) /uL Eos # (Auto) (0-450) /uL Baso # (Auto) (0-100) /uL APTT 44 H D 51 H D (26.4-36.2) SECONDS Sodium (137-145) mmol/L Potassium (3.4-5.1) mmol/L Chloride (98-107) mmol/L Carbon Dioxide (22-32) mmol/L BUN (9-20) mg/dL Creatinine (0.66-1.25) mg/dL Estimated GFR (>60) mL/min BUN/Creatinine Ratio (6-22) Glucose (80-110) mg/dL Calcium (8.4-10.2) mg/dL Total Bilirubin (0.2-1.3) mg/dL AST (17-59) IU/L ALT (<50) IU/L Alkaline Phosphatase (38-126) U/L Total Creatine Kinase (55-170) U/L CK-MB (CK-2) (<2.37) ng/mL CK-MB (CK-2) Rel Index (1.5-5.0) % Troponin I (0.01-0.034) ng/mL NT-Pro-B Natriuret Pep (<450) pg/mL Total Protein (6.3-8.2) g/dL Albumin (3.5-5.0) g/dL Globulin (1.7-4.1) g/dL Albumin/Globulin Ratio (1.0-2.8) Urine Color Urine Appearance Urine pH (4.5-8.0) Ur Specific Craig (1.000-1.035) Urine Protein (Negative) Urine Glucose (UA) (Negative) g/dL Urine Ketones (NEGATIVE) Urine Occult Blood (Negative) Urine Nitrate (Negative) Urine Bilirubin (NEGATIVE) Urine Urobilinogen (0.2) E.U./dL Ur Leukocyte Esterase (NEGATIVE) Urine RBC (0-5/HPF) Urine WBC (0-5/HPF) Ur Squamous Epith Cells (0-5/HPF) Urine Bacteria (None) Hyaline Casts (None) Urine Mucus (Negative) Ur Culture Indicated? SARS-CoV-2 (PCR) (Negative) Imaging Data CT scan - head: Radiologist's Impression: [address] [address] [address] Scan Report Signed Patient: Je Hassan V MR#: [id number] : 1935 Acct:[id number] Age/Sex: 86 / M Date of Service: 08/01/21 Loc: ED Accession Number: [id number] ?? Procedure: CT head/brain wo con Ordering Provider: Vianey Rendon D.O. PROCEDURE:? CT HEAD/BRAIN WO CON ? INDICATIONS:? fall on thinner ? TECHNIQUE:? Noncontrast 4.5 mm thick angled axial sections acquired from the foramen magnum to the vertex, with coronal and sagittal reformats.? For radiation dose reduction, the following was used:? automated exposure control, adjustment of mA and/or kV according to patient size.? ? COMPARISON:? [facility], CT, CT HEAD/BRAIN WO CON, 11/02/2019, 9:58. ? FINDINGS:? Image quality:? Excellent.? ? CSF spaces:? Basal cisterns are patent.? No extra-axial fluid collections.? The ventricles are symmetric in size and shape.? ? Brain:? No intracranial bleeds or masses.? There is cerebral volume loss for age, with resultant ventricular and sulcal prominence.? There are periventricular and deep white matter chronic small vessel ischemic changes.? There is intracranial internal carotid artery atherosclerosis.? ? Skull and face:? Calvarium and visualized facial bones appear intact, without suspicious lesions.? ? Sinuses:? Mucoperiosteal thickening present in both maxillary sinuses, right worse than left. ? No definite air-fluid levels.? ? IMPRESSION:? No intracranial hemorrhage or other acute intracranial abnormality. ? ? Dictated by: Durga Hernandez M.D. on 08/01/2021 at 18:26 ? ? Approved by: Durga Hernandez M.D. on 08/01/2021 at 18:33 ? Face CT: Radiologist's Impression: [place] [address] CT Scan Report Signed Patient: Je Hassan V MR#: [id number] : 1935 Acct:[id number] Age/Sex: 86 / M Date of Service: 08/01/21 Loc: ED Accession Number: [id number] ?? Procedure: CT facial bones wo con Ordering Provider: Vianey Rendon D.O. PROCEDURE:? CT FACIAL BONES WO CON ? INDICATIONS:? fall ? TECHNIQUE:? Noncontrast 2.5 mm thick axial images acquired from the mandible through the frontal sinuses, with coronal and sagittal reformatting.? For radiation dose reduction, the following was used:? automated exposure control, adjustment of mA and/or kV according to patient size.? ? COMPARISON:? None. ? FINDINGS: ? Maxillofacial Bones:? Nasal bone fracture, uncertain age.? The zygomaticomaxillary complex is intact. The pterygoid plates and skull base are unremarkable. No evidence of fracture or lytic lesion. ? Mandible:? The mandible is intact without fracture.? Unremarkable temporomandibular articulation. ? Dentition:? Unremarkable mandibular and maxillary dentition. ? Soft tissues:? No maxillofacial soft tissue swelling. No radiopaque foreign bodies. ? Orbits:? The osseous orbits, globes and ocular muscles unremarkable.? Bilateral intraocular lens replacements noted. ? Sinuses and Mastoid:? Bilateral maxillary sinus mucosal thickening measures up to 8 mm.? ? Advanced degenerative disc disease and arthropathy in the upper cervical spine results in at least moderate central stenosis at C5-6 ? ? IMPRESSION:? ? 1. Nasal bone fracture, uncertain age. ? 2. Bilateral maxillary mucosal sinus disease ? 3. 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 ? ? Approved by: Steven Archer M.D. on 08/01/2021 at 17:37? CT - cervical spine: Radiologist's Impression: Je Hassan V??86??M??1935 ? Allergy/Adv: No Known Drug Allergies Close Head CT (Signed) Durga Hernandez - 08/01/[address] (Signed) Steven Archer - 08/01/[address] (Signed) Steven Archer - 08/01/21 Telemetry Strips 07/19/20 Chest/Abdomen/Pelvis CT (Signed) Corby Guallpa - 07/19/[address] (Signed) Corby Guallpa - 07/19/20 Hip X-Ray (Signed) Corby Guallpa - 07/19/20 Chest X-Ray (Addendum) Corby Guallpa - 07/19/20 Clavicle X-Ray (Signed) Trip Velarde - 07/16/20 Hand X-Ray (Signed) Ronen Barnard - 07/16/20 Chest/Abdomen/Pelvis CT (Signed) Ronen Barnard - 07/16/[address] (Signed) Trip Velarde - 06/11/21 Brain MRI (Signed) Ronen Barnard - 04/07/20 Telemetry Strips 11/02/[address] (Signed) Herlinda eVlardee - 11/02/19 Chest X-Ray (Signed) Herlinda Velardee - 11/02/[address] (Signed) Rip Thornton - 06/28/19 Sacrum and Coccyx X-Ray (Signed) Call,Luigi - 03/10/19 Hip X-Ray (Signed) Call,Luigi - 03/10/19 Face X-Ray (Signed) Domenico Hirsch - 08/22/18 Launch?[address] [address] [address] Scan Report Signed Patient: Je Hassan V MR#: [id number] : 1935 Acct:[id number] Age/Sex: 86 / M Date of Service: 08/01/21 Loc: Accession Number: [id number] ?? Procedure: CT cervical spine wo con Ordering Provider: Vianey Rendon D.O. PROCEDURE:? CT CERVICAL SPINE WO CON ? INDICATIONS:? fall ? TECHNIQUE:? Noncontrast 3 mm thick sections acquired from the skull base to the T4 level.? Sagittal and coronal reformats were then constructed.? For radiation dose reduction, the following was used:? automated exposure control, adjustment of mA and/or kV according to patient size.? ? COMPARISON:? None. ? FINDINGS:? Image quality:? Excellent.? ? Bones:? Multilevel degenerative disc disease and arthropathy noted throughout the exam results in straightening of the normal cervical lordosis.? There is moderate central and severe bilateral foraminal stenosis at C5-6, as well as moderate central and severe bilateral foraminal stenosis at C6-7.? Craniovertebral relationships normal. ? Soft tissues:? Prevertebral soft tissues are normal in thickness.? No paravertebral hematomas.? No apical pneumothoraces.? ? ? IMPRESSION:? ? 1. No evidence of fracture or malalignment. ? 2. Degenerative disc disease and arthropathy results in straightening the normal cervical lordosis and moderate central with bilateral severe stenosis at C5-6 and C6-7. ? Approved by: Steven Archer M.D. on 08/01/2021 at 17:40? MDM Narrative Medical decision making narrative: Patient is a poor historian and reports no prodromal symptoms leading to an accidental, apparently mechanical ground level fall, however during evaluation he is found to have critically elevated troponin at which point he is started on heparin and preparations for transfer are employed. Patient is DNR, however patient and are certainly on board with pursuing transfer for cardiac evaluation including heart cath if needed. Multiple calls placed to facilities including [facility] (wait list), [facility] (wait list), [facility] (wait list), [facility] (no), (no), [facility] (no), [facility]/ (no). All request rechecking in the morning. Julieta-patient signed out to me by Dr. Silverio of seen evaluated patient myself. He down an embankment of his IV yesterday laid there for a couple of hours before he was found. Came to the ED found to have a critical troponin of 6 which actually increased to 7. During his ED stay he actually had runs of V-tach he was started on amiodarone. Multiple phone calls to many hospitals have been placed. He has mild rhabdomyolysis with CPK elevation of 4000. He is on fluids as well. The patient does not complain of any pain he is awake alert oriented with some minor bruising. 0435 - Dr. Mayer (Cardiology at [facility]) happy to consult upon arrival to [facility], but does request admission to hospitalist. 0440 - Dr. Hernandez (hospitalist at [facility]) happy to accept <Vianey Rendon DO - Last Filed: 08/03/21 06:58> Lab Data Labs: Lab Results 08/01/21 08/01/21 08/01/21 Range/Units 18:52 18:52 20:25 WBC 14.5 H (4.5-11.0) X10^3/uL RBC 5.36 (4.5-5.9) X10^6/uL Hgb 16.4 (13.5-17.5) g/dL Hct 47.3 (41-53) % MCV 88.2 (80-100) fL MCH 30.5 (26-34) PG MCHC 34.6 (30-36) % RDW 13.7 (11.6-14.8) % Plt Count 205 (150-400) X10^3/uL Neut % (Auto) 85.3 H (50-75) % Lymph % (Auto) 9.2 L (25-40) % Foard % (Auto) 5.1 (3-14) % Eos % (Auto) 0.1 L (2-4) % Baso % (Auto) 0.3 (0-2) % Neut # (Auto) 44494 H (1124-7385) /uL Lymph # (Auto) 1300 (7237-1488) /uL Foard # (Auto) 700 (0-900) /uL Eos # (Auto) 0 (0-450) /uL Baso # (Auto) 0 (0-100) /uL APTT (26.4-36.2) SECONDS Sodium 128 L (137-145) mmol/L Potassium 3.8 (3.4-5.1) mmol/L Chloride 104 (98-107) mmol/L Carbon Dioxide 24 (22-32) mmol/L BUN 30 H (9-20) mg/dL Creatinine 1.79 H (0.66-1.25) mg/dL Estimated GFR 37 L (>60) mL/min BUN/Creatinine Ratio 16.8 (6-22) Glucose 103 (80-110) mg/dL Calcium 9.0 (8.4-10.2) mg/dL Total Bilirubin 0.8 (0.2-1.3) mg/dL AST 85 H (17-59) IU/L ALT 14 (<50) IU/L Alkaline Phosphatase 93 (38-126) U/L Total Creatine Kinase 2462 H (55-170) U/L CK-MB (CK-2) 42.90 H (<2.37) ng/mL CK-MB (CK-2) Rel Index 1.7 (1.5-5.0) % Troponin I 6.410 H* (0.01-0.034) ng/mL NT-Pro-B Natriuret Pep (<450) pg/mL Total Protein 6.9 (6.3-8.2) g/dL Albumin 4.3 (3.5-5.0) g/dL Globulin 2.6 (1.7-4.1) g/dL Albumin/Globulin Ratio 1.7 (1.0-2.8) Urine Color Urine Appearance Urine pH (4.5-8.0) Ur Specific Craig (1.000-1.035) Urine Protein (Negative) Urine Glucose (UA) (Negative) g/dL Urine Ketones (NEGATIVE) Urine Occult Blood (Negative) Urine Nitrate (Negative) Urine Bilirubin (NEGATIVE) Urine Urobilinogen (0.2) E.U./dL Ur Leukocyte Esterase (NEGATIVE) Urine RBC (0-5/HPF) Urine WBC (0-5/HPF) Ur Squamous Epith Cells (0-5/HPF) Urine Bacteria (None) Hyaline Casts (None) Urine Mucus (Negative) Ur Culture Indicated? SARS-CoV-2 (PCR) Negative (Negative) 08/02/21 08/02/21 08/02/21 Range/Units 02:46 05:20 05:20 WBC (4.5-11.0) X10^3/uL RBC (4.5-5.9) X10^6/uL Hgb (13.5-17.5) g/dL Hct (41-53) % MCV (80-100) fL MCH (26-34) PG MCHC (30-36) % RDW (11.6-14.8) % Plt Count (150-400) X10^3/uL Neut % (Auto) (50-75) % Lymph % (Auto) (25-40) % Foard % (Auto) (3-14) % Eos % (Auto) (2-4) % Baso % (Auto) (0-2) % Neut # (Auto) (7173-9438) /uL Lymph # (Auto) (7460-4961) /uL Foard # (Auto) (0-900) /uL Eos # (Auto) (0-450) /uL Baso # (Auto) (0-100) /uL APTT 69 H D (26.4-36.2) SECONDS Sodium 137 (137-145) mmol/L Potassium 3.7 (3.4-5.1) mmol/L Chloride 109 H (98-107) mmol/L Carbon Dioxide 21 L (22-32) mmol/L BUN 25 H (9-20) mg/dL Creatinine 1.38 H (0.66-1.25) mg/dL Estimated GFR 50 L (>60) mL/min BUN/Creatinine Ratio 18.1 (6-22) Glucose 87 (80-110) mg/dL Calcium 8.5 (8.4-10.2) mg/dL Total Bilirubin (0.2-1.3) mg/dL AST (17-59) IU/L ALT (<50) IU/L Alkaline Phosphatase (38-126) U/L Total Creatine Kinase 4689 H D (55-170) U/L CK-MB (CK-2) 54.30 H (<2.37) ng/mL CK-MB (CK-2) Rel Index 1.2 L (1.5-5.0) % Troponin I 7.200 H* (0.01-0.034) ng/mL NT-Pro-B Natriuret Pep 2920 H (<450) pg/mL Total Protein (6.3-8.2) g/dL Albumin (3.5-5.0) g/dL Globulin (1.7-4.1) g/dL Albumin/Globulin Ratio (1.0-2.8) Urine Color Urine Appearance Urine pH (4.5-8.0) Ur Specific Craig (1.000-1.035) Urine Protein (Negative) Urine Glucose (UA) (Negative) g/dL Urine Ketones (NEGATIVE) Urine Occult Blood (Negative) Urine Nitrate (Negative) Urine Bilirubin (NEGATIVE) Urine Urobilinogen (0.2) E.U./dL Ur Leukocyte Esterase (NEGATIVE) Urine RBC (0-5/HPF) Urine WBC (0-5/HPF) Ur Squamous Epith Cells (0-5/HPF) Urine Bacteria (None) Hyaline Casts (None) Urine Mucus (Negative) Ur Culture Indicated? SARS-CoV-2 (PCR) (Negative) 08/02/21 08/02/21 08/02/21 Range/Units 09:00 12:10 14:30 WBC (4.5-11.0) X10^3/uL RBC (4.5-5.9) X10^6/uL Hgb (13.5-17.5) g/dL Hct (41-53) % MCV (80-100) fL MCH (26-34) PG MCHC (30-36) % RDW (11.6-14.8) % Plt Count (150-400) X10^3/uL Neut % (Auto) (50-75) % Lymph % (Auto) (25-40) % Foard % (Auto) (3-14) % Eos % (Auto) (2-4) % Baso % (Auto) (0-2) % Neut # (Auto) (9671-9213) /uL Lymph # (Auto) (4774-3804) /uL Foard # (Auto) (0-900) /uL Eos # (Auto) (0-450) /uL Baso # (Auto) (0-100) /uL APTT 53 H D (26.4-36.2) SECONDS Sodium (137-145) mmol/L Potassium (3.4-5.1) mmol/L Chloride (98-107) mmol/L Carbon Dioxide (22-32) mmol/L BUN (9-20) mg/dL Creatinine (0.66-1.25) mg/dL Estimated GFR (>60) mL/min BUN/Creatinine Ratio (6-22) Glucose (80-110) mg/dL Calcium (8.4-10.2) mg/dL Total Bilirubin (0.2-1.3) mg/dL AST (17-59) IU/L ALT (<50) IU/L Alkaline Phosphatase (38-126) U/L Total Creatine Kinase 2382 H D (55-170) U/L CK-MB (CK-2) 38.60 H (<2.37) ng/mL CK-MB (CK-2) Rel Index 1.6 (1.5-5.0) % Troponin I 4.340 H* (0.01-0.034) ng/mL NT-Pro-B Natriuret Pep (<450) pg/mL Total Protein (6.3-8.2) g/dL Albumin (3.5-5.0) g/dL Globulin (1.7-4.1) g/dL Albumin/Globulin Ratio (1.0-2.8) Urine Color Yellow Urine Appearance Clear Urine pH 5.0 (4.5-8.0) Ur Specific Craig 1.015 (1.000-1.035) Urine Protein Trace H (Negative) Urine Glucose (UA) Negative (Negative) g/dL Urine Ketones Negative (NEGATIVE) Urine Occult Blood Trace-lysed (Negative) Urine Nitrate Negative (Negative) Urine Bilirubin Negative (NEGATIVE) Urine Urobilinogen 0.2 (0.2) E.U./dL Ur Leukocyte Esterase Negative (NEGATIVE) Urine RBC 0-1/hpf (0-5/HPF) Urine WBC 1-5/hpf (0-5/HPF) Ur Squamous Epith Cells 0-1 /hpf (0-5/HPF) Urine Bacteria Few (2-10) H (None) Hyaline Casts 0-1/lpf (None) Urine Mucus 1+ H (Negative) Ur Culture Indicated? Specimen cultured SARS-CoV-2 (PCR) (Negative) 08/02/21 08/02/21 Range/Units 14:31 21:28 WBC (4.5-11.0) X10^3/uL RBC (4.5-5.9) X10^6/uL Hgb (13.5-17.5) g/dL Hct (41-53) % MCV (80-100) fL MCH (26-34) PG MCHC (30-36) % RDW (11.6-14.8) % Plt Count (150-400) X10^3/uL Neut % (Auto) (50-75) % Lymph % (Auto) (25-40) % Foard % (Auto) (3-14) % Eos % (Auto) (2-4) % Baso % (Auto) (0-2) % Neut # (Auto) (0518-8754) /uL Lymph # (Auto) (2620-9243) /uL Foard # (Auto) (0-900) /uL Eos # (Auto) (0-450) /uL Baso # (Auto) (0-100) /uL APTT 44 H D 51 H D (26.4-36.2) SECONDS Sodium (137-145) mmol/L Potassium (3.4-5.1) mmol/L Chloride (98-107) mmol/L Carbon Dioxide (22-32) mmol/L BUN (9-20) mg/dL Creatinine (0.66-1.25) mg/dL Estimated GFR (>60) mL/min BUN/Creatinine Ratio (6-22) Glucose (80-110) mg/dL Calcium (8.4-10.2) mg/dL Total Bilirubin (0.2-1.3) mg/dL AST (17-59) IU/L ALT (<50) IU/L Alkaline Phosphatase (38-126) U/L Total Creatine Kinase (55-170) U/L CK-MB (CK-2) (<2.37) ng/mL CK-MB (CK-2) Rel Index (1.5-5.0) % Troponin I (0.01-0.034) ng/mL NT-Pro-B Natriuret Pep (<450) pg/mL Total Protein (6.3-8.2) g/dL Albumin (3.5-5.0) g/dL Globulin (1.7-4.1) g/dL Albumin/Globulin Ratio (1.0-2.8) Urine Color Urine Appearance Urine pH (4.5-8.0) Ur Specific Craig (1.000-1.035) Urine Protein (Negative) Urine Glucose (UA) (Negative) g/dL Urine Ketones (NEGATIVE) Urine Occult Blood (Negative) Urine Nitrate (Negative) Urine Bilirubin (NEGATIVE) Urine Urobilinogen (0.2) E.U./dL Ur Leukocyte Esterase (NEGATIVE) Urine RBC (0-5/HPF) Urine WBC (0-5/HPF) Ur Squamous Epith Cells (0-5/HPF) Urine Bacteria (None) Hyaline Casts (None) Urine Mucus (Negative) Ur Culture Indicated? SARS-CoV-2 (PCR) (Negative) ECG Data Interpretation: Julieta wide complex left bundle-branch block PVC noted rate [address] elevation or depressions surprisingly similar to previous EKG EKG 2. Sinus rhythm P-waves noted clearly no ST changes depressions or T-wave inversion MDM Narrative Medical decision making narrative: Patient is a poor historian and reports no prodromal symptoms leading to an accidental, apparently mechanical ground level fall, however during evaluation he is found to have critically elevated troponin at which point he is started on heparin and preparations for transfer are employed. Patient is DNR, however patient and are certainly on board with pursuing transfer for cardiac evaluation including heart cath if needed. Multiple calls placed to facilities including [facility] (wait list), [facility] (wait list), [facility] (wait list), [facility] (no), (no), [facility] (no), [facility]/ (no). All request rechecking in the morning. Botnick-patient signed out to me by Dr. Silverio of seen evaluated patient myself. He down an embankment of his IV yesterday laid there for a couple of hours before he was found. Came to the ED found to have a critical troponin of 6 which actually increased to 7. During his ED stay he actually had runs of V-tach he was started on amiodarone. Multiple phone calls to many hospitals have been placed. He has mild rhabdomyolysis with CPK elevation of 4000. He is on fluids as well. The patient does not complain of any pain he is awake alert oriented with some minor bruising. Critical Care Time <Eddie Silverio, - Last Filed: 08/03/21 05:13> Critical Care Time Critical Care Time: Yes Total Critical Care Time: 45 Attestation: The high probability of a clinically significant, sudden or life threatening deterioration of the [CV] system(s) required my full and direct attention, intervention and personal management. The aggregate critical care time was [45] minutes. This time is in addition to time spent performing reported procedures but includes the following: [x] Data Review and interpretation [x] Patient assessment and monitoring of vital signs [x] Documentation [x] Medication orders and management Discharge Plan Departure Patient Disposition: [facility] Clinical Impression: Acute non-ST elevation myocardial infarction (NSTEMI), Ventricular tachycardia Prescriptions: No Action nitroglycerin 0.4 mg tablet, sublingual 0.4 mg SL Q5M PRN (Reason: Angina) tadalafil 20 mg tablet 10 - 20 mg PO ONCE PRN (Reason: sexual activity) Qty: 10 4RF amlodipine 2.5 mg tablet 2.5 mg PO DAILY Qty: 90 3RF Label Comments: take 1 tablet by mouth once daily hydrochlorothiazide 12.5 mg capsule 12.5 mg PO DAILY Qty: 90 2RF carbidopa-levodopa 25-100 mg tablet 1 tab PO TID Label Comments: takes doses at 0700, 1200, & 1700 aspirin [Adult Low Dose Aspirin] 81 mg tablet,delayed release (DR/EC) 81 mg PO DAILY mometasone 0.1 % ointment 1 applic topical DAILY PRN (Reason: Rash) atorvastatin 10 mg tablet 10 mg PO DAILY Referrals: Olaf Espinosa MD [Primary Care Provider] -
--- NOTE | 2021-08-01 18:23 | PC.NURSE ---
Assisted pt to restroom and set up a hat to collect urine sample, he did not void in the hat.
[2021-08-01] MEDS: SODIUM CHLORIDE 0.9% 1,000 ML 125 ML IV ×2 (18:57→20:56)
[2021-08-01 19:22] LABS: Add Manual Diff / Slide Review NO; Basophils Absolute Auto 0 /uL (0-100); Basophils Percent Auto 0.3 % (0-2); Eosinophils Absolute Auto 0 /uL (0-450); Eosinophils Percent Auto 0.1 % (2-4); Hematocrit 47.3 % (41-53); Hemoglobin 16.4 g/dL (13.5-17.5); Lymphocytes Absolute Auto 1300 /uL (1100-4500); Lymphocytes Percent Auto 9.2 % (25-40); Mean Corpuscular HGB Conc 34.6 % (30-36); Mean Corpuscular Hemoglobin 30.5 PG (26-34); Mean Corpuscular Volume 88.2 fL (80-100); Monocytes Absolute Auto 700 /uL (0-900); Monocytes Percent Auto 5.1 % (3-14); Neutrophils Absolute Auto 12300 /uL (1500-7000); Neutrophils Percent Auto 85.3 % (50-75); Platelet Count 205 X10^3/uL (150-400); Red Blood Cell Count 5.36 X10^6/uL (4.5-5.9); Red Cell Distribution Width 13.7 % (11.6-14.8); White Blood Cell Count 14.5 X10^3/uL (4.5-11.0)
[2021-08-01 19:26] LABS: Alanine Aminotransferase 14 IU/L (<50); Albumin 4.3 g/dL (3.5-5.0); Albumin Globulin Ratio 1.7 (1.0-2.8); Alkaline Phosphatase 93 U/L (38-126); Aspartate Aminotransferase 85 IU/L (17-59); BUN Creatinine Ratio 16.8 (6-22); Bilirubin Total 0.8 mg/dL (0.2-1.3); Blood Urea Nitrogen 30 mg/dL (9-20); Carbon Dioxide 24 mmol/L (22-32); Chloride 104 mmol/L (98-107); Estimated Glomerular Filt Rate 37 mL/min (>60); Globulin 2.6 g/dL (1.7-4.1); Glucose 103 mg/dL (80-110); Potassium 3.8 mmol/L (3.4-5.1); Sodium 128 mmol/L (137-145); Total Protein 6.9 g/dL (6.3-8.2)
[2021-08-01 19:34] LABS: Creatine Kinase 2462 U/L (55-170)
[2021-08-01] MEDS: HEPARIN 5,000 UNIT/ML VIAL 4000 UNIT IV (20:46)
[2021-08-01] MEDS: HEPARIN DRIP 25,000 UNIT/500 ML IV.SOLN 17.962 UNIT IV (20:47)
[2021-08-01 22:29] LABS: COVID19 -Nasal RAPID Negative (Negative)
[2021-08-01 22:41] LABS: CKMB % Relative Index 1.7 % (1.5-5.0); HEMOLYSIS 15 (0-50)
--- NOTE | 2021-08-01 23:35 | PC.NURSE ---
At 2323 he had #6 beat run of v-tach. notified.
[2021-08-02] VITALS (73 sets, daily range): BP systolic 84–137; BP diastolic 52–74; PULSE 56–90; RESP 16–34; O2SAT 90–98
[2021-08-02 03:04] LABS: PTT Partial Thromboplastin Tim 69 SECONDS (26.4-36.2)
--- NOTE | 2021-08-02 04:40 | DI.ECHO.S_ITS ---
[facility] +---------+ : : [address] [place] : : : : [phone] : : : : Phone: [phone] Echocardiogram Report + + :Name: ALFREDITO AMOR V Study Date: 08/02/2021 Height: 71 in : :[facility] ReadingLocation: Weight: 165 lb : : Gender: Male BSA: 1.9 m2 : :: 1935 Age: 86 yrs BP: 115/71 mmHg: :Reason For Study: NSTEMI : :Ordering Physician: SUSSY, : :CLARK Performed By: Raissa Almaguer : :Referring: CLARK HI : + + Interpretation Summary The left ventricle is moderately dilated. The ejection fraction is estimated to be 15-20%. Grade I diastolic dysfunction. The right ventricle is moderately dilated. Right ventricular systolic function is mild to moderately reduced. The left atrium is moderately dilated. The right atrium is mildly dilated. There is mild mitral regurgitation. There is mild to moderate tricuspid regurgitation. PASP is approximately 35 to 40 mmHg. Compared to the prior study dated 10/17/2019, the LVEF has decreased although remains severely reduced and PA pressure has increased. Procedure: A two-dimensional transthoracic echocardiogram with color flow and Doppler was performed. The study quality was technically adequate. Comparison is made with the echocardiogram of 10/17/2019. The heart rate ranged between 60-75 bpm during the study. The patient had occasional PVCs during the exam. Left Ventricle: The left ventricle is moderately dilated. Left ventricular wall thickness is borderline increased. The ejection fraction is estimated to be 15-20%. There is severe global hypokinesis of the left ventricle. Diastolic parameters suggest a relaxation abnormality of the left ventricle, consistent with probable normal filling pressures. Right Ventricle: The right ventricle is moderately dilated. Right ventricular systolic function is mild to moderately reduced. Atria: The left atrium is moderately dilated. The right atrium is mildly dilated. There is no Doppler evidence for an interatrial shunt. Mitral Valve: The mitral valve leaflets appear mildly thickened, but open well. There is mild mitral annular calcification. There is mild mitral regurgitation. Aortic Valve: The aortic valve is moderately calcified. There is moderate aortic valve sclerosis. The aortic valve is trileaflet. There is no aortic valve stenosis. No aortic regurgitation is present. Tricuspid Valve: The tricuspid valve leaflets are thin and pliable. There is mild to moderate tricuspid regurgitation. PASP is approximately 35 to 40 mmHg. Pulmonic Valve: The pulmonic valve is not well seen, but is grossly normal. There is mild pulmonic regurgitation. Great Vessels: The aortic root is normal size. The ascending aorta is at the upper limits of normal in size. The IVC is of normal diameter and collapses greater than 50% with a sniff. This suggests a low right atrial pressure of 3 mm Hg. Pericardium/ Pleura There is no pericardial effusion. There is no pleural effusion. MMode/2D Measurements & Calculations LVIDd: 6.3 cm LVOT diam: 2.4 cm LVIDs: 5.8 cm Ao root diam: 3.6 cm FS: 7.4 % asc Aorta Diam: 3.6 cm EPSS: 2.5 cm Ao Arch Diam (Prox Trans): 3.0 cm IVSd: 1.2 cm LVPWd: 0.91 cm LV mcdonough. diameter/BSA (cm/m^2): 3.2 LV sys. diameter/BSA (cm/m^2): 3.0 LA A2 area: 26.1 cm2 RA long axis: 5.9 cm LA A4 area: 24.4 cm2 RA area: 21.3 cm2 LA length (vol): 6.0 cm RA vol: 65.6 ml LA vol: 90.4 ml RA : 33.8 ml/m2 LA vol index: 46.5 ml/m2 IVC diam: 1.5 cm RVD1 (basal): 4.7 cm RVD2 (mid): 4.0 cm TAPSE: 1.3 cm Doppler Measurements & Calculations Ao V2 max: 170.2 cm/sec MV E max sim: 56.9 cm/sec Ao V2 mean: 93.8 cm/sec MV A max sim: 90.5 cm/sec Ao max P.6 mmHg MV E/A: 0.63 Ao mean P.1 mmHg Med Peak E' Sim: 2.8 cm/sec Ao V2 VTI: 22.8 cm E/E' med: 20.2 Lat Peak E' Sim: 8.3 cm/sec E/E' lat: 6.8 E/e' average: 13.5 MV dec time: 0.28 sec TR max sim: 269.1 cm/sec TR max P.0 mmHg PA V2 max: 83.4 cm/sec PA V2 mean: 54.9 cm/sec PA mean P.5 mmHg PA pr(Accel): 37.9 mmHg Reading Physician:09:01 AM
[2021-08-02] MEDS: AMIODARONE 150 MG/100 ML PIGGYBACK 600 MG IV (05:20)
--- NOTE | 2021-08-02 05:27 | PC.NURSE ---
Amiodorone started after 9 beat run of v-tach noted,he had no symptoms,DR Silverio was notified and these orders were received.
[2021-08-02 05:42] LABS: BUN Creatinine Ratio 18.1 (6-22); Blood Urea Nitrogen 25 mg/dL (9-20); Calcium 8.5 mg/dL (8.4-10.2); Carbon Dioxide 21 mmol/L (22-32); Chloride 109 mmol/L (98-107); Estimated Glomerular Filt Rate 50 mL/min (>60); Glucose 87 mg/dL (80-110); Potassium 3.7 mmol/L (3.4-5.1); Sodium 137 mmol/L (137-145)
[2021-08-02] MEDS: AMIODARONE 360 MG/200 ML PIGGYBACK IV (05:46)
[2021-08-02 05:56] LABS: Creatine Kinase 4689 U/L (55-170); HEMOLYSIS 26 (0-50)
[2021-08-02 06:05] LABS: CKMB % Relative Index 1.2 % (1.5-5.0)
[2021-08-02] MEDS: ATORVASTATIN 20 MG TABLET 40 MG PO (08:06)
[2021-08-02] MEDS: AMLODIPINE 5 MG TABLET 2.5 MG PO (08:08)
[2021-08-02] MEDS: ASPIRIN 81 MG CHEW TAB 324 MG PO (08:08)
[2021-08-02] MEDS: SODIUM CHLORIDE 0.9% 1,000 ML 150 ML IV (08:33)
--- NOTE | 2021-08-02 08:49 | PC.NURSE ---
Called and updated transfer lists for the morning of 07/13/2021 [facility], no beds at this time, check back later [facility], no beds at this time, check back later [facility], no beds at this time, check back later Christopher Rincon paged waiting for call back @[phone], no beds at this time ALYSA Alexander/LUPIS called and placed patient on list at [facility] on NOC shift, waiting for call back.
[2021-08-02 08:56] LABS: NT-proBNP (BNP-Adult 18+) 2920 pg/mL (<450)
[2021-08-02 09:22] LABS: PTT Partial Thromboplastin Tim 53 SECONDS (26.4-36.2)
[2021-08-02] MEDS: AMIODARONE 360 MG/200 ML PIGGYBACK 16.7 MG IV (11:21)
[2021-08-02 12:58] LABS: Creatine Kinase 2382 U/L (55-170)
[2021-08-02 13:54] LABS: CKMB % Relative Index 1.6 % (1.5-5.0)
--- NOTE | 2021-08-02 14:00 | PC.NURSE ---
Called [facility] for bed update @1410, no beds currently available. [facility] stated they will continue to look.
[2021-08-02 14:57] LABS: PTT Partial Thromboplastin Tim 44 SECONDS (26.4-36.2)
[2021-08-02 15:00] LABS: Appearance Urine UA CLEAR; Bilirubin Urine UA NEGATIVE (NEGATIVE); Color Urine UA YELLOW; Glucose Urine UA NEGATIVE (Negative); Ketones Urine UA NEGATIVE (NEGATIVE); Leukocyte Esterase Urine UA NEGATIVE (NEGATIVE); Nitrite Urine UA NEGATIVE (Negative); Occult Blood Urine UA TRACE-LYSED (Negative); Protein Urine UA TRACE (Negative); Specific Gravity Urine UA 1.015 (1.000-1.035); Urobilinogen Urine UA 0.2 E.U./dL (0.2)
[2021-08-02 15:33] LABS: RBC Urine 0-1/HPF (0-5/HPF); Squamous Epithelial Cell Urine 0-1 /HPF (0-5/HPF); WBC Urine 1-5/HPF (0-5/HPF)
[2021-08-02 15:34] LABS: Bacteria Urine Few (2-10); Culture Indicated Urine Specimen Cultured; Hyaline Casts Urine 0-1/LPF; Mucus Urine 1+ (Negative)
[2021-08-02] MEDS: CARBIDOPA-LEVODOPA 25/100 TABLET 1 EACH PO (17:58)
--- NOTE | 2021-08-02 19:03 | PC.NURSE ---
is at the bedside, patient has eaten all three daily meals, tolerating food/fluids, placed in a hospital bed for improved comfort, third line placed for NS0.9%. VSS.
[2021-08-02 21:51] LABS: PTT Partial Thromboplastin Tim 51 SECONDS (26.4-36.2)
--- NOTE | 2021-08-02 22:22 | PC.NURSE ---
Pt complaining of pain in left wrist. checked IV. erythemia at site of IV and running up vein, IV removed and Provider aware.
[2021-08-02] MEDS: HEPARIN DRIP 25,000 UNIT/500 ML IV.SOLN 18.995 UNIT IV (23:20)
[2021-08-02] MEDS: AMIODARONE 181 MG/100.56 ML PIGGYBACK 16.7 MG IV (23:46)
[2021-08-03] VITALS (13 sets, daily range): BP systolic 109–117; BP diastolic 55–64; PULSE 58–72; RESP 19–33; O2SAT 93–97
== END 2021-08-03 05:51 | disposition short-term general hospital (02) ==
PROVIDERS: Emergency Medicine; Emergency Provider Emergency Medicine; Family Provider Internal Medicine; PCP Internal Medicine
DX: I47.2 Ventricular tachycardia (principal); I21.4 Non-ST elevation (NSTEMI) myocardial infarction; S01.21XA Laceration without foreign body of nose, initial encounter; G20 Parkinson's disease; Z20.822 Contact with and (suspected) exposure to COVID-19; Z79.01 Long term (current) use of anticoagulants; W18.30XA Fall on same level, unspecified, initial encounter
CPT/HCPCS: 36415; 70450; 70486; 72125; 80048; 80053; 81001; 82550; 82553; 83880; 84484; 85025; 85730; 87086; 87635; 93005; 93306; 96361; 96365; 96366; 96368; 96375; 99285; 99291; C9803; G0390; J0282; J1644

== ENCOUNTER 2021-11-11 09:02 | Emergency (ER) | payer OTHER, SELFPAY ==
[2020-07-19 16:37] VITALS: BMI 23.0
[2021-11-11 09:04] VITALS: BP 136/64; PULSE 50; RESP 18; TEMP 36.7; O2SAT 100; BMI 21.7
[2021-11-11 09:23] VITALS: PULSE 72; RESP 27; O2SAT 99
--- NOTE | 2021-11-11 09:26 | DI.CT.S_ITS ---
PROCEDURE: CT HEAD/BRAIN WO CON INDICATIONS: trip fall posterior head lac no thinners TECHNIQUE: Noncontrast 4.5 mm thick angled axial sections acquired from the foramen magnum to the vertex, with coronal and sagittal reformats. For radiation dose reduction, the following was used: automated exposure control, adjustment of mA and/or kV according to patient size. COMPARISON: [facility], CT, CT HEAD/BRAIN WO CON, 08/01/2021, 17:47. FINDINGS: Image quality: Excellent. CSF spaces: Basal cisterns are patent. No extra-axial fluid collections. The ventricles are symmetric in size and shape. Brain: No intracranial bleeds or masses. There is cerebral volume loss for age, with resultant ventricular and sulcal prominence. There are periventricular and deep white matter chronic small vessel ischemic changes. There is intracranial internal carotid artery atherosclerosis. Skull and face: Calvarium and visualized facial bones appear intact, without suspicious lesions. Sinuses: Visualized sinuses and mastoids are clear. IMPRESSION: 1. No CT evidence of acute intracranial abnormalities. 2. No gross acute skull fracture. Left occipital scalp laceration. Dictated by: Rip Thornton M.D. on 11/11/2021 at 9:38 Approved by: Rip Thornton M.D. on 11/11/2021 at 9:40
--- NOTE | 2021-11-11 09:26 | ED.FALL ---
HPI - Fall General Chief Complaint: Fall Stated Complaint: Head lac from GLF Time Seen by Provider: 11/11/21 09:17 Source: patient and family Mode of arrival: Ambulatory History of Present Illness HPI Narrative: 86-year-old male. Is on aspirin but no other anticoagulation. Fell this morning. He was trying to move a foot stool in 1 of his ribs when he fell back and hit his head on the door. He reports no other injuries from the event. No neck pain. No loss of consciousness. Initially did not want to come in however they noticed that he was bleeding from the back of his head and they thought that maybe the cut to the back of his head needed intervention. He is acting at baseline per his who is at bedside. Related Data Home Medications Medication Instructions Recorded Confirmed nitroglycerin 0.4 mg sublingual 0.4 mg sublingual Q5M PRN Angina 03/10/19 09/12/21 tablet aspirin 81 mg tablet,delayed 81 mg PO DAILY 09/22/19 09/12/21 release (Adult Low Dose Aspirin) mometasone 0.1 % topical ointment 1 applic topical DAILY PRN Rash 06/22/20 09/12/21 carbidopa 25 mg-levodopa 100 mg 1 tab PO TID 02/10/21 09/12/21 tablet atorvastatin 10 mg tablet 10 mg PO DAILY 05/16/21 09/12/21 entacapone 200 mg tablet 200 mg PO TID 09/12/21 09/12/21 Previous Rx's Medication Instructions Recorded tadalafil 20 mg tablet 10 - 20 mg PO ONCE PRN sexual 11/12/20 activity #10 tabs amlodipine 2.5 mg tablet 2.5 mg PO DAILY #90 tabs 12/07/20 hydrochlorothiazide 12.5 mg capsule 12.5 mg PO DAILY #90 caps 04/18/21 Allergies Allergy/AdvReac Type Severity Reaction Status Date / Time No Known Drug Allergies Allergy Verified 09/12/21 11:23 Review of Systems Review of Systems ROS Unobtainable: All systems reviewed & are unremarkable except as noted in HPI and below Constitutional Comments: No headache Integumentary/Breasts Skin/Breast: Reports system reviewed and no additional complaints, except as documented Patient History Medical History COPD (chronic obstructive pulmonary disease) Coronary artery disease (~2010) Erectile dysfunction Essential hypertension Hearing loss (~2013) Hemorrhoid (~1979) Ischemic cardiomyopathy Mixed hyperlipidemia Parkinson disease Parkinson's disease Paroxysmal atrial fibrillation Peripheral vascular disease (~2016) Wears glasses Surgical History Anesthesia Gallstones (~2017) History of cataract removal with insertion of prosthetic lens (~2018) History of heart bypass surgery (~2011) History of surgery (~2016) History of surgery (~2016) Pelvis fracture (~2012) Right groin hernia (~2018) S/P laparoscopic cholecystectomy Family History Father History of heart disease Mother No problems noted. Grandmother Diabetes mellitus Grandfather History of heart disease Family/Other No problems noted. Social History marital status: household members: spouse occupational status: previously employed Smoking Status: Current every day smoker alcohol intake: never substance use type: does not use Smoking Status: Current every day smoker tobacco type: cigarettes Substance Use Type: does not use Exam Initial Vital Signs Initial Vital Signs: Vital Signs Temperature 98.1 F 11/11/21 09:04 Pulse Rate 50 L 11/11/21 09:04 Respiratory Rate 18 11/11/21 09:04 Blood Pressure 136/64 11/11/21 09:04 Pulse Oximetry 100 11/11/21 09:04 Oxygen Delivery Method 11/11/21 09:04 Const General: cooperative and comfortable HENTX Head: laceration (Left occipital region) and No palpable skull fracture Resp Effort & Inspection: normal respiratory effort Cardio Rate: regular rate Skin Other: Laceration to left posterior scalp Neuro General: patient alert, patient awake and moves all extremities Speech: speech normal Extrem General: normal to inspection and capillary refill normal Psych Appearance: grossly normal and well kempt Procedures Laceration Repair Laceration 1: Site: scalp Side (If applicable): left Size (cm): 4 Description: linear Depth: simple, single layer Local Anesthetic: bupivacaine 0.25% and with epi Amount of anesthesia used (mL): 8 Pre-repair: wound explored, irrigated extensively and deep structures intact Skin layer closed with: dina Scores Dominican CT Head Rule Age <16 years old: No Patient on blood thinners: No Seizure after injury: No Exclusion: Patient NOT Excluded, Proceed to next steps GCS < 15 at 2 hr post trauma: No Suspected open or depressed skull fracture: No Any sign of basilar skull fracture (hemotympanum, raccoon eyes, De Los Santos's sign, CSF max-/rhinorrhea): No Two or more episodes of vomiting: No Age greater or equal to 65 years: Yes Retrograde amnesia to the event greater or equal to 30 min: No Dangerous Mechanism (pedestrian vs. mv, occupant ejected from mv, fall from >3 ft or > 5 stairs): No Recommendation: Consider CT. The Dominican Head CT Rule cannot rule out need for Imaging. Nexus Score for C-Spine Focal Neurologic deficit present: No Midline spinal tenderness present: No Altered level of conciousness present: No Intoxication present: No Distracting Injury Present: No Nexus Criteria for C-spine: 0 Course Orders Ordered: ED Orders 11/11/21 09:26 CT head/brain wo con Stat Discontinued Medications Lidocaine/Sodium Bicarbonate (Lido 1%/Sod Bicarb 8.4% (10ml) 10 Ml Syringe) 10 ml SUBCUT NOW ONE Stop: 11/11/21 09:27 Vital Signs Vital signs: Vital Signs - 8 hr 11/11/21 09:04 Temperature 98.1 F Pulse Rate 50 L Respiratory Rate 18 Blood Pressure 136/64 Pulse Oximetry 100 Oxygen Delivery Method Room Air MDM - Fall Imaging Data CT scan - head: Radiologist's Impression: [place] [address] CT Scan Report Signed Patient: eJ Hassan V MR#: [id number] : 1935 Acct:[id number] Age/Sex: 86 / M Date of Service: 11/11/21 Loc: ED Accession Number: [id number] ?? Procedure: CT head/brain wo con Ordering Provider: Dyllan Dueñas D.O. PROCEDURE:? CT HEAD/BRAIN WO CON ? INDICATIONS:? trip fall posterior head lac no thinners ? TECHNIQUE:? Noncontrast 4.5 mm thick angled axial sections acquired from the foramen magnum to the vertex, with coronal and sagittal reformats.? For radiation dose reduction, the following was used:? automated exposure control, adjustment of mA and/or kV according to patient size.? ? COMPARISON:? [facility], CT, CT HEAD/BRAIN WO ELISA, 08/01/2021, 17:47. ? FINDINGS:? Image quality:? Excellent.? ? CSF spaces:? Basal cisterns are patent.? No extra-axial fluid collections.? The ventricles are symmetric in size and shape.? ? Brain:? No intracranial bleeds or masses.? There is cerebral volume loss for age, with resultant ventricular and sulcal prominence.? There are periventricular and deep white matter chronic small vessel ischemic changes.? There is intracranial internal carotid artery atherosclerosis.? ? Skull and face:? Calvarium and visualized facial bones appear intact, without suspicious lesions.? ? Sinuses:? Visualized sinuses and mastoids are clear.? ? IMPRESSION:? 1. No CT evidence of acute intracranial abnormalities. 2. No gross acute skull fracture.? Left occipital scalp laceration. ? ? Dictated by: Rip Thornton M.D. on 11/11/2021 at 9:38 ? ? Approved by: Rip Thornton M.D. on 11/11/2021 at 9:40? MDM Narrative Medical decision making narrative: Baseline neurologic status per who is at bedside. The scalp laceration was closed as described above. Head CT unremarkable. This was performed because of his age. He is not on blood thinners. No other injuries reported from the event by the patient or found on the exam. He was given care instructions and return precautions with regard to the scalp laceration. With he and his expressed understanding and agreement Discharge Plan Departure Patient Disposition: Home Clinical Impression: Laceration of scalp Instructions: DI for Laceration Repair -- Dina Activity Restrictions/Additional Instructions: The CT scan did not show any signs of a skull fracture or head bleed. The dina that were placed today do need to be removed in 7-10 days. You can do this either at the walk-in clinic or your primary care provider. You can shower like normal. Expect some oozing from the area. Be careful when you are combing your hair. Return to the emergency department for any new or worsening symptoms. Prescriptions: No Action nitroglycerin 0.4 mg tablet, sublingual 0.4 mg SL Q5M PRN (Reason: Angina) tadalafil 20 mg tablet 10 - 20 mg PO ONCE PRN (Reason: sexual activity) Qty: 10 4RF amlodipine 2.5 mg tablet 2.5 mg PO DAILY Qty: 90 3RF Label Comments: take 1 tablet by mouth once daily hydrochlorothiazide 12.5 mg capsule 12.5 mg PO DAILY Qty: 90 2RF carbidopa-levodopa 25-100 mg tablet 1 tab PO TID Label Comments: takes doses at 0700, 1200, & 1700 aspirin [Adult Low Dose Aspirin] 81 mg tablet,delayed release (DR/EC) 81 mg PO DAILY mometasone 0.1 % ointment 1 applic topical DAILY PRN (Reason: Rash) atorvastatin 10 mg tablet 10 mg PO DAILY entacapone 200 mg tablet 200 mg PO TID Referrals: Olaf Espinosa MD [Primary Care Provider] -
[2021-11-11 09:58] VITALS: BP 129/67; PULSE 57; RESP 25; O2SAT 98
== END 2021-11-11 10:04 | disposition home or self-care (01) ==
PROVIDERS: Emergency Provider Emergency Medicine; Family Provider Internal Medicine; PCP Internal Medicine
DX: S01.01XA Laceration without foreign body of scalp, initial encounter (principal); W01.0XXA Fall on same level from slipping, tripping and stumbling without subsequent striking against object, initial encounter
CPT/HCPCS: 12002; 70450; 99281; 99283

== ENCOUNTER 2022-01-18 09:45 | Outpatient (RCR) | payer OTHER, SELFPAY ==
[2020-07-19 16:37] VITALS: BMI 23.0
--- NOTE | 2021-12-07 15:56 | PT.OIE ---
Current Diagnoses Difficulty in walking, not elsewhere classified (12/07/21) Repeated falls (12/07/21) Past Medical History (Last Reviewed 11/11/21 @ 09:30 by Dyllan Dueñas DO) COPD (chronic obstructive pulmonary disease) Coronary artery disease (~2010) Erectile dysfunction Essential hypertension Hearing loss (~2013) Hemorrhoid (~1979) Ischemic cardiomyopathy Mixed hyperlipidemia Parkinson disease Parkinson's disease Paroxysmal atrial fibrillation Peripheral vascular disease (~2016) Wears glasses Past Surgical History (Last Reviewed 08/01/21 @ 18:46 by Eddie Silverio DO) Anesthesia Gallstones (~2017) History of cataract removal with insertion of prosthetic lens (~2018) History of heart bypass surgery (~2011) History of surgery (~2016) History of surgery (~2016) Pelvis fracture (~2012) Right groin hernia (~2018) S/P laparoscopic cholecystectomy Visit Care Team Role Provider Type Olaf Espinosa MD Family Provider Physician Primary Care Provider Specialty: Internal Medicine Address: [address] [place] [address], [address], [address] Email: [email or web address] Manuel Bob MD Attending Provider Non-Staff Referring Provider Specialty: Neurology Address: [address] [place] [address], [id number] Email: Physical Therapy Initial Evaluation PT-OP-A Visit Information Start: 12/05/21 15:56 Freq: Status: Active Protocol: Document 12/07/21 10:30 AW (Rec: 12/05/21 16:24 AW [id number]) Out-Patient Physical Therapy Visit Information Visit Information Visit Type Initial Evaluation Visit Start Time 09:45 Visit Stop Time 10:30 Total Visit Minutes 45 Visit Number 1 Evaluation Information Evaluation Date 12/07/21 Precautions Precautions falls risk PT-OP-B Current Condition Start: 12/05/21 15:56 Freq: Status: Active Protocol: Document 12/07/21 10:30 AW (Rec: 12/05/21 16:24 AW [id number]) Current Condition History of Current Condition Onset Date years; worsening recently Current Complaints falls History of Current Condition Je has Parkinson's disease which affects his balance and gait. In previous encounters with this pt, he was falling largely outside of the house. Today, he reports weekly falls that occur in the home. He feels like he usually falls to the side but notes he was seen at ED two weeks ago after falling backward and hitting his head which required dina for closure. He arrives today with scattered bruises in varying stages of healing as well as blood stains on his pants (likely from skin tears around his wrist which are bandaged. He uses a cane when outside of the house but he leaves home infrequently. At home, he tends to cruise furniture. He lives with his , Celeste. Their home has 10 steps to enter. He reports independence with ADL's. Prior Treatments and Tests Je participated in [facility] in 2020 which was limited due to cardiopulmonary issues. He was seen later that year for balance and gait without BIG protocol. He had another short plan of care in early 2021 related to left shoulder pain. He reports his shoulder feels good. Treatment Goals Patient/Caregiver Goals Reduce falls, improve balance to be more independent. Personal Factors Other Personal Factors That May Effect PMH includes COPD and pt is an Therapy/Recovery active smoker. PT-OP-C Subjective Start: 12/05/21 15:56 Freq: Status: Active Protocol: Document 12/07/21 10:30 AW (Rec: 12/07/21 15:26 AW [id number]) OP-PT Subjective Patient Comments Patient Comments I'd like to be walking better so I don't lose my balance. OP-PT Pain Assessment Pain Assessment Grid Paper Pain Assessment Grid Completed No: Pt denies pain PT-OP-D Balance Start: 12/05/21 15:56 Freq: Status: Active Protocol: Document 12/07/21 10:30 AW (Rec: 12/07/21 15:26 AW [id number]) Balance Tests Ortega Balance Test Ortega Balance Test Score 31 Ortega Impairment Rating 40 to 59% Impaired (Score 23- 33) mCTSIB mCTSIB Position 1 30 seconds SBA mCTSIB Position 2 falls backward PT-OP-E Functional Tests Start: 12/05/21 15:56 Freq: Status: Active Protocol: Document 12/07/21 10:30 AW (Rec: 12/07/21 15:26 AW [id number]) Functional Tests 2 Minute Walk Test Distance 300 feet/110 seconds Device Used SPC Comments Had to stop due to SOB. Lateral LOB x 3 during turns. Pace slows over time. Five Times Sit to Stand Test Score 19 seconds Comments min use of hands, LOB posteriorly on 2/5 reps PT-OP-G Mobility & Gait Start: 12/05/21 15:56 Freq: Status: Active Protocol: Document 12/07/21 10:30 AW (Rec: 12/07/21 15:38 AW [id number]) OP Mobility Evaluation Transfers Sit to Stand Min to mod use of UE's, very poor control of descent and pt appears to lack awareness of chair position prior to sitting. Tends to lose balance backwards OP Gait Assessment Comments Gait Comments Lower extremity amplitude appears sufficient along straight paths but does decrease in turns. Arm swing is present but minimal. PT-OP-H Neuro Start: 12/05/21 15:56 Freq: Status: Active Protocol: Document 12/07/21 10:30 AW (Rec: 12/07/21 15:38 AW [id number]) Sensation Evaluation Comments Summary Comments Pt reports dull light touch sensation in bilateral feet but pt able to distinguish right and left with eyes closed. PT-OP-J Posture/Palpation/Skin Start: 12/05/21 15:56 Freq: Status: Active Protocol: Document 12/07/21 10:30 AW (Rec: 12/07/21 15:38 AW [id number]) Posture Evaluation Comments Posture Comments Forward head and shoulders PT-OP-M Strength Start: 12/05/21 15:56 Freq: Status: Active Protocol: Document 12/07/21 10:30 AW (Rec: 12/07/21 15:38 AW [id number]) Hip Strength Hip Manual Muscle Testing bilat Flexion (L2) 4+ Good+ Extension (S1) 4 Good Abduction 4 Good Knee Strength Knee Manual Muscle Testing bilat Flexion (S2) 4+ Good+ Extension (L3) 4+ Good+ Ankle/Foot Strength Ankle and Foot Manual Muscle Testing bilat Dorsiflexion (L4) 4 Good Plantarflexion (S1) 4- Good- PT-OP-T Assessment and Plan Start: 12/05/21 15:56 Freq: Status: Active Protocol: Document 12/07/21 10:30 AW (Rec: 12/07/21 15:55 AW [id number]) Physical Therapy Assessment Rehab Potential Rehabilitation Potential Good Evaluation Complexity Number of Personal Factors/Comorbidities 3 or More Number of Body Systems Impaired 4 or More Clinical Presentation at Evaluation Evolving Impairments Impairments Activity Tolerance,Balance, Functional Activities, Functional Mobility,Gait, Posture,Strength,Transfers Goals Four Impairment transfers Short Term Goal (STG) Je will complete sit <> stand without use of UE support STG Duration 01/18/22 Mcc Goal (LTG) Je will complete 5 Time Sit to leather case finisher 14 seconds or less without losing balance and without use of UE support. LTG Duration 03/01/22 Three Impairment lacks HEP Flow Floor Attendant Goal (LTG) Je will be independently engaged with an HEP for strength and balance. LTG Duration 03/01/22 Two Impairment balance Short Term Goal (STG) Je will stand unsupported with eyes closed for 15 seconds SBA STG Duration 01/18/22 Flow Floor Attendant Goal (LTG) Je will improve Ortega Balance Scale score from 31/56 to 45/56 or greater. LTG Duration 03/01/22 One Impairment gait Short Term Goal (STG) Je will ascend and descend 10 steps with SPC, railing, and SBA STG Duration 01/18/22 Mcc Goal (LTG) Je will complete 2 Minute Walk Test with SPC over smooth terrain without LOB and with consistent gait speed. LTG Duration 03/01/22 Assessment Summary Assessment Je is an 86 yo man who attends outpatient physical therapy with a significant and worsening falls history. He has COPD and is a daily smoker which will complicate his rehab course. Physical therapy is indicated to improve safety awareness, strength, gait, and balance. Physical Therapy Plan Frequency and Duration Frequency of Treatment 1-2x/week Duration of treatment (weeks) 12 Plan of Care Start Date 12/07/21 Plan of Care End Date 03/01/22 Therapeutic Interventions Therapeutic Interventions Balance Training,Gait Training ,Home Exercise Program,Manual Therapy,Self-Care/Home Management,Therapeutic Activities,Therapeutic Exercises Next Visit Focus/Plan Next Note Type Treatment Note Next Visit Plan Assess safety on stairs. Consider gait training with 4WW. Begin working on safety in transfers, sit to stand.
--- NOTE | 2021-12-07 15:59 | PT.OIE ---
Current Diagnoses Difficulty in walking, not elsewhere classified (12/07/21) Repeated falls (12/07/21) Past Medical History (Last Reviewed 11/11/21 @ 09:30 by Dyllan Dueñas DO) COPD (chronic obstructive pulmonary disease) Coronary artery disease (~2010) Erectile dysfunction Essential hypertension Hearing loss (~2013) Hemorrhoid (~1979) Ischemic cardiomyopathy Mixed hyperlipidemia Parkinson disease Parkinson's disease Paroxysmal atrial fibrillation Peripheral vascular disease (~2016) Wears glasses Past Surgical History (Last Reviewed 08/01/21 @ 18:46 by Eddie Silverio DO) Anesthesia Gallstones (~2017) History of cataract removal with insertion of prosthetic lens (~2018) History of heart bypass surgery (~2011) History of surgery (~2016) History of surgery (~2016) Pelvis fracture (~2012) Right groin hernia (~2018) S/P laparoscopic cholecystectomy Visit Care Team Role Provider Type Olaf Espinosa MD Family Provider Physician Primary Care Provider Specialty: Internal Medicine Address: [address] [place] [address], [address], [address] Email: [email or web address] Manuel Bob MD Attending Provider Non-Staff Referring Provider Specialty: Neurology Address: [address] [place] [address], [phone] Email: Physical Therapy Initial Evaluation PT-OP-A Visit Information Start: 12/05/21 15:56 Freq: Status: Active Protocol: Document 12/07/21 10:30 AW (Rec: 12/05/21 16:24 AW [id number]) Out-Patient Physical Therapy Visit Information Visit Information Visit Type Initial Evaluation Visit Start Time 09:45 Visit Stop Time 10:30 Total Visit Minutes 45 Visit Number 1 Evaluation Information Evaluation Date 12/07/21 Precautions Precautions falls risk PT-OP-B Current Condition Start: 12/05/21 15:56 Freq: Status: Active Protocol: Document 12/07/21 10:30 AW (Rec: 12/05/21 16:24 AW [id number]) Current Condition History of Current Condition Onset Date years; worsening recently Current Complaints falls History of Current Condition Je has Parkinson's disease which affects his balance and gait. In previous encounters with this pt, he was falling largely outside of the house. Today, he reports weekly falls that occur in the home. He feels like he usually falls to the side but notes he was seen at ED two weeks ago after falling backward and hitting his head which required dina for closure. He arrives today with scattered bruises in varying stages of healing as well as blood stains on his pants (likely from skin tears around his wrist which are bandaged. He uses a cane when outside of the house but he leaves home infrequently. At home, he tends to cruise furniture. He lives with his , Celeste. Their home has 10 steps to enter. He reports independence with ADL's. Prior Treatments and Tests Je participated in [facility] BIG in 2020 which was limited due to cardiopulmonary issues. He was seen later that year for balance and gait without BIG protocol. He had another short plan of care in early 2021 related to left shoulder pain. He reports his shoulder feels good. Treatment Goals Patient/Caregiver Goals Reduce falls, improve balance to be more independent. Personal Factors Other Personal Factors That May Effect PMH includes COPD and pt is an Therapy/Recovery active smoker. PT-OP-C Subjective Start: 12/05/21 15:56 Freq: Status: Active Protocol: Document 12/07/21 10:30 AW (Rec: 12/07/21 15:26 AW [id number]) OP-PT Subjective Patient Comments Patient Comments I'd like to be walking better so I don't lose my balance. OP-PT Pain Assessment Pain Assessment Grid Paper Pain Assessment Grid Completed No: Pt denies pain PT-OP-D Balance Start: 12/05/21 15:56 Freq: Status: Active Protocol: Document 12/07/21 10:30 AW (Rec: 12/07/21 15:26 AW [id number]) Balance Tests Ortega Balance Test Ortega Balance Test Score 31 Ortega Impairment Rating 40 to 59% Impaired (Score 23- 33) mCTSIB mCTSIB Position 1 30 seconds SBA mCTSIB Position 2 falls backward PT-OP-E Functional Tests Start: 12/05/21 15:56 Freq: Status: Active Protocol: Document 12/07/21 10:30 AW (Rec: 12/07/21 15:26 AW [id number]) Functional Tests 2 Minute Walk Test Distance 300 feet/110 seconds Device Used SPC Comments Had to stop due to SOB. Lateral LOB x 3 during turns. Pace slows over time. Five Times Sit to Stand Test Score 19 seconds Comments min use of hands, LOB posteriorly on 2/5 reps PT-OP-G Mobility & Gait Start: 12/05/21 15:56 Freq: Status: Active Protocol: Document 12/07/21 10:30 AW (Rec: 12/07/21 15:38 AW [id number]) OP Mobility Evaluation Transfers Sit to Stand Min to mod use of UE's, very poor control of descent and pt appears to lack awareness of chair position prior to sitting. Tends to lose balance backwards OP Gait Assessment Comments Gait Comments Lower extremity amplitude appears sufficient along straight paths but does decrease in turns. Arm swing is present but minimal. PT-OP-H Neuro Start: 12/05/21 15:56 Freq: Status: Active Protocol: Document 12/07/21 10:30 AW (Rec: 12/07/21 15:38 AW [id number]) Sensation Evaluation Comments Summary Comments Pt reports dull light touch sensation in bilateral feet but pt able to distinguish right and left with eyes closed. PT-OP-J Posture/Palpation/Skin Start: 12/05/21 15:56 Freq: Status: Active Protocol: Document 12/07/21 10:30 AW (Rec: 12/07/21 15:38 AW [id number]) Posture Evaluation Comments Posture Comments Forward head and shoulders PT-OP-M Strength Start: 12/05/21 15:56 Freq: Status: Active Protocol: Document 12/07/21 10:30 AW (Rec: 12/07/21 15:38 AW [id number]) Hip Strength Hip Manual Muscle Testing bilat Flexion (L2) 4+ Good+ Extension (S1) 4 Good Abduction 4 Good Knee Strength Knee Manual Muscle Testing bilat Flexion (S2) 4+ Good+ Extension (L3) 4+ Good+ Ankle/Foot Strength Ankle and Foot Manual Muscle Testing bilat Dorsiflexion (L4) 4 Good Plantarflexion (S1) 4- Good- PT-OP-T Assessment and Plan Start: 12/05/21 15:56 Freq: Status: Active Protocol: Document 12/07/21 10:30 AW (Rec: 12/07/21 15:55 AW [id number]) Physical Therapy Assessment Rehab Potential Rehabilitation Potential Good Evaluation Complexity Number of Personal Factors/Comorbidities 3 or More Number of Body Systems Impaired 4 or More Clinical Presentation at Evaluation Evolving Impairments Impairments Activity Tolerance,Balance, Functional Activities, Functional Mobility,Gait, Posture,Strength,Transfers Goals Four Impairment transfers Short Term Goal (STG) Je will complete sit <> stand without use of UE support STG Duration 01/18/22 [facility] Goal (LTG) Je will complete 5 Time Sit to arts administrator 14 seconds or less without losing balance and without use of UE support. LTG Duration 03/01/22 Three Impairment lacks HEP Electrical Technician Goal (LTG) Je will be independently engaged with an HEP for strength and balance. LTG Duration 03/01/22 Two Impairment balance Short Term Goal (STG) Je will stand unsupported with eyes closed for 15 seconds SBA STG Duration 01/18/22 Electrical Technician Goal (LTG) Je will improve Ortega Balance Scale score from 31/56 to 45/56 or greater. LTG Duration 03/01/22 One Impairment gait Short Term Goal (STG) Je will ascend and descend 10 steps with SPC, railing, and SBA STG Duration 01/18/22 [facility] Goal (LTG) Je will complete 2 Minute Walk Test with SPC over smooth terrain without LOB and with consistent gait speed. LTG Duration 03/01/22 Assessment Summary Assessment Je is an 86 yo man with Parkinson's disease who attends outpatient physical therapy with a significant and worsening history of falls. He has COPD and is a daily smoker which will complicate his rehab course. Physical therapy is indicated to improve safety awareness, strength, gait, and balance. PT discussed possibility of revisiting LSVT BIG protocol which pt has attempted before. However, due to limits in activity tolerance, pt and therapist agree that a less intense approach would be more appropriate. Physical Therapy Plan Frequency and Duration Frequency of Treatment 1-2x/week Duration of treatment (weeks) 12 Plan of Care Start Date 12/07/21 Plan of Care End Date 03/01/22 Therapeutic Interventions Therapeutic Interventions Balance Training,Gait Training ,Home Exercise Program,Manual Therapy,Self-Care/Home Management,Therapeutic Activities,Therapeutic Exercises Next Visit Focus/Plan Next Note Type Treatment Note Next Visit Plan Assess safety on stairs. Consider gait training with 4WW. Begin working on safety in transfers, sit to stand.
--- NOTE | 2021-12-07 15:59 | PT.OPPOC ---
Physical, Occupational & Speech Therapy At [facility] Current Diagnoses Difficulty in walking, not elsewhere classified (12/07/21) Repeated falls (12/07/21) Visit Care Team Role Provider Type Olaf Espinosa MD Family Provider Physician Primary Care Provider Specialty: Internal Medicine Address: [address] [place] [address], [facility] [address], [place], [address] Email: [email or web address] Manuel Bob MD Attending Provider Non-Staff Referring Provider Specialty: Neurology Address: [address] [place], [address] Email: Plan Of Care PT-OP-T Assessment and Plan Start: 12/05/21 15:56 Freq: Status: Active Protocol: Document 12/07/21 10:30 AW (Rec: 12/07/21 15:55 AW [id number]) Physical Therapy Assessment Rehab Potential Rehabilitation Potential Good Evaluation Complexity Number of Personal Factors/Comorbidities 3 or More Number of Body Systems Impaired 4 or More Clinical Presentation at Evaluation Evolving Impairments Impairments Activity Tolerance,Balance, Functional Activities, Functional Mobility,Gait, Posture,Strength,Transfers Goals Four Impairment transfers Short Term Goal (STG) Je will complete sit <> stand without use of UE support STG Duration 01/18/22 Liability Claims Manager Goal (LTG) Je will complete 5 Time Sit to percussion instructor 14 seconds or less without losing balance and without use of UE support. LTG Duration 03/01/22 Three Impairment lacks HEP Custodial Goal (LTG) Je will be independently engaged with an HEP for strength and balance. LTG Duration 03/01/22 Two Impairment balance Short Term Goal (STG) Je will stand unsupported with eyes closed for 15 seconds SBA STG Duration 01/18/22 Liability Claims Manager Goal (LTG) Je will improve Ortega Balance Scale score from 31/56 to 45/56 or greater. LTG Duration 03/01/22 One Impairment gait Short Term Goal (STG) Je will ascend and descend 10 steps with SPC, railing, and SBA STG Duration 01/18/22 Custodial Goal (LTG) Je will complete 2 Minute Walk Test with SPC over smooth terrain without LOB and with consistent gait speed. LTG Duration 03/01/22 Assessment Summary Assessment Je is an 86 yo man with Parkinson's disease who attends outpatient physical therapy with a significant and worsening history of falls. He has COPD and is a daily smoker which will complicate his rehab course. Physical therapy is indicated to improve safety awareness, strength, gait, and balance. PT discussed possibility of revisiting LSVT BIG protocol which pt has attempted before. However, due to limits in activity tolerance, pt and therapist agree that a less intense approach would be more appropriate. Physical Therapy Plan Frequency and Duration Frequency of Treatment 1-2x/week Duration of treatment (weeks) 12 Plan of Care Start Date 12/07/21 Plan of Care End Date 03/01/22 Therapeutic Interventions Therapeutic Interventions Balance Training,Gait Training ,Home Exercise Program,Manual Therapy,Self-Care/Home Management,Therapeutic Activities,Therapeutic Exercises Next Visit Focus/Plan Next Note Type Treatment Note Next Visit Plan Assess safety on stairs. Consider gait training with 4WW. Begin working on safety in transfers, sit to stand. Plan of Care Dates Plan of Care Start Date 12/07/21 Plan of Care End Date 03/01/22 Electronically Signed by: Mamie Wheatley, PT 12/07/21 [id number] If you are in agreement with this Plan of Care, please return a signed and dated copy. I have reviewed this Plan of Care and certify that the skilled therapy services above are required to meet the patient?s needs. Physician Signature Date Printed Name and Credentials Clinical Instructor Signature Printed Name and Credentials
--- NOTE | 2021-12-14 12:56 | PT.OTN ---
Current Diagnoses Difficulty in walking, not elsewhere classified (12/14/21) Repeated falls (12/14/21) Physical Therapy Treatment Note PT-OP-A Visit Information Start: 12/05/21 15:56 Freq: Status: Active Protocol: Document 12/14/21 09:45 AMB (Rec: 12/14/21 10:23 AMB [id number]) Out-Patient Physical Therapy Visit Information Visit Information Visit Type Treatment Note Visit Start Time 09:45 Visit Stop Time 10:30 Total Visit Minutes 4 Visit Number 2 PT-OP-B Current Condition Start: 12/05/21 15:56 Freq: Status: Active Protocol: Document 12/07/21 10:30 AW (Rec: 12/05/21 16:24 AW [id number]) Current Condition History of Current Condition Onset Date years; worsening recently Current Complaints falls History of Current Condition Je has Parkinson's disease which affects his balance and gait. In previous encounters with this pt, he was falling largely outside of the house. Today, he reports weekly falls that occur in the home. He feels like he usually falls to the side but notes he was seen at ED two weeks ago after falling backward and hitting his head which required dina for closure. He arrives today with scattered bruises in varying stages of healing as well as blood stains on his pants (likely from skin tears around his wrist which are bandaged. He uses a cane when outside of the house but he leaves home infrequently. At home, he tends to cruise furniture. He lives with his , Celeste. Their home has 10 steps to enter. He reports independence with ADL's. Prior Treatments and Tests Je participated in [facility] BIG in 2020 which was limited due to cardiopulmonary issues. He was seen later that year for balance and gait without BIG protocol. He had another short plan of care in early 2021 related to left shoulder pain. He reports his shoulder feels good. Treatment Goals Patient/Caregiver Goals Reduce falls, improve balance to be more independent. Personal Factors Other Personal Factors That May Effect PMH includes COPD and pt is an Therapy/Recovery active smoker. PT-OP-C Subjective Start: 12/05/21 15:56 Freq: Status: Active Protocol: Document 12/14/21 09:45 AMB (Rec: 12/14/21 10:23 AMB [id number]) OP-PT Subjective Patient Comments Patient Comments Pt reports fall on the stairs this morning. Attends with large bandaid over R wrist, states did not hit head but did fall backwards while walking up stairs, holds onto bilateral railings. PT-OP-D Balance Start: 12/05/21 15:56 Freq: Status: Active Protocol: Document 12/07/21 10:30 AW (Rec: 12/07/21 15:26 AW [id number]) Balance Tests Ortega Balance Test Ortega Balance Test Score 31 Ortega Impairment Rating 40 to 59% Impaired (Score 23- 33) mCTSIB mCTSIB Position 1 30 seconds SBA mCTSIB Position 2 falls backward PT-OP-E Functional Tests Start: 12/05/21 15:56 Freq: Status: Active Protocol: Document 12/07/21 10:30 AW (Rec: 12/07/21 15:26 AW [id number]) Functional Tests 2 Minute Walk Test Distance 300 feet/110 seconds Device Used SPC Comments Had to stop due to SOB. Lateral LOB x 3 during turns. Pace slows over time. Five Times Sit to Stand Test Score 19 seconds Comments min use of hands, LOB posteriorly on 2/5 reps PT-OP-G Mobility & Gait Start: 12/05/21 15:56 Freq: Status: Active Protocol: Document 12/07/21 10:30 AW (Rec: 12/07/21 15:38 AW [id number]) OP Mobility Evaluation Transfers Sit to Stand Min to mod use of UE's, very poor control of descent and pt appears to lack awareness of chair position prior to sitting. Tends to lose balance backwards OP Gait Assessment Comments Gait Comments Lower extremity amplitude appears sufficient along straight paths but does decrease in turns. Arm swing is present but minimal. PT-OP-H Neuro Start: 12/05/21 15:56 Freq: Status: Active Protocol: Document 12/07/21 10:30 AW (Rec: 12/07/21 15:38 AW [id number]) Sensation Evaluation Comments Summary Comments Pt reports dull light touch sensation in bilateral feet but pt able to distinguish right and left with eyes closed. PT-OP-J Posture/Palpation/Skin Start: 12/05/21 15:56 Freq: Status: Active Protocol: Document 12/07/21 10:30 AW (Rec: 12/07/21 15:38 AW [id number]) Posture Evaluation Comments Posture Comments Forward head and shoulders PT-OP-M Strength Start: 12/05/21 15:56 Freq: Status: Active Protocol: Document 12/07/21 10:30 AW (Rec: 12/07/21 15:38 AW [id number]) Hip Strength Hip Manual Muscle Testing bilat Flexion (L2) 4+ Good+ Extension (S1) 4 Good Abduction 4 Good Knee Strength Knee Manual Muscle Testing bilat Flexion (S2) 4+ Good+ Extension (L3) 4+ Good+ Ankle/Foot Strength Ankle and Foot Manual Muscle Testing bilat Dorsiflexion (L4) 4 Good Plantarflexion (S1) 4- Good- PT-OP-Q Treatments Start: 12/05/21 15:56 Freq: Status: Active Protocol: Document 12/14/21 09:45 AMB (Rec: 12/14/21 10:23 AMB [id number]) Therapeutic Exercises Sitting Exercises sit to stand Reps/Minutes 2x5 Comments mesh chair, light UE use, but eccentric control diminishes with reps Standing Exercises step ups Standing Exercise Name 6 tap ups and then ascend and descend with SBA and bilat rails Gait Training Gait Activity fwd and backward Device Used SPC Level of Assistance CGA Surface smooth Comments 10'x4, pt with one posterior LOB that he was independently able to recover from but just barely smooth terrain Description indoor 100' SPC Comments with R turns Neuro Re-Education Treatment Balance Activities blue foam Details 5' Comments stride stance EO slow HT firm Details 5'x2 Comments EC NBOS, stride stance EO HT PT-OP-T Assessment and Plan Start: 12/05/21 15:56 Freq: Status: Active Protocol: Document 12/14/21 09:45 AMB (Rec: 12/14/21 10:23 AMB [id number]) Physical Therapy Assessment Goals Four Impairment transfers Short Term Goal (STG) Je will complete sit <> stand without use of UE support STG Duration 01/18/22 Custodial Goal (LTG) Je will complete 5 Time Sit to molasses coloring operator 14 seconds or less without losing balance and without use of UE support. LTG Duration 03/01/22 Three Impairment lacks HEP Turner Off Goal (LTG) Je will be independently engaged with an HEP for strength and balance. LTG Duration 03/01/22 Two Impairment balance Short Term Goal (STG) Je will stand unsupported with eyes closed for 15 seconds SBA STG Duration 01/18/22 Custodial Goal (LTG) Je will improve Ortega Balance Scale score from 31/56 to 45/56 or greater. LTG Duration 03/01/22 One Impairment gait Short Term Goal (STG) Je will ascend and descend 10 steps with SPC, railing, and SBA STG Duration 01/18/22 Turner Off Goal (LTG) Je will complete 2 Minute Walk Test with SPC over smooth terrain without LOB and with consistent gait speed. LTG Duration 03/01/22 Assessment Summary Assessment Balance with the left leg behind in modified tandem was more challenging, pt tends to lose balance posteriorly and to the right. Pt requires multiple rest breaks as he tends report SOB and lightheadedness after activity . CGA with gait belt for all balance activities today. Did not prescribe balance HEP yet as unsure where pt should perform in his home. He has a strong tendency to fall posterior, so corner balance would be an option, but getting a chair in front of him could be a limiting factor if he is trying to do this himself. Revisit 4WW options. Pt does state he has been doing stair taps and sit to stands at home. Physical Therapy Plan Frequency and Duration Frequency of Treatment 1-2x/week Duration of treatment (weeks) 12 Plan of Care Start Date 12/07/21 Plan of Care End Date 03/01/22 Therapeutic Interventions Therapeutic Interventions Balance Training,Gait Training ,Home Exercise Program,Manual Therapy,Self-Care/Home Management,Therapeutic Activities,Therapeutic Exercises Next Visit Focus/Plan Next Note Type Treatment Note Next Visit Plan Assess safety on stairs. Consider gait training with 4WW. Begin working on safety in transfers, sit to stand.
--- NOTE | 2021-12-21 10:32 | PT.OTN ---
Current Diagnoses Difficulty in walking, not elsewhere classified (12/21/21) Repeated falls (12/21/21) Physical Therapy Treatment Note PT-OP-A Visit Information Start: 12/05/21 15:56 Freq: Status: Active Protocol: Document 12/21/21 08:59 AW (Rec: 12/21/21 10:32 AW [id number]) Out-Patient Physical Therapy Visit Information Visit Information Visit Type Treatment Note Visit Start Time 09:45 Visit Stop Time 10:30 Total Visit Minutes 45 Visit Number 3 Evaluation Information Evaluation Date 12/07/21 Precautions Precautions falls risk PT-OP-B Current Condition Start: 12/05/21 15:56 Freq: Status: Active Protocol: Document 12/07/21 10:30 AW (Rec: 12/05/21 16:24 AW [id number]) Current Condition History of Current Condition Onset Date years; worsening recently Current Complaints falls History of Current Condition Je has Parkinson's disease which affects his balance and gait. In previous encounters with this pt, he was falling largely outside of the house. Today, he reports weekly falls that occur in the home. He feels like he usually falls to the side but notes he was seen at ED two weeks ago after falling backward and hitting his head which required dina for closure. He arrives today with scattered bruises in varying stages of healing as well as blood stains on his pants (likely from skin tears around his wrist which are bandaged. He uses a cane when outside of the house but he leaves home infrequently. At home, he tends to cruise furniture. He lives with his , Celeste. Their home has 10 steps to enter. He reports independence with ADL's. Prior Treatments and Tests Je participated in [facility] in 2020 which was limited due to cardiopulmonary issues. He was seen later that year for balance and gait without BIG protocol. He had another short plan of care in early 2021 related to left shoulder pain. He reports his shoulder feels good. Treatment Goals Patient/Caregiver Goals Reduce falls, improve balance to be more independent. Personal Factors Other Personal Factors That May Effect PMH includes COPD and pt is an Therapy/Recovery active smoker. PT-OP-C Subjective Start: 12/05/21 15:56 Freq: Status: Active Protocol: Document 12/21/21 08:59 AW (Rec: 12/21/21 10:32 AW [id number]) OP-PT Subjective Patient Comments Patient Comments No falls to report since last visit. Wounds on bilateral wrists are healing - one completely covered with eschar and one with red wound bed. PT-OP-D Balance Start: 12/05/21 15:56 Freq: Status: Active Protocol: Document 12/07/21 10:30 AW (Rec: 12/07/21 15:26 AW [id number]) Balance Tests Ortega Balance Test Ortega Balance Test Score 31 Ortega Impairment Rating 40 to 59% Impaired (Score 23- 33) mCTSIB mCTSIB Position 1 30 seconds SBA mCTSIB Position 2 falls backward PT-OP-E Functional Tests Start: 12/05/21 15:56 Freq: Status: Active Protocol: Document 12/07/21 10:30 AW (Rec: 12/07/21 15:26 AW [id number]) Functional Tests 2 Minute Walk Test Distance 300 feet/110 seconds Device Used SPC Comments Had to stop due to SOB. Lateral LOB x 3 during turns. Pace slows over time. Five Times Sit to Stand Test Score 19 seconds Comments min use of hands, LOB posteriorly on 2/5 reps PT-OP-G Mobility & Gait Start: 12/05/21 15:56 Freq: Status: Active Protocol: Document 12/07/21 10:30 AW (Rec: 12/07/21 15:38 AW [id number]) OP Mobility Evaluation Transfers Sit to Stand Min to mod use of UE's, very poor control of descent and pt appears to lack awareness of chair position prior to sitting. Tends to lose balance backwards OP Gait Assessment Comments Gait Comments Lower extremity amplitude appears sufficient along straight paths but does decrease in turns. Arm swing is present but minimal. PT-OP-H Neuro Start: 12/05/21 15:56 Freq: Status: Active Protocol: Document 12/07/21 10:30 AW (Rec: 12/07/21 15:38 AW [id number]) Sensation Evaluation Comments Summary Comments Pt reports dull light touch sensation in bilateral feet but pt able to distinguish right and left with eyes closed. PT-OP-J Posture/Palpation/Skin Start: 12/05/21 15:56 Freq: Status: Active Protocol: Document 12/07/21 10:30 AW (Rec: 12/07/21 15:38 AW [id number]) Posture Evaluation Comments Posture Comments Forward head and shoulders PT-OP-M Strength Start: 12/05/21 15:56 Freq: Status: Active Protocol: Document 12/07/21 10:30 AW (Rec: 12/07/21 15:38 AW [id number]) Hip Strength Hip Manual Muscle Testing bilat Flexion (L2) 4+ Good+ Extension (S1) 4 Good Abduction 4 Good Knee Strength Knee Manual Muscle Testing bilat Flexion (S2) 4+ Good+ Extension (L3) 4+ Good+ Ankle/Foot Strength Ankle and Foot Manual Muscle Testing bilat Dorsiflexion (L4) 4 Good Plantarflexion (S1) 4- Good- PT-OP-Q Treatments Start: 12/05/21 15:56 Freq: Status: Active Protocol: Document 12/21/21 08:59 AW (Rec: 12/21/21 10:32 AW [id number]) Therapeutic Exercises Sitting Exercises sit to stand Resistance mesh chair Equipment Used 65 cm ball - stabilized in front of pt who was instructed to reach for it Reps/Minutes 2x10 Comments improved eccentric control with fwd reach Therapeutic Activity Therapeutic Activity transfers/TUG Name transfers/TUG Comments - Sit to stand, use 4WW to walk 10 feet and transfer to second chair. 5 reps. - TUG with 4WW. Pt reaches for seat of 4WW to encourage anterior weight shift. 22.5 sec, 21.5 sec, 20.9 sec. All reps with good weight shifting except one posterior LOB final rep but less severe than typical Gait Training Gait Activity smooth terrain Device Used 4WW Level of Assistance SBA Surface tile Comments with 180 deg turns. Neuro Re-Education Treatment Balance Activities firm Details 5'x2 Comments EC NBOS, stride stance EO HT, semi-tandem EO HT Self-Care/Home Management Treatment Education Patient Education Fall Risk Other Education Educated pt on benefits of 4WW including improved stability and energy conservation. Pt understood and agreed to trial 4WW at home for a few hours per day. PT-OP-T Assessment and Plan Start: 12/05/21 15:56 Freq: Status: Active Protocol: Document 12/21/21 08:59 AW (Rec: 12/21/21 10:32 AW [id number]) Physical Therapy Assessment Goals Four Impairment transfers Short Term Goal (STG) Je will complete sit <> stand without use of UE support STG Duration 01/18/22 Usp Goal (LTG) Je will complete 5 Time Sit to fish machine feeder 14 seconds or less without losing balance and without use of UE support. LTG Duration 03/01/22 Three Impairment lacks HEP Fishing Rod Assembler Goal (LTG) Je will be independently engaged with an HEP for strength and balance. LTG Duration 03/01/22 Two Impairment balance Short Term Goal (STG) Je will stand unsupported with eyes closed for 15 seconds SBA STG Duration 01/18/22 Usp Goal (LTG) Je will improve Ortega Balance Scale score from 31/56 to 45/56 or greater. LTG Duration 03/01/22 One Impairment gait Short Term Goal (STG) Je will ascend and descend 10 steps with SPC, railing, and SBA STG Duration 01/18/22 Fishing Rod Assembler Goal (LTG) Je will complete 2 Minute Walk Test with SPC over smooth terrain without LOB and with consistent gait speed. LTG Duration 03/01/22 Assessment Summary Assessment Worked on anterior weight shift in sit to stand with good carryover to TUG with 4WW . Pt agrees to trial 4WW use at home for at least a few hours per day to improve steadiness, reduce falls risk, and conserve energy. Physical Therapy Plan Frequency and Duration Frequency of Treatment 1-2x/week Duration of treatment (weeks) 12 Plan of Care Start Date 12/07/21 Plan of Care End Date 03/01/22 Therapeutic Interventions Therapeutic Interventions Balance Training,Gait Training ,Home Exercise Program,Manual Therapy,Self-Care/Home Management,Therapeutic Activities,Therapeutic Exercises Next Visit Focus/Plan Next Note Type Treatment Note Next Visit Plan Continue transfer training, gait with 4WW, TUG. Balance
--- NOTE | 2022-01-04 10:34 | PT.OTN ---
Current Diagnoses Difficulty in walking, not elsewhere classified (01/04/22) Repeated falls (01/04/22) Physical Therapy Treatment Note PT-OP-A Visit Information Start: 12/05/21 15:56 Freq: Status: Active Protocol: Document 01/04/22 08:49 AW (Rec: 01/04/22 10:34 AW [id number]) Out-Patient Physical Therapy Visit Information Visit Information Visit Type Treatment Note Visit Start Time 09:45 Visit Stop Time 10:30 Total Visit Minutes 45 Visit Number 4 Evaluation Information Evaluation Date 12/07/21 Precautions Precautions falls risk PT-OP-B Current Condition Start: 12/05/21 15:56 Freq: Status: Active Protocol: Document 12/07/21 10:30 AW (Rec: 12/05/21 16:24 AW [id number]) Current Condition History of Current Condition Onset Date years; worsening recently Current Complaints falls History of Current Condition Je has Parkinson's disease which affects his balance and gait. In previous encounters with this pt, he was falling largely outside of the house. Today, he reports weekly falls that occur in the home. He feels like he usually falls to the side but notes he was seen at ED two weeks ago after falling backward and hitting his head which required dina for closure. He arrives today with scattered bruises in varying stages of healing as well as blood stains on his pants (likely from skin tears around his wrist which are bandaged. He uses a cane when outside of the house but he leaves home infrequently. At home, he tends to cruise furniture. He lives with his , Celeste. Their home has 10 steps to enter. He reports independence with ADL's. Prior Treatments and Tests Je participated in [facility] in 2020 which was limited due to cardiopulmonary issues. He was seen later that year for balance and gait without BIG protocol. He had another short plan of care in early 2021 related to left shoulder pain. He reports his shoulder feels good. Treatment Goals Patient/Caregiver Goals Reduce falls, improve balance to be more independent. Personal Factors Other Personal Factors That May Effect PMH includes COPD and pt is an Therapy/Recovery active smoker. PT-OP-C Subjective Start: 12/05/21 15:56 Freq: Status: Active Protocol: Document 01/04/22 08:49 AW (Rec: 01/04/22 10:34 AW [id number]) OP-PT Subjective Patient Comments Patient Comments Pt's spouse arrives with pt and reports an unexplained fall in the past week. Also states Dr. Jesús barajas asked Sedrick to use his walker regularly. PT-OP-D Balance Start: 12/05/21 15:56 Freq: Status: Active Protocol: Document 12/07/21 10:30 AW (Rec: 12/07/21 15:26 AW [id number]) Balance Tests Ortega Balance Test Ortega Balance Test Score 31 Ortega Impairment Rating 40 to 59% Impaired (Score 23- 33) mCTSIB mCTSIB Position 1 30 seconds SBA mCTSIB Position 2 falls backward PT-OP-E Functional Tests Start: 12/05/21 15:56 Freq: Status: Active Protocol: Document 12/07/21 10:30 AW (Rec: 12/07/21 15:26 AW [id number]) Functional Tests 2 Minute Walk Test Distance 300 feet/110 seconds Device Used SPC Comments Had to stop due to SOB. Lateral LOB x 3 during turns. Pace slows over time. Five Times Sit to Stand Test Score 19 seconds Comments min use of hands, LOB posteriorly on 2/5 reps PT-OP-G Mobility & Gait Start: 12/05/21 15:56 Freq: Status: Active Protocol: Document 12/07/21 10:30 AW (Rec: 12/07/21 15:38 AW [id number]) OP Mobility Evaluation Transfers Sit to Stand Min to mod use of UE's, very poor control of descent and pt appears to lack awareness of chair position prior to sitting. Tends to lose balance backwards OP Gait Assessment Comments Gait Comments Lower extremity amplitude appears sufficient along straight paths but does decrease in turns. Arm swing is present but minimal. PT-OP-H Neuro Start: 12/05/21 15:56 Freq: Status: Active Protocol: Document 12/07/21 10:30 AW (Rec: 12/07/21 15:38 AW [id number]) Sensation Evaluation Comments Summary Comments Pt reports dull light touch sensation in bilateral feet but pt able to distinguish right and left with eyes closed. PT-OP-J Posture/Palpation/Skin Start: 12/05/21 15:56 Freq: Status: Active Protocol: Document 12/07/21 10:30 AW (Rec: 12/07/21 15:38 AW [id number]) Posture Evaluation Comments Posture Comments Forward head and shoulders PT-OP-M Strength Start: 12/05/21 15:56 Freq: Status: Active Protocol: Document 12/07/21 10:30 AW (Rec: 12/07/21 15:38 AW [id number]) Hip Strength Hip Manual Muscle Testing bilat Flexion (L2) 4+ Good+ Extension (S1) 4 Good Abduction 4 Good Knee Strength Knee Manual Muscle Testing bilat Flexion (S2) 4+ Good+ Extension (L3) 4+ Good+ Ankle/Foot Strength Ankle and Foot Manual Muscle Testing bilat Dorsiflexion (L4) 4 Good Plantarflexion (S1) 4- Good- PT-OP-Q Treatments Start: 12/05/21 15:56 Freq: Status: Active Protocol: Document 01/04/22 08:49 AW (Rec: 01/04/22 10:34 AW [id number]) Therapeutic Exercises Sitting Exercises sit to stand Resistance mesh chair Equipment Used 65 cm ball, 4WW; reach for ball/seat Reps/Minutes 2x10 Comments improved eccentric control with fwd reach Gait Training Gait Activity smooth terrain Device Used 4WW Level of Assistance SBA Surface tile, carpet Comments -200' laps -around three cones for balance and obstacle navigation Neuro Re-Education Treatment Balance Activities resisted punch Details resisted punch Equipment TB1, TB2 Reps/Duration 15 reps each band Comments Pt stands staggered stance with TB anchored behind, punches forward. Working on postural control. Good stability in this activity. No LOB blue foam Details 5' Comments stride stance EO slow HT. Pt contacts rail ~every other rep . Easier with left foot fwd firm Details 5 Comments EC NBOS, stride stance EO HT, semi-tandem EO HT PT-OP-T Assessment and Plan Start: 12/05/21 15:56 Freq: Status: Active Protocol: Document 01/04/22 08:49 AW (Rec: 01/04/22 10:34 AW [id number]) Physical Therapy Assessment Goals Four Impairment transfers Short Term Goal (STG) Je will complete sit <> stand without use of UE support STG Duration 01/18/22 Telephone Lineman Goal (LTG) Je will complete 5 Time Sit to coding file clerk 14 seconds or less without losing balance and without use of UE support. LTG Duration 03/01/22 Three Impairment lacks HEP Telephone Lineman Goal (LTG) Je will be independently engaged with an HEP for strength and balance. LTG Duration 03/01/22 Two Impairment balance Short Term Goal (STG) Je will stand unsupported with eyes closed for 15 seconds SBA STG Duration 01/18/22 Usp Goal (LTG) Je will improve Ortega Balance Scale score from 31/56 to 45/56 or greater. LTG Duration 03/01/22 One Impairment gait Short Term Goal (STG) Je will ascend and descend 10 steps with SPC, railing, and SBA STG Duration 01/18/22 Usp Goal (LTG) Je will complete 2 Minute Walk Test with SPC over smooth terrain without LOB and with consistent gait speed. LTG Duration 03/01/22 Assessment Summary Assessment Pt and his spouse report continued falls at home. Pt is strongly encouraged to use 4WW more at home. Sedrick has improved anterior weight shifting in transfers today and is able to control postural challenge with therabands in standing activities. Any activity with eyes closed poses greatest challenge today. Physical Therapy Plan Frequency and Duration Frequency of Treatment 1-2x/week Duration of treatment (weeks) 12 Plan of Care Start Date 12/07/21 Plan of Care End Date 03/01/22 Therapeutic Interventions Therapeutic Interventions Balance Training,Gait Training ,Home Exercise Program,Manual Therapy,Self-Care/Home Management,Therapeutic Activities,Therapeutic Exercises Next Visit Focus/Plan Next Note Type Treatment Note Next Visit Plan Continue transfer training, gait with 4WW, TUG. Balance
--- NOTE | 2022-01-11 11:55 | PT.OTN ---
Current Diagnoses Difficulty in walking, not elsewhere classified (01/11/22) Repeated falls (01/11/22) Physical Therapy Treatment Note PT-OP-A Visit Information Start: 12/05/21 15:56 Freq: Status: Active Protocol: Document 01/11/22 09:48 AMB (Rec: 01/11/22 10:51 AMB [id number]) Out-Patient Physical Therapy Visit Information Visit Information Visit Type Treatment Note Visit Start Time 09:45 Visit Stop Time 10:30 Total Visit Minutes 45 Visit Number 5 PT-OP-B Current Condition Start: 12/05/21 15:56 Freq: Status: Active Protocol: Document 12/07/21 10:30 AW (Rec: 12/05/21 16:24 AW [id number]) Current Condition History of Current Condition Onset Date years; worsening recently Current Complaints falls History of Current Condition Je has Parkinson's disease which affects his balance and gait. In previous encounters with this pt, he was falling largely outside of the house. Today, he reports weekly falls that occur in the home. He feels like he usually falls to the side but notes he was seen at ED two weeks ago after falling backward and hitting his head which required dina for closure. He arrives today with scattered bruises in varying stages of healing as well as blood stains on his pants (likely from skin tears around his wrist which are bandaged. He uses a cane when outside of the house but he leaves home infrequently. At home, he tends to cruise furniture. He lives with his , Celeste. Their home has 10 steps to enter. He reports independence with ADL's. Prior Treatments and Tests Je participated in [facility] in 2020 which was limited due to cardiopulmonary issues. He was seen later that year for balance and gait without BIG protocol. He had another short plan of care in early 2021 related to left shoulder pain. He reports his shoulder feels good. Treatment Goals Patient/Caregiver Goals Reduce falls, improve balance to be more independent. Personal Factors Other Personal Factors That May Effect PMH includes COPD and pt is an Therapy/Recovery active smoker. PT-OP-C Subjective Start: 12/05/21 15:56 Freq: Status: Active Protocol: Document 01/11/22 09:48 AMB (Rec: 01/11/22 10:51 AMB [id number]) OP-PT Subjective Patient Comments Patient Comments Pt reports has been using 4WW at home, no falls while using it, reports no bad falls recently, but has had a few falls this week. PT-OP-D Balance Start: 12/05/21 15:56 Freq: Status: Active Protocol: Document 12/07/21 10:30 AW (Rec: 12/07/21 15:26 AW [id number]) Balance Tests Ortega Balance Test Ortega Balance Test Score 31 Ortega Impairment Rating 40 to 59% Impaired (Score 23- 33) mCTSIB mCTSIB Position 1 30 seconds SBA mCTSIB Position 2 falls backward PT-OP-E Functional Tests Start: 12/05/21 15:56 Freq: Status: Active Protocol: Document 12/07/21 10:30 AW (Rec: 12/07/21 15:26 AW [id number]) Functional Tests 2 Minute Walk Test Distance 300 feet/110 seconds Device Used SPC Comments Had to stop due to SOB. Lateral LOB x 3 during turns. Pace slows over time. Five Times Sit to Stand Test Score 19 seconds Comments min use of hands, LOB posteriorly on 2/5 reps PT-OP-G Mobility & Gait Start: 12/05/21 15:56 Freq: Status: Active Protocol: Document 12/07/21 10:30 AW (Rec: 12/07/21 15:38 AW [id number]) OP Mobility Evaluation Transfers Sit to Stand Min to mod use of UE's, very poor control of descent and pt appears to lack awareness of chair position prior to sitting. Tends to lose balance backwards OP Gait Assessment Comments Gait Comments Lower extremity amplitude appears sufficient along straight paths but does decrease in turns. Arm swing is present but minimal. PT-OP-H Neuro Start: 12/05/21 15:56 Freq: Status: Active Protocol: Document 12/07/21 10:30 AW (Rec: 12/07/21 15:38 AW [id number]) Sensation Evaluation Comments Summary Comments Pt reports dull light touch sensation in bilateral feet but pt able to distinguish right and left with eyes closed. PT-OP-J Posture/Palpation/Skin Start: 12/05/21 15:56 Freq: Status: Active Protocol: Document 12/07/21 10:30 AW (Rec: 12/07/21 15:38 AW [id number]) Posture Evaluation Comments Posture Comments Forward head and shoulders PT-OP-M Strength Start: 12/05/21 15:56 Freq: Status: Active Protocol: Document 12/07/21 10:30 AW (Rec: 12/07/21 15:38 AW [id number]) Hip Strength Hip Manual Muscle Testing bilat Flexion (L2) 4+ Good+ Extension (S1) 4 Good Abduction 4 Good Knee Strength Knee Manual Muscle Testing bilat Flexion (S2) 4+ Good+ Extension (L3) 4+ Good+ Ankle/Foot Strength Ankle and Foot Manual Muscle Testing bilat Dorsiflexion (L4) 4 Good Plantarflexion (S1) 4- Good- PT-OP-Q Treatments Start: 12/05/21 15:56 Freq: Status: Active Protocol: Document 01/11/22 09:48 AMB (Rec: 01/11/22 10:51 AMB [id number]) Therapeutic Exercises Sitting Exercises sit to stand Resistance mesh chair Equipment Used 65 cm ball, 4WW; reach for ball/seat Reps/Minutes 2x10 Comments improved eccentric control with fwd reach Standing Exercises step ups Standing Exercise Name 6 tap ups Reps/Minutes 2 min Comments 1 standing rest break, SOB Gait Training Gait Activity fwd and backward Device Used SPC Level of Assistance CGA Surface smooth Comments 10'x4, pt with one right LOB that he was able to recover from smooth terrain Device Used 4WW Level of Assistance SBA Surface tile, carpet Comments -200' laps -around three cones for balance and obstacle navigation Neuro Re-Education Treatment Balance Activities stepping Details forward and lateral Reps/Duration 2 min ea Comments no UE support- fatigues quickly, at railing hands hovering over resisted punch Details resisted punch Equipment TB1, TB2 Reps/Duration 15 reps each band Comments Pt stands staggered stance with TB anchored behind, punches forward. Working on postural control. Good stability in this activity. No LOB blue foam Details 5' Comments stride stance EO slow HT. Pt contacts rail ~every other rep . Easier with left foot fwd firm Details 5 Comments EC NBOS, stride stance EO HT, semi-tandem EO HT PT-OP-T Assessment and Plan Start: 12/05/21 15:56 Freq: Status: Active Protocol: Document 01/11/22 09:48 AMB (Rec: 01/11/22 10:51 AMB [id number]) Physical Therapy Assessment Goals Four Impairment transfers Short Term Goal (STG) Je will complete sit <> stand without use of UE support STG Duration 01/18/22 Transplant Immunologist Goal (LTG) Je will complete 5 Time Sit to signal intelligence/electronic warfare 14 seconds or less without losing balance and without use of UE support. LTG Duration 03/01/22 Three Impairment lacks HEP Transplant Immunologist Goal (LTG) Je will be independently engaged with an HEP for strength and balance. LTG Duration 03/01/22 Two Impairment balance Short Term Goal (STG) Je will stand unsupported with eyes closed for 15 seconds SBA STG Duration 01/18/22 Transplant Immunologist Goal (LTG) Je will improve Ortega Balance Scale score from 31/56 to 45/56 or greater. LTG Duration 03/01/22 One Impairment gait Short Term Goal (STG) Je will ascend and descend 10 steps with SPC, railing, and SBA STG Duration 01/18/22 Chcf Goal (LTG) Je will complete 2 Minute Walk Test with SPC over smooth terrain without LOB and with consistent gait speed. LTG Duration 03/01/22 Assessment Summary Assessment Sedrick only has a few PT visits remaining, when scheduling more was brought up he was hesitant. Did ask pt to discuss with his . He does report doing sit to stand and stair taps at home. Further PT to continue to work to expand safe HEP he can perform at home and to continue to work to decrease fall risk. Physical Therapy Plan Frequency and Duration Frequency of Treatment 1-2x/week Duration of treatment (weeks) 12 Plan of Care Start Date 12/07/21 Plan of Care End Date 03/01/22 Therapeutic Interventions Therapeutic Interventions Balance Training,Gait Training ,Home Exercise Program,Manual Therapy,Self-Care/Home Management,Therapeutic Activities,Therapeutic Exercises Next Visit Focus/Plan Next Note Type Treatment Note Next Visit Plan Continue transfer training, gait with 4WW, TUG. Balance
--- NOTE | 2022-01-18 10:31 | PT.OTN ---
Current Diagnoses Difficulty in walking, not elsewhere classified (01/18/22) Repeated falls (01/18/22) Physical Therapy Treatment Note PT-OP-A Visit Information Start: 12/05/21 15:56 Freq: Status: Active Protocol: Document 01/18/22 08:54 AW (Rec: 01/18/22 10:31 AW [id number]) Out-Patient Physical Therapy Visit Information Visit Information Visit Type Treatment Note Visit Start Time 09:45 Visit Stop Time 10:30 Total Visit Minutes 45 Visit Number 6 Evaluation Information Evaluation Date 12/07/21 Precautions Precautions falls risk PT-OP-B Current Condition Start: 12/05/21 15:56 Freq: Status: Active Protocol: Document 12/07/21 10:30 AW (Rec: 12/05/21 16:24 AW [id number]) Current Condition History of Current Condition Onset Date years; worsening recently Current Complaints falls History of Current Condition Je has Parkinson's disease which affects his balance and gait. In previous encounters with this pt, he was falling largely outside of the house. Today, he reports weekly falls that occur in the home. He feels like he usually falls to the side but notes he was seen at ED two weeks ago after falling backward and hitting his head which required dina for closure. He arrives today with scattered bruises in varying stages of healing as well as blood stains on his pants (likely from skin tears around his wrist which are bandaged. He uses a cane when outside of the house but he leaves home infrequently. At home, he tends to cruise furniture. He lives with his , Celeste. Their home has 10 steps to enter. He reports independence with ADL's. Prior Treatments and Tests Je participated in [facility] in 2020 which was limited due to cardiopulmonary issues. He was seen later that year for balance and gait without BIG protocol. He had another short plan of care in early 2021 related to left shoulder pain. He reports his shoulder feels good. Treatment Goals Patient/Caregiver Goals Reduce falls, improve balance to be more independent. Personal Factors Other Personal Factors That May Effect PMH includes COPD and pt is an Therapy/Recovery active smoker. PT-OP-C Subjective Start: 12/05/21 15:56 Freq: Status: Active Protocol: Document 01/18/22 08:54 AW (Rec: 01/18/22 10:31 AW [id number]) OP-PT Subjective Patient Comments Patient Comments Continues to use 4WW at home and has had no falls while using it. Sedrick is still doing stairs at home. PT-OP-D Balance Start: 12/05/21 15:56 Freq: Status: Active Protocol: Document 12/07/21 10:30 AW (Rec: 12/07/21 15:26 AW [id number]) Balance Tests Ortega Balance Test Ortega Balance Test Score 31 Ortega Impairment Rating 40 to 59% Impaired (Score 23- 33) mCTSIB mCTSIB Position 1 30 seconds SBA mCTSIB Position 2 falls backward PT-OP-E Functional Tests Start: 12/05/21 15:56 Freq: Status: Active Protocol: Document 12/07/21 10:30 AW (Rec: 12/07/21 15:26 AW [id number]) Functional Tests 2 Minute Walk Test Distance 300 feet/110 seconds Device Used SPC Comments Had to stop due to SOB. Lateral LOB x 3 during turns. Pace slows over time. Five Times Sit to Stand Test Score 19 seconds Comments min use of hands, LOB posteriorly on 2/5 reps PT-OP-G Mobility & Gait Start: 12/05/21 15:56 Freq: Status: Active Protocol: Document 12/07/21 10:30 AW (Rec: 12/07/21 15:38 AW [id number]) OP Mobility Evaluation Transfers Sit to Stand Min to mod use of UE's, very poor control of descent and pt appears to lack awareness of chair position prior to sitting. Tends to lose balance backwards OP Gait Assessment Comments Gait Comments Lower extremity amplitude appears sufficient along straight paths but does decrease in turns. Arm swing is present but minimal. PT-OP-H Neuro Start: 12/05/21 15:56 Freq: Status: Active Protocol: Document 12/07/21 10:30 AW (Rec: 12/07/21 15:38 AW [id number]) Sensation Evaluation Comments Summary Comments Pt reports dull light touch sensation in bilateral feet but pt able to distinguish right and left with eyes closed. PT-OP-J Posture/Palpation/Skin Start: 12/05/21 15:56 Freq: Status: Active Protocol: Document 12/07/21 10:30 AW (Rec: 12/07/21 15:38 AW [id number]) Posture Evaluation Comments Posture Comments Forward head and shoulders PT-OP-M Strength Start: 12/05/21 15:56 Freq: Status: Active Protocol: Document 12/07/21 10:30 AW (Rec: 12/07/21 15:38 AW [id number]) Hip Strength Hip Manual Muscle Testing bilat Flexion (L2) 4+ Good+ Extension (S1) 4 Good Abduction 4 Good Knee Strength Knee Manual Muscle Testing bilat Flexion (S2) 4+ Good+ Extension (L3) 4+ Good+ Ankle/Foot Strength Ankle and Foot Manual Muscle Testing bilat Dorsiflexion (L4) 4 Good Plantarflexion (S1) 4- Good- PT-OP-Q Treatments Start: 12/05/21 15:56 Freq: Status: Active Protocol: Document 01/18/22 08:54 AW (Rec: 01/18/22 10:31 AW [id number]) Therapeutic Exercises Sitting Exercises sit to stand Resistance green chair Equipment Used no target; 4WW as target Reps/Minutes 2x10 Comments without target, Sedrick has posterior LOB Standing Exercises hip abduction, extension Standing Exercise Name hip abduction, extension Side bilateral Resistance AROM Equipment Used //, counter Reps/Minutes 2x10 each direction Comments HEP step ups Standing Exercise Name 6 tap ups Reps/Minutes 2 min Comments 1 standing rest break, SOB Gait Training Gait Activity backward walk Description backward walk Treatment Focus backing up to chair Comments -in // -with 4WW smooth terrain Device Used 4WW Level of Assistance SBA Surface tile, carpet Comments -200' laps -around three cones for balance and obstacle navigation Neuro Re-Education Treatment Balance Activities resisted punch Details resisted punch Equipment TB2 Reps/Duration 15 reps each band Comments Pt stands staggered stance with TB anchored behind, punches forward. Working on postural control. Good stability in this activity. No LOB blue foam Details 5' Comments stride stance EO slow HT. Pt contacts rail ~every other rep . Easier with left foot fwd firm Details 5 Comments EC NBOS, stride stance EO HT, semi-tandem EO HT PT-OP-T Assessment and Plan Start: 12/05/21 15:56 Freq: Status: Active Protocol: Document 01/18/22 08:54 AW (Rec: 01/18/22 10:31 AW [id number]) Physical Therapy Assessment Goals Four Impairment transfers Short Term Goal (STG) Je will complete sit <> stand without use of UE support STG Duration 01/18/22 Wire Cutter Goal (LTG) Je will complete 5 Time Sit to coding analyst 14 seconds or less without losing balance and without use of UE support. LTG Duration 03/01/22 Three Impairment lacks HEP Fpc Goal (LTG) Je will be independently engaged with an HEP for strength and balance. LTG Duration 03/01/22 Two Impairment balance Short Term Goal (STG) Je will stand unsupported with eyes closed for 15 seconds SBA STG Duration 01/18/22 Wire Cutter Goal (LTG) Je will improve Ortega Balance Scale score from 31/56 to 45/56 or greater. LTG Duration 03/01/22 One Impairment gait Short Term Goal (STG) Je will ascend and descend 10 steps with SPC, railing, and SBA STG Duration 01/18/22 Fpc Goal (LTG) Je will complete 2 Minute Walk Test with SPC over smooth terrain without LOB and with consistent gait speed. LTG Duration 03/01/22 Assessment Summary Assessment Sedrick has not discussed scheduling with his , states I can make my own decisions. Encouraged pt to consider more visits. Added standing hip strength to HEP and provided handouts. Physical Therapy Plan Frequency and Duration Frequency of Treatment 1-2x/week Duration of treatment (weeks) 12 Plan of Care Start Date 12/07/21 Plan of Care End Date 03/01/22 Therapeutic Interventions Therapeutic Interventions Balance Training,Gait Training ,Home Exercise Program,Manual Therapy,Self-Care/Home Management,Therapeutic Activities,Therapeutic Exercises Next Visit Focus/Plan Next Note Type Treatment Note Next Visit Plan Continue transfer training, gait with 4WW, TUG. Balance
--- NOTE | 2022-09-06 15:57 | PT.OPDS ---
Current Diagnoses Difficulty in walking, not elsewhere classified (01/18/22) Repeated falls (01/18/22) Visit Care Team Role Provider Type Olaf Espinosa MD Family Provider Physician Primary Care Provider Specialty: Internal Medicine Address: [address] [place] [address], [address], [place], [address] Email: [email or web address] Manuel Bob MD Attending Provider Non-Staff Referring Provider Specialty: Neurology Address: [address] [facility], [place], [address] Email: Visit Number Visit Number 6 Discharge Summary PT-OP-B Current Condition Start: 12/05/21 15:56 Freq: Status: Active Protocol: Document 12/07/21 10:30 AW (Rec: 12/05/21 16:24 AW [id number]) Current Condition History of Current Condition Onset Date years; worsening recently Current Complaints falls History of Current Condition Je has Parkinson's disease which affects his balance and gait. In previous encounters with this pt, he was falling largely outside of the house. Today, he reports weekly falls that occur in the home. He feels like he usually falls to the side but notes he was seen at ED two weeks ago after falling backward and hitting his head which required dina for closure. He arrives today with scattered bruises in varying stages of healing as well as blood stains on his pants (likely from skin tears around his wrist which are bandaged. He uses a cane when outside of the house but he leaves home infrequently. At home, he tends to cruise furniture. He lives with his , Celeste. Their home has 10 steps to enter. He reports independence with ADL's. Prior Treatments and Tests Je participated in [facility] in 2020 which was limited due to cardiopulmonary issues. He was seen later that year for balance and gait without BIG protocol. He had another short plan of care in early 2021 related to left shoulder pain. He reports his shoulder feels good. Treatment Goals Patient/Caregiver Goals Reduce falls, improve balance to be more independent. Personal Factors Other Personal Factors That May Effect PMH includes COPD and pt is an Therapy/Recovery active smoker. PT-OP-C Subjective Start: 12/05/21 15:56 Freq: Status: Active Protocol: Document 01/18/22 08:54 AW (Rec: 01/18/22 10:31 AW [id number]) OP-PT Subjective Patient Comments Patient Comments Continues to use 4WW at home and has had no falls while using it. Sedrick is still doing stairs at home. PT-OP-D Balance Start: 12/05/21 15:56 Freq: Status: Active Protocol: Document 12/07/21 10:30 AW (Rec: 12/07/21 15:26 AW [id number]) Balance Tests Ortega Balance Test Ortega Balance Test Score 31 Ortega Impairment Rating 40 to 59% Impaired (Score 23- 33) mCTSIB mCTSIB Position 1 30 seconds SBA mCTSIB Position 2 falls backward PT-OP-E Functional Tests Start: 12/05/21 15:56 Freq: Status: Active Protocol: Document 12/07/21 10:30 AW (Rec: 12/07/21 15:26 AW [id number]) Functional Tests 2 Minute Walk Test Distance 300 feet/110 seconds Device Used SPC Comments Had to stop due to SOB. Lateral LOB x 3 during turns. Pace slows over time. Five Times Sit to Stand Test Score 19 seconds Comments min use of hands, LOB posteriorly on 2/5 reps PT-OP-G Mobility & Gait Start: 12/05/21 15:56 Freq: Status: Active Protocol: Document 12/07/21 10:30 AW (Rec: 12/07/21 15:38 AW [id number]) OP Mobility Evaluation Transfers Sit to Stand Min to mod use of UE's, very poor control of descent and pt appears to lack awareness of chair position prior to sitting. Tends to lose balance backwards OP Gait Assessment Comments Gait Comments Lower extremity amplitude appears sufficient along straight paths but does decrease in turns. Arm swing is present but minimal. PT-OP-H Neuro Start: 12/05/21 15:56 Freq: Status: Active Protocol: Document 12/07/21 10:30 AW (Rec: 12/07/21 15:38 AW [id number]) Sensation Evaluation Comments Summary Comments Pt reports dull light touch sensation in bilateral feet but pt able to distinguish right and left with eyes closed. PT-OP-J Posture/Palpation/Skin Start: 12/05/21 15:56 Freq: Status: Active Protocol: Document 12/07/21 10:30 AW (Rec: 12/07/21 15:38 AW [id number]) Posture Evaluation Comments Posture Comments Forward head and shoulders PT-OP-M Strength Start: 12/05/21 15:56 Freq: Status: Active Protocol: Document 12/07/21 10:30 AW (Rec: 12/07/21 15:38 AW [id number]) Hip Strength Hip Manual Muscle Testing bilat Flexion (L2) 4+ Good+ Extension (S1) 4 Good Abduction 4 Good Knee Strength Knee Manual Muscle Testing bilat Flexion (S2) 4+ Good+ Extension (L3) 4+ Good+ Ankle/Foot Strength Ankle and Foot Manual Muscle Testing bilat Dorsiflexion (L4) 4 Good Plantarflexion (S1) 4- Good- PT-OP-T Assessment and Plan Start: 12/05/21 15:56 Freq: Status: Active Protocol: Document 09/06/22 15:57 AMB (Rec: 09/06/22 15:57 AMB [id number]) Physical Therapy Plan Discharge Physical Therapy Discharge Reasons No Longer Attending PT
== END 2022-09-07 14:03 | disposition home or self-care (01) ==
LOC: PHYS 09:45
PROVIDERS: Family Provider Internal Medicine; PCP Internal Medicine; Referring Provider Psychiatry & Neurology Neurology; Visit Provider Psychiatry & Neurology Neurology
DX: R29.6 Repeated falls (principal)
CPT/HCPCS: 97110; 97112; 97116; 97162; 97530

== ENCOUNTER 2022-02-15 08:39 | Emergency (ER) | payer OTHER, SELFPAY ==
[2020-07-19 16:37] VITALS: BMI 23.0
[2022-02-15] VITALS (40 sets, daily range): BP systolic 107–197; BP diastolic 54–91; PULSE 60–81; RESP 20–24; TEMP 35.9–36.4; O2SAT 91–98; BMI 24.3
--- NOTE | 2022-02-15 08:58 | DI.RAD.S_ITS ---
PROCEDURE: XR HAND LT MIN 3V INDICATIONS: Hand pain after fall TECHNIQUE: 3 views of the hand(s) acquired. COMPARISON: [facility], CR, XR HAND LT MIN 3V, 07/16/2020, 20:38. FINDINGS: Bones: No fractures or dislocations. Carpal bones are normally aligned. No suspicious bony lesions. Joint space narrowing and periarticular osteophyte formation at the radial carpal, scaphoid trapezial, 1st carpometacarpal joint, as well as the interphalangeal joints of the digits. Soft tissues: No suspicious soft tissue calcifications. IMPRESSION: Osteoarthritis. No acute fracture. No osseous lesion. If symptoms and/or clinical suspicion for pathology persist, further assessment with repeat, or advanced imaging (e.g., CT, MRI, or bone scan) may be helpful for further assessment. Dictated by: Lili Gonzalez M.D. on 02/15/2022 at 9:27 Approved by: Lili Gonzalez M.D. on 02/15/2022 at 9:28
--- NOTE | 2022-02-15 08:58 | DI.CT.S_ITS ---
PROCEDURE: CT HEAD/BRAIN WO CON INDICATIONS: Fall on thinners TECHNIQUE: Noncontrast 4.5 mm thick angled axial sections acquired from the foramen magnum to the vertex, with coronal and sagittal reformats. For radiation dose reduction, the following was used: automated exposure control, adjustment of mA and/or kV according to patient size. COMPARISON: [facility], MR, MR HEAD/BRAIN WO CON, 04/07/2020, 9:48. [facility], CT, CT HEAD/BRAIN WO CON, 11/02/2019, 9:58. [facility], CT, CT HEAD/BRAIN WO CON, 08/01/2021, 17:47. [facility], CT, CT CHEST ABD PEL W CON, 02/15/2022, 9:04. [facility], CT, CT CERVICAL SPINE WO CON, 02/15/2022, 9:04. [facility], CT, CT FACIAL BONES WO CON, 02/15/2022, 9:04. [facility], CR, XR HAND RT MIN 3V, 02/15/2022, 8:57. [facility], CR, XR HAND LT MIN 3V, 02/15/2022, 8:57. [facility], CT, CT HEAD/BRAIN WO CON, 11/11/2021, 9:35. FINDINGS: Image quality: Excellent. CSF spaces: Basal cisterns are patent. No extra-axial fluid collections. The ventricles are symmetric in size and shape. Brain: No intracranial bleeds or masses. There is cerebral volume loss for age, with resultant ventricular and sulcal prominence. There are periventricular and deep white matter chronic small vessel ischemic changes. There is intracranial internal carotid artery atherosclerosis. Skull and face: There is a left forehead scalp laceration seen, with hematoma and soft tissue gas. Radiopaque debris is seen, a portion of which was present previously. Remote, stable nasal bone fractures are seen. Calvarium and visualized facial bones appear intact, without suspicious lesions. Sinuses: Visualized sinuses and mastoids are clear. Apparent blood can be seen within the right nasal cavity. IMPRESSION: Left forehead scalp laceration, with associated soft tissue hematoma and soft tissue gas. Radiopaque debris can be seen. No acute fracture can be seen. There are remote nasal bone fractures. No acute intracranial hemorrhage is seen. There is apparent blood seen within the right nasal cavity. Dictated by: Trip Velarde M.D. on 02/15/2022 at 8:42 Approved by: Trip Velarde M.D. on 02/15/2022 at 8:45
--- NOTE | 2022-02-15 08:58 | DI.RAD.S_ITS ---
PROCEDURE: XR HAND RT MIN 3V INDICATIONS: Hand pain after fall TECHNIQUE: 3 views of the hand(s) acquired. COMPARISON: [facility], CR, XR HAND LT MIN 3V, 07/16/2020, 20:38. FINDINGS: Bones: No fractures or dislocations. Carpal bones are normally aligned. No suspicious bony lesions. Joint space narrowing and periarticular osteophyte formation at the scaphoid trapezial, 1st carpometacarpal joint, as well as the interphalangeal joints of the digits, indicating osteoarthritis. Soft tissues: No suspicious soft tissue calcifications. IMPRESSION: Osteoarthritis. No acute fracture. No osseous lesion. If symptoms and/or clinical suspicion for pathology persist, further assessment with repeat, or advanced imaging (e.g., CT, MRI, or bone scan) may be helpful for further assessment. Dictated by: Lili Gonzalez M.D. on 02/15/2022 at 9:28 Approved by: Lili Gonzalez M.D. on 02/15/2022 at 9:29
--- NOTE | 2022-02-15 08:58 | DI.CT.S_ITS ---
PROCEDURE: CT CERVICAL SPINE WO CON INDICATIONS: Fall on thinners TECHNIQUE: Noncontrast 3 mm thick sections acquired from the skull base to the T4 level. Sagittal and coronal reformats were then constructed. For radiation dose reduction, the following was used: automated exposure control, adjustment of mA and/or kV according to patient size. COMPARISON: [facility], CT, CT CERVICAL SPINE WO CON, 08/01/2021, 17:47. FINDINGS: Image quality: Excellent. Bones: No fractures or dislocations. Visualized superior ribs are intact. Loss of normal cervical lordosis. Multilevel disc space narrowing and endplate osteophyte formation, worst at C4-C5, C5-C6, and C6-C7. Grade 1 anterolisthesis C7 on T1, as before. Multilevel facet hypertrophy throughout the cervical and upper thoracic spine. Multilevel canal and foraminal stenoses. Hypertrophic bone protruding medially from the left mid clavicle, as before, likely secondary to remote trauma or chronic inflammation. Soft tissues: Prevertebral soft tissues are normal in thickness. No paravertebral hematomas. No apical pneumothoraces. Mild upper lobe pulmonary fibrosis, as before. IMPRESSION: 1. No fracture. 2. Multilevel degenerative disc and facet disease with multilevel canal and foraminal stenoses, which could be further assessed with MRI, if clinically indicated. 3. Pulmonary fibrosis. Dictated by: Lili Gonzalez M.D. on 02/15/2022 at 9:29 Approved by: Lili Gonzalez M.D. on 02/15/2022 at 9:32
--- NOTE | 2022-02-15 08:58 | DI.CT.S_ITS ---
PROCEDURE: CT FACIAL BONES WO CON INDICATIONS: Fall on thinners TECHNIQUE: Noncontrast 2.5 mm thick axial images acquired from the mandible through the frontal sinuses, with coronal and sagittal reformatting. For radiation dose reduction, the following was used: automated exposure control, adjustment of mA and/or kV according to patient size. COMPARISON: [facility], CT, CT CHEST ABD PEL W CON, 02/15/2022, 9:04. [facility], CT, CT CERVICAL SPINE WO CON, 02/15/2022, 9:04. [facility], CT, CT HEAD/BRAIN WO CON, 02/15/2022, 9:04. [facility], CR, XR HAND RT MIN 3V, 02/15/2022, 8:57. [facility], CR, XR HAND LT MIN 3V, 02/15/2022, 8:57. [facility], CT, CT FACIAL BONES WO CON, 08/01/2021, 17:47. FINDINGS: Image quality: Excellent. Bones and teeth: Orbital saavedra are intact. Sinus saavedra show no fracture or deformity. Stable remote nasal bone fractures are seen. No nasal septal fracture can be seen. Visualized portions of the mandible demonstrate no fractures or subluxation. Zygomatic arches are intact. Pterygoid plates are intact. Visualized portions of the skull base and auditory canals are intact. Degenerative changes are seen of the visualized cervical spine. Sinuses: Paranasal sinuses are aerated, without fluid levels, mucosal thickening, or mucoceles. Mastoid air cells are aerated. Within the right nasal cavity, fluid density material is seen. Soft tissues: There is a left forehead laceration seen, with soft tissue gas and soft tissue hematoma. Radiopaque debris is seen, a portion of which is stable from the prior. Vascular: Visualized vascular structures appear normal in the absence of contrast. Bony vascular foramina and canals are intact. Dense atherosclerotic calcification can be seen. IMPRESSION: Left forehead scalp laceration with hematoma and with soft tissue gas and debris. Likely blood within the right nasal cavity. Remote, stable nasal bone fractures. Dictated by: Trip Velarde M.D. on 02/15/2022 at 8:38 Approved by: Trip Velarde M.D. on 02/15/2022 at 8:41
--- NOTE | 2022-02-15 08:58 | DI.CT.S_ITS ---
PROCEDURE: CT CHEST ABD PEL W CON INDICATIONS: Fall on thinners TECHNIQUE: After the administration of intravenous contrast, 5 mm thick sections acquired from the lung apices to the symphysis. 2.5 mm thick coronal and sagittal reformats were acquired. Additional 7 mm thick coronal maximum intensity projection (MIP) reformats acquired through the lungs. Optional 10-minute delayed imaging may be performed from the kidneys to the bladder. For radiation dose reduction, the following was used: automated exposure control, adjustment of mA and/or kV according to patient size. COMPARISON: [facility], CT, CT CHEST ABD PEL W CON, 07/19/2020, 10:26. FINDINGS: Image quality: Good. CHEST: Lungs: Moderate paraseptal emphysema. There are secretions in the trachea and at the mimi. There is distal mucus airway plugging. No pulmonary contusions or lacerations. No consolidation. No pneumothorax or hemothorax. Mediastinum: No mediastinal hematomas. Heart size is prominent. Three-vessel coronary artery calcifications. No pericardial effusion. Thoracic aorta and pulmonary arteries demonstrate normal size and enhancement. No central pulmonary embolism. No mediastinal or hilar adenopathy. Esophagus is normal in caliber. No hiatal hernia. Chest wall: Prior medial left clavicle fracture. Prior sternotomy wires. No rib fractures. No subcutaneous emphysema. No axillary or supraclavicular adenopathy. Thyroid gland is unremarkable. Dense calcifications at the carotid bulbs. ABDOMEN: Solid organs: Liver is normal in size and enhancement, without lacerations. Gallbladder is absent. Biliary system is non-dilated. Pancreas enhances normally, without transection. Spleen is normal in size and enhancement, without lacerations. No adrenal hematomas. Both kidneys enhance normally, without hydronephrosis or lacerations. Peritoneum and bowel: No free fluid or air. Unenhanced bowel loops demonstrate normal wall thickness and caliber. Diverticulosis. Normal appendix. Nodes and vessels: No retroperitoneal or mesenteric adenopathy. Infrarenal abdominal aortic aneurysm measuring 4.1 cm, (3/27), previously 3.8 cm on 07/19/2020. The aneurysm sac does not opacify with contrast. There is extensive calcified atherosclerotic plaque. Additional ectasia. 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 Left common iliac artery ectasia measuring 2.5 cm, (2/100), previously 2.5 cm. Miscellaneous: Ventral abdominal wall hernia containing small bowel, unchanged. PELVIS: Genitourinary: Bladder wall thickness is normal. Miscellaneous: No inguinal hernias or adenopathy. Clips at the right groin. Bones: Pelvic ring and hip joints appear intact. No vertebral compression fractures. Prior screw fixation at the right pubic symphysis and sacrum. IMPRESSION: 1. No acute traumatic injury is identified. No fracture. No free fluid. 2. Moderate paraseptal emphysema. Secretions in the airways and distal mucus airway plugging. These findings could be due to bronchitis. 3. Infrarenal abdominal aortic aneurysm measuring 4.1 cm is slightly increased compared to July 2020. 4. Small ventral abdominal wall hernia containing small bowel. Dictated by: Luigi Almazan M.D. on 02/15/2022 at 9:44 Approved by: Luigi Almazan M.D. on 02/15/2022 at 10:02
--- NOTE | 2022-02-15 09:01 | ED.FALL ---
HPI - Fall General Chief Complaint: Fall Stated Complaint: Fell Down Stairs/Mod Trauma Time Seen by Provider: 02/15/22 08:58 Source: patient, family and EMS Mode of arrival: EMS Limitations: no limitations History of Present Illness HPI Narrative: Patient is an 86-year-old male. He was reported to be on anticoagulation. Was at home when his reported that he fell down approximately 9 [address] stairs. He did sustain an injury to his head and he was bleeding upon arrival by EMS. He was in a cervical collar and on a backboard. There was a loss of consciousness. Patient complains of having pain in both of his hands. He does have a history of Parkinson's disease. History of atrial fibrillation which is why he is on the anticoagulation. Has a history of coronary artery disease. He states he just slipped while going down the stairs. He is no back pain, arm pain except for pain in his hands, pelvic pain or leg pain. Related Data Home Medications Medication Instructions Recorded Confirmed nitroglycerin 0.4 mg sublingual 0.4 mg sublingual Q5M PRN Angina 03/10/19 02/15/22 tablet aspirin 81 mg tablet,delayed 81 mg PO DAILY 09/22/19 02/15/22 release (Adult Low Dose Aspirin) mometasone 0.1 % topical ointment 1 applic topical DAILY PRN Rash 06/22/20 02/15/22 carbidopa 25 mg-levodopa 100 mg 1 tab PO TID 02/10/21 02/15/22 tablet atorvastatin 10 mg tablet 10 mg PO DAILY 05/16/21 02/15/22 entacapone 200 mg tablet 200 mg PO TID 09/12/21 02/15/22 Previous Rx's Medication Instructions Recorded hydrochlorothiazide 12.5 mg capsule 12.5 mg PO DAILY #90 caps 04/18/21 mupirocin 2 % topical ointment 1 applic topical TID #15 grams 12/08/21 tadalafil 20 mg tablet 10 - 20 mg PO ONCE PRN sexual 01/02/22 activity #10 tabs amlodipine 2.5 mg tablet 2.5 mg PO DAILY #90 tabs 01/04/22 Allergies Allergy/AdvReac Type Severity Reaction Status Date / Time No Known Drug Allergies Allergy Verified 12/23/21 10:54 Review of Systems Review of Systems ROS Unobtainable: All systems reviewed & are unremarkable except as noted in HPI and below Patient History Medical History COPD (chronic obstructive pulmonary disease) Coronary artery disease (~2010) Erectile dysfunction Essential hypertension Falls frequently Hearing loss (~2013) Hemorrhoid (~1979) Ischemic cardiomyopathy Mixed hyperlipidemia Parkinson disease Parkinson's disease Paroxysmal atrial fibrillation Peripheral vascular disease (~2016) Wears glasses Surgical History Anesthesia Gallstones (~2017) History of cataract removal with insertion of prosthetic lens (~2018) History of heart bypass surgery (~2011) History of surgery (~2016) History of surgery (~2016) Pelvis fracture (~2012) Right groin hernia (~2018) S/P laparoscopic cholecystectomy Family History Father History of heart disease Mother No problems noted. Grandmother Diabetes mellitus Grandfather History of heart disease Family/Other No problems noted. Social History marital status: household members: spouse occupational status: previously employed Smoking Status: Current every day smoker alcohol intake: never substance use type: does not use Smoking Status: Current every day smoker tobacco type: cigarettes Substance Use Type: does not use Exam Initial Vital Signs Initial Vital Signs: Vital Signs Temperature 96.6 F L 02/15/22 08:54 Pulse Rate 81 02/15/22 08:54 Respiratory Rate 20 02/15/22 08:54 Blood Pressure 171/73 H 02/15/22 08:54 Pulse Oximetry 92 02/15/22 08:54 Oxygen Delivery Method 02/15/22 08:54 Const General: cooperative, comfortable and well groomed HENAR Head: laceration (Forehead) Nose: external nose normal Face and sinus: no maxillary instability Mouth: oral mucosae normal and moist mucous membranes Eyes Pupils: PERRL Chest Chest: No crepitus and No tenderness Resp Effort & Inspection: normal respiratory effort Auscultation: clear to auscultation bilaterally Cardio Rate: regular rate Rhythm: regular rhythm GI Inspection: normal to inspection Palpation: soft and No tender External: normal external exam Back/Spine/Pelvis Cervical Spine: collar present Thoracic/Lumbar Spine: No paraspinal tenderness, No thoracic spinal tenderness and No lumbar spinal tenderness Other: Pelvis stable Skin Other: Large irregular laceration to the forehead. Abrasions to both of his hands. Neuro General: patient alert, patient awake, patient oriented x3 and moves all extremities Speech: speech normal Sensory Exam: no sensory deficits noted Other: Reports pain to his hands but no tingling. He can abduct and adduct and forward flex his shoulders. Has some difficulty with extending the elbows. Flexion-extension the wrists are unremarkable. He does have difficulty with extending his fingers particularly on the left compared to the right. Extrem Other: Reports pain to both of his hands but nothing to his wrists or elbows or shoulders. His pelvis is stable. Bilateral lower extremities unremarkable. No gross deformities noted. Does have abrasions over his hands. Psych Appearance: grossly normal and well kempt Procedures FAST Exam FAST Exam 1: Fluid in Morison's pouch: No Fluid in Splenorenal Junction: No Fluid around bladder, Transverse view: No Fluid around bladder, Sagittal view: No Fluid in Pericardial Sac: No Gross Wall Motion Abnormality: No Study normal for this patient: Yes Images saved for further review: No Laceration Repair Laceration 1: Site: face (Forehead) Side (If applicable): right Size (cm): 6 Description: stellate, irregular and clean Depth: simple, single layer Local Anesthetic: lidocaine 1% and with epi Amount of anesthesia used (mL): 10 Pre-repair: wound explored and deep structures intact Skin layer closed with: nylon Skin layer suture size: 4-0 Number of sutures: 12 Technique: simple, interrupted Scores GCS [place] coma scale eye opening: Spontaneous Brianna coma scale verbal response: Orientated [place] coma scale motor response: Obey commands Fairview coma scale total score: 15 Course Orders Ordered: ED Orders 02/15/22 10:21 MR cervical spine wo con Stat Sodium Chloride (Normal Saline 0.9%) 1,000 mls @ 125 mls/hr IV CONT YOKASTA Last Admin: 02/15/22 09:28 Dose: 125 mls/hr Documented By: ZACH POTASSIUM CHLORIDE IN WATER (Potassium Cl 10 Meq/100 Ml Liudmila) 10 meq in 100 mls @ 100 mls/hr IV Q1H YOKASTA Stop: 02/15/22 19:59 Discontinued Medications Hydrocodone Bitart/Acetaminophen (Hydrocodone/Acet 5/325 Tablet) 1 tab PO NOW ONE Stop: 02/15/22 10:14 Last Admin: 02/15/22 10:19 Dose: 1 tab Documented By: ZACH(2) Dexamethasone (Dexamethasone 10 Mg/Ml Vial) 10 mg IV NOW ONE Stop: 02/15/22 17:58 POTASSIUM CHLORIDE IN WATER (Potassium Cl 10 Meq/100 Ml Liudmila) 10 meq in 100 mls @ 100 mls/hr IV Q1H YOKASTA Stop: 02/15/22 11:59 Last Infusion: 02/15/22 13:30 Dose: 0 mls/hr Documented By: Admin: 02/15/22 12:30 Dose: 100 mls/hr Documented By: Infusion: 02/15/22 11:19 Dose: 100 mls/hr Documented By: Admin: 02/15/22 10:19 Dose: 100 mls/hr Documented By: ZACH(2) Morphine Sulfate (Morphine 4 Mg/Ml Inj) 4 mg IV NOW ONE Stop: 02/15/22 09:18 Last Admin: 02/15/22 09:26 Dose: 4 mg Documented By: ZACH Morphine Sulfate (Morphine 4 Mg/Ml Inj) 4 mg IV NOW ONE Stop: 02/15/22 14:27 Last Admin: 02/15/22 14:32 Dose: 4 mg Documented By: ZACH Vital Signs Vital signs: Vital Signs - 8 hr 02/15/22 10:15 02/15/22 10:15 02/15/22 10:37 Pulse Rate 70 Respiratory Rate 22 Blood Pressure 149/65 H Pulse Oximetry 95 97 02/15/22 11:05 02/15/22 11:33 02/15/22 11:35 Pulse Rate 77 71 Respiratory Rate 22 22 Blood Pressure Pulse Oximetry 96 96 96 02/15/22 11:35 02/15/22 12:00 02/15/22 12:00 Pulse Rate 70 Respiratory Rate 22 Blood Pressure 133/72 145/67 H Pulse Oximetry 95 02/15/22 12:15 02/15/22 12:15 02/15/22 12:30 Pulse Rate 70 67 Respiratory Rate 24 23 Blood Pressure 110/78 Pulse Oximetry 94 95 02/15/22 12:31 02/15/22 12:31 02/15/22 12:45 Pulse Rate 66 Respiratory Rate 23 Blood Pressure 128/73 140/70 Pulse Oximetry 96 02/15/22 12:45 02/15/22 13:00 02/15/22 13:00 Pulse Rate 69 71 Respiratory Rate 24 23 Blood Pressure 148/73 H Pulse Oximetry 95 96 02/15/22 13:15 02/15/22 13:15 02/15/22 13:30 Pulse Rate 67 Respiratory Rate 23 Blood Pressure 130/60 143/68 H Pulse Oximetry 96 02/15/22 13:30 02/15/22 13:45 02/15/22 13:45 Pulse Rate 70 65 Respiratory Rate 23 21 Blood Pressure 141/61 H Pulse Oximetry 95 94 02/15/22 14:00 02/15/22 14:30 02/15/22 14:30 Pulse Rate 70 76 Respiratory Rate 24 22 Blood Pressure 141/60 H Pulse Oximetry 96 96 02/15/22 15:00 02/15/22 15:30 02/15/22 15:46 Pulse Rate 70 65 75 Respiratory Rate 21 21 23 Blood Pressure Pulse Oximetry 94 94 96 02/15/22 15:46 02/15/22 16:00 02/15/22 16:00 Pulse Rate 65 Respiratory Rate 24 Blood Pressure 137/62 132/58 L Pulse Oximetry 95 02/15/22 16:15 02/15/22 16:15 02/15/22 16:30 Pulse Rate 65 Respiratory Rate 23 Blood Pressure 124/58 L 118/56 L Pulse Oximetry 95 02/15/22 16:30 02/15/22 16:46 02/15/22 16:46 Pulse Rate 62 74 Respiratory Rate 22 22 Blood Pressure 146/72 H Pulse Oximetry 94 95 02/15/22 17:00 02/15/22 17:00 02/15/22 17:16 Pulse Rate 64 72 Respiratory Rate 24 23 Blood Pressure 140/64 Pulse Oximetry 91 94 02/15/22 17:16 Pulse Rate Respiratory Rate Blood Pressure 121/55 L Pulse Oximetry MDM - Fall Differential Diagnosis Differential diagnosis: Likely syncope, dislocation of shoulder region, fracture of wrist, compression fracture, concussion without loss of consciousness and other Lab Data Attestation: I reviewed the patient's lab results. Result diagrams: 02/15/22 08:55 02/15/22 08:55 Labs: Lab Results 02/15/22 02/15/22 02/15/22 Range/Units 08:52 08:55 08:55 WBC 6.9 (4.5-11.0) X10^3/uL RBC 5.57 (4.5-5.9) X10^6/uL Hgb 17.3 (13.5-17.5) g/dL Hct 50.6 (41-53) % MCV 90.9 (80-100) fL MCH 31.0 (26-34) PG MCHC 34.1 (30-36) % RDW 14.0 (11.6-14.8) % Plt Count 183 (150-400) X10^3/uL Neut % (Auto) 62.3 (50-75) % Lymph % (Auto) 28.2 (25-40) % Emanuel % (Auto) 7.2 (3-14) % Eos % (Auto) 1.4 L (2-4) % Baso % (Auto) 0.9 (0-2) % Neut # (Auto) 4300 (0046-7398) /uL Lymph # (Auto) 1900 (9297-4389) /uL Emanuel # (Auto) 500 (0-900) /uL Eos # (Auto) 100 (0-450) /uL Baso # (Auto) 100 (0-100) /uL PT 11.9 (10.1-12.7) SECONDS INR 1.0 (0.9-1.3) APTT 33 (26-36) SECONDS Sodium (137-145) mmol/L Potassium (3.4-5.1) mmol/L Chloride (98-107) mmol/L Carbon Dioxide (22-32) mmol/L BUN (9-20) mg/dL Creatinine (0.66-1.25) mg/dL Estimated GFR (>60) mL/min BUN/Creatinine Ratio (6-22) Glucose (80-110) mg/dL Calcium (8.4-10.2) mg/dL Total Bilirubin (0.2-1.3) mg/dL AST (17-59) IU/L ALT (<50) IU/L Alkaline Phosphatase (38-126) U/L Total Protein (6.3-8.2) g/dL Albumin (3.5-5.0) g/dL Globulin (1.7-4.1) g/dL Albumin/Globulin Ratio (1.0-2.8) Lipase (23-300) U/L Ethyl Alcohol ( - 10) mg/dL SARS-CoV-2 (PCR) Positive H (Negative) Blood Type Antibody Screen 02/15/22 02/15/22 Range/Units 08:55 08:55 WBC (4.5-11.0) X10^3/uL RBC (4.5-5.9) X10^6/uL Hgb (13.5-17.5) g/dL Hct (41-53) % MCV (80-100) fL MCH (26-34) PG MCHC (30-36) % RDW (11.6-14.8) % Plt Count (150-400) X10^3/uL Neut % (Auto) (50-75) % Lymph % (Auto) (25-40) % Emanuel % (Auto) (3-14) % Eos % (Auto) (2-4) % Baso % (Auto) (0-2) % Neut # (Auto) (4743-0452) /uL Lymph # (Auto) (1500-8325) /uL Emanuel # (Auto) (0-900) /uL Eos # (Auto) (0-450) /uL Baso # (Auto) (0-100) /uL PT (10.1-12.7) SECONDS INR (0.9-1.3) APTT (26-36) SECONDS Sodium 143 (137-145) mmol/L Potassium 2.7 L* (3.4-5.1) mmol/L Chloride 112 H (98-107) mmol/L Carbon Dioxide 23 (22-32) mmol/L BUN 15 (9-20) mg/dL Creatinine 0.93 (0.66-1.25) mg/dL Estimated GFR > 60 (>60) mL/min BUN/Creatinine Ratio 16.1 (6-22) Glucose 104 (80-110) mg/dL Calcium 6.4 L* (8.4-10.2) mg/dL Total Bilirubin 0.6 (0.2-1.3) mg/dL AST 20 (17-59) IU/L ALT 9 (<50) IU/L Alkaline Phosphatase 75 (38-126) U/L Total Protein 5.3 L (6.3-8.2) g/dL Albumin 3.0 L (3.5-5.0) g/dL Globulin 2.3 (1.7-4.1) g/dL Albumin/Globulin Ratio 1.3 (1.0-2.8) Lipase 52 (23-300) U/L Ethyl Alcohol < 10 ( - 10) mg/dL SARS-CoV-2 (PCR) (Negative) Blood Type O Positive Antibody Screen Negative Imaging Data Left hand x-ray: Radiologist's Impression: [address] [address] XRay Report Signed Patient: Je Hassan V MR#: [id number] : 1935 Acct:[id number] Age/Sex: 86 / M Date of Service: 02/15/22 Loc: ED Accession Number: [id number] ?? Procedure: XR hand LT min 3V Ordering Provider: Dyllan Dueñas D.O. PROCEDURE:? XR HAND LT MIN 3V ? INDICATIONS:? Hand pain after fall ? TECHNIQUE:? 3 views of the hand(s) acquired.? ? COMPARISON:? [facility], CR, XR HAND LT MIN 3V, 07/16/2020, 20:38. ? FINDINGS:? ? Bones:? No fractures or dislocations.? Carpal bones are normally aligned.? No suspicious bony lesions.? Joint space narrowing and periarticular osteophyte formation at the radial carpal, scaphoid trapezial, 1st carpometacarpal joint, as well as the interphalangeal joints of the digits. ? Soft tissues:? No suspicious soft tissue calcifications.? ? ? IMPRESSION:? Osteoarthritis. No acute fracture. No osseous lesion. If symptoms and/or clinical suspicion for pathology persist, further assessment with repeat, or advanced imaging (e.g., CT, MRI, or bone scan) may be helpful for further assessment. ? ? Dictated by: Lili Gonzalez M.D. on 02/15/2022 at 9:27 ? ? Approved by: Lili Gonzalez M.D. on 02/15/2022 at 9:28?? Right hand x-ray: Radiologist's Impression: [address] [address] XRay Report Signed Patient: Je Hassan V MR#: [id number] : 1935 Acct:[id number] Age/Sex: 86 / M Date of Service: 02/15/22 Loc: ED Accession Number: [id number] ?? Procedure: XR hand RT min 3V Ordering Provider: Dyllan Dueñas D.O. PROCEDURE:? XR HAND RT MIN 3V ? INDICATIONS:? Hand pain after fall ? TECHNIQUE:? 3 views of the hand(s) acquired.? ? COMPARISON:? [facility], CR, XR HAND LT MIN 3V, 07/16/2020, 20:38. ? FINDINGS:? ? Bones:? No fractures or dislocations.? Carpal bones are normally aligned.? No suspicious bony lesions.? Joint space narrowing and periarticular osteophyte formation at the scaphoid trapezial, 1st carpometacarpal joint, as well as the interphalangeal joints of the digits, indicating osteoarthritis. ? Soft tissues:? No suspicious soft tissue calcifications.? ? ? IMPRESSION:? Osteoarthritis. No acute fracture. No osseous lesion. If symptoms and/or clinical suspicion for pathology persist, further assessment with repeat, or advanced imaging (e.g., CT, MRI, or bone scan) may be helpful for further assessment. ? ? Dictated by: Lili Gonzalez M.D. on 02/15/2022 at 9:28 ? ? Approved by: Lili Gonzalez M.D. on 02/15/2022 at 9:29? CT - cervical spine: Radiologist's Impression: [place] [address] CT Scan Report Signed Patient: Je Hassan V MR#: [id number] : 1935 Acct:[id number] Age/Sex: 86 / M Date of Service: 02/15/22 Loc: ED Accession Number: [id number] ?? Procedure: CT cervical spine wo con Ordering Provider: Dyllan Dueañs D.O. PROCEDURE:? CT CERVICAL SPINE WO CON ? INDICATIONS:? Fall on thinners ? TECHNIQUE:? Noncontrast 3 mm thick sections acquired from the skull base to the T4 level.? Sagittal and coronal reformats were then constructed.? For radiation dose reduction, the following was used:? automated exposure control, adjustment of mA and/or kV according to patient size.? ? COMPARISON:? [facility], CT, CT CERVICAL SPINE WO CON, 08/01/2021, 17:47. ? FINDINGS:? Image quality:? Excellent.? ? Bones:? No fractures or dislocations.? Visualized superior ribs are intact.? Loss of normal cervical lordosis.? Multilevel disc space narrowing and endplate osteophyte formation, worst at C4-C5, C5-C6, and C6-C7.? Grade 1 anterolisthesis C7 on T1, as before.? Multilevel facet hypertrophy throughout the cervical and upper thoracic spine.? Multilevel canal and foraminal stenoses.? Hypertrophic bone protruding medially from the left mid clavicle, as before, likely secondary to remote trauma or chronic inflammation. ? Soft tissues:? Prevertebral soft tissues are normal in thickness.? No paravertebral hematomas.? No apical pneumothoraces.? Mild upper lobe pulmonary fibrosis, as before. ? ? IMPRESSION:? 1. No fracture. 2. Multilevel degenerative disc and facet disease with multilevel canal and foraminal stenoses, which could be further assessed with MRI, if clinically indicated.? 3. Pulmonary fibrosis. ? Dictated by: Lili Gonzalez M.D. on 02/15/2022 at 9:29 ? ? Approved by: Lili Gonzalez M.D. on 02/15/2022 at 9:32?? CT face: Radiologist's Impression: [place] [address] CT Scan Report Signed Patient: Je Hassan V MR#: [id number] : 1935 Acct:[id number] Age/Sex: 86 / M Date of Service: 02/15/22 Loc: ED Accession Number: [id number] ?? Procedure: CT facial bones wo con Ordering Provider: Dyllan Dueñas D.O. PROCEDURE:? CT FACIAL BONES WO CON ? INDICATIONS:? Fall on thinners ? TECHNIQUE:? Noncontrast 2.5 mm thick axial images acquired from the mandible through the frontal sinuses, with coronal and sagittal reformatting.? For radiation dose reduction, the following was used:? automated exposure control, adjustment of mA and/or kV according to patient size.? ? COMPARISON:? [facility], CT, CT CHEST ABD PEL W CON, 02/15/2022, 9:04.? [facility], CT, CT CERVICAL SPINE WO CON, 02/15/2022, 9:04.? [facility], CT, CT HEAD/BRAIN WO CON, 02/15/2022, 9:04.? [facility], CR, XR HAND RT MIN 3V, 02/15/2022, 8:57.? [facility], CR, XR HAND LT MIN 3V, 02/15/2022, 8:57.? [facility], CT, CT FACIAL BONES WO CON, 08/01/2021, 17:47. ? FINDINGS:? Image quality:? Excellent.? ? Bones and teeth:? Orbital saavedra are intact.? Sinus saavedra show no fracture or deformity.? Stable remote nasal bone fractures are seen.? No nasal septal fracture can be seen.? Visualized portions of the mandible demonstrate no fractures or subluxation.? Zygomatic arches are intact.? Pterygoid plates are intact.? Visualized portions of the skull base and auditory canals are intact.? Degenerative changes are seen of the visualized cervical spine. ? Sinuses:? Paranasal sinuses are aerated, without fluid levels, mucosal thickening, or mucoceles.? Mastoid air cells are aerated.? Within the right nasal cavity, fluid density material is seen. ? Soft tissues:? There is a left forehead laceration seen, with soft tissue gas and soft tissue hematoma.? Radiopaque debris is seen, a portion of which is stable from the prior. ? Vascular:? Visualized vascular structures appear normal in the absence of contrast.? Bony vascular foramina and canals are intact.? Dense atherosclerotic calcification can be seen. ? ? IMPRESSION:? Left forehead scalp laceration with hematoma and with soft tissue gas and debris. ? Likely blood within the right nasal cavity. ? Remote, stable nasal bone fractures.? ? Dictated by: Trip Velarde M.D. on 02/15/2022 at 8:38 ? ? Approved by: Trip Velarde M.D. on 02/15/2022 at 8:41?? CT scan - head: Radiologist's Impression: Launch?Image [address] [address] [address] Scan Report Signed Patient: Je Hassan V MR#: [id number] : 1935 Acct:[id number] Age/Sex: 86 / M Date of Service: 02/15/22 Loc: ED Accession Number: [id number] ?? Procedure: CT head/brain wo con Ordering Provider: Dyllan Dueñas D.O. PROCEDURE:? CT HEAD/BRAIN WO CON ? INDICATIONS:? Fall on thinners ? TECHNIQUE:? Noncontrast 4.5 mm thick angled axial sections acquired from the foramen magnum to the vertex, with coronal and sagittal reformats.? For radiation dose reduction, the following was used:? automated exposure control, adjustment of mA and/or kV according to patient size.? ? COMPARISON:? [facility], MR, MR HEAD/BRAIN WO CON, 04/07/2020, 9:48.? [facility], CT, CT HEAD/BRAIN WO CON, 11/02/2019, 9:58.? [facility], CT, CT HEAD/BRAIN WO CON, 08/01/2021, 17:47.? [facility], CT, CT CHEST ABD PEL W CON, 02/15/2022, 9:04.? [facility], CT, CT CERVICAL SPINE WO CON, 02/15/2022, 9:04.? [facility], CT, CT FACIAL BONES WO CON, 02/15/2022, 9:04.? [facility], CR, XR HAND RT MIN 3V, 02/15/2022, 8:57.? [facility], CR, XR HAND LT MIN 3V, 02/15/2022, 8:57.? [facility], CT, CT HEAD/BRAIN WO CON, 11/11/2021, 9:35. ? FINDINGS:? Image quality:? Excellent.? ? CSF spaces:? Basal cisterns are patent.? No extra-axial fluid collections.? The ventricles are symmetric in size and shape.? ? Brain:? No intracranial bleeds or masses.? There is cerebral volume loss for age, with resultant ventricular and sulcal prominence.? There are periventricular and deep white matter chronic small vessel ischemic changes.? There is intracranial internal carotid artery atherosclerosis.? ? Skull and face:? There is a left forehead scalp laceration seen, with hematoma and soft tissue gas.? Radiopaque debris is seen, a portion of which was present previously.? Remote, stable nasal bone fractures are seen.? Calvarium and visualized facial bones appear intact, without suspicious lesions.? ? Sinuses:? Visualized sinuses and mastoids are clear.? Apparent blood can be seen within the right nasal cavity. ? IMPRESSION:? Left forehead scalp laceration, with associated soft tissue hematoma and soft tissue gas.? Radiopaque debris can be seen. ? No acute fracture can be seen.? There are remote nasal bone fractures. ? No acute intracranial hemorrhage is seen.? ? ? There is apparent blood seen within the right nasal cavity.? ? Dictated by: Trip Velarde M.D. on 02/15/2022 at 8:42 ? ? Approved by: Trip Velarde M.D. on 02/15/2022 at 8:45?? CT chest abd pelvis: Radiologist's Impression: [place] [address] CT Scan Report Signed Patient: Je Hassan V MR#: [id number] : 1935 Acct:[id number] Age/Sex: 86 / M Date of Service: 02/15/22 Loc: ED Accession Number: [id number] ?? Procedure: CT chest abd pel w con Ordering Provider: Dyllan Dueñas D.O. PROCEDURE:? CT CHEST ABD PEL W CON ? INDICATIONS:? Fall on thinners ? TECHNIQUE:? After the administration of intravenous contrast, 5 mm thick sections acquired from the lung apices to the symphysis.? 2.5 mm thick coronal and sagittal reformats were acquired. ?Additional 7 mm thick coronal maximum intensity projection (MIP) reformats acquired through the lungs.? Optional 10-minute delayed imaging may be performed from the kidneys to the bladder.? For radiation dose reduction, the following was used:? automated exposure control, adjustment of mA and/or kV according to patient size.? ? COMPARISON:? [facility], CT, CT CHEST ABD PEL W CON, 07/19/2020, 10:26. ? FINDINGS:? Image quality:? Good.? ? CHEST:? Lungs:? Moderate paraseptal emphysema.? There are secretions in the trachea and at the mimi.? There is distal mucus airway plugging.? No pulmonary contusions or lacerations.? No consolidation.? No pneumothorax or hemothorax.? ? Mediastinum:? No mediastinal hematomas.? Heart size is prominent.? Three-vessel coronary artery calcifications.? No pericardial effusion.? Thoracic aorta and pulmonary arteries demonstrate normal size and enhancement.? No central pulmonary embolism.? No mediastinal or hilar adenopathy.? Esophagus is normal in caliber.? No hiatal hernia.? ? Chest wall:? Prior medial left clavicle fracture.? Prior sternotomy wires.? No rib fractures.? No subcutaneous emphysema.? No axillary or supraclavicular adenopathy.? Thyroid gland is unremarkable.? Dense calcifications at the carotid bulbs.? ? ? ABDOMEN:? Solid organs:? Liver is normal in size and enhancement, without lacerations.? Gallbladder is absent.? Biliary system is non-dilated.? Pancreas enhances normally, without transection.? Spleen is normal in size and enhancement, without lacerations.? No adrenal hematomas.? Both kidneys enhance normally, without hydronephrosis or lacerations.? ? Peritoneum and bowel:? No free fluid or air.? Unenhanced bowel loops demonstrate normal wall thickness and caliber.? Diverticulosis.? Normal appendix.? ? Nodes and vessels:? No retroperitoneal or mesenteric adenopathy.? Infrarenal abdominal aortic aneurysm measuring 4.1 cm, (05/01), previously 3.8 cm on 07/19/2020.? The aneurysm sac does not opacify with contrast.? There is extensive calcified atherosclerotic plaque. ?Additional ectasia.? 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 Left common iliac artery ectasia measuring 2.5 cm, (2100), previously 2.5 cm. ? Miscellaneous:? Ventral abdominal wall hernia containing small bowel, unchanged. ? ? PELVIS:? Genitourinary:? Bladder wall thickness is normal.? ? Miscellaneous:? No inguinal hernias or adenopathy.? Clips at the right groin.? ? Bones:? Pelvic ring and hip joints appear intact.? No vertebral compression fractures.? Prior screw fixation at the right pubic symphysis and sacrum.? ? ? IMPRESSION:? 1. No acute traumatic injury is identified.? No fracture.? No free fluid. ? 2. Moderate paraseptal emphysema.? Secretions in the airways and distal mucus airway plugging.? These findings could be due to bronchitis. ? 3. Infrarenal abdominal aortic aneurysm measuring 4.1 cm is slightly increased compared to July 2020. ? 4. Small ventral abdominal wall hernia containing small bowel.? Dictated by: Luigi Almazan M.D. on 02/15/2022 at 9:44 ? ? Approved by: Luigi Almazan M.D. on 02/15/2022 at 10:02?? Cervical spine MRI: Radiologist's Impression: [address] [address] Magnetic Resonance Report Signed Patient: Je Hassan V MR#: [id number] : 1935 Acct:[id number] Age/Sex: 86 / M Date of Service: 02/15/22 Loc: ED Accession Number: [id number] ?? Procedure: MR cervical spine wo con Ordering Provider: Dyllan Dueñas D.O. PROCEDURE:? MR CERVICAL SPINE WO CON ? INDICATIONS:? Bilateral finger numbness after fall ? TECHNIQUE:? Noncontrast sagittal T1 spin echo and T2 fast spin echo, sagittal STIR, foraminal oblique sagittal T2 fast spin echo, and axial gradient echo or T2 fast spin echo through the cervical spine.? ? COMPARISON:? [facility], CT, CT CERVICAL SPINE WO CON, 02/15/2022, 9:04. ? FINDINGS:? Image quality:? Excellent.? ? Alignment and Curvature:? There is loss of normal cervical lordosis.? 2 mm of anterolisthesis of C2 on C3.? 3 mm of retrolisthesis of C4 on C5 and C6 on C7.? 4 mm of anterolisthesis of C7 on T1, and T1 on T2.? 3 mm of anterolisthesis of T2 on T3. ? Bone Marrow:? Marrow demonstrates normal overall signal.? No fracture.? There is mild reactive signal throughout the endplates of the cervical and upper thoracic spine.? There is low T2 intensity material surrounding the odontoid process of C2 without evidence of associated bony erosion. ? Spinal Cord:? Visualized spinal cord has normal size and signal.? No cerebellar tonsillar herniation.? ? Paraspinous Soft Tissues:? No paravertebral masses.? There is a small amount high T2 signal intensity within the prevertebral soft tissues extending from C2-T2, most prominently at the C5 level anteriorly measuring 4 mm anteroposterior.? There is mild T2 signal elevation within the intraspinous soft tissues posteriorly at C4-C5, C5-C6, C6-C7, and C7-T1, compatible with ligamentous injury. ? C1-C2:? Low T2 signal intensity at the posterior aspect of the odontoid process of C2 measuring 12 mm anteroposterior, and causing moderate canal stenosis. ? C2-C3:? Congenital canal stenosis.? Moderate disc height loss and desiccation.? Moderate left and mild right facet and uncovertebral hypertrophy.? Mild canal stenosis.? Moderate left and mild right foraminal stenosis. ? C3-C4:? Congenital canal stenosis.? Moderate disc desiccation.? Mild disc height loss and diffuse disc bulge.? Moderate facet and uncovertebral hypertrophy bilaterally.? Moderate to severe canal stenosis.? Moderate right and severe left foraminal stenosis.? Left C4 nerve root compression. ? C4-C5:? Congenital canal stenosis.? Severe disc height loss and desiccation.? Moderate diffuse disc bulge.? Moderate facet and uncovertebral hypertrophy bilaterally.? Severe canal stenosis.? Moderate cord flattening.? Severe bilateral foraminal stenosis with bilateral C5 nerve root compression. ? C5-C6:? Congenital canal stenosis.? Severe disc height loss and desiccation.? Moderate diffuse disc bulge/osteophyte.? Moderate facet and uncovertebral hypertrophy bilaterally. ?Severe canal stenosis.? Severe cord flattening.? Severe bilateral foraminal stenosis with bilateral C6 nerve root compression. ? C6-C7:? Severe disc height loss and desiccation.? Mild diffuse disc bulge/osteophyte.? Congenital canal stenosis.? Moderate facet and uncovertebral hypertrophy bilaterally.? Severe canal stenosis.? Mild cord flattening.? Severe bilateral foraminal stenosis with bilateral C7 nerve root compression. ? C7-T1:? Moderate disc height loss and desiccation.? Mild diffuse disc bulge.? Congenital canal stenosis.? Moderate facet and uncovertebral hypertrophy bilaterally.? Moderate canal stenosis.? Moderate right and moderate to severe left foraminal stenosis.? Left C8 nerve root compression. ? IMPRESSION:? 1. Small prevertebral hematoma as described above. 2. Edema within the intraspinous soft tissues posteriorly, consistent with ligamentous injury. 3. 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 4. Multilevel canal stenoses, worst at C4-C5, C5-C6, and C6-C7 where there is associated cord flattening. 5. Multilevel foraminal stenoses, worst at C3-C4, C4-C5, C5-C6, C6-C7, and C7-T1 where there is associated intraforaminal nerve root compression. Recommend correlation with clinical symptoms to ascertain relevance of these findings. 6. Low T2 intensity material surrounding the odontoid process of C2, consistent with sequelae of CPPD arthropathy or rheumatoid arthritis, and contributing to moderate canal stenosis.? Dictated by: Lili Gonzalez M.D. on 02/15/2022 at 11:13 ? ? Approved by: Lili Gonzalez M.D. on 02/15/2022 at 11:23? MDM Narrative Medical decision making narrative: Patient has been alert oriented x3. The complex forehead laceration was closed as described above. His initial exam and radiologic studies show no acute pathology other than the laceration. There is no intracranial hemorrhage. His pelvis is stable. His only complaint was pain in his hands that was not necessarily explain by any of the findings on the radiologic studies. He potentially could have contused his hands given the arthritis but the pain seemed to be somewhat out of proportion to that. Because of this the MRI was ordered which did show stenosis and potential ligamentous injury. He was placed in an [place] collar. I did discuss the case with Dr. Arreaga with spine surgery at [facility] who asked her to have a discussion with the patient and family regarding either watching and waiting or transferring. I did have this discussion with the patient and his son is at bedside. I did tell him that he potentially would be looking at a fairly extensive cervical spine surgery although I did not go into the specifics of this. We also talk that potentially he could wait to see if his symptoms improve with time. He initially stated that he would mind waiting to see if his symptoms improve however as I was discussing with him he was actually using his right arm to move his left arm. He does have a history of Parkinson's disease but has at baseline fairly good dexterity according to his son who is at bedside. This is not baseline for him. He was having a very difficult time extending his fingers both sides but seems to be more on the left than the right. We had more discussions about this and the final decision was made to transfer the patient. is the accepting physician. Patient is stable for transport. His potassium is being replaced. Critical Care Time Critical Care Time Critical Care Time: Yes Total Critical Care Time: 40 Attestation: The high probability of a clinically significant, sudden or life threatening deterioration of the []neurologic system(s), cardio, musculoskeletal vascular required my full and direct attention, intervention and personal management. The aggregate critical care time was [40] minutes. This time is in addition to time spent performing reported procedures but includes the following: [x] Data Review and interpretation [x] Patient assessment and monitoring of vital signs [x] Documentation [x] Medication orders and management Discharge Plan Departure Patient Disposition: [facility] Clinical Impression: Central cord syndrome, Complex laceration of forehead, Fall, Hypokalemia Prescriptions: No Action nitroglycerin 0.4 mg tablet, sublingual 0.4 mg SL Q5M PRN (Reason: Angina) mupirocin 2 % ointment 1 applic topical TID Qty: 15 0RF hydrochlorothiazide 12.5 mg capsule 12.5 mg PO DAILY Qty: 90 2RF tadalafil 20 mg tablet 10 - 20 mg PO ONCE PRN (Reason: sexual activity) Qty: 10 4RF amlodipine 2.5 mg tablet 2.5 mg PO DAILY Qty: 90 3RF Label Comments: take 1 tablet by mouth once daily carbidopa-levodopa 25-100 mg tablet 1 tab PO TID Label Comments: takes doses at 0700, 1200, & 1700 aspirin [Adult Low Dose Aspirin] 81 mg tablet,delayed release (DR/EC) 81 mg PO DAILY mometasone 0.1 % ointment 1 applic topical DAILY PRN (Reason: Rash) atorvastatin 10 mg tablet 10 mg PO DAILY entacapone 200 mg tablet 200 mg PO TID Referrals: Olaf Espinosa MD [Primary Care Provider] -
[2022-02-15 09:07] LABS: Add Manual Diff / Slide Review NO; Basophils Absolute Auto 100 /uL (0-100); Basophils Percent Auto 0.9 % (0-2); Eosinophils Absolute Auto 100 /uL (0-450); Eosinophils Percent Auto 1.4 % (2-4); Hematocrit 50.6 % (41-53); Hemoglobin 17.3 g/dL (13.5-17.5); Lymphocytes Absolute Auto 1900 /uL (1100-4500); Lymphocytes Percent Auto 28.2 % (25-40); Mean Corpuscular HGB Conc 34.1 % (30-36); Mean Corpuscular Volume 90.9 fL (80-100); Monocytes Absolute Auto 500 /uL (0-900); Monocytes Percent Auto 7.2 % (3-14); Neutrophils Absolute Auto 4300 /uL (1500-7000); Neutrophils Percent Auto 62.3 % (50-75); Platelet Count 183 X10^3/uL (150-400); Red Blood Cell Count 5.57 X10^6/uL (4.5-5.9); White Blood Cell Count 6.9 X10^3/uL (4.5-11.0)
[2022-02-15 09:16] LABS: Prothrombin Time 11.9 SECONDS (10.1-12.7)
[2022-02-15 09:19] LABS: PTT Partial Thromboplastin Tim 33 SECONDS (26-36)
[2022-02-15 09:24] LABS: Alanine Aminotransferase 9 IU/L (<50); Albumin Globulin Ratio 1.3 (1.0-2.8); Alkaline Phosphatase 75 U/L (38-126); Aspartate Aminotransferase 20 IU/L (17-59); BUN Creatinine Ratio 16.1 (6-22); Bilirubin Total 0.6 mg/dL (0.2-1.3); Blood Urea Nitrogen 15 mg/dL (9-20); Carbon Dioxide 23 mmol/L (22-32); Chloride 112 mmol/L (98-107); Estimated Glomerular Filt Rate > 60 mL/min (>60); Ethanol (ETOH) < 10 mg/dL; Globulin 2.3 g/dL (1.7-4.1); Glucose 104 mg/dL (80-110); HEMOLYSIS < 15 (0-50); Lipase 52 U/L (23-300); Sodium 143 mmol/L (137-145); Total Protein 5.3 g/dL (6.3-8.2)
[2022-02-15] MEDS: MORPHINE 4 MG/ML INJ IV ×3 (09:26→18:56)
[2022-02-15] MEDS: SODIUM CHLORIDE 0.9% 1,000 ML 125 ML IV (09:28)
[2022-02-15 09:31] LABS: COVID19 -Nasal RAPID POSITIVE (Negative)
[2022-02-15 09:32] LABS: Potassium 2.7 mmol/L (3.4-5.1)
[2022-02-15 09:33] LABS: Calcium 6.4 mg/dL (8.4-10.2)
[2022-02-15] MEDS: HYDROCODONE/ACET 5/325 TABLET 1 TAB PO (10:19)
[2022-02-15] MEDS: POTASSIUM CHLORIDE IN WATER 10 MEQ/100 ML PIGGYBACK 100 MEQ IV ×3 (10:19→18:38)
--- NOTE | 2022-02-15 10:21 | DI.MRI.S_ITS ---
PROCEDURE: MR CERVICAL SPINE WO CON INDICATIONS: Bilateral finger numbness after fall TECHNIQUE: Noncontrast sagittal T1 spin echo and T2 fast spin echo, sagittal STIR, foraminal oblique sagittal T2 fast spin echo, and axial gradient echo or T2 fast spin echo through the cervical spine. COMPARISON: [facility], CT, CT CERVICAL SPINE WO CON, 02/15/2022, 9:04. FINDINGS: Image quality: Excellent. Alignment and Curvature: There is loss of normal cervical lordosis. 2 mm of anterolisthesis of C2 on C3. 3 mm of retrolisthesis of C4 on C5 and C6 on C7. 4 mm of anterolisthesis of C7 on T1, and T1 on T2. 3 mm of anterolisthesis of T2 on T3. Bone Marrow: Marrow demonstrates normal overall signal. No fracture. There is mild reactive signal throughout the endplates of the cervical and upper thoracic spine. There is low T2 intensity material surrounding the odontoid process of C2 without evidence of associated bony erosion. Spinal Cord: Visualized spinal cord has normal size and signal. No cerebellar tonsillar herniation. Paraspinous Soft Tissues: No paravertebral masses. There is a small amount high T2 signal intensity within the prevertebral soft tissues extending from C2-T2, most prominently at the C5 level anteriorly measuring 4 mm anteroposterior. There is mild T2 signal elevation within the intraspinous soft tissues posteriorly at C4-C5, C5-C6, C6-C7, and C7-T1, compatible with ligamentous injury. C1-C2: Low T2 signal intensity at the posterior aspect of the odontoid process of C2 measuring 12 mm anteroposterior, and causing moderate canal stenosis. C2-C3: Congenital canal stenosis. Moderate disc height loss and desiccation. Moderate left and mild right facet and uncovertebral hypertrophy. Mild canal stenosis. Moderate left and mild right foraminal stenosis. C3-C4: Congenital canal stenosis. Moderate disc desiccation. Mild disc height loss and diffuse disc bulge. Moderate facet and uncovertebral hypertrophy bilaterally. Moderate to severe canal stenosis. Moderate right and severe left foraminal stenosis. Left C4 nerve root compression. C4-C5: Congenital canal stenosis. Severe disc height loss and desiccation. Moderate diffuse disc bulge. Moderate facet and uncovertebral hypertrophy bilaterally. Severe canal stenosis. Moderate cord flattening. Severe bilateral foraminal stenosis with bilateral C5 nerve root compression. C5-C6: Congenital canal stenosis. Severe disc height loss and desiccation. Moderate diffuse disc bulge/osteophyte. Moderate facet and uncovertebral hypertrophy bilaterally. Severe canal stenosis. Severe cord flattening. Severe bilateral foraminal stenosis with bilateral C6 nerve root compression. C6-C7: Severe disc height loss and desiccation. Mild diffuse disc bulge/osteophyte. Congenital canal stenosis. Moderate facet and uncovertebral hypertrophy bilaterally. Severe canal stenosis. Mild cord flattening. Severe bilateral foraminal stenosis with bilateral C7 nerve root compression. C7-T1: Moderate disc height loss and desiccation. Mild diffuse disc bulge. Congenital canal stenosis. Moderate facet and uncovertebral hypertrophy bilaterally. Moderate canal stenosis. Moderate right and moderate to severe left foraminal stenosis. Left C8 nerve root compression. IMPRESSION: 1. Small prevertebral hematoma as described above. 2. Edema within the intraspinous soft tissues posteriorly, consistent with ligamentous injury. 3. 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 4. Multilevel canal stenoses, worst at C4-C5, C5-C6, and C6-C7 where there is associated cord flattening. 5. Multilevel foraminal stenoses, worst at C3-C4, C4-C5, C5-C6, C6-C7, and C7-T1 where there is associated intraforaminal nerve root compression. Recommend correlation with clinical symptoms to ascertain relevance of these findings. 6. Low T2 intensity material surrounding the odontoid process of C2, consistent with sequelae of CPPD arthropathy or rheumatoid arthritis, and contributing to moderate canal stenosis. Dictated by: Lili Gonzalez M.D. on 02/15/2022 at 11:13 Approved by: Lili Gonzalez M.D. on 02/15/2022 at 11:23
--- NOTE | 2022-02-15 12:03 | PC.NURSE ---
0935 c-collar off patient and in trash, removed by provider [address] to [address] an aspen collar on patient, aspen placed by 2 rns.
[2022-02-15] MEDS: DEXAMETHASONE 10 MG/ML VIAL IV (18:38)
[2022-02-15] MEDS: ONDANSETRON 4 MG/2 ML INJ IV (18:56)
== END 2022-02-15 19:13 | disposition short-term general hospital (02) ==
PROVIDERS: Emergency Provider Emergency Medicine; Family Provider Internal Medicine; PCP Internal Medicine
DX: S01.81XA Laceration without foreign body of other part of head, initial encounter (principal); E87.6 Hypokalemia; W10.9XXA Fall (on) (from) unspecified stairs and steps, initial encounter; G20 Parkinson's disease; Z79.01 Long term (current) use of anticoagulants; Z79.899 Other long term (current) drug therapy; S14.129A Central cord syndrome at unspecified level of cervical spinal cord, initial encounter
CPT/HCPCS: 36415; 70450; 70486; 71260; 72125; 72141; 73130; 74177; 80053; 80320; 83690; 85025; 85610; 85730; 86850; 86900; 86901; 87635; 96365; 96366; 96375; 96376; 99285; 99291; 99292; C9803; G0390; J1100; J2270; J2405; Q9967